=== PATIENT | female | born 1965 | race Caucasian/White ===

== ENCOUNTER 2018-11-27 10:35 | Outpatient (REF) | payer MEDICARE, SELFPAY ==
[2018-11-27 12:56] LABS: HGB 12.9 g/dL (12.0-15.5)
[2018-11-27 13:10] LABS: ALT 23 U/L (12-78); AST 16 U/L (15-37); Albumin 3.9 g/dL (3.4-5.0); Alkaline Phosphatase 108 U/L (46-116); Anion Gap 8.8 mmol/L (3-11); BUN 9 mg/dL (7-18); Bilirubin, Total 0.2 mg/dL (0.2-1.0); CO2 28.2 mmol/L (21.0-32.0); CREATININE 0.72 mg/dL (0.55-1.02); Calcium 8.7 mg/dL (8.5-10.1); Chloride 96 mmol/L (98-107); Glucose 111 mg/dL (70-100); Potassium 3.8 mmol/L (3.5-5.1); Sodium 133 mmol/L (136-145); Total Protein 7.1 g/dL (6.4-8.2)
[2018-11-28 11:12] LABS: Hepatitis C Ab w Rflx HCV PCR Negative (NEGAT)
== END 2018-11-27 10:55 ==
LOC: NCHCN 10:35
PROVIDERS: PCP Specialist/Technologist Athletic Trainer; Visit Provider Specialist/Technologist Athletic Trainer
DX: F10.10 Alcohol abuse, uncomplicated (principal); Z11.59 Encounter for screening for other viral diseases
CPT/HCPCS: 80053; 86803; 85014; 85018

== ENCOUNTER 2019-01-28 12:48 | Emergency (ER) | payer MEDICARE, SELFPAY ==
[2019-01-28] VITALS (32 sets, daily range): BP systolic 89–141; BP diastolic 49–89; PULSE 72–111; RESP 16–24; TEMP 37.3; O2SAT 88–97
[2019-01-28] MEDS: Normal Saline 1,000 ML 1000 ML IV ×2 (12:57→14:47)
[2019-01-28 13:14] LABS: Abs Immature Grans 0.03 k/cumm (0.0-0.09); Absolute Basophil Count 0.05 k/cumm (0.0-0.2); Absolute Eosinophil Count 0.03 k/cumm (0.0-0.7); Absolute Monocyte Count 0.87 k/cumm (0.11-0.7); Basophils % 0.5; Eosinophils % 0.3; HCT 37.9 % (36.0-46.0); HGB 13.3 g/dL (12.0-15.5); Immature Grans % 0.3; Lymphocytes % 29.6; Mean Corp. HGB Concentration 35.1 g/dL (32.0-36.0); Mean Corpuscular Hemoglobin 31.1 pg (27.0-33.0); Mean Corpuscular Volume 88.6 fL (80-95); Mean Platelet Volume 8.6 fL (8.0-11.0); Monocytes % 8.3; Platelet Count 289 x1000/uL (130-400); RBC 4.28 m/cumm (4.00-5.20); RBC Distribution Width 12.7 % (11.7-14.6); White Blood Cell Count 10.48 k/cumm (4.4-10.8)
[2019-01-28 13:37] LABS: ALT 36 U/L (12-78); AST 45 U/L (15-37); Albumin 4.1 g/dL (3.4-5.0); Alkaline Phosphatase 142 U/L (46-116); Anion Gap 19.4 mmol/L (3-11); BUN 9 mg/dL (7-18); Bilirubin, Total 0.3 mg/dL (0.2-1.0); CO2 19.6 mmol/L (21.0-32.0); CREATININE 0.76 mg/dL (0.55-1.02); Calcium 8.7 mg/dL (8.5-10.1); Chloride 98 mmol/L (98-107); ETHANOL BLOOD 171.3 mg/dL (<3); Glucose 88 mg/dL (70-100); Magnesium 1.9 mg/dL (1.8-2.4); Potassium 3.3 mmol/L (3.5-5.1); Sodium 137 mmol/L (136-145); Total Protein 7.9 g/dL (6.4-8.2)
[2019-01-28 14:30] LABS: Bilirubin Negative (Negative); Blood Trace-intact (Negative); Clarity Clear; Glucose Negative (Negative); Ketones Negative (Negative); Leukocyte Esterase Negative (Negative); Nitrite Negative (Negative); Urobilinogen 0.2 EU/dL (Up TO 0.2)
[2019-01-28 14:38] LABS: Epithelial Cells Many HPF (Negative); WBC Negative HPF (0-5)
[2019-01-28 14:39] LABS: Bacteria Few HPF (Negative); C & S Indicated? No; Casts Negative LPF (Negative); Crystals Negative HPF (Negative); Mucus Moderate (Negative)
[2019-01-28 14:42] LABS: *AMPHETAMINES SCREEN URINE Negative (Negative); *BARBITURATES SCREEN URINE Negative (Negative); *BENZODIAZEPINES SCREEN URINE Negative (Negative); Cannabinoids THC POSITIVE (Negative); Cocaine Screen,Urine Negative (Negative); METHADONE URINE SCREEN Negative (Negative); OPIATES URINE SCREEN Negative (Negative); Tricyclic Antidepressants Negative (Negative)
--- NOTE | 2019-01-28 14:43 | NUR.NOTE ---
Nursing Note: pt requesting snacks. approved. snacks provided
[2019-01-28] MEDS: Potassium Chloride 10 MEQ TABCR 20 MEQ PO (14:49)
--- NOTE | 2019-01-28 16:20 | NUR.NOTE ---
Nursing Note: pt resting in stretcher, no signs of distress, sleeping. facial expression and body language relaxed.
[2019-01-28] MEDS: levETIRAcetam 500 MG in Normal Saline 100 ML 400 MG IVPB (17:58)
[2019-01-28 18:12] LABS: Anion Gap 10.8 mmol/L (3-11); BUN 7 mg/dL (7-18); CO2 23.2 mmol/L (21.0-32.0); CREATININE 0.75 mg/dL (0.55-1.02); Calcium 7.8 mg/dL (8.5-10.1); Chloride 105 mmol/L (98-107); Glucose 81 mg/dL (70-100); Potassium 3.8 mmol/L (3.5-5.1); Sodium 139 mmol/L (136-145)
--- NOTE | 2019-01-28 18:51 | NUR.NOTE ---
Nursing Note: pt resting in stretcher, no sign of distress. pt is able to ambulate with steady gait without difficulty. No signs of any seizure activity since admission to ED
--- NOTE | 2019-01-28 18:53 | ED.GENADUL_ITS ---
Discharge Plan Disposition Patient Disposition: HOME Condition: Improving Discharge Details Chief Complaint: Seizure Clinical Impression: Seizure, Alcohol abuse Primary Care Provider: Americo Hough ED Provider: Ray Sadler Home Meds and New Rx's Prescriptions: Continued prazosin 1 mg capsule 1 mg PO QHS RF: 0 ibuprofen [Advil] 200 mg tablet 400 mg PO PRN RF: 0 atorvastatin 20 mg tablet 20 mg PO DAILY RF: 0 hydroxyzine HCl 25 mg/mL solution 25 mg IM .1-2 tabs tid prn RF: 0 levetiracetam [Keppra] 500 mg tablet 500 mg PO BID RF: 0 citalopram 40 MG tablet 40 mg PO DAILY Qty: 90 RF: 3 trazodone 50 MG tablet 100 mg PO HS Qty: 20 RF: 0 acetaminophen [Pain Reliever Extra Strength] 500 MG tablet 500 mg PO Q8H PRN PRNRF: 0 Discharge Instructions Instructions: Abuse of Alcohol (ED), Recurrent Seizures in Adults (ED) Additional Instructions: Please follow-up with neurology. Be sure to take your medication including Keppra as prescribed. Please do not drive or operate heavy machinery until cleared to do so by a healthcare provider. Please contact your primary care physician to arrange follow-up. Call tomorrow. Return to the ER for any worsening or new concerning symptoms. Referrals: Americo Hough [Primary Care Provider] - Ava Wynne MD [ [facility]FF [facility]YSICIAN] - Discharge Data Discharge Date/Time-TO BE ENTERED AT DEPARTURE: 01/28/19 19:02 Medical Decision Making 53-year-old female presents after presumed seizure with confusion. Suspect postictal state. No signs of trauma. Patient has no pain. Patient was given Ativan 4 mg by EMS. Labs revealed elevated ethanol level and anion gap acidosis. Patient admits to consuming alcohol last night. Patient was given IV fluid bolus 2 L and repeat chemistry revealed closure of anion gap acidosis. Patient rested in the emergency department for prolonged observation and until mentating well. No recurrent seizures. I discussed patient's seizure disorder. She does not believe seizures are related to alcohol withdrawal. She states she does not drink every day and does not feel the need to drink when she does not have it. Patient does note that she did not take her Keppra as prescribed yesterday. She does typically take it. She did take it this morning. Patient was given Keppra 500 mg IV bolus. Plan for discharge with outpatient follow-up with neurology and primary care physician. Patient was encouraged to take her Keppra as prescribed and to stop abusing alcohol. Disposition decision was made weighing the risks and benefits of hospitalization versus outpatient treatment, the risk for further decompensation, and the patient's wishes. The patient was stable and requested discharge. Prior to discharge, my usual and customary return precautions were reviewed with the patient - this included follow-up instructions and reason to return to the emergency department if condition worsens, does not improve as expected, or other new concerns arise. Lab Data Lab results reviewed: Yes I reviewed the patient's lab results. Laboratory Tests Range/Units 01/28/19 01/28/19 01/28/19 13:08 13:08 14:20 WBC (4.4-10.8) k/cumm 10.48 RBC (4.00-5.20) m/cumm 4.28 Hgb (12.0-15.5) g/dL 13.3 Hct (36.0-46.0) % 37.9 MCV (80-95) fL 88.6 MCH (27.0-33.0) pg 31.1 MCHC (32.0-36.0) g/dL 35.1 RDW (11.7-14.6) % 12.7 Plt Count (130-400) x1000/uL 289 MPV (8.0-11.0) fL 8.6 Immature Gran % 0.3 Neutrophils % 61.0 Lymphocytes % 29.6 Monocytes % 8.3 Eosinophils % 0.3 Basophils % 0.5 Absolute Neutrophils (1.2-6.7) k/cumm 6.40 Absolute Lymphocytes (1.2-3.4) k/cumm 3.10 Absolute Monocytes (0.11-0.7) k/cumm 0.87 H Absolute Eosinophils (0.0-0.7) k/cumm 0.03 Absolute Basophils (0.0-0.2) k/cumm 0.05 Sodium (136-145) mmol/L 137 Potassium (3.5-5.1) mmol/L 3.3 L Chloride (98-107) mmol/L 98 Carbon Dioxide (21.0-32.0) mmol/L 19.6 L Anion Gap (3-11) mmol/L 19.4 H BUN (7-18) mg/dL 9 Creatinine (0.55-1.02) mg/dL 0.76 Estimated GFR/1.73 m2 (mL/min/1.73m2) >= 60.00 Glucose (70-100) mg/dL 88 Calcium (8.5-10.1) mg/dL 8.7 Magnesium (1.8-2.4) mg/dL 1.9 Total Bilirubin (0.2-1.0) mg/dL 0.3 AST (15-37) U/L 45 H ALT (12-78) U/L 36 Alkaline Phosphatase (46-116) U/L 142 H Total Protein (6.4-8.2) g/dL 7.9 Albumin (3.4-5.0) g/dL 4.1 Urine Color (Yellow) Yellow Urine Clarity Clear Urine pH (5-8) 6.0 Ur Specific Halliday (1.005-1.025) 1.010 Urine Protein (Negative) mg/dL Negative Urine Ketones (Negative) mg/dL Negative Urine Blood (Negative) Trace-intact H Urine Nitrite (Negative) Negative Urine Bilirubin (Negative) Negative Urine Urobilinogen (Up TO 0.2) EU/dL 0.2 Ur Leukocyte Esterase (Negative) Negative Urine RBC (0-2) 3-5 H Urine WBC (0-5) HPF Negative Ur Epithelial Cells (Negative) HPF Many Urine Crystals (Negative) HPF Negative Urine Bacteria (Negative) HPF Few Urine Casts (Negative) LPF Negative Urine Mucus (Negative) Moderate Ur Culture Indicated? No Urine Glucose (Negative) mg/dL Negative Urine Opiates Screen (Negative) Urine Methadone Screen (Negative) Ur Barbiturates Screen (Negative) Ur Tricyclics Screen (Negative) Ur Amphetamines Screen (Negative) U Benzodiazepines Scrn (Negative) Urine Cocaine Screen (Negative) Ur THC Screen (Negative) Ethyl Alcohol (<3) mg/dL 171.3 Range/Units 01/28/19 01/28/19 14:20 17:59 WBC (4.4-10.8) k/cumm RBC (4.00-5.20) m/cumm Hgb (12.0-15.5) g/dL Hct (36.0-46.0) % MCV (80-95) fL MCH (27.0-33.0) pg MCHC (32.0-36.0) g/dL RDW (11.7-14.6) % Plt Count (130-400) x1000/uL MPV (8.0-11.0) fL Immature Gran % Neutrophils % Lymphocytes % Monocytes % Eosinophils % Basophils % Absolute Neutrophils (1.2-6.7) k/cumm Absolute Lymphocytes (1.2-3.4) k/cumm Absolute Monocytes (0.11-0.7) k/cumm Absolute Eosinophils (0.0-0.7) k/cumm Absolute Basophils (0.0-0.2) k/cumm Sodium (136-145) mmol/L 139 Potassium (3.5-5.1) mmol/L 3.8 Chloride (98-107) mmol/L 105 Carbon Dioxide (21.0-32.0) mmol/L 23.2 Anion Gap (3-11) mmol/L 10.8 BUN (7-18) mg/dL 7 Creatinine (0.55-1.02) mg/dL 0.75 Estimated GFR/1.73 m2 (mL/min/1.73m2) >= 60.00 Glucose (70-100) mg/dL 81 Calcium (8.5-10.1) mg/dL 7.8 L Magnesium (1.8-2.4) mg/dL Total Bilirubin (0.2-1.0) mg/dL AST (15-37) U/L ALT (12-78) U/L Alkaline Phosphatase (46-116) U/L Total Protein (6.4-8.2) g/dL Albumin (3.4-5.0) g/dL Urine Color (Yellow) Urine Clarity Urine pH (5-8) Ur Specific Halliday (1.005-1.025) Urine Protein (Negative) mg/dL Urine Ketones (Negative) mg/dL Urine Blood (Negative) Urine Nitrite (Negative) Urine Bilirubin (Negative) Urine Urobilinogen (Up TO 0.2) EU/dL Ur Leukocyte Esterase (Negative) Urine RBC (0-2) Urine WBC (0-5) HPF Ur Epithelial Cells (Negative) HPF Urine Crystals (Negative) HPF Urine Bacteria (Negative) HPF Urine Casts (Negative) LPF Urine Mucus (Negative) Ur Culture Indicated? Urine Glucose (Negative) mg/dL Urine Opiates Screen (Negative) Negative Urine Methadone Screen (Negative) Negative Ur Barbiturates Screen (Negative) Negative Ur Tricyclics Screen (Negative) Negative Ur Amphetamines Screen (Negative) Negative U Benzodiazepines Scrn (Negative) Negative Urine Cocaine Screen (Negative) Negative Ur THC Screen (Negative) Positive Ethyl Alcohol (<3) mg/dL HPI General Mode of arrival: ambulatory . Date/Time Provider Initiated Documentation: 01/28/19 12:49 . Limitations to Documentation: no limitations . Information obtained by: patient . HPI Narrative: 53-year-old female presents with chief complaint of seizure. Patient is she has a history of seizure. Patient states that today she started to experience seizure just prior to calling EMS. EMS arrived to find the patient confused and anxious. EMS administered 2 mg of Ativan IM and then another 2 mg of Ativan IV. History and review of systems limited on initial exam given her confusion. Related Data Home Medications Medication Instructions Recorded Confirmed citalopram 40 mg PO DAILY #90 tab-cap 11/04/15 01/28/19 trazodone 100 mg PO HS #20 tab-cap 03/30/16 01/28/19 acetaminophen [Pain Reliever Extra 500 mg PO Q8H PRN PRN 12/10/16 01/28/19 Strength] atorvastatin 20 mg tablet 20 mg PO DAILY 12/12/18 01/28/19 hydroxyzine HCl 25 mg/mL 25 mg IM .1-2 tabs tid prn ml 12/12/18 01/28/19 intramuscular solution ibuprofen 200 mg tablet 400 mg PO PRN tab 12/12/18 01/28/19 levetiracetam 500 mg tablet 500 mg PO BID 12/12/18 01/28/19 prazosin 1 mg capsule 1 mg PO QHS 12/12/18 01/28/19 Allergies Allergy/AdvReac Type Severity Reaction Status Date / Time morphine Allergy Itching Unverified 12/22/16 14:33 multivitamins AdvReac Uncoded 12/10/16 11:05 Review of Systems Review of Systems Limited secondary to confusion. Patient denies pain. Constitutional Denies fever(s) and Denies headache(s) ENT Denies headache(s) Cardiovascular Denies chest pain and Denies dyspnea Respiratory Denies dyspnea Gastrointestinal Denies abdominal pain Integumentary/Breasts Denies rash Neurologic Denies headache(s) PFSH Medical History Adenomatous polyp of colon (Acute) Cannabis abuse (Acute) Degenerative joint disease, shoulder, right (Acute) Grief at loss of child (Acute) Hepatitis B (Acute) Hyperlipidemia (Acute) Nightmare disorder (Acute) Panic disorder (Acute) Seizure (Acute) Tobacco abuse (Acute) ETOH abuse (Chronic) Alcohol abuse, in remission Anxiety BRCA2 positive Back pain, chronic Depression Surgical History (L) wrist surgery Cervical disc surgery Colonoscopy - MAC (09/27/16) Oophrectomy, Both gomez elbow surgery facial plastics hysterectomy Family History Brother Substance abuse Brother Hepatitis C Social History Smoking/Tobacco Use Status: Current every day Tobacco Type: cigarettes Alcohol Intake: current Alcohol Intake frequency: a few times a month Drug use: Never Substance use type: marijuana Do you feel safe in your relationship?: Yes Exam Const General: cooperative and no acute distress HENMT Head: normocephalic and atraumatic Mouth: moist mucous membranes Eyes Conjunctivae: normal conjunctivae Sclera: normal sclerae EOM: EOM intact bilaterally Neck Neck: trachea midline and supple Resp Auscultation: clear to auscultation bilaterally, no rales, no rhonchi and no wheezes Cardio Jugular venous pressure: no JVD Rate: tachycardic Rhythm: regular rhythm GI Palpation: soft, not firm, no guarding, no masses, not rigid and nontender Skin General skin exam: no rashes or lesions noted Neuro General: alert, awake, oriented x3, tone normal and moves all extremities Cranial Nerves: CN's II-XI intact bilaterally and PERRL Speech: speech normal Motor: muscle tone normal throughout and strength 5/5 throughout Sensory Exam: no sensory deficits noted Extrem General: no edema Psych Affect: anxious affect
--- NOTE | 2019-01-29 08:09 | NUR.NOTE ---
referral sent to patient pcp [facility] and Neurology Dr. Poe.Nursing Note:
== END 2019-01-28 19:02 | disposition home or self-care (01) ==
PROVIDERS: Emergency Provider Student in an Organized Health Care Education/Training Program; PCP Specialist/Technologist Athletic Trainer
DX: R56.9 Unspecified convulsions (principal); F10.10 Alcohol abuse, uncomplicated; Z91.14 Patient's other noncompliance with medication regimen
CPT/HCPCS: 36415; 80048; 80053; 80307; 96361; 96365; 99285; 80320; 81003; 81015; 83735; 85025; 99284; J1953

== ENCOUNTER 2019-03-05 00:39 | Outpatient (CLI) | payer MEDICARE, SELFPAY ==
--- NOTE | 2019-03-05 10:14 | DI.MAMMO_ITS ---
SYMPTOMS/DIAGNOSIS: SCREENING, IMPLANTS, BRCA2 GENETIC CARRIER, Z15.01 MAMMOGRAM: Mammograms were interpreted according to the usual protocol including computer analysis with CAD system, tomosynthesis and C view imaging. Comparison with prior examinations. Breast density B. The patient has bilateral breast implants which appear stable. No suspicious masses or microcalcifications are seen. The skin and axilla are unremarkable. IMPRESSION: No evidence for malignancy. Yearly mammography is recommended. Category I. MQSA ASSESSMENT OF FINDINGS: Negative. Category 1. Patient will receive a letter notifying them of these results. BI-RADS category B. There are scattered areas of fibroglandular density.
== END 2019-03-05 00:59 ==
PROVIDERS: PCP Specialist/Technologist Athletic Trainer; Visit Provider Specialist/Technologist Athletic Trainer
DX: Z12.31 Encounter for screening mammogram for malignant neoplasm of breast (principal); Z15.01 Genetic susceptibility to malignant neoplasm of breast; Z98.82 Breast implant status; R56.9 Unspecified convulsions
CPT/HCPCS: 77063; 77067; 95816

== ENCOUNTER 2019-03-05 14:58 | Outpatient (CLI) | payer MEDICARE, SELFPAY ==
--- NOTE | 2019-03-06 09:46 | PDOC.EEG_ITS ---
EEG: [facility] Department of Neurology EEG REPORT Date of Recordin03/05/19 Interpreting Physician: Dr. Ava Wynne PCP/Referring Provider: Americo Hough NP Reason for study: Ms. Brian is a 53 year-old woman with a past medical history of seizures and alcohol abuse with a recent event in January concerning for seizure. Current Medications: Home Medications Medication Instructions Recorded Confirmed Type citalopram 40 mg PO DAILY #90 tab-cap 11/04/15 01/28/19 History trazodone 100 mg PO HS #20 tab-cap 03/30/16 01/28/19 History acetaminophen [Pain Reliever Extra 500 mg PO Q8H PRN PRN 12/10/16 01/28/19 History Strength] atorvastatin 20 mg tablet 20 mg PO DAILY 12/12/18 01/28/19 History hydroxyzine HCl 25 mg/mL 25 mg IM .1-2 tabs tid prn ml 12/12/18 01/28/19 History intramuscular solution ibuprofen 200 mg tablet 400 mg PO PRN tab 12/12/18 01/28/19 History levetiracetam 500 mg tablet 500 mg PO BID 12/12/18 01/28/19 History prazosin 1 mg capsule 1 mg PO QHS 12/12/18 01/28/19 History lorazepam 0.5 mg tablet 0.5 mg PO BID PRN 03/01/19 History METHODS: A 21 channel digitized electroencephalogram was performed in the [facility] Clinical Neurophysiology Laboratory. The 10/20 international system of electrode placement was used and bipolar and referential electrode montages were recorded. In addition to EEG the patient was monitored for EKG and lateral/vertical eye movements. Activation procedures of photic stimulation and hyperventilation were performed if applicable. Video was used during activation procedures and during events where applicable. The duration of the recording was 30 minutes. DESCRIPTION OF EEG: The patient was noted to be awake only during the recording. During maximal wakefulness a 10-Hz posterior background rhythm was present which was well- modulated, symmetrical, reactive to eye opening, and of moderate voltage. With eye opening the background activity changed to a low voltage mixture of alpha, beta, and occasional theta range frequencies. Faster frequencies were present in the bilateral anterior head regions. There was a normal anterior-posterior voltage gradient. No drowsiness or stage II sleep was recorded. There was excessive diffuse beta activity throughout. This is usually due to medication effects. Activating Procedures: Photic stimulation was not performed (patient pulled off leads before this could be completed). Hyperventilation was performed with moderate effort and produced no physiological slowing of the background. EKG: EKG revealed normal sinus rhythm in the beginning of the recording. It was not readable/interpretable in the latter half. INTERPRETATION: This EEG is normal during the awake state as well as during hyperventilation. PRIOR EEG: none CLINICAL CORRELATION: No focal regions of cerebral dysfunction or epileptiform activity was present. Epilepsy remains a clinical diagnosis and a normal EEG does not rule out epilepsy. Clinical correlation is advised. Ava Wynne MD
== END 2019-03-05 15:18 ==
PROVIDERS: PCP Specialist/Technologist Athletic Trainer; Visit Provider Specialist/Technologist Athletic Trainer
DX: R56.9 Unspecified convulsions (principal); R68.89 Other general symptoms and signs; Z86.69 Personal history of other diseases of the nervous system and sense organs
CPT/HCPCS: 95816

== ENCOUNTER 2019-07-23 09:36 | Outpatient (REF) | payer MEDICARE, SELFPAY ==
[2019-07-23 21:38] LABS: ALT 23 U/L (14-59); AST 21 U/L (15-37); Albumin 3.9 g/dL (3.4-5.0); Alkaline Phosphatase 110 U/L (46-116); Anion Gap 9.6 mmol/L (3-11); BUN 11 mg/dL (7-18); Bilirubin, Total 0.3 mg/dL (0.2-1.0); CO2 25.4 mmol/L (21.0-32.0); CREATININE 0.63 mg/dL (0.55-1.02); Calcium 8.7 mg/dL (8.5-10.1); Chloride 103 mmol/L (98-107); Glucose 109 mg/dL (74-106); Sodium 138 mmol/L (136-145); Total Protein 7.3 g/dL (6.4-8.2)
== END 2019-07-23 09:56 ==
LOC: NCHCN 09:36
PROVIDERS: PCP Specialist/Technologist Athletic Trainer; Visit Provider Specialist/Technologist Athletic Trainer
DX: Z00.00 Encounter for general adult medical examination without abnormal findings (principal); Z13.228 Encounter for screening for other metabolic disorders
CPT/HCPCS: 80053

== ENCOUNTER 2020-02-18 07:10 | Outpatient (CLI) | payer MEDICARE, SELFPAY ==
--- NOTE | 2020-02-18 08:00 | ETT_ITS ---
APPROVED REPORT Exam: Exercise Treadmill Patient Location: Out-Patient Room/Bed: Stress Nurse: Meredith Stewart RN BMI: 26.62 Baseline Rhythm: Sinus Rhythm Indications: Increased SOB with activity, sometimes associated with chest tightness, relieved with re st. Medical History Medical History: Depression, HTN, Hyperlipidemia, Smoking Cardiac Medications: Atorvastatin. Lisinopril., Allergies: Morphine Cardiac Risk Factors: HTN, Hyperlipidemia, FHX of CAD, Smoking, Emphysema. Pretest Chest Pain Characteristics: Dyspnea Exercise History: Physically active Lung Sounds: Clear to auscultation Heart Sounds: Regular Stress Test Details Test: Exercise stress testing was performed using a Yoandy protocol. Rest Stress HR Resting HR Supine: 76 bpm Max Heart Rate (APMHR): 166 bpm Resting HR Standin bpm Target HR (85% APMHR): 141 bpm Max HR Achieved: 120 bpm % of APMHR: 72 Recovery HR: 69 bpm HR response to stress: Normal HR response to stress BP Resting BP Supine: 120/72 mmHg Resting BP Standin/64 mmHg Max BP: 158/60 mmHg Recovery BP: 128/70 mmHg BP response to stress: Normal blood pressure response to stress. ECG Resting ECG: Sinus Rhythm Stress ECG: Sinus Rhythm, Sinus Tachycardia ST Change: No significant ST segment changes Arrhythmia: None Recovery ECG: Sinus Rhythm, , Clear, Sinus Rhythm Recovery ST Change: No significant ST segment changes Recovery Arrhythmia: None Clinical Reason for Termination: Dyspnea, Dizziness Stress Symptoms: Dyspnea, Dizziness Exercise duration: 04 min02 sec Highest Stage Reached: Stage 2: 2.5 mph at 12% grade. Exercise capacity: 5.87 METs Functional Capacity: Mildly deminished capacity Stress ECG Conclusion 1. Below average exercise tolerance of 5.87 METS, limited by shortness of breath and dizziness 2. Resting electrocardiogram is within normal limits 3. Normal heart rate and blood pressure response to exercise 4. She achieved 72% of predicted heart rate for age. At that heart rate and workload achieved, there was no electrocardiographic evidence of myocardial ischemia but the test overall is nondiagnostic du e to inadequate heart rate 5. Dixon treadmill score is 4, which translates to medium risk with 95% survival at 5 years Stress Test Summary STAGE Time (mins) Speed (mph) Grade (%) HR BP SYMPTOMS METS Supine 76 120/72 Standing 77 126/64 1 3 1.7 10 99 152/62 4.6 2 6 2.5 12 Dyspnea, lightheaded and dizzy. 7 1 min recovery 98 158/60 3 min recovery 75 146/64 6 min recovery 69 128/70
== END 2020-02-18 07:30 ==
PROVIDERS: PCP Specialist/Technologist Athletic Trainer; Visit Provider Nurse Practitioner Family
DX: R06.02 Shortness of breath (principal); R07.89 Other chest pain; I10 Essential (primary) hypertension; E78.5 Hyperlipidemia, unspecified; Z82.49 Family history of ischemic heart disease and other diseases of the circulatory system; F17.210 Nicotine dependence, cigarettes, uncomplicated
CPT/HCPCS: 93016; 93018; 93017

== ENCOUNTER 2020-03-03 16:41 | Outpatient (REF) | payer MEDICARE, SELFPAY ==
[2020-03-03 20:08] LABS: Alkaline Phosphatase 111 U/L (46-116); Anion Gap 12.1 mmol/L (3-11); BUN 11 mg/dL (7-18); CO2 23.9 mmol/L (21.0-32.0); CREATININE 0.89 mg/dL (0.55-1.02); Chloride 101 mmol/L (98-107); Creatine Kinase 125 U/L (26-192); Glucose 115 mg/dL (74-106); Potassium 4.1 mmol/L (3.5-5.1); Sodium 137 mmol/L (136-145)
[2020-03-03 20:14] LABS: GGT 33 U/L (5-55)
== END 2020-03-03 17:01 ==
LOC: NCHCN 16:41
PROVIDERS: PCP Specialist/Technologist Athletic Trainer; Visit Provider Nurse Practitioner Family
DX: I10 Essential (primary) hypertension (principal); R89.9 Unspecified abnormal finding in specimens from other organs, systems and tissues
CPT/HCPCS: 80048; 82550; 82977; 84075

== ENCOUNTER 2020-03-18 01:31 | Outpatient (CLI) | payer MEDICARE, SELFPAY ==
--- NOTE | 2020-03-18 | DI.MAMMO_ITS ---
EXAM: MG MAMMO SCREENING 60 MIN DUR CLINICAL HISTORY: SCREENING, IMPLANTS TECHNIQUE: Bilateral full field digital CC and MLO mammographic images were obtained with 3D tomosyn thesis and utilizing computer aided detection (CAD). COMPARISON: Available for comparison. FINDINGS: Masses/Architectural Distortion: None seen. Microcalcifications: No suspicious pleomorphic-type are seen. Skin Thickening/Nipple Retraction: None. Breast implants: Stable. IMPRESSION: 1. No significant interval change with no specific features of malignancy noted. 2. Unless there is more urgent need, screening mammography is recommended, as per [employer] [employer] guidelines. BI-RADS Category 1 - Negative Breast Density - Category B - Scattered areas of fibroglandular density A negative radiographic report should not delay biopsy if a dominant or clinically suspicious mass is present. Up to ten percent of cancers are not identified on mammography. A negative report may reinforce clinical impression. Adenosis and dense breasts may obscure an underlying neoplasm. False positive reports average 6 to 10%. Patient will receive a letter notifying them of these results.
== END 2020-03-18 01:51 ==
PROVIDERS: PCP Nurse Practitioner Family; Visit Provider Nurse Practitioner Family
DX: Z12.31 Encounter for screening mammogram for malignant neoplasm of breast (principal)
CPT/HCPCS: 77063; 77067

== ENCOUNTER 2020-03-21 08:04 | Outpatient (CLI) | payer MEDICARE, SELFPAY ==
[2020-03-22 17:28] LABS: COVID-19 RT-PCR Result NEGATIVE (Negative)
== END 2020-03-21 08:24 ==
PROVIDERS: PCP Nurse Practitioner Family; Visit Provider Family Medicine
DX: Z11.59 Encounter for screening for other viral diseases (principal); Z01.818 Encounter for other preprocedural examination
CPT/HCPCS: U0003

== ENCOUNTER 2020-03-24 02:48 | Outpatient (CLI) | payer MEDICARE, SELFPAY ==
[2020-03-24] MEDS: Methacholine 100 MG VIAL IH (12:00)
[2020-03-24] MEDS: Inhaler, Assist Device 1 EACH MC (12:00)
[2020-03-24] MEDS: Albuterol HFA 18 GM 200 PUFF INH IH (12:00)
--- NOTE | 2020-03-24 14:40 | W.PFT ---
Date of service: 03/24/20 Time of Service: 10:04 Pulmonary Function Test Result Interpretation Spirometry: Shows no evidence of obstructive airways disease. No bronchodilator Response Lung Volumes: No evidence of restriction. Mild to moderate hyperinflation and air trapping Diffusion Capacity: Mildly reduced even when corrected to alveolar volume Airway Pressure: Normal Impression While there is no evidence of obstructive airways disease or bronchodilator response, there is mild hyperinflation and air trapping and mild diffusion defect Clinical Correlation therefore is recommended. Methacholine Challnege Test Date of Service Date of Service: 03/24/2020 Note After normal spirometry but lung volumes showing mild hyperinflation and air trapping and mild diffusion defect methacholine challenge testing was carried out up to a concentration of 4 mg/mL. At that point there was a 23% drop in FEV1. Impression Positive methacholine challenge test. Clinical correlation recommended
== END 2020-03-24 03:08 ==
PROVIDERS: PCP Nurse Practitioner Family; Visit Provider Nurse Practitioner Family
DX: R06.02 Shortness of breath (principal); F17.210 Nicotine dependence, cigarettes, uncomplicated; R94.2 Abnormal results of pulmonary function studies
CPT/HCPCS: 94060; 94726; 94729; 95070; 94010; J7674

== ENCOUNTER 2020-05-07 02:58 | Outpatient (CLI) | payer MEDICARE, SELFPAY ==
--- NOTE | 2020-05-07 | DI.CTLCSR_ITS ---
EXAM: CT CHEST LUNG CANCER SCREEN CLINICAL HISTORY: SCREENING FOR LUNG CA,Z12.9,CURRENT SMOKER, F17.210 TECHNIQUE: Imaging Protocol: Axial computed tomography images with coronal and sagittal reformatted images were created and reviewed COMPARISON: CT CHEST ABD PELVIS WITH CONTRAST from 12/01/2015 FINDINGS: Tracheobronchial tree: Patent where visualized. Mediastinum and Vicki: No dominant adenopathy or fluid collection. Pulmonary parenchyma: No consolidation or dominant measurable mass. Moderate centrilobular emphysema . There are 2 small nodules in the left major fissure. Pleura: No effusion or pneumothorax. Heart: The heart is not dilated. Minimal coronary artery calcifications are seen. Aorta: Thoracic aorta non-dilated. Upper abdomen: Unremarkable. Bones: Mild degenerative changes Soft Tissues: Bilateral breast implants IMPRESSION: Centrilobular emphysema greater in the upper lobes. No suspicious pulmonary nodules. Lung RADS Cat 2 - Benign Appearance / Behavior: Nodules with a very low likelihood of becoming a clin ically active cancer due to size or lack of growth modifier S Lung-RADS 1.0 CATEGORIES: Category 0 - Prior chest CT exam(s) being located for comparison. Category 1 - Annual screening in 12 months. No nodules or definitely benign nodules. Category 2 - Annual screening in 12 months. Benign appearance. Nodules with low likelihood of becomin g active cancer. Category 3 - 6-month follow-up. Probably benign. Short-term follow-up suggested. Nodules with low lik elihood of becoming active cancer. Category 4A - 3-month follow-up and CT/PET if >8 mm in size. Suspicious finding. Findings which requi re additional testing. Category 4B - Findings which require additional testing and tissue sampling. Suspicious finding. C Added to Any of the Above - History of prior lung cancer screening. S Added to Any of the Above - Significant unexpected other finding. RADIATION DOSE DELIVERED: 72.22mGy.cm Total DLP DATA REPOSITORY: All CT scans at this facility are submitted to the National Radiology Data Registry (NRDR) Dose Index Registry (DIR) with the [employer] ([employer]). RADIATION OPTIMIZATION: All CT scans at this facility use at least one of these dose optimization te chniques: automated exposure control; mA and/or kV adjustment per patient size (includes targeted exa ms where dose is matched to clinical indication); or iterative reconstruction.
== END 2020-05-07 03:18 ==
PROVIDERS: PCP Nurse Practitioner Family; Visit Provider Nurse Practitioner Family
DX: Z12.2 Encounter for screening for malignant neoplasm of respiratory organs (principal); F17.210 Nicotine dependence, cigarettes, uncomplicated; J43.2 Centrilobular emphysema
CPT/HCPCS: G0297

== ENCOUNTER 2020-08-06 15:14 | Outpatient (REF) | payer MEDICARE, SELFPAY ==
[2020-08-06 21:03] LABS: ALT 28 U/L (14-59); AST 20 U/L (15-37); HDL Cholesterol 65 mg/dL (40-60); LDL CHOLESTEROL 125 mg/dL (<100)
[2020-08-06 21:21] LABS: Creatine Kinase 181 U/L (26-192)
== END 2020-08-06 15:34 ==
LOC: NCHCN 15:14
PROVIDERS: PCP Nurse Practitioner Family; Visit Provider Nurse Practitioner Family
DX: E78.5 Hyperlipidemia, unspecified (principal)
CPT/HCPCS: 82550; 83721; 83718; 84450; 84460

== ENCOUNTER 2020-09-29 20:41 | Outpatient (REF) | payer MEDICARE, SELFPAY ==
[2020-09-29 16:32] LABS: Anion Gap 9.3 mmol/L (3-11); BUN 11 mg/dL (7-18); CO2 27.7 mmol/L (21.0-32.0); CREATININE 0.8 mg/dL (0.55-1.02); Chloride 94 mmol/L (98-107); Glucose 118 mg/dL (74-106); Sodium 131 mmol/L (136-145)
== END 2020-09-29 20:42 | disposition home or self-care (01) ==
LOC: NCHCN 20:41
PROVIDERS: PCP Nurse Practitioner Family; Visit Provider Nurse Practitioner Family
DX: I10 Essential (primary) hypertension (principal)
CPT/HCPCS: 80048

== ENCOUNTER 2021-07-21 15:41 | Outpatient (REF) | payer MEDICARE, MEDICAID, SELFPAY ==
--- NOTE | 2021-07-21 15:15 | PAPFT_PTH ---
PATIENT: Maria Isabel Brian LOC: [facility]#:[id number] AGE/SX: 56/F ROOM: RE07/21/[address]: China Herring : 1965 BED: DIS: 07/21/2021 SPEC #: [id number] RECD: 07/21/21 17:40 STATUS: MARLEY REOmega #: [id number] MAHAMED: 07/21/21 15:[address]: China Herring DEPT: [facility] Cytology RECD BY: Anita Bradford Tissues: 1 - CX/ENDOCX FOR PAP SMEARS Procedures: PAP THIN PREP/UVM Screening HPV DNA PROBE Comments: [id number]
[2021-07-21 19:38] LABS: ALT 36 U/L (14-59); AST 25 U/L (15-37); Anion Gap 8.9 mmol/L (3-11); BUN 12 mg/dL (7-18); CO2 27.1 mmol/L (21.0-32.0); CREATININE 0.8 mg/dL (0.55-1.02); Calcium 8.7 mg/dL (8.5-10.1); Chloride 100 mmol/L (98-107); Glucose 92 mg/dL (74-106); HDL Cholesterol 58 mg/dL (40-60); LDL CHOLESTEROL 76 mg/dL (<100); Potassium 3.7 mmol/L (3.5-5.1); Sodium 136 mmol/L (136-145)
[2021-07-21 20:13] LABS: Creatine Kinase 200 U/L (26-192)
== END 2021-07-21 15:42 | disposition home or self-care (01) ==
LOC: NCHCN 15:41
PROVIDERS: PCP Nurse Practitioner Family; Visit Provider Nurse Practitioner Family
DX: Z12.4 Encounter for screening for malignant neoplasm of cervix (principal); E78.5 Hyperlipidemia, unspecified; Z11.51 Encounter for screening for human papillomavirus (HPV); R87.810 Cervical high risk human papillomavirus (HPV) DNA test positive; I10 Essential (primary) hypertension; Z01.419 Encounter for gynecological examination (general) (routine) without abnormal findings
CPT/HCPCS: 80048; 82550; 83721; 88142; 83718; 84450; 84460; 87624

== ENCOUNTER 2021-09-16 10:21 | Outpatient (REF) | payer MEDICARE, MEDICAID, SELFPAY ==
--- NOTE | 2021-09-16 09:45 | PAPFT_PTH ---
PATIENT: Maria Isabel Brian LOC: [facility]#:[id number] AGE/SX: 56/F ROOM: RE09/16/[address]: China Herring : 1965 BED: DIS: 09/16/2021 SPEC #: [id number] RECD: 09/16/21 13:11 STATUS: MARLEY REOmega #: [id number] MAHAMED: 09/16/21 09:[address]: China Herring DEPT: [facility] Cytology RECD BY: Anita Bradford Tissues: 1 - CX/ENDOCX FOR PAP SMEARS Procedures: PAP THIN PREP/UVM Screening Comments: [id number] (UNSATISFACTORY FOR EVALUATION)
[2021-09-16 13:13] LABS: ALT 26 U/L (14-59); AST 19 U/L (15-37); HDL Cholesterol 52 mg/dL (40-60); LDL CHOLESTEROL 100 mg/dL (<100)
[2021-09-16 13:27] LABS: Creatine Kinase 213 U/L (26-192)
== END 2021-09-16 10:22 | disposition home or self-care (01) ==
LOC: NCHCN 10:21
PROVIDERS: PCP Nurse Practitioner Family; Visit Provider Nurse Practitioner Family
DX: E78.5 Hyperlipidemia, unspecified (principal); Z12.4 Encounter for screening for malignant neoplasm of cervix; Z01.419 Encounter for gynecological examination (general) (routine) without abnormal findings; R87.615 Unsatisfactory cytologic smear of cervix
CPT/HCPCS: 82550; 83721; 88142; 83718; 84450; 84460

== ENCOUNTER 2021-10-27 10:33 | Outpatient (REF) | payer MEDICARE, MEDICAID, SELFPAY ==
[2021-10-27 12:58] LABS: Calculated LDL 179 mg/dL (<100); Cholesterol 251 mg/dL (<200); HDL Cholesterol 58 mg/dL (40-60); Triglyceride 71 mg/dL (<150)
== END 2021-10-27 10:34 | disposition home or self-care (01) ==
LOC: NCHCN 10:33
PROVIDERS: PCP Nurse Practitioner Family; Visit Provider Nurse Practitioner Family
DX: E78.5 Hyperlipidemia, unspecified (principal)
CPT/HCPCS: 80061

== ENCOUNTER 2021-11-09 14:48 | Outpatient (REF) | payer MEDICARE, MEDICAID, SELFPAY ==
--- NOTE | 2021-11-09 14:40 | ENDO_PTH ---
PATIENT: Maria Isabel Brian LOC: [facility] U#:[id number] AGE/SX: 56/F ROOM: RE11/09/[address]: Sweetie Squires DO : 1965 BED: DIS: 11/09/2021 SPEC #: [id number] RECD: 11/09/21 17:19 STATUS: MARLEY RE #: [id number] MAHAMED: 11/09/21 14:[address]: Sweetie Squires DEPT: Surgical Specimen RECD BY: Anita Bradford ENTERED: 11/09/21 17:19 SP TYPE: Endo OTHR DR: China Herring Tissues: 1 - ENDOCERVICAL BX/CURRETTE 2 - CERVICAL BIOPSY Procedures: GROSS AND MICRO LEVEL 4 Comments: [id number]
== END 2021-11-09 14:49 | disposition home or self-care (01) ==
LOC: LBN 14:48
PROVIDERS: PCP Nurse Practitioner Family; Visit Provider Obstetrics & Gynecology
DX: N88.8 Other specified noninflammatory disorders of cervix uteri (principal); Z87.410 Personal history of cervical dysplasia
CPT/HCPCS: 88305

== ENCOUNTER 2022-01-21 16:51 | Outpatient (REF) | payer MEDICAID, SELFPAY ==
[2022-01-21 15:57] LABS: ALT 20 U/L (14-59); AST 23 U/L (15-37); Albumin 3.7 g/dL (3.4-5.0); Alkaline Phosphatase 113 U/L (46-116); Anion Gap 7.9 mmol/L (3-11); BUN 11 mg/dL (7-18); Bilirubin, Total 0.4 mg/dL (0.2-1.0); CO2 27.1 mmol/L (21.0-32.0); CREATININE 0.8 mg/dL (0.55-1.02); Calcium 8.6 mg/dL (8.5-10.1); Chloride 100 mmol/L (98-107); Glucose 119 mg/dL (74-106); HDL Cholesterol 60 mg/dL (40-60); LDL CHOLESTEROL 140 mg/dL (<100); Sodium 135 mmol/L (136-145); Total Protein 7.1 g/dL (6.4-8.2)
[2022-01-21 18:37] LABS: Creatine Kinase 154 U/L (26-192)
== END 2022-01-21 16:52 | disposition home or self-care (01) ==
LOC: NCHCN 16:51
PROVIDERS: PCP Nurse Practitioner Family; Visit Provider Nurse Practitioner Family
DX: E78.5 Hyperlipidemia, unspecified (principal); M79.10 Myalgia, unspecified site
CPT/HCPCS: 80053; 82550; 83721; 83718

== ENCOUNTER → 2022-01-29 00:41 | Outpatient (CLI) | payer MEDICAID, SELFPAY ==
--- OUTSIDE RECORDS SUMMARY | 2022-01-29 00:43 | XMS_ITS | Encounter Summary ---
:1965 Author Organization [facility] [place] [address] Care Team Providers Name Role Phone Americo Hough Primary Care Provider Reason for Visit Reason Onset Date Comments Medication Refill 03/14/2017 Encounter Details Date Type Department Care Team Description 03/14/2017 Refill Orthopaedics at [facility] Glen Paul MD [facility], [place] [address] ORTHOPAEDIC SURGERY [phone] [place], [place] [address] (Wo rk) Social History Tobacco Use Types Packs/Day Years Used Date Current Every Day Smoker Cigarettes 1 Smokeless Tobacco: Never Used Alcohol Use Standard Drinks/Week Comments Yes 8.3 (1 standard drink = 0.6 oz pure alco hol) once in a while Sex Assigned at Date Recorded Not on file documented as of this encounter Miscellaneous Notes Telephone Encounter - Elisa Deleon - 03/14/2017 11:27 AM EDT Call placed to patient let her know that the refill for oxycodone was placed, we need her to begin to wean and continue with Tylenol. Avoid NSAIDs. She knows that she is to take it as prescribed 1-2 every 6 hours and should alternate with Tylenol. Maria Isabel verbalized understanding of instructions and voiced no other questions or concerns at this time. Telephone Encounter - Elisa Deleon - 03/14/2017 10:43 AM EDT Patient calling requesting a refill of dilaudid. She received refill on Tuesday, will review with upper extremity team Returned call to patient; states pain has been horrendus she is at 2tab every 3.5 hours, her has been setting an alarm at night to take medication. She is not sleeping well either, she is taking 1,000mg every 6hr. Maria Isabel is not taking any other pain medication at this time. Discussed that she needs to begin to wean from the medication but we will review with providers. documented in this encounter Plan of Treatment Not on filedocumented as of this encounter Visit Diagnoses Not on filedocumented in this encounter Care Teams Licensed Life And Health Agent Relationship Specialty Start Date End Date Americo Hough PA PCP - General General Internal Medicine 08/04/16 [address] [place] [address] documented as of this encounter
--- OUTSIDE RECORDS SUMMARY | 2022-01-29 00:43 | XMS_ITS | Encounter Summary ---
:1965 Author Organization [facility] [place] [address] Care Team Providers Name Role Phone Americo Hough Primary Care Provider Reason for Referral Diagnostic Test (Routine) - Closed Specialty Diagnoses / Procedures Referred By Contact Refer red To Contact Radiology Diagnoses Pain in left wrist Fannie Gomez PA [facility] Rad Mri Procedures MRI Wrist wo Contrast Left (Generic) [address] [place] [address] [place] [address] Referral ID Status Reason Start Date Expiration Date Visits V isits Requested Authorized [id number] Closed Specialty 02/28/2017 05/29/2017 1 1 Service Requested Reason for Visit Reason Comments Left Wrist Pain doi 10/2015 Encounter Details Date Type Department Care Team Description 02/28/2017 Office Visit Orthopaedics at [facility] Glen Paul, Pain in left wrist [facility] [place] [address] [place] [address] ORTHOPAEDIC SURGERY [place], [place] [address] Social History Tobacco Use Types Packs/Day Years Used Date Current Every Day Smoker Cigarettes 1 Smokeless Tobacco: Never Used Tobacco Cessation: Ready to Quit: No; Co unseling Given: No Alcohol Use Standard Drinks/Week Comments Yes 8.3 (1 standard drink = 0.6 oz pure alco hol) once in a while Sex Assigned at Date Recorded Not on file documented as of this encounter Last Filed Vital Signs Vital Sign Reading Time Taken Comments Blood Pressure 137/88 02/28/2017 8:05 AM EDT Pulse 78 02/28/2017 8:05 AM EDT Temperature - - Respiratory Rate - - Oxygen Saturation - - Inhaled Oxygen Concentration - - Weight 72.6 kg (160 lb) 02/28/2017 8:05 AM EDT stated Height 167.6 cm (5' 6) 02/28/2017 8:05 AM EDT stated Body Mass Index 25.82 02/28/2017 8:05 AM EDT documented in this encounter Progress Notes Glen Paul MD - 02/28/2017 8:30 AM EDT I saw Maria Isabel Brian with EDUARDO Schwartz. 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 She now presents with radioscaphoid arthritis. I cannot tell if she has midcarpal arthritis or not. She wishes to have this surgically managed. I did tell her if her midcarpal joint is in good condition that a proximal row carpectomy might be appropriate but if her midcarpal joint has arthritic changes especially at the proximal pole of the capitate, then scaphoid excision and 4-corner fusion with bone grafting may need to be done. She is aware that with either surgery she would likely lose at least half of her wrist motion and also that secondary surgery may be needed to manage any additional arthritis that could develop. We will schedule a MRI to assess the quality of her articular surfaces and I will see her back after that to make a surgical plan with her for either proximal row carpectomy or scaphoid excision and 4-corner fusion depending on the findings of MRI. Fannie Gomez PA - 02/28/2017 8:30 AM EDT This 51-year-old female comes in today for continued problems with left wrist pain. She has been last seen in this department in 2012 and was noted to have radiocarpal arthritis at that time. She was fitted with a wrist splint which she has used off and on over the years. She has not had good success with cortisone injections in other areas of her body and really is not interested in trying that for this. She recently underwent a right total shoulder arthroplasty which is doing well, but during that recovery used her left arm much more and finds that this has really aggravated her wrist arthritis and it continues to be painful and interfere with the use of her hand. She has occasional numbness and tingling in the fingers. 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 Examination today of her left wrist shows mild swelling of the radiocarpal joint. No erythema or warmth. She is tender over the radiocarpal joint. She has full range of motion of her fingers and admits to normal sensation in the fingers. Now the hand is well-perfused. She has 50 degrees of extension of the wrist, 30 degrees of flexion. She has pain with radial deviation. X-rays take today show radiocarpal arthritis. It is difficult to assess how much midcarpal arthritis there is. IMPRESSION: Left wrist pain secondary to radiocarpal arthritis. TREATMENT: We discussed treatment options to include nonsurgical with splinting and steroid injections or surgical treatment. Patient would like to proceed with surgery. We advised that we would like a MRI prior to scheduling surgery to assess how much midcarpal arthritis there is to help determine if she would benefit from scaphoid excision, 4-corner fusion, versus proximal row carpectomy. She was advised that surgical treatment would result in a loss of motion. She would be casted for a period of time. It is possible that she would require further surgeries in the future. She would like to proceed. MRI will be scheduled. We will see her back to go over those findings and determine appropriate surgical planning. documented in this encounter Plan of Treatment Not on filedocumented as of this encounter Results MRI Wrist wo Contrast Left (Generic) (03/02/2017 11:35 AM EDT) Anatomical Region Laterality Modality Wrist Left Magnetic Resonance Specimen (Source) Anatomical Location Collection Method / Collectio n Time Received Time / Laterality Volume Impressions 03/02/2017 2:53 PM EDT 1. ??Marked osteoarthropathy all along the radioscaphoid articulation, with involvement of the radiolunate articulat ion questioned. 2. ??Midcarpal joint osteoarthropathy, i nvolving both the STT joint and lunocapitate articulation. 1.1-cm ossicl e dorsal to the lunatocapitate articulation, which could be secondary t o remote prior trauma. 3. ??Intermediate signal and ill-definit ion in the dorsal component of the scapholunate ligament, which could repre sent a partial injury. 4. ??Intermediate signal in the central TFCC, which could represent sprain/partial tearing, without a full-t hickness tear seen. 5. ??Tenosynovitis of the second and thi rd extensor compartment. In the proper clinical setting, an intersection syndro me could be considered. Narrative 03/02/2017 2:53 PM EDT EXAMINATION: MRI WRIST WO CONTRAST LEFT (GENERIC) CLINICAL HISTORY: Pain in the left wrist . Evaluate for radiocarpal and midcarpal joint arthritis TECHNIQUE: MRI of the left wrist was performed with out intravenous contrast. COMPARISON: Attention is also directed to left wrist radiographs ranging from 12/06/2012 through 02/28/2017. FINDINGS: Joint space and synovium: There is no ra diocarpal or midcarpal joint effusion. There is a trace of distal radioulnar lorri int fluid. There is also small fluid in the pisotriquetral recess. Bones and articular cartilage: There is a well-corticated 1.1 x 0.5 x 0 .9 cm irregular-shaped ossicle immediately dorsal to the lunatocapitate articulation, compatible with a sequela of remote prior trauma. There is no acut e fracture. The alignment is normal. There is patchy full-thickness articular cartilage loss across the entire radioscaphoid articulation, with patchy underlying subchondral bone edema. A large subchondral cyst in the proximal v olar aspect of the lunate could reflect poorly seen underlying articular cartila ge loss at the radiolunate articulation. There is also patchy articular cartilage loss along the scaphotrapeziotrapezoidal joint, with ad jacent subchondral cysts and subchondral bone edema. There is also articular cart ilage loss at the anterior aspect of the lunocapitate articulation, with adjacent subchondral cysts as well as small marginal osteophytes anteriorly and dors ally, also compatible with midcarpal joint arthropathy. There is also first carpometacarpal join t osteoarthropathy, characterized by moderately-sized marginal osteophytes. Tiny subchondral cysts in the distal vol ar aspect of the triquetrum could reflect osteoarthropathy at the pisotriq uetral articulation. Tendons: There is peritendinous fluid in the second and third extensor compartment tendon sheaths, compatible w ith tenosynovitis, an intersection syndrome considered in the appropriate c linical setting. The flexor tendons show normal signal intensity and configuratio n. ??The carpal tunnel shows normal morphology. Ligaments: There is intermediate signal and ill-definition in the dorsal component of the scapholunate ligament, which could represent a partial injury (series 3 images 13-14). There is interm ediate signal in the central portion of the triangular fibrocartilage complex, w hich could represent fraying/partial tearing, without a full-thickness tear s een. Nerves: The median and ulnar nerves are normal in appearance. Procedure Note Sara Fleming MD - 03/02/2017Formatting o f this note might be different from the original. EXAMINATION: MRI WRIST WO CONTRAST LEFT (GENERIC) CLINICAL HISTORY: Pain in the left wrist . Evaluate for radiocarpal and midcarpal joint arthritis TECHNIQUE: MRI of the left wrist was performed with out intravenous contrast. COMPARISON: Attention is also directed to left wrist radiographs ranging from 12/06/2012 through 02/28/2017. FINDINGS: Joint space and synovium: There is no ra diocarpal or midcarpal joint effusion. There is a trace of distal radioulnar lorri int fluid. There is also small fluid in the pisotriquetral recess. Bones and articular cartilage: There is a well-corticated 1.1 x 0.5 x 0 .9 cm irregular-shaped ossicle immediately dorsal to the lunatocapitate articulation, compatible with a sequela of remote prior trauma. There is no acut e fracture. The alignment is normal. There is patchy full-thickness articular cartilage loss across the entire radioscaphoid articulation, with patchy underlying subchondral bone edema. A large subchondral cyst in the proximal v olar aspect of the lunate could reflect poorly seen underlying articular cartila ge loss at the radiolunate articulation. There is also patchy articular cartilage loss along the scaphotrapeziotrapezoidal joint, with ad jacent subchondral cysts and subchondral bone edema. There is also articular cart ilage loss at the anterior aspect of the lunocapitate articulation, with adjacent subchondral cysts as well as small marginal osteophytes anteriorly and dors ally, also compatible with midcarpal joint arthropathy. There is also first carpometacarpal join t osteoarthropathy, characterized by moderately-sized marginal osteophytes. Tiny subchondral cysts in the distal vol ar aspect of the triquetrum could reflect osteoarthropathy at the pisotriq uetral articulation. Tendons: There is peritendinous fluid in the second and third extensor compartment tendon sheaths, compatible w ith tenosynovitis, an intersection syndrome considered in the appropriate c linical setting. The flexor tendons show normal signal intensity and configuratio n. The carpal tunnel shows normal morphology. Ligaments: There is intermediate signal and ill-definition in the dorsal component of the scapholunate ligament, which could represent a partial injury (series 3 images 13-14). There is interm ediate signal in the central portion of the triangular fibrocartilage complex, w hich could represent fraying/partial tearing, without a full-thickness tear s een. Nerves: The median and ulnar nerves are normal in appearance. IMPRESSION 1. Marked osteoarthropathy all along the radioscaphoid articulation, with involvement of the radiolunate articulat ion questioned. 2. Midcarpal joint osteoarthropathy, inv olving both the STT joint and lunocapitate articulation. 1.1-cm ossicl e dorsal to the lunatocapitate articulation, which could be secondary t o remote prior trauma. 3. Intermediate signal and ill-definitio n in the dorsal component of the scapholunate ligament, which could repre sent a partial injury. 4. Intermediate signal in the central TF CC, which could represent sprain/partial tearing, without a full-t hickness tear seen. 5. Tenosynovitis of the second and third extensor compartment. In the proper clinical setting, an intersection syndro me could be considered. Glen Paul MD IMG MRI ORDERABLES documented in this encounter Visit Diagnoses Diagnosis Pain in left wrist Pain in joint, forearm Pain in left wrist Pain in joint, forearm documented in this encounter Care Teams Card Cutter Relationship Specialty Start Date End Date Americo Hough PA PCP - General General Internal Medicine 08/04/16 [address] [place] [address] documented as of this encounter
--- OUTSIDE RECORDS SUMMARY | 2022-01-29 00:43 | XMS_ITS | Encounter Summary ---
:1965 Author Organization [facility] [place] [address] Care Team Providers Name Role Phone Americo Hough Primary Care Provider Reason for Visit Reason Comments Follow Up Surgery R TSA DOS 11/02/16 Encounter Details Date Type Department Care Team Description 12/16/2016 Office Visit Orthopaedics at [facility] Oralia Griffin, Primary osteoarthritis [facility] [place] [address] CENTER [phone] [place] [address] Social History Tobacco Use Types Packs/Day Years Used Date Current Every Day Smoker Cigarettes, e-Cigarettes 1 Smokeless Tobacco: Never Used Comments: 1 pack every 3 days Alcohol Use Standard Drinks/Week Comments Yes 8.3 (1 standard drink = 0.6 oz pure alco hol) once in a while Sex Assigned at Date Recorded Not on file documented as of this encounter Last Filed Vital Signs Vital Sign Reading Time Taken Comments Blood Pressure 122/72 12/16/2016 1:17 PM EDT Pulse 89 12/16/2016 1:17 PM EDT Temperature - - Respiratory Rate - - Oxygen Saturation - - Inhaled Oxygen Concentration - - Weight 77.1 kg (170 lb) 12/16/2016 1:17 PM EDT stated Height 167.6 cm (5' 6) 12/16/2016 1:17 PM EDT stated Body Mass Index 27.44 12/16/2016 1:17 PM EDT documented in this encounter Progress Notes Fannie Gomez PA - 12/16/2016 1:25 PM EDT Maria Isabel comes in today for followup right total shoulder arthroplasty with biceps tenodesis, 11/02/16, Dr. Griffin. She is doing well. She is not having much pain. She uses Tylenol as needed. She notes great improvement of the level of pain from preoperatively to currently. She denies fever or chills. No numbness or tingling in the arms. She is working with physical therapy. She has been compliant with a sling. Examination today of her right shoulder shows that the incision is well healed and no evidence of infection. Neurovascular status of the right arm is satisfactory. She has forward elevation to 117 degrees today. X-rays taken today show that the prosthesis is well seated. No evidence of hardware failure. IMPRESSION: Right total shoulder arthroplasty with biceps tenodesis, 11/02/16. TREATMENT: The patient can wean herself off of the sling as she feels comfortable. We discussed still using it in unprotected situations. She will continue to work with PT per protocol. We will see her back in 6 weeks for a check on motion. No new imaging needed then. documented in this encounter Plan of Treatment Not on filedocumented as of this encounter Visit Diagnoses Diagnosis Primary osteoarthritis of right shoulder Primary localized osteoarthrosis, should er region documented in this encounter Care Teams Vp Of Technology Relationship Specialty Start Date End Date Americo Hough PA PCP - General General Internal Medicine 08/04/16 [address] [place] [address] documented as of this encounter
--- OUTSIDE RECORDS SUMMARY | 2022-01-29 00:43 | XMS_ITS | Encounter Summary ---
:1965 Author Organization [facility] [place] [address] Care Team Providers Name Role Phone Americo Hough Primary Care Provider Encounter Details Date Type Department Care Team Description 02/28/2017 Orders Only Orthopaedics at [facility] [place] [address] Social History Tobacco Use Types Packs/Day Years Used Date Current Every Day Smoker Cigarettes 1 Smokeless Tobacco: Never Used Alcohol Use Standard Drinks/Week Comments Yes 8.3 (1 standard drink = 0.6 oz pure alco hol) once in a while Sex Assigned at Date Recorded Not on file documented as of this encounter Plan of Treatment Not on filedocumented as of this encounter Visit Diagnoses Not on filedocumented in this encounter Care Teams Chronometer Repairer Relationship Specialty Start Date End Date Americo Hough PA PCP - General General Internal Medicine 08/04/16 [address] [place] [address] documented as of this encounter
--- OUTSIDE RECORDS SUMMARY | 2022-01-29 00:43 | XMS_ITS | Encounter Summary ---
:1965 Author Organization [facility] [place] [address] Care Team Providers Name Role Phone Americo Hough Primary Care Provider Reason for Visit Occupational Therapy (Routine) - Closed Specialty Diagnoses / Procedures Referred By Contact Refer red To Contact Occupational Therapy Diagnoses Status post fusion of wrist Radha Wan, [facility] EDUARDO [address] [place], [place] ORTHOPAEDIC SURGERY [address] [place] [address] Referral ID Status Reason Start Date Expiration Date Visits V isits Requested Authorized [id number] Closed Evaluate and 03/21/2017 03/21/2018 1 1 Treat Encounter Details Date Type Department Care Team Description 03/21/2017 Office Visit Occupational Therapy Slim Fletcher OT Left wrist fusion, at [facility] Dr. Paul, 03/08/2017 [address] [place] [address] PHYSICAL MEDICINE [phone] & [place] [address] Social History Tobacco Use Types Packs/Day Years Used Date Current Every Day Smoker Cigarettes 1 Smokeless Tobacco: Never Used Alcohol Use Standard Drinks/Week Comments Yes 8.3 (1 standard drink = 0.6 oz pure alco hol) once in a while Sex Assigned at Date Recorded Not on file documented as of this encounter Progress Notes Gerson Fletcher, OT - 03/21/2017 8:15 AM EDT OCCUPATIONAL THERAPY INITIAL UPPER EXTREMITY EVALUATION Referral Source: Glen Paul MD, Radha Elaine MD Follow-up: 04.25.17 Total Treatment time: 25 Minutes Timed Code Treatment Time: 0 minutes OCCUPATIONAL PROFILE: Maria Isabel Brian is a 51 y.o. 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 Patient presents today alone. Date of onset of symptoms: Chronic Date of surgery: 03.08.17 Pertinent History and/or Co-morbidities: 1. Left wrist fusion, Dr. 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 OCCUPATIONAL PERFORMANCE DEFICITS: Maria Isabel Brian is limited with current performance due to pain, swelling, stiffness, limited mobility/range of motion, limited sensation and hypersensitivity about the left hand. Global Mental Function: With gross screening of patient???s global mental functions, patient demonstrates orientation to person, place, time, and situation. Patient???s affect/behavior is appropriate and cooperative today. Patient Specific Functional Scale (PSFS) (unable to perform 0/10 - Able to perform without difficulty 10/10) Activity At Evaluation 1.) Dressing 7 2.) Bathing/hygiene 8 3.) Home management 3 Average Score: 6.0 Pain: (Assessed using the visual analog scale, Pain Intensity Rating Scale) At Rest: 8/10 With Activity: 10/10 Measured in degrees of active motion with goniometer and/or distance measured from finger tip to thedistal palmar crease (DPC) Digits Right: MP PIP DIP DPC Thumb 0/ 0/ - DPC Index Finger 0/ 0/ 0/ DPC Middle Finger 0/ 0/ 0/ DPC Ring Finger 0/ 0/ 0/ DPC Small Finger 0/ 0/ 0/ DPC Digits Left: MP PIP DIP Cast Thumb 0/ 0/ - Cast Index Finger 0/ -45/ -10/ 15 mm Middle Finger 0/ -47/ -15/ 6 mm Ring Finger 0/ -44/ -14/ 8 mm Small Finger 0/ -20/ -5/ 17 mm Treatment Today: Evaluation LOW Complexity (25170) Educated patient in etiology and biomechanics as related to the patient's symptoms Provided with home exercise program to include active and passive, isolated and composite MP, PIP, and DIP finger motion, see scanned documents Instructed in home modalities to include: Moist heat, massage, and desensitization about the fingers. CLINICAL DECISION MAKING: Maria Isabel Brian has wrist and finger pain with limited finger motion while casted causing functional deficits in ADL/IADL performance. Please see above, PSFS for specific functional deficits. Maria Isabel Brian is able to demonstrate home exercises with written instructions provided. Maria Isabel Brian has fair potential for gains with therapy with identified needs for skilled therapy for treatment of deficits noted during evaluation today, to maximize functional performance during daily activities. She has very limited finger motion due to pain. Longterm Goals (to be met by discharge): Date Goal Met: 1.) Maria Isabel Brian will demonstrate significantly improved functional performance from re-assessment as measured by a total average score of 9.0 using the PSFS. Goal Status: Short Term Goals (to be met by 4 weeks): Date Goal Met: Maria Isabel Brian will be independent with home exercise program with written instructions. Goal Status: Maria Isabel Brian will gain full extension of her fingers with flexion to the cast to demonstrate significantly improved functional performance as measured by >/= 1 point improvement on the total average score of the PSFS. 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, Soft tissue mobilization as therapeutically necessary to decrease pain and/or increasemobility, Therapeutic exercises to increase functional mobility, Orthosis to provide support and protection to the joint, Functional activities to increase hand function and independence in self care, Perform modalities as therapeutically necessary to decrease pain and increase mobility to include: Hot pack, Ultrasound, Electrical Stimulation, Combination Ultra/estim, Fluidotherapy and Contrast bathsand Provide positive feedback and encouragement to improve emotional and mental well-being (X) Maria Isabel Brian participated in the evaluation, collaborated on treatment goals, and agrees to the treatment plan. documented in this encounter Plan of Treatment Scheduled Referrals Name Type Priority Associated Order Schedule Diagnoses Referral to Outpatient Referral Routine Left wrist fusion, Or dered: Occupational Therapy Dr. Paul, 017 03/08/2017 documented as of this encounter Visit Diagnoses Diagnosis Left wrist fusion, Dr. Paul, 03/08/2017 documented in this encounter Care Teams Undercoater Relationship Specialty Start Date End Date Americo Hough PA PCP - General General Internal Medicine 08/04/16 [address] [place] [address] documented as of this encounter
--- OUTSIDE RECORDS SUMMARY | 2022-01-29 00:43 | XMS_ITS | Encounter Summary ---
:1965 Author Organization [facility] [place] [address] Care Team Providers Name Role Phone Americo Hough Primary Care Provider Encounter Details Date Type Department Care Team Description 11/12/2016 Orders Only Orthopaedics at [facility] Fannie Gomez Primary osteoarthritis [facility] EDUARDO [place] of right shoulder [address] [place] [address] [place] [address] [phone] Social History Tobacco Use Types Packs/Day Years Used Date Current Every Day Smoker Cigarettes, e-Cigarettes 0.25 Smokeless Tobacco: Never Used Comments: 1 pack every 3 days Alcohol Use Standard Drinks/Week Comments Yes 8.3 (1 standard drink = 0.6 oz pure alco hol) once in a while Sex Assigned at Date Recorded Not on file documented as of this encounter Progress Notes Ely Bush RN - 11/12/2016 11:34 AM EDT Returned call to patient who is requesting refill of ost op pain medication Hydromorphone. She is over all doing well and is currently down to 1 tab every 5 hours. She lives at a distance and requests this to be mailed in todays mail. Reviewed with EDUARDO Gomez, Hydromorhone 2mg 1 every 6 hours #30 Mailed in todays mail,patient aware Case Date: 11/02/2016 ?? Surgeon: Surgeon(s) and Role: * Oralia Griffin MD - Primary * Juan Dacosta MD ?? Preoperative diagnosis: Shoulder DJD ?? Postoperative diagnosis: Shoulder DJD ?? Procedure(s) (LRB): @TOTAL SHOULDER ARTHROPLASTY (WRVU 22.13) (Right) MODIFIER BOYD BIGLIANI FLATOW (BF) (N/A) MODIFIER BEACH CHAIR SCHLEIN (N/A) MODIFIER BOYD TM (N/A) TENODESIS,BICEPS TENDON (PROXIMAL) (WRVU 10.17) (Right documented in this encounter Plan of Treatment Not on filedocumented as of this encounter Visit Diagnoses Diagnosis Primary osteoarthritis of right shoulder Primary localized osteoarthrosis, should er region documented in this encounter Care Teams Roll Tender Relationship Specialty Start Date End Date Americo Hough PA PCP - General General Internal Medicine 08/04/16 [address] [place] [address] documented as of this encounter
--- OUTSIDE RECORDS SUMMARY | 2022-01-29 00:43 | XMS_ITS | Encounter Summary ---
:1965 Author Organization [facility] [place] [address] Care Team Providers Name Role Phone Americo Hough Primary Care Provider Reason for Referral Diagnostic Test (Routine) - Closed Specialty Diagnoses / Procedures Referred By Contact Refer red To Contact Radiology Diagnoses Pain in left wrist Groiss, EDUARDO [facility] Rad Mri Procedures MRI Wrist wo Contrast Left (Generic) [address] [place] [address] [place] [address] Referral ID Status Reason Start Date Expiration Date Visits V isits Requested Authorized [id number] Closed Specialty 02/28/2017 05/29/2017 1 1 Service Requested Reason for Visit Diagnostic Test (Routine) - Closed Specialty Diagnoses / Procedures Referred By Contact Refer red To Contact Radiology Diagnoses Pain in left wrist Patricia, EDUARDO [facility] Rad Mri Procedures MRI Wrist wo Contrast Left (Generic) [address] [place], [place] [id number] [place] [phone] Referral ID Status Reason Start Date Expiration Date Visits V isits Requested Authorized [id number] Closed Specialty 02/28/2017 05/29/2017 1 1 Service Requested Encounter Details Date Type Department Care Team Description 03/02/2017 Hospital Encounter MRI at [facility] [place] Paul Pain in left wrist [facility] MD [address] [place], [place] CENTER [address] ORTHOPAEDIC [phone] [place] [address] Social History Tobacco Use Types Packs/Day Years Used Date Current Every Day Smoker Cigarettes 1 Smokeless Tobacco: Never Used Alcohol Use Standard Drinks/Week Comments Yes 8.3 (1 standard drink = 0.6 oz pure alco hol) once in a while Sex Assigned at Date Recorded Not on file documented as of this encounter Medications at Time of Discharge Medication Sig Dispensed Refills Start Date End Date prazosin (MINIPRESS) 1 mg Take 1 mg by mouth 0 Capsule nightly. citalopram (CELEXA) 40 mg Take 40 mg by mouth 0 Tablet daily. traZODone (DESYREL) 50 mg Take 50 mg by mouth 0 Tablet nightly. HYDROmorphone (DILAUDID) Take 1-2 tablets by 75 tablet 0 03/19/2017 2 mg Tablet mouth every 4 hours as needed for Pain. acetaminophen (TYLENOL) Take 2 tablets by 0 11/0406/06/2017 500 mg Tablet mouth every 8 hours. Continue the Tylenol around the clock for 10 days after surgery, (11/12/2016). Then may take if needed per package insert. Do not take more than 3,000 mg of Tylenol in 24 hours. documented as of this encounter Plan of Treatment Not on filedocumented as of this encounter Procedures Procedure Name Priority Date/Time Associated Diagnosis Comme nts MRI WRIST LEFT WO Routine 03/02/2017 11:35 AM Pain in left wri st Results for this CONTRAST EDT procedure are i n the results section. documented in this encounter Results MRI Wrist wo Contrast [...] forearm documented in this encounter Care Teams Software Validation Engineer Relationship Specialty Start Date End Date Americo Hough PA PCP - General General Internal Medicine 08/04/16 [address] [place] [address] documented as of this encounter
--- OUTSIDE RECORDS SUMMARY | 2022-01-29 00:43 | XMS_ITS | Encounter Summary ---
:1965 [place] [address] Care Team Providers Name Role Phone Americo Hough Primary Care Provider Encounter Details Date Type Department Care Team Description 03/08/2017 Surgery Outpatient Surgery Irvin Paul MD ARTHRODESIS, WRIST, [facility] COMPLETE, W/ ILIAC OR [facility] DR DASILVA AUTOGRAFT ([facility] ORTHOPAEDIC S URGERY 11.95) [place] [id number] [place] [id number] [phone] Social History Tobacco Use Types Packs/Day Years [...] Sign Reading Time Taken Comments Blood Pressure 160/90 03/08/2017 2:00 PM EDT Pulse 69 03/08/2017 2:00 PM EDT Temperature 36.4 ??C (97.5 ??F) 03/08/2017 1:48 PM EDT Respiratory Rate 16 03/08/2017 1:48 PM EDT Oxygen Saturation 93% 03/08/2017 2:00 PM EDT Inhaled Oxygen Concentration - - Weight 73.5 kg (162 lb) 03/08/2017 9:55 AM EDT Height 166.4 cm (5' 5.5) 03/08/2017 9:55 AM EDT Body Mass Index 26.55 03/08/2017 9:55 AM EDT documented in this encounter Discharge Instructions Discharge InstructionsAngie Mg RN - 03/08/2017 2:11 PM EDT Orthopaedic Hand Surgery Same Day Discharge Instructions: General Activities ?? In general, care should be taken the first several days following surgery to limit strenuous activity. You want to avoid any activities that you may lose your balance, slip, trip, fall or re-injure your surgery. ?? You may shower tomorrow. Cover your dressing/cast with a plastic bag to keep it dry. Hand Use ?? Decreased sensation for several hours following surgery is often from the local anesthesia used during the procedure. This will resolve on its own. ?? Do not use your operative hand for any lifting, pushing or pulling. You may move your elbow and shoulder as tolerated. ?? Gentle exercises with any exposed fingers are encouraged and gently opening and closing the digits will keep the joints flexible. Specific activities and exercises will be discussed at your first postoperative visit. Ice and elevation ?? Some swelling is expected after surgery. Reducing swelling helps reduce pain and speed the healing process. Ice and elevation are the best remedies to reduce swelling. Keep your hand properly elevated above the level of the heart i.e., fingers above palm, palm above the wrist, wrist above the elbow. Use pillows to increase elevation. ?? Do not rely on a sling as it does not sufficiently elevate your hand. For proper elevation while walking around place your surgical hand on your opposite shoulder. ?? Intermittently apply ice to the outside of the dressing for 20 minutes 6-8 times a day. You will want to ice and elevate for 5-7 days after surgery. Diet: ?? Start light and progress as tolerated. No alcoholic beverages on the day of surgery or while taking narcotics. If taking narcotics, make sure you are getting plenty of fluids and fiber. Dressing/ Wound: ?? The post-op dressing, splint or cast is a very important part of your treatment. If you have any questions please call us for clarification. If your dressing becomes wet or damaged please call the office. ?? No creams, lotions or ointments on your incision. Keep steri-strips in place. They will fall off on their own ?? Keep your dressing clean and DRY until your follow-up appointment. Do not change your dressing. ?? If a plaster splint or a cast has been applied --do not remove it or stick objects in it (i.e. coat hangers, pencils). Please keep it dry, if it becomes wet you must call the office. Driving: ?? No driving while taking narcotic medications or wearing a device (splint, cast, sling, brace) that limits joint mobility. When you feel you can safely control your vehicle and respond to unpredictable situations you may resume driving. Pain Management ?? Most patients only require narcotics for a short period of time. Ice and elevation is an effective and important modality to use in conjunction with your oral pain medication. In a day or two you may be ready to start decreasing the amount of pain medication your taking. Pain medication is to be taken on an ???as needed?if needed?? basis. Remember to start with the least amount and evaluateits effectiveness. ?? You should not drink alcoholic beverages while on pain medication. ?? If tolerated, please take Tylenol three times a day in conjunction with the narcotic as they complement each other. Once pain is better controlled, you may simply take extra strength Tylenol, one totwo tablets every six hours as needed. ?? The most common side effects of narcotic pain medications are nausea and constipation. To decrease nausea always take pain medication with food. If you are experiencing vomiting, please call us right away. To minimize constipation, drink plenty of fluids, eat a high fiber diet with plenty of fruitsand vegetables, and take a stool softener or laxative as needed. ?? NO anti-inflammatory medication such as Ibuprofen/Advil/Motrin or Naproxen/Aleve. Questions or concerns; Call the Orthopaedic Clinic [phone] during business hours M-; after-hours or on weekends call [phone] and ask for the Ortho resident on-call. if you develop: 1. You have a fever greater than 101 F or experience chills 2. Increased drainage from incision 3. Redness or extreme swelling around incision 4. Increased pain or change in pain that is not controlled with elevation, ice and your pain medication. Follow up appointment: Future Appointments Date Time Provider Department Center 03/21/2017 8:40 AM Eugene Paul MD [facility] [address] [place] [address] Upper Extremity Nerve Block Nerve blocks affect many types of nerves. The affected nerves control movement, pain, and normal sensation. This causes feelings such as: ?? Weakness ?? Numbness ?? Tingling ?? Heaviness ?? A feeling that your arm has fallen asleep. A nerve block can last from about 2 to 48 hours, depending on the medications used. Usually the weakness wears off first, then you will feel a numb or tingly sensation. Finally, the pain may come back.This can happen in any order. If you had a shoulder block, you may have other symptoms such as: 2. Mild shortness of breath 3. A hoarse voice 4. Blurry vision 5. Unequal pupils 6. Drooping of your face on the same side as the nerve block. These are common and expected side effects of this type of nerve block. Symptoms usually go away within 12 hours. If these symptoms do not go away, please call the Anesthesiology Department at . If you have severe or prolonged shortness of breath, please go to the nearest emergency department. If you continue to feel the effects of the nerve block for longer than 48 hours, please call the Anesthesiology department at . Pain Medication If needed, your surgeon will give you a prescription for pain medication. Start taking this medication before the nerve block wears off. Nerve blocks sometimes wear off during the night. It is a good idea to take your pain medicine as prescribed before going to sleep so you won't wake up with pain. The idea is to have pain medicine in your body before the nerve block wears off. To help prevent nausea, eat something before taking the pain medicine. Once a nerve block starts to wear off, it is usually completely gone within 60 minutes. It is important to have pain medicine in your system before the block wears off completely. Helpful tips to protect the part of your body that is numb. After a nerve block, you cannot feel pain, pressure, or extremes in temperature. Because your arm isnumb, it is more at risk for injury. Therefore.... ?? While you are awake, try to change positions of your arm often. This will help you avoid putting too much pressure on the limb for long periods of time. ?? While sleeping, pad the blocked limb with pillows to avoid placing too much pressure on the limb. ?? If you have a cast or a tight dressing, check the color of your fingers every couple of hours. Call your doctor if any look discolored. ?? If you had a shoulder, arm, or hand nerve block, you may go home with a sling. The sling will help to keep your arm in the ideal position. Wear the sling at all times until feeling returns. If you do not have a sling, watch the position of the blocked arm to make sure it is in a safe location. ?? Ask your family or support people to help with the above hints. QUESTIONS? Please call the Anesthesiology department at with concerns or after hours and ask for the anesthesiologist extension course counselor. documented in this encounter Medications at Time of Discharge [...] 24 hours. documented as of this encounter Progress Notes Mariusz Quigley MD - 03/08/2017 1:49 PM EDT Acute Opioid Prescribing: Opioid PDMP 03/02/2017 08/19/2016 [place] PDMP Query Date 03/08/2017 11/04/2016 [place] PDMP Query Date 03/08/2017 - Some recent data might be hidden Opioid Risk Assessment 08/19/2016 ORT Risk Assessment Low (0-3) Some recent data might be hidden Acute Opioid Specific Questions 08/19/2016 Date Acute Consent signed 11/04/2016 Considered the risk of opioid misuse, abuse, diversion? Yes Considered options for non-pharmacological modalities and non-opioid therapy? Yes Some recent data might be hidden Maria Isabel Brian. Is being provided with a prescription for acute pain. Non opioid therapies and non-pharmacologic modalities have been considered. The patient's risk for opioid misuse, abuse or diversion have been considered. I have discussed the risks and potential side effects of opioid medications, that include but are not limited to, addiction, overdose and , dependence, tolerance, osteoporosis, constipation, sexual dysfunction, hyperalgesia and crime victimization. The patient is also informed of: - the risks of keeping unused medication -counseled on keeping opioids locked -counseled on safe disposal of unused medication -dangers of operating a motor vehicle or heavy machinery -if a renewal is required, they shall return for an in-office follow up for reevaluation. documented in this encounter H&P Notes Eugene Paul MD - 03/08/2017 11:00 AM EDT Patient Name: Maria Isabel Brian Patient Age: 51 y.o. Birthdate: 1965 Admit date: 03/08/2017 Attending Physician: Eugene Paul MD I interviewed and examined Maria Isabel Brian. There have been no apparent interval changes in her health status since the most recent history and physical was done. EUGENE PAUL MD Eugene Paul MD - 03/08/2017 10:06 AM EDT Patient Name: Maria Isabel Brian Patient Age: 51 y.o. Birthdate: 1965 Admit date: 03/08/2017 Attending Physician: Eugene Paul MD See scanned document for pre-procedural H&P completed on 03/07/17. documented in this encounter Miscellaneous Notes Op Note - Eugene Paul MD - 03/08/2017 1:59 PM EDT Operative Note ?? Patient Name: Maria Isabel Brian : [id number] MR#: [id number] ?? Case Date: 03/08/2017 ?? Surgeon: Surgeon(s) and Role: * Eugene Paul MD - Primary * Mariusz Quigley MD - Resident-Tribal Council Member ?? 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 Postoperative diagnosis: Stage IV SLAC arthritis LEFT wrist ?? Procedure(s) (LRB): ARTHRODESIS, WRIST, COMPLETE, W/ ILIAC OR OTHER AUTOGRAFT (WRVU 11.95) (Left) ?? Anesthesia: General, Regional ?? Complications: None ? Fluids: 1,000cc crystalloid ?? Estimated Blood Loss: 0 mL ?? Drains: None ?? Disposition: awakened from anesthesia, extubated and taken to the recovery room in a stable condition, having suffered no apparent untoward event. ?? Condition: doing well without problems Total tourniquet time 117 min. SURGICAL INDICATIONS: Maria Isabel Brian is a 51-year-old female who presents with stage IV left SLAC wrist. She has tried multiple conservative treatment options and has failed. We discussed the option of total wrist fusion, given the extensive degree of degenerative change throughout the carpus. We explained the risks and benefits of the surgery, and she wished to proceed. DESCRIPTION OF PROCEDURE: The patient was met in the preoperative holding area where the site was marked and the consent was reviewed. The preoperative checklist was completed. The patient was then wheeled back to the Operating Room, where general anesthetic was administered. The hand table was assembled on the side of the hospital stretcher, and she remained in the supine position with the left arm out on the hand board. A timeout was held to confirm patient identity, planned surgery and site according to [facility] protocol. The left arm was then prepped and draped in the normal sterile fashion below an upper arm tourniquet. We began by marking an incision on the dorsum of the wrist in the midline longitudinally. The tourniquet was inflated. The incision was made with a 15 blade and measured approximately 12 cm in length. A tenotomy scissors was then used to dissect bluntly through the subcutaneous tissues, careful to avoid any neurovascular structures. Crossing veins were cauterized and attempts were made to protect any longitudinal veins that were encountered. We dissected down to the level of the extensor retinaculum and identified the tendons within the fourth extensor compartment. We incised the fourth compartment with scissors over the tendons, careful to protect the tendons. Once the compartment was opened, a retractor was used to retract the tendons in the ulnar direction. The septum to the third compartment was then incised and the EPL was freed and retracted radially. At this point, the distal PIN was identified In the 4th extensor compartment and a neurectomy was performed using a double-crush technique followed by an excision of a segmental gap in order to lessen the risk of painful neuroma formation. We then used the bony anatomy to identify the dorsum of the third metacarpal and incised through the periosteum down to the bone and continued this incision proximally over the CMC joint, over the capitate, lunate, and longitudinally back to the distal radius. The capsule and ligamentous tissue that were overlying the dorsum of the carpus was sharply elevated using a combination of a 15-blade, freer and a minaya elevator from the back of the carpus and the dorsal surface of the distal radius proximally by about 8 cm. At this point, we had clear visualization of the third CMC and the midcarpal joints. Next, we set about preparing the joint surfaces for fusion. We used a combination of a rongeur and a curette to remove any remaining articular cartilage from the base of the third metacarpal and within the CMC joint as well as the joints between the capitate and hamate, the capitate and lunate, the lunate and the radius, the scaphoid and the radius, the scaphoid and the lunate, and between the lunate and triquetrum. All of the cartilaginous material was removed from the wound. The wound was then thoroughly irrigated using sterile saline to remove this debris. Next, we brought the plate into the field in order to evaluate the pre-contoured fit of the plate. A Synthes LCP dorsal pre-contoured 8-hole combilocking wrist fusion plate was used. The bony contours of the distal radius prohibited the plate from sitting flush on the bone, so an osteotome and a mallet were used to contour the dorsal surface of the distal radius, including excising Norm's tubercle and creating a trough for the plate to sit in. The bone removed was saved for autologous bone graft later. Once this was completed, the plate sat more congruently on the dorsum of the distal radius and fit well over the carpus, out to the third metacarpal. We then began by drilling and placing a 2.7 cortical screw distally in the plate. We again confirmed the position of the plate, and after making a small adjustment by re-bending the proximal aspect of the plate, we felt that it fit comfortably on the dorsum of the wrist in a low-profile position. The screw was removed and plate was removed. We then proceeded to complete the joint surface preparation by using the K-wire to drill multiple holes in each of the surfaces to the fused. We then packed in bone graft material that was a combination of Autograft bone from the dorsum of the distal radius and crushed Allograft cancellous bone chips. These were packed in each of the joint surfaces that had been prepared. The plate was put back into position and the distal 2.7 cortical screw was put back into position. We then began to drill and fill the distal holes in the plate in addition to the hole over the capitate, utilizing bicortical locking screw fixation. The 3 most proximal 3.5 cortical screws were placed in compression mode to compress across the wrist joint. Lastly, the final distal 3.5 hole was overlying the trough in the distal radius, so a unicortical locking screw was utilized. At this point, the wound was gently irrigated and the remaining bone graft material was placed around the plate and into any gaps that remained in the carpus. Radiographs were completed to confirm the plate position on the AP and lateral views and was felt to be adequate. We then performed a multilayer closure. 0-Vicryl was used to reapproximate the extensor retinaculum over the fourth extensor compartment. 4-0 Vicryl was used in inverted interrupted fashion to reapproximate the skin edges and 4-0 Nylon to close the skin in a horizontal mattress fashion. The wound was dressed with Adaptic, fluffs and sterile Webril followed by a forearm-based volar resting splint out past the metacarpal heads. The patient was awoken from Anesthesia and transferred back to the recovery area, having suffered no complications. Dr. Paul was present and scrubbed for all aspects of the procedure, and at the end of the procedure, all sponge, needle, and instrument counts were correct. 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 Condition: doing well without problems Attestation: Case Date: 03/08/2017 I was present and I participated during the entire procedure. (Please see the Surgical Encounter Summary for any Implant and Specimen details pertinent to this patient.) documented in this encounter Plan of Treatment Not on filedocumented as of this encounter Procedures Procedure Name Priority Date/Time Associated Comments Diagnosis XR FLUORO NO RAD <1HR Routine 03/08/2017 1:38 PM Results for this - OR USE EDT procedure are i n the results section. ARTHRODESIS, WRIST, 03/08/2017 11:21 Pain in left wris t COMPLETE, W/ ILIAC OR AM EDT OTHER AUTOGRAFT (WRVU 11.95) IMPLANTABLE DEVICES 03/08/2017 12:00 Resu lts for this SCAN AM EDT procedure are i n the results section. documented in this encounter Results XR Fluoro No Rad <1Hr - OR Use (03/08/2017 1:38 PM EDT) Specimen (Source) Anatomical Location Collection Method / Collectio n Time Received Time / Laterality Volume Narrative RAD - 03/08/2017 1:38 PM EDT This order does not need a radiologist i nterpretation. ?? Eugene Paul MD [employer] FLUORO ORDERABLES Performing Organization Address City/State/ZIP Code Phon e Number RAD RAD [place] SCAN DOC: IMPLANTABLE DEVICES (03/08/2017 12:00 AM EDT) Narrative 03/08/2017 12:00 AM EDT This result has an attachment that is no t available. Ordered by an unspecified provider. Scanning Provider MEDIA MGR SCAN EXT ORDR/RSLT documented in this encounter Visit Diagnoses Diagnosis Pain in left wrist Pain in joint, forearm Pain in left wrist Pain in joint, forearm documented in this encounter Administered Medications Inactive Administered Medications - up to 3 most recent administrations Medication Order MAR Action Action Date Dose Rate Site acetaminophen (TYLENOL) tablet Given 03/08/2017 10:02 AM EDT 1,0 00 mg 1,000 mg 1,000 mg, Oral, ONCE, 1 dose, On Tue03/08/17 at 1015, Administer with SIP of H2O only., Day of Surgery (Day of Procedure), Routine HYDROmorphone (DILAUDID) tablet 2-4 mg 2-4 mg, Oral, EVERY 4 HOURS PRN, Startin g on Tue03/08/17 at 1350, Until Tue03/08/17 at 1627, Pain, For severe breakthrough p ain , Recovery (Recovery-Hospital Unit), Routine lactated Ringers infusion 1,000 New Bag 03/08/2017 10:20 AM ED T 1,000 mLs 100 mL/hr mL 1,000 mL, at 100 mL/hr, Intravenous, CONTINUOUS, Starting on Tue03/08/17 at 1015, Until Tue03/08/17 at 1425, Day of Surgery (Day of Procedure) midazolam (PF) (VERSED) 1 mg/mL injectio n 1 mg Given 03/08/2017 10:38 AM EDT 2 mg 1 mg, Intravenous, EVERY 5 MIN PRN, Starting on Tue03/08/17 at 0950, Until Tue03/08/17 at 1425, Sleep, or prior to injection of local anesthetic, Hold for delirium/agitation. (Maximum dose 5 mg)., Intra-Operative (Intra-Procedure), Routine Given 03/08/2017 10:28 AM EDT 2 mg documented in this encounter Active and Recently Administered Medications Times are shown in EDT. Scheduled Medication Order 03/06/2017 03/07/2017 03/08/2017 acetaminophen (TYLENOL) tablet 1,000 mg (COMPLETED) 1002 (Given - Provider: Kayli Montano RN - Comment: pre op) 1,000 mg, Oral, ONCE, 1 dose, Tue03/08/17 at 1015, Administer with SIP of H2O only., Day of Surgery (Day of Procedure), Routine ceFAZolin (ANCEF) 2g in dextrose 5% 100 mL (COMPLETED) 1131 (Given - Provider: Dayanara Escamilla CRNA) 2 g, Intravenous, EVERY 3 HOURS, 1 dose, First dose on Tue03/08/17 at 1015, Administer over 30 Minutes, Redose after 3 hours., Intra-Operative (Intra- Procedure), Indication for (Active or Suspected): Prophylaxis Continuous Medication Order 03/06/2017 03/07/2017 03/08/2017 lactated Ringers infusion 1,000 mL (CANCELED) 1102 (New Bag - Provider: Dayanara Escamilla CRNA)1140 (Anesthesia Volume Adjustment - Provider: Dayanara Escamilla CRNA)1349 (Stopped - Provider: Dayanara Escamilla CRNA) 1,000 mL, at 100 mL/hr, Intravenous, CON TINUOUS, Starting Tue03/08/17 at 1015, Until Tue03/08/17 at 1425, Day of Surgery (Day of Procedure) lactated Ringers infusion 1,000 mL (CANCELED) 1020 (New Bag - Provider: Kayli Montano RN) 1,000 mL, at 100 mL/hr, Intravenous, CON TINUOUS, Starting Tue03/08/17 at 1015, Until Tue03/08/17 at 1425, Day of Surgery (Day of Procedure) PRN Medication Order 03/06/2017 03/07/2017 03/08/2017 HYDROmorphone (DILAUDID) tablet 2-4 mg 2-4 mg, Oral, EVERY 4 HOURS PRN, Startin g Tue03/08/17 at 1350, Until Tue03/08/17 at 1627, Pain, For severe breakthrough pain , Recovery (Recovery-Hospital Unit), Routine midazolam (PF) (VERSED) 1 mg/mL injection 1 mg (CANCELED) 1028 (Given - Provider: Kayli Montano, RN)1038 (Given - Provider: Kayli Montano, FÉLIX) 1 mg, Intravenous, EVERY 5 MIN PRN, Star ting Tue03/08/17 at 0950, Until Tue03/08/17 at 1425, Sleep, or prior to injection of local anesthetic, Hold for delirium/agitation. (Maximum dose 5 mg)., Intra-Operative (Intra-Procedure), Routine documented in this encounter Care Teams Social Work Instructor Relationship Specialty Start Date End Date Americo Hough PA PCP - General General Internal Medicine 08/04/16 [address] [place] [address] documented as of this encounter
--- OUTSIDE RECORDS SUMMARY | 2022-01-29 00:43 | XMS_ITS | Encounter Summary ---
:1965 Author Organization [facility] [place] [address] Care Team Providers Name Role Phone Americo Hough Primary Care Provider Encounter Details Date Type Department Care Team Description 07/18/2017 Orders Only Orth[place]edics at [facility] [place] Paul, Left wrist fusion, [facility] MD Dr. Paul, 03/08/2017 [place] [address] ORTHOPAEDIC SURGERY [place] [address] Social History Tobacco Use Types Packs/Day Years [...] 03/08/2017 documented in this encounter Care Teams Clean Up Person Relationship Specialty Start Date End Date Americo Hough PA PCP - General General Internal Medicine 08/04/16 [address] [place] [address] documented as of this encounter
--- OUTSIDE RECORDS SUMMARY | 2022-01-29 00:43 | XMS_ITS | Encounter Summary ---
:1965 Author Organization [facility] [place] [address] Care Team Providers Name Role Phone Americo Hough Primary Care Provider Encounter Details Date Type Department Care Team Description 03/21/2017 Hospital En[place] [facility], [place] Pain in left wrist [address] [facility] [address] Esa MD [facility] [id number] [facility] [phone] [place] [address] Social History Tobacco Use Types Packs/Day Years [...] 50 mg by mouth 0 Tablet nightly. aspirin 81 mg Tablet, Take 81 mg by mouth 0 04/25/2017 Delayed Release (E.C.) daily. HYDROmorphone (DILAUDID) Take 1 tablet by 30 tablet 0 03/2104/25/2017 2 mg TabletIndications: mouth every 6 hours S/P wrist surgery as needed for Pain. acetaminophen (TYLENOL) Take 2 tablets by 0 03/30 /2017 06/06/2017 500 mg Tablet mouth every 8 hours. Continue the Tylenol around the clock for 10 days after surgery, (11/12/2016). Then may take if needed per package insert. Do not take more than 3,000 mg of Tylenol in 24 hours. documented as of this encounter Plan of Treatment Not on filedocumented as of this encounter Procedures Procedure Name Priority Date/Time Associated Diagnosis Comme nts XR WRIST 3 VIEWS Routine 03/21/2017 8:07 AM Pain in left wrist Results for this LEFT EDT procedure are i n the results section. documented in this encounter Results XR Wrist Complete Min 3 views Left (Generic) (03/21/2017 8:07 AM EDT) Anatomical Region Laterality Modality Left Digital Radiography Specimen (Source) Anatomical Location Collection Method / Collectio n Time Received Time / Laterality Volume Impressions 03/21/2017 8:32 AM EDT Interval total wrist arthrodesis. Narrative 03/21/2017 8:32 AM EDT EXAMINATION: XR WRIST COMPLETE MIN 3 VIEWS LEFT (GENERIC) CLINICAL HISTORY: s/p total wrist fusion TECHNIQUE: Frontal, lateral and oblique views of th e left wrist. COMPARISON: February 28, 2017. FINDINGS: The wrist is in a splint. Since the prev ious study the patient has undergone a total wrist arthrodesis. A fusion plate spans the radius, carpal bones and third metacarpal. There is incomplete osseous fusion at this time. Mild degenerative changes at the first CMC joint are stabl e. Procedure Note Donnell Hagan MD - 03/21/2017 EXAMINATION: XR WRIST COMPLETE MIN 3 VIE WS LEFT (GENERIC) CLINICAL HISTORY: s/p total wrist fusion TECHNIQUE: Frontal, lateral and oblique views of th e left wrist. COMPARISON: February 28, 2017. FINDINGS: The wrist is in a splint. Since the prev ious study the patient has undergone a total wrist arthrodesis. A fusion plate spans the radius, carpal bones and third metacarpal. There is incomplete osseous fusion at this time. Mild degenerative changes at the first CMC joint are stabl e. IMPRESSION Interval total wrist arthrodesis. Glen Paul MD IMG DX ORDERABLES documented in this encounter Visit Diagnoses Diagnosis Pain in left wrist Pain in joint, forearm documented in this encounter Care Teams Keno Attendant Relationship Specialty Start Date End Date Americo Hough PA PCP - General General Internal Medicine 08/04/16 [address] [place] [address] documented as of this encounter
--- OUTSIDE RECORDS SUMMARY | 2022-01-29 00:43 | XMS_ITS | Encounter Summary ---
:1965 Author Organization [facility] [place] [address] Care Team Providers Name Role Phone Americo Hough Primary Care Provider Reason for Visit Reason Onset Date Comments Medication Refill 11/22/2016 Encounter Details Date Type Department Care Team Description 11/22/2016 Refill Orthopaedics at [facility] Oralia Griffin, Primary osteoarthritis of [facility] Mel[place] [address] [facility] [phone] ORTHOPAEDIC SURGERY [place], [place] [address] Social History Tobacco Use Types [...] this encounter Miscellaneous Notes Telephone Encounter - Marcelo Jama RN - 11/22/2016 10:10 AM EDT Right shoulder TSA. Dr. Griffin. DOS: 11/02/2016 Patient is calling for one last refill of her Dilaudid. Last refill: Dilaudid 2 mg #30 11/12/16 She is taking one BID as of yesterday and would like one more week of medication. We will mail her a prescription today. documented in this encounter Plan of Treatment Not on filedocumented as of this encounter Visit Diagnoses Diagnosis Primary osteoarthritis of right shoulder Primary localized osteoarthrosis, should er region documented in this encounter Care Teams Manager Lan Relationship Specialty Start Date End Date Americo Hough PA PCP - General General Internal Medicine 08/04/16 [address] [place] [address] documented as of this encounter
--- OUTSIDE RECORDS SUMMARY | 2022-01-29 00:43 | XMS_ITS | Encounter Summary ---
:1965 Author Organization [facility] [place] [address] Care Team Providers Name Role Phone Americo Hough Primary Care Provider Encounter Details Date Type Department Care Team Description 06/06/2017 Hospital Encounter XRay at [facility] [place] Paul Left wrist fusion, [address] [place] [address] Humberto Bradsh[place], [facility] 03/08/2017 [id number] [facility] [phone] [place] [address] Social History Tobacco Use Types Packs/Day Years [...] Sig Dispensed Refills Start Date End Date ibuprofen (ADVIL) 200 mg Take 200 mg by mouth 0 Tablet as needed for Pain. prazosin (MINIPRESS) 1 mg Take 1 mg by mouth 0 Capsule nightly. citalopram (CELEXA) 40 mg Take 40 mg by mouth 0 Tablet daily. traZODone (DESYREL) 50 mg Take 50 mg by mouth 0 Tablet nightly. documented as of this encounter Plan of Treatment Not on filedocumented as of this encounter Procedures Procedure Name Priority Date/Time Associated Diagnosis Comme nts XR WRIST 3 VIEWS Routine 06/06/2017 2:57 PM Left wrist fusion, Results for this LEFT EDT Dr. Paul, procedure are i n 03/08/2017 the results section. documented in this encounter Results XR Wrist Complete Min 3 views Left (Generic) (06/06/2017 2:57 PM EDT) Anatomical Region Laterality Modality Left Digital Radiography Specimen (Source) Anatomical Location Collection Method / Collectio n Time Received Time / Laterality Volume Impressions 06/06/2017 3:14 PM EDT Stable appearance of the left wrist compared with 04/25/2017, fusion across the radiocarpal joint Narrative 06/06/2017 3:14 PM EDT EXAMINATION: XR WRIST COMPLETE MIN 3 VIEWS LEFT (GENERIC) CLINICAL HISTORY: s/p left wrist fusion, assessing healing TECHNIQUE: 3 views left wrist COMPARISON: 08/25/2016 FINDINGS: The dorsal plate anchored in the distal radius, distal carpus and third metacarpal and its accompanying screws a re unchanged from the prior exam, traversing and fusing the radiocarpal lorri int. Marked sclerosis between radius and navicular bone and between the navicular bone and adjacent carpals is seen the intercarpal joint spaces are now well-de fined. No acute injury is seen Procedure Note Flaco Saul MD - 06/06/2017Format ting of this note might be different from the original. EXAMINATION: XR WRIST COMPLETE MIN 3 VIE WS LEFT (GENERIC) CLINICAL HISTORY: s/p left wrist fusion, assessing healing TECHNIQUE: 3 views left wrist COMPARISON: 08/25/2016 FINDINGS: The dorsal plate anchored in the distal radius, distal carpus and third metacarpal and its accompanying screws a re unchanged from the prior exam, traversing and fusing the radiocarpal lorri int. Marked sclerosis between radius and navicular bone and between the navicular bone and adjacent carpals is seen the intercarpal joint spaces are now well-de fined. No acute injury is seen IMPRESSION Stable appearance of the left wrist comp ared with 04/25/2017, fusion across the radiocarpal joint [place] Paul MD IMG DX ORDERABLES documented in this encounter Visit Diagnoses Diagnosis Left wrist fusion, Dr. Paul, 03/08/2017 documented in this encounter Care Teams Admission Nurse Relationship Specialty Start Date End Date Americo Hough PA PCP - General General Internal Medicine 08/04/16 [address] [place] [address] documented as of this encounter
--- OUTSIDE RECORDS SUMMARY | 2022-01-29 00:43 | XMS_ITS | Encounter Summary ---
:1965 [place] [address] Care Team Providers Name Role Phone Americo Hough Primary Care Provider Encounter Details Date Type Department Care Team Description 03/08/2017 Hospital Encounter Outpatient Surgery Eugene Paul in left wrist Center Coby See MD [facility] [place] [phone] Social History Tobacco Use Types Packs/Day Years [...] Questions or concerns; Call the Orthopaedic Clinic [phone] during business hours M-; after-hours or on weekends call [phone] and ask for the Ortho resident on-call. [...] 8:40 AM Eugene Paul MD [facility] Upper Extremity Nerve Block Nerve blocks affect [...] after hours and ask for the anesthesiologist stone grader. documented in this encounter Medications at Time [...] ?? Patient Name: Maria Isabel Brian : [id number] MR#: [id number] ?? Case Date: 03/08/2017 ?? Surgeon: Surgeon(s) and Role: * Eugene Paul MD - Primary * Mariusz Quigley MD - Resident-Marine Railway Operator ?? Preoperative diagnosis: Stage IV SLAC arthritis [...] time 117 min. SURGICAL INDICATIONS: Maria Isabel Brina is a 51-year-old female who presents with [...] identity, planned surgery and site according to [facility] protocol. 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 (Maximum dose 5 mg)., Intra-Operative (Intra-Procedure), Routine documented in this encounter Care Teams Professor Of Voice Relationship Specialty Start Date End Date Americo Hough PA PCP - General General Internal Medicine 08/04/16 [address] [place] [address] documented as of this encounter
--- OUTSIDE RECORDS SUMMARY | 2022-01-29 00:43 | XMS_ITS | Encounter Summary ---
:1965 [place] [address] Care Team Providers Name Role Phone Americo Hough Primary Care Provider Encounter Details Date Type Department Care Team Description 04/25/2017 Office Visit Occupational Therapy Slim Fletcher OT Left wrist fusion, at [facility] Dr. Paul, 03/08/[address] [place] [address] PHYSICAL MEDICINE [phone] & [place] [address] Social History Tobacco Use Types Packs/Day Years Used Date Current Every Day Smoker Cigarettes 1 Smokeless Tobacco: Never Used Alcohol Use Standard Drinks/Week Comments Yes 8.3 (1 standard drink = 0.6 oz pure alco hol) once in a while Sex Assigned at Date Recorded Not on file documented as of this encounter Progress Notes Gerson Fletcher OT - 04/25/2017 3:45 PM EDT OCCUPATIONAL THERAPY CLINIC ORTHOTIC EVALUATION Referral Source: Glen Paul MD, Radha Elaine MD Follow-up: 06.06.17 Total Treatment time: 29 Minutes Timed Code Treatment Time: 29 minutes OCCUPATIONAL PROFILE: Maria Isabel Brian is a 51 y.o. 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 She is status post cast removal today and referred for a custom orthosis. Patient presents today alone. Date of onset [...] sensation and hypersensitivity about the left hand. Patient Specific Functional Scale (PSFS) (unable to [...] Small Finger 0/ -20/ -5/ 17 mm Digits Left: 04.25.17 MP PIP DIP Cast Thumb 0/ 0/ - Index Finger 0/ 0/ 0/ 10 mm Middle Finger 0/ 0/ 0/ 5 mm Ring Finger 0/ 0/ 0/ 5 mm Small Finger 0/ 0/ 0/ 5 mm Treatment Today: Orthosis - Wrist-Hand Orthotic, W/O [employer] Fit & Adj ([id number]) Educated patient in etiology and biomechanics as related to the patient's symptoms Instructed in home modalities to include: Moist heat, massage, and desensitization about the fingers. Educated on scar massage 3 x day as tolerated, orthosis use between exercises and at night. CLINICAL DECISION MAKING: Maria Isabel Brian has wrist and finger pain with limited finger motion while casted causing functional deficits in ADL/IADL performance. She has made excellent gains with finger motion.. She has a well fitting orthosis post visit today. Maria Isabel Brian is able to demonstrate home exercises. Maria Isabel Brian has fair potential for gains with therapy with identified needs for skilled therapy for treatment of deficits noted during evaluation today, to maximize functional performance during daily activities. She has very limited finger motion due to pain. Mcfp Goals (to be met by discharge): Date Goal Met: 1.) Maria Isabel Brian will demonstrate significantly improved functional performance from re-assessment as measured by a total average score of 9.0 using the PSFS. Goal Status: Short Term Goals (to be met by 4 weeks): Date Goal Met: 04.25.17 Maria Isabel Brian will be independent with home exercise program with written instructions. Goal Status: Meets Maria Isabel Brian will gain full extension of her fingers with flexion to the cast to demonstrate significantly improved functional performance as measured by >/= 1 point improvement on the total average score of the PSFS. Goal Status: PLAN: The patient is to be seen with MD and therapy in 4 weeks to progress toward short and mcfp goals, Soft tissue mobilization as therapeutically necessary to decrease pain and/or increase mobility, Therapeutic exercises to increase functional mobility, Orthosis to provide support and protection to the joint, Functional activities to increase hand function and independence in self care, Perform modalities as therapeutically necessary to decrease pain and increase mobility to include: Hot pack, Ultrasound, Electrical Stimulation, Combination Ultra/estim, Fluidotherapy and Contrast baths and Provide positive feedback and encouragement to improve emotional and mental well-being (X) Maria Isabel Brian participated in the evaluation, collaborated on treatment goals, and agrees to the treatment plan. documented in this encounter Plan of Treatment Not on filedocumented as of this encounter Visit Diagnoses Diagnosis Left wrist fusion, Dr. Paul, 03/08/2017 documented in this encounter Care Teams Medical Editor Relationship Specialty Start Date End Date Americo Hough PA PCP - General General Internal Medicine 08/04/16 [address] [place] [address] documented as of this encounter
--- OUTSIDE RECORDS SUMMARY | 2022-01-29 00:43 | XMS_ITS | Encounter Summary ---
:1965 Author Organization [facility] [place] [address] Care Team Providers Name Role Phone Americo Hough Primary Care Provider Encounter Details Date Type Department Care Team Description 12/16/2016 Hospital Encounter XRay at [facility] Griffin, Primary osteoarthritis of ri ght shoulder; [address] [facility] [address] Oralia MD S/P shoulder replacement, right [facility] [id number] [place] [phone] [place] [address] Social History Tobacco Use Types Packs/Day Years [...] 50 mg by mouth 0 Tablet nightly. acetaminophen (TYLENOL) Take 2 tablets by 0 [...] Priority Date/Time Associated Diagnosis Comme nts XR SHOULDER RIGHT Routine 12/16/2016 12:31 Primary osteoarthri tis Results for this PM EDT of right shoulde r procedure are in S/P shoulder the results replacement, right section. documented in this encounter Results XR Shoulder Right (Generic) (12/16/2016 12:31 PM EDT) Anatomical Region Laterality Modality Shoulder Right Digital Radiography Specimen (Source) Anatomical Location Collection Method / Collectio n Time Received Time / Laterality Volume Impressions 12/16/2016 1:34 PM EDT RIGHT TSA. Less than 2 mm of radiolucency at the right lateral humeral flange. No periprosthetic fracture. No radioluce ncy about the humeral shaft prosthesis. Narrative 12/16/2016 1:34 PM EDT EXAMINATION: XR SHOULDER RIGHT (GENERIC) CLINICAL HISTORY: right shoulder TSA 10/07 ? change from previous x-ray TECHNIQUE: 4 views of the RIGHT shoulder COMPARISON: 11/02/2016. FINDINGS: The RIGHT total shoulder arthroplasty ev aluated with hardware intact. The right glenohumeral joint space is maintained. The surgical drain has been removed. There is no evidence for fracture or for dislocation. Minimal 2 mm of faint radiolucency over the lateral proximal h umeral flange. No periprosthetic fracture. Visualized portion of the righ t lung is clear appearance of the right AC joint is unchanged. Procedure Note Nilsa Poole MD - 12/16/2016Forma tting of this note might be different from the original. EXAMINATION: XR SHOULDER RIGHT (GENERIC) CLINICAL HISTORY: right shoulder TSA 10/07 ? change from previous x-ray TECHNIQUE: 4 views of the RIGHT shoulder COMPARISON: 11/02/2016. FINDINGS: The RIGHT total shoulder arthroplasty ev aluated with hardware intact. The right glenohumeral joint space is maintained. The surgical drain has been removed. There is no evidence for fracture or for dislocation. Minimal 2 mm of faint radiolucency over the lateral proximal h umeral flange. No periprosthetic fracture. Visualized portion of the righ t lung is clear appearance of the right AC joint is unchanged. IMPRESSION RIGHT TSA. Less than 2 mm of radiolucenc y at the right lateral humeral flange. No periprosthetic fracture. No radioluce ncy about the humeral shaft prosthesis. Oralia Griffin MD IMG DX ORDERABLES documented in this encounter Visit Diagnoses Diagnosis Primary osteoarthritis of right shoulder Primary localized osteoarthrosis, should er region S/P shoulder replacement, right documented in this encounter Care Teams Spray Gun Operator Relationship Specialty Start Date End Date Americo Hough PA PCP - General General Internal Medicine 08/04/16 [address] [place] [address] documented as of this encounter
--- OUTSIDE RECORDS SUMMARY | 2022-01-29 00:43 | XMS_ITS | Encounter Summary ---
:1965 Author Organization [facility] [place] [address] Care Team Providers Name Role Phone Americo Hough Primary Care Provider Encounter Details Date Type Department Care Team Description 03/09/2017 Telephone Orthopaedics at [facility] [place] [address] Social History Tobacco Use Types Packs/Day Years Used Date Current Every Day Smoker Cigarettes 1 Smokeless Tobacco: Never Used Alcohol Use Standard Drinks/Week Comments Yes 8.3 (1 standard drink = 0.6 oz pure alco hol) once in a while Sex Assigned at Date Recorded Not on file documented as of this encounter Miscellaneous Notes Telephone Encounter - Parisa Cho RN - 03/09/2017 9:04 AM EDT Telephone Note Responsible Provider: Humberto Caller: Patient Reason for call: Increased pain Background/Surgery: Case Date: 03/08/2017 ?? Surgeon: Surgeon(s) and Role: * Glen Paul MD - Primary * Mariusz Quigley MD - Resident-Ecologist Technician ?? 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 Postoperative diagnosis: Stage IV SLAC arthritis LEFT wrist ?? Procedure(s) (LRB): ARTHRODESIS, WRIST, COMPLETE, W/ ILIAC OR OTHER AUTOGRAFT (WRVU 11.95) (Left) Assessment: Patient reported that when the alexander wore off, her pain was 10/10 She has been taking ,5 mg of Oxycodone every 4 hours because her pharmacy only gave her #43 of the #75 tablets prescribeddue to her Insurance only allowing her a 7 day supply. Patient denied any fevers, chills, erythema, increased swelling, bleeding or drainage. Patient states her fingers are warm to touch and she has sensation. Patient reported that she is taking 1000 mg of Tylenol every 8 hours and she is icing and elevating. Instructions/Plan: Instructed patient to take 2 tablets of Oxycodone for the next 24 hours and then cut back as pain allows, continue with Tylenol, ice and elevation. Instructed patient to notify Orthopaedics if symptoms worsen of fail to improve in 24 hours. Patient verbally recalled instructions given. Action: NA Learning needs assessment done with in the last 12 months: Yes documented in this encounter Plan of Treatment Not on filedocumented as of this encounter Visit Diagnoses Not on filedocumented in this encounter Care Teams Supervisor Plate Forming Relationship Specialty Start Date End Date Americo Hough PA PCP - General General Internal Medicine 08/04/16 [address] [place] [address] documented as of this encounter
--- OUTSIDE RECORDS SUMMARY | 2022-01-29 00:43 | XMS_ITS | Encounter Summary ---
:1965 Author Organization [facility] [place] [address] Care Team Providers Name Role Phone Americo Hough Primary Care Provider Reason for Referral Occupational Therapy (Routine) - Closed Specialty Diagnoses / Procedures Referred By Contact Refer red To Contact Occupational Therapy Diagnoses Status post fusion of wrist Radha aWn, [facility] [address] [place], [place] ORTHOPAEDIC SURGERY [phone] [place] [address] Referral ID Status Reason Start Date Expiration Date Visits V isits Requested Authorized [id number] Closed Evaluate and 03/21/2017 03/21/2018 1 1 Treat Reason for Visit Reason Comments Follow Up Surgery ap left wrist arthrodesis do s 03/08/17 Encounter Details Date Type Department Care Team Description 03/21/2017 Office Visit Orthopaedics at [facility] Glen Paul, Left wrist fusion, Dr. Eliseo walter, 03/08/2017; [facility] [place] [address] CENTER [phone] ORTHOPAEDIC SURGERY [place], [place] [address] Social History Tobacco Use Types [...] Sign Reading Time Taken Comments Blood Pressure 102/68 03/21/2017 8:33 AM EDT Pulse 83 03/21/2017 8:33 AM EDT Temperature - - Respiratory Rate - - Oxygen Saturation - - Inhaled Oxygen Concentration - - Weight 72.6 kg (160 lb) 03/21/2017 8:33 AM EDT stated Height 166.4 cm (5' 5.5) 03/21/2017 8:33 AM EDT stated Body Mass Index 26.22 03/21/2017 8:33 AM EDT documented in this encounter Progress Notes Radha Wan PA - 03/21/2017 8:40 AM EDT PATIENT NAME: Maria Isabel Brian AGE: 51 y.o. MR#: [id number] DATE OF VISIT: 03/21/2017 DATE OF SURGERY: 03/08/2017 SURGERY DESCRIPTION: ARTHRODESIS, WRIST, COMPLETE, W/ ILIAC OR OTHER AUTOGRAFT (WRVU 11.95) (Left)?? SURGEON: Dr. Paul CHIEF COMPLAINT: 2 weeks S/P above procedure HISTORY OF PRESENT ILLNESS: Ms. Brian is a 51 y.o. female who presents 2 weeks s/p the above procedures for office follow up. She continues to have some pain in the wrist. She has kept her wrist immobilized. She also has placed some additional chondral between her fingers since she found that finger range of motion caused some increased pain. She has been taking Dilaudid for pain control. She called over the weekend for a refill. She states that she has been able to decrease her dose to 1 tablet every 6 hours. Ms. Brian denies any fever/chills or other constitutional signs of infection. PHYSICAL EXAMINATION: Ms. Brian is a 51 y.o. female who is alert and oriented. She is in no acute discomfort and is resting comfortably in the exam room. Inspection: Healing surgical incisions with no evidence of infection. ROM/Strength: She has very limited active finger range of motion. Neurovascular: She reports some diminished sensation into all of her fingertips, but is able to feellight touch. Fingers are well perfused. DIAGNOSTIC STUDIES: X-rays of the left wrist were personally reviewed and show no complications following her total wrist fusion. ASSESSMENT: 2 weeks s/p above procedure PLAN: Dr. Paul also evaluated and spoke with the patient at today's visit. The patient's sutures were removed today and Steri-strips were applied without complication. She will go into a short arm cast today. She shouldn't start to work on active finger range of motion, besides to avoid weightbearing with the right arm. She was given a refill of her Dilaudid and should continue to wean over the next week. The patient understands to contact us if she has any other questions or concerns. The patient will follow up in 5-6 weeks with cast off x- rays. If there is adequate fusion at that point we would consider allowing her to transition to a removable splint, but she may need additional cast immobili zation. The above documentation was completed using [employer] voice recognition software. documented in this encounter Plan of Treatment Scheduled Referrals Name Type Priority Associated Order Schedule Diagnoses Referral to Outpatient Referral Routine Left wrist fusion, Or dered: Occupational Therapy Dr. Paul, 017 03/08/2017 documented as of this encounter Results XR Wrist Complete Min 3 views Left (Generic) (04/25/2017 3:10 PM EDT) Anatomical Region Laterality Modality Left Digital Radiography Specimen (Source) Anatomical Location Collection Method / Collectio n Time Received Time / Laterality Volume Impressions 04/25/2017 3:18 PM EDT Wrist arthrodesis without evidence of interval complication. Narrative 04/25/2017 3:18 PM EDT EXAMINATION: XR WRIST COMPLETE MIN 3 VIEWS LEFT (GENERIC) CLINICAL HISTORY: s/p left wrist fusion on 03/08/2017, assessing bone healing TECHNIQUE: PA, lateral and oblique views of the lef t wrist. COMPARISON: March 21, 2017. FINDINGS: Total wrist arthrodesis is again demonst rated. Alignment is unchanged. There is incomplete osseous fusion at this time. Procedure Note Donnell Hagan MD - 04/25/2017 EXAMINATION: XR WRIST COMPLETE MIN 3 VIE WS LEFT (GENERIC) CLINICAL HISTORY: s/p left wrist fusion on 03/08/2017, assessing bone healing TECHNIQUE: PA, lateral and oblique views of the lef t wrist. COMPARISON: March 21, 2017. FINDINGS: Total wrist arthrodesis is again demonst rated. Alignment is unchanged. There is incomplete osseous fusion at this time. IMPRESSION Wrist arthrodesis without evidence of in terval complication. Glen Paul MD IMG DX ORDERABLES documented in this encounter Visit Diagnoses Diagnosis Left wrist fusion, Dr. Paul, 03/08/2017 S/P wrist surgery Other postprocedural status Left wrist fusion, Dr. Paul, 03/08/2017 documented in this encounter Care Teams Commercial Loan Manager Relationship Specialty Start Date End Date Americo Hough PA PCP - General General Internal Medicine 08/04/[address] [place] [phone] documented as of this encounter
--- OUTSIDE RECORDS SUMMARY | 2022-01-29 00:43 | XMS_ITS | Encounter Summary ---
:1965 Author Organization [facility] [place] [address] Care Team Providers Name Role Phone Americo Hough Primary Care Provider Reason for Visit Reason Onset Date Comments Medication Refill 03/28/2017 Encounter Details Date Type Department Care Team Description 03/28/2017 Refill Orthopaedics at [facility] aKya Loyd, S/P wrist surgery [facility] [place] [phone] Social History Tobacco Use Types Packs/Day Years Used Date Current Every Day Smoker Cigarettes 1 Smokeless Tobacco: Never Used Alcohol Use Standard Drinks/Week Comments Yes 8.3 (1 standard drink = 0.6 oz pure alco hol) once in a while Sex Assigned at Date Recorded Not on file documented as of this encounter Miscellaneous Notes Telephone Encounter - Kaya Hyatt RN - 03/28/2017 2:28 PM EDT Maria Isabel called on the medication refill line for a renewal of dilaudid. Refill was declined. Tylenol and Nsaids were suggested per Dr. Paul. Advised Maria Isabel to call her pcp for pain management or a referral to the pain clinic. Maria Isabel opted to call her pcp. She will call back to orthopedics as needed, and is aware of her visit with orthopedics on 04/25. documented in this encounter Plan of Treatment Not on filedocumented as of this encounter Visit Diagnoses Diagnosis S/P wrist surgery Other postprocedural status documented in this encounter Care Teams Outboard Motor Assembler Relationship Specialty Start Date End Date Americo Hough PA PCP - General General Internal Medicine 08/04/16 [address] [place] [address] documented as of this encounter
--- OUTSIDE RECORDS SUMMARY | 2022-01-29 00:43 | XMS_ITS | Encounter Summary ---
:1965 Author Organization [facility] [address] Care Team Providers Name Role Phone Americo Hough Primary Care Provider Encounter Details Date Type Department Care Team Description 03/19/2017 Telephone Orthopaedics at [facility] Edgar Santana MD [facility] [place] [address] ORTHOPAEDIC SURGERY [phone] [place], [place] [address] (Wo rk) Social History Tobacco Use Types Packs/Day Years Used Date Current Every Day Smoker Cigarettes 1 Smokeless Tobacco: Never Used Alcohol Use Standard Drinks/Week Comments Yes 8.3 (1 standard drink = 0.6 oz pure alco hol) once in a while Sex Assigned at Date Recorded Not on file documented as of this encounter Miscellaneous Notes Telephone Encounter - Edgar Santana - 03/19/2017 2:32 PM EDT CLARIFICATION NEEDED: Ellie Ms. Brian is a 51-year-old female who underwent a wrist fusion with Dr. Paul on March 08, 2017. The patient contacted the orthopedist regulatory submissions associate pager today complaining of increased pain and requested a refill on her pain medication. The patient had been provided a refill previously on March 14, 2017 which she said that she was very close to being out of (4 to 5 pills remaining) and she was worried about running out of medication prior to her followup appointment on Tuesday. In reviewing the refill encounter from March 14, 2017, it was seen that they discussed with her at that time trying to wean off the opioid medication in favor of Tylenol. She says that she has been using Tylenol quite a bit. I again admonished her to try to wean off the opioid medication as well as talk to her about if she continues to have this level of pain that she should consider discussing with Dr. Paul and his team about possibly seeing a sole painter. In the interim, to manage her post-operative pain until she is able to see Dr. Paul in clinic on Tuesday, I did provide a small prescription of 5 pills of the same Dilaudid dosage that she had previously received. This was sent to her pharmacy via electronic prescription system. The patient expressed understanding of the treatment plan. All questions were answered satisfactorily. documented in this encounter Plan of Treatment Not on filedocumented as of this encounter Visit Diagnoses Diagnosis S/P wrist surgery Other postprocedural status documented in this encounter Care Teams Restorative Rehab Aide Relationship Specialty Start Date End Date Americo Hough PA PCP - General General Internal Medicine 08/04/16 [address] [place] [address] documented as of this encounter
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
--- OUTSIDE RECORDS SUMMARY | 2022-01-29 00:43 | XMS_ITS | Encounter Summary ---
:1965 Author Organization [facility] [place] [address] Care Team Providers Name Role Phone Americo Hough Primary Care Provider Reason for Visit Reason Comments Left Wrist Pain DOI 10/26/15 Encounter Details Date Type Department Care Team Description 03/02/2017 Office Visit Orthopaedics at [facility] [place] Paul, Pain in left wrist [facility] [place] [address] [facility] [phone] DR ORTHOPAEDIC SURGERY [place], [place] [address] Social History Tobacco Use Types Packs/Day Years Used Date Current Every Day Smoker Cigarettes 1 Smokeless Tobacco: Never Used Tobacco Cessation: Ready to Quit: No Alcohol Use Standard Drinks/Week Comments Yes 8.3 (1 standard drink = 0.6 oz pure alco hol) once in a while Sex Assigned at Date Recorded Not on file documented as of this encounter Last Filed Vital Signs Vital Sign Reading Time Taken Comments Blood Pressure 114/75 03/02/2017 2:59 PM EDT Pulse 67 03/02/2017 2:59 PM EDT Temperature - - Respiratory Rate - - Oxygen Saturation - - Inhaled Oxygen Concentration - - Weight 72.6 kg (160 lb) 03/02/2017 2:59 PM EDT stated Height 167.6 cm (5' 6) 03/02/2017 2:59 PM EDT sated Body Mass Index 25.82 03/02/2017 2:59 PM EDT documented in this encounter Progress Notes Glen Paul MD - 03/02/2017 3:25 PM EDT Maria Isabel Brian returns following an MRI of her left wrist. This shows evidence of both mid carpal arthritis as well as radiolunate and radioscaphoid arthritis. Based on this, I did tell her that simply doing a proximal row carpectomy or scaphoid excision with four corner fusion would not reliably provide her with satisfactory pain relief. I did tell her an option is total wrist fusion, and she rapidly decided this is what she would like to do. I did offer her corticosteroid injection or continued conservative care, but she really wishes to proceed with a fusion and does not wish to delay surgery for this. I did describe total wrist fusion to her in detail, and she is aware that she will forever lose all motion of her wrist including radial and ulnar deviation as well as flexion and extension. This should not significantly affect her forearm rotation. She is aware that distal radius bone graft and allograft would also need to be used. She is aware of that surgery has risk which include but are not limited to infection, neurovascular or tendon injury, pain transfer to the palm, malunion, nonunion, delayed union and persisting chronic pain. Hardware removal may need to be done in the future especially if it irritates tendon. She wishes to proceed, and we will schedule this to be done at a time that is convenient for her. NT Rosanne Gabriel RN - 03/02/2017 3:25 PM EDT Pre Op Nursing Assessment and Teaching Scheduled date of procedure: HEDY Side: left Site: wrist Procedure: Total wrist fusion with bone graft Anticipated time of immobilization for this procedure: 6 weeks Written material given: yes Patient educated on importance of staying healthy and maintaining skin integrity, especially of affected arm pre-op. Patient will inform us of any skin rashes, breaks in skin or illnesses prior to surgery. Discussed practicing ADL???s with non-operative arm. We are operating on the left Pt is right hand dominant Does pt have use of contralateral extremity, such that they can perform ADLs? yes Is pt able to rise from chair without use of operative arm? Yes Lives alone? No Pt weight: 160 # (if near or over 350#, pt must be weighed on scale and surgeon notified) Discussed no ASA or NSAIDS 7 days prior to surgery. May take Tylenol if needed. General post op guidelines discussed including hydration, nutrition, constipation, dressing changes,ice. A review of typically prescribed post op pain medication and suggestions for taking and tapering them in a methodical fashion was undertaken. Is pt currently on chronic narcotics? No For the operative problem? No Hibiclens soap instructions given Questions solicited and answered. Pt knows to call with any additional questions or concerns, Patient advised to read post-op instructions from day of surgery for specific recommendations after surgery. NT Fannie Gomez PA - 03/02/2017 3:25 PM EDT Maria Isabel comes in today to go over the MRI of her left wrist. We had seen her earlier this week, for left wrist pain that interferes with her activities. She feels conservative measures do not offer much relief. We recommended a MRI done to assess better for midcarpal and radiocarpal arthritis. Examination today is unchanged from previous visit. Please refer to 02/28/17 note. MRI done today was independently reviewed by Dr. Paul and myself in the office, and this showed significant radiocarpal arthritis, both of the radioscaphoid and radiolunate joint. She also has significant midcarpal arthritis. With these findings, it is not felt that a proximal radial carpectomy or scaphoid excision with four-corner fusion would reliably give her pain relief. It is felt that her option would be a total wrist fusion. These findings were gone over with her. We discussed with her that total wrist fusion would result in total loss of wrist motion with flexion and extension, radial and ulnar deviation. We discussed that it would be possible that she would have pain in other parts of her hand. The patient wishes to proceed. She understands that this surgery will result in complete loss of motion at her wrist. She is smoking. I had a discussion with her that nicotine use can interfere with bone-healing and result in a nonunion. She voiced understanding. I offered her a smoking cessation program and she is not interested at this time. Operative procedure of total wrist fusion, left wrist, with radial and Allograft bone graft were discussed with her. Possible risks and complications, including but not limited to, infection, nerve, tendon, or blood vessel damage, nonunion, malunion, hardware failure, persistent pain and numbness, were discussed with her. Consent was signed. This will be arranged at her convenience. documented in this encounter Plan of Treatment Not on filedocumented as of this encounter Procedures Procedure Name Priority Date/Time Associated Diagnosis Comme nts ARTHRODESIS, WRIST, Routine 03/02/2017 3:42 PM EDT Pain in lef t wrist COMPLETE, W/ ILIAC OR OTHER AUTOGGRAFT documented in this encounter Results XR Wrist [...] forearm documented in this encounter Care Teams Statistical Analyst Relationship Specialty Start Date End Date Americo Hough PA PCP - General General Internal Medicine 08/04/16 [address] [place] [address] documented as of this encounter
--- OUTSIDE RECORDS SUMMARY | 2022-01-29 00:43 | XMS_ITS | Encounter Summary ---
:1965 [place] [address] Care Team Providers Name Role Phone Americo Hough Primary Care Provider Encounter Details Date Type Department Care Team Description 03/11/2017 [place]ill [place] [facility] [place] Gabriel [place] [address] Social History Tobacco Use Types Packs/Day Years Used Date Current Every Day Smoker Cigarettes 1 Smokeless Tobacco: Never Used Alcohol Use Standard Drinks/Week Comments Yes 8.3 (1 standard drink = 0.6 oz pure alco hol) once in a while Sex Assigned at Date Recorded Not on file documented as of this encounter Miscellaneous Notes Telephone Encounter - Rosanne Gabriel RN - 03/11/2017 11:04 AM EDT Ms. Brian aware script for Dilaudid was sent to [facility]. Telephone Encounter - Rosanne Gabriel RN - 03/11/2017 9:49 AM EDT Ms. Brian called stating Medicaid only covered 43 tablets of Dilaudid. She is requesting another script be faxed to her pharmacy so she can pay out of pocket for the rest. documented in this encounter Plan of Treatment Not on filedocumented as of this encounter Visit Diagnoses Diagnosis Arthritis of wrist Unspecified arthropathy, forearm documented in this encounter Care Teams Help Desk Administrator Relationship Specialty Start Date End Date Americo Hough PA PCP - General General Internal Medicine 08/04/[address] [place] [address] documented as of this encounter
--- OUTSIDE RECORDS SUMMARY | 2022-01-29 00:43 | XMS_ITS | Encounter Summary ---
:1965 Author Organization [facility] [place] [address] Care Team Providers Name Role Phone Americo Hough Primary Care Provider Encounter Details Date Type Department Care Team Description 04/25/2017 Hospital Encounter XRay at [facility] [place] Paul Left wrist fusion, [address] [place] [address] Humberto Bradshaw, [facility] 03/08/2017 [id number] [place] [phone] ORTHOPAEDIC SURGERY [place] [id number] Social History Tobacco Use Types Packs/Day Years [...] Comme nts XR WRIST 3 VIEWS Routine 04/25/2017 3:10 PM Left wrist fusion, Results for this [...] 03/08/2017 documented in this encounter Care Teams Assistant Press Operator Relationship Specialty Start Date End Date Americo Hough PA PCP - General General Internal Medicine 08/04/16 [address] [place] [address] documented as of this encounter
--- OUTSIDE RECORDS SUMMARY | 2022-01-29 00:43 | XMS_ITS | Encounter Summary ---
:1965 Author Organization [facility] [place] [address] Care Team Providers Name Role Phone Americo Hough Primary Care Provider Encounter Details Date Type Department Care Team Description 02/28/2017 Hospital Encounter [place] [facility] [place] Paul Left wrist pain; [address] [facility] [address] Esa MD Left wrist injury, initial encounter [facility] [id number] [place] [phone] [place] [address] Social History Tobacco Use Types Packs/Day Years [...] Comme nts XR WRIST 3 VIEWS Routine 02/28/2017 7:56 AM Left wrist p ain Results for this LEFT EDT Left wrist injury, procedure are in initial encounter the result s section. documented in this encounter Results XR Wrist Complete Min 3 views Left (Generic) (02/28/2017 7:56 AM EDT) Anatomical Region Laterality Modality Left Digital Radiography Specimen (Source) Anatomical Location Collection Method / Collectio n Time Received Time / Laterality Volume Impressions 02/28/2017 8:18 AM EDT Moderate osteoarthropathy of the LEFT wrist. Narrative 02/28/2017 8:18 AM EDT EXAMINATION: XR WRIST COMPLETE MIN 3 VIEWS LEFT (GENERIC) CLINICAL HISTORY: Left wrist pain, Left wrist injury, initial encounter TECHNIQUE: 4 views of the LEFT wrist COMPARISON: None FINDINGS: No fracture or dislocation of the LEFT w rist. There is moderate osteoarthropathy of the radiocarpal joint characterized b y joint space loss, subchondral sclerotic changes and marginal osteophyt es. Procedure Note Wilmer Guerra MD - 02/28/2017Formatti ng of this note might be different from the original. EXAMINATION: XR WRIST COMPLETE MIN 3 VIE WS LEFT (GENERIC) CLINICAL HISTORY: Left wrist pain, Left wrist injury, initial encounter TECHNIQUE: 4 views of the LEFT wrist COMPARISON: None FINDINGS: No fracture or dislocation of the LEFT w rist. There is moderate osteoarthropathy of the radiocarpal joint characterized b y joint space loss, subchondral sclerotic changes and marginal osteophyt es. IMPRESSION Moderate osteoarthropathy of the LEFT wr ist. Glen Paul MD IMG DX ORDERABLES documented in this encounter Visit Diagnoses Diagnosis Left wrist pain Pain in joint, forearm Left wrist injury, initial encounter documented in this encounter Care Teams Cylinder Valve Repairer Relationship Specialty Start Date End Date Americo Hough PA PCP - General General Internal Medicine 08/04/16 [address] [place] [address] documented as of this encounter
--- OUTSIDE RECORDS SUMMARY | 2022-01-29 00:43 | XMS_ITS | Clinical Summary ---
:1965 Author Organization [facility] [place] [address] Care Team Providers Name Role Phone OscarChina english Memo EPSTEIN Primary Care Provider Allergies Active Allergy Reactions Severity Noted Date Comments Morphine 04/13/2016 Other reaction( s): Itching Multivitamin 04/13/2016 Medications Medication Sig Dispensed Refills Start Date End Date Status citalopram (CELEXA) 40 Take 40 mg by 0 Active mg Tablet mouth daily. traZODone (DESYREL) 50 Take 50 mg by 0 Active mg Tablet mouth nightly. prazosin (MINIPRESS) 1 Take 1 mg by mouth 0 Active mg Capsule nightly. ibuprofen (ADVIL) 200 Take 200 mg by 0 Active mg Tablet mouth as needed for Pain. atorvastatin (Lipitor) TAKE ONE TABLET BY 0 06/10/20 20 Active 40 mg Tablet MOUTH AT BEDTIME DOSE INCREASE lisinopriL TAKE ONE TABLET BY 0 06/10/2020 Active (Prinivil;Zestril) 5 MOUTH EVERY DAY mg Tablet Latuda 20 mg Tablet TAKE ONE TABLET BY 0 07/17/2020 Active MOUTH EVERY DAY AT BEDTIME Flovent HFA 110 INHALE 1 PUFF BY 0 08/03/2020 Active mcg/actuation HFA MOUTH TWICE A DAY Aerosol Inhaler Active Problems Problem Noted Date Left wrist fusion, Dr. Paul, 03/08/2017 03/21/2017 S/P shoulder replacement 11/18/2016 S/P Right TSA 11/02/16 (Dr. Griffin) 10/04/2016 Glenohumeral arthritis 07/29/2016 Neck pain on right side 05/13/2016 Radiculopathy of cervical region 05/03/2016 HBV (hepatitis B virus) infection 09/04/2015 FH: NICOLE-BSO (total abdominal hysterectomy and bilatera l 09/04/2015 salpingo-oophorectomy) BRAC2 + 2010 Chronic sciatica 08/20/2015 Posttraumatic stress disorder 08/20/2015 Smoker 03/14/2013 Pain in left wrist 12/06/2012 Anxiety state, unspecified 08/14/2012 Depression 06/19/2012 Immunizations Name Administration Dates Next Due Influenza Vaccine, Unspecified Formulation 06/23/2016 Family History Medical History Relation Comments Medical History Unknown Father Relation Status Comments Father Mother Alive Social History Tobacco Use Types Packs/Day Years Used Date Current Every Day Smoker Cigarettes 1 Smokeless Tobacco: Never Used Tobacco Cessation: Ready to Quit: No Alcohol Use Standard Drinks/Week Comments Yes 8.3 (1 standard drink = 0.6 oz pure alco hol) once in a while Sex Assigned at Date Recorded Not on file Last Filed Vital Signs Vital Sign Reading Time Taken Comments Blood Pressure 132/75 06/06/2017 3:39 PM EDT Pulse 58 06/06/2017 3:39 PM EDT Temperature 36.4 ??C (97.5 ??F) 03/08/2017 1:48 PM EDT Respiratory Rate 16 03/08/2017 1:48 PM EDT Oxygen Saturation 93% 03/08/2017 2:00 PM EDT Inhaled Oxygen Concentration - - Weight 70.3 kg (155 lb) 08/12/2020 10:01 AM EST Height 167.6 cm (5' 6) 08/12/2020 10:01 AM EST Body Mass Index 25.02 08/12/2020 10:01 AM EST Plan of Treatment Health Maintenance Due Date Last Done Comments Covid-19 Vaccine (#1) 1970 Pneumococcal Vaccine: At-Risk 1971 5-64yrs (1 - PCV) HIV screen 1983 Hepatitis C Screening 1983 Tdap adult 1984 Tetanus vaccine 1984 HPV test 1995 PAP Smear 1995 Breast Cancer Share Decision 2005 Needed Colonoscopy 2010 Breast Cancer screening 2015 Zoster vaccine (1 of 2) 2015 Diabetes Screening (HgbA1C or 11/04/2019 11/03/2016, 2015, Glucose) 10/28/2015, Additional history exists Advance Directive 2020 Influenza (Flu) vaccine ( - 04/08/2021 06/23/2016 Influenza standard series) Medical Devices Implanted Type Area Biochemist Device Shelf Model / Identifier Expiration Serial / Date Lot Head,Hum,Bf,Ofst,[id number] ([id number]) (Autoreq) - [id number] IMPLAN TS Right: DO NOT USE 09/07/2025 / Implanted: Qty: 1 on 11/02/2016 by Oralia Griffin MD at [facility] [employer]. - / [id number] Screw,Cmpr,Hdls,Sht,3x18mm ([id number]) - [id number] IMPLANTS Left: Wrist DO NOT USE 02.018 / Implanted: Qty: 2 on 03/08/2017 by Glen Paul MD at [facility] SYNTHES - / [id number] Synthesis 110 Mm Screw Left: Wrist [id number] / Implanted: Qty: 1 on 03/08/2017 by Glen Paul MD at [facility] [id number] / Explanted Type Area Biochemist Device Shelf Model / Identifier Expiration Serial / Date Lot Screw,Mg,Uni,Headed,48mm ([id number]) (Autoreq) - [id number] IMPLAN TS Right: DO NOT USE 06/07/2026 [id number] / Explanted: Qty: 1 on 11/02/2016 by Oralai Griffin MD at [facility] [employer]. - / [id number] Insurance Payer Benefit Plan / Subscriber ID Effective Dates Phone Addre ss Type Group MEDICARE MEDICARE PART [id number] 2020-Pres [phone] [place] [address] [place] [id number] 2020-Presfidel [phone] [address] [place] [address] Advance Directives Latest Code Status on File Code Status Date Activated Date Inactivated Comments Full Code 03/08/2017 11:00 AM 03/08/2017 4:27 PM Does patient have capacity to make decision: Yes Full Code 11/02/2016 10:13 AM 11/04/2016 3:16 PM Does patient have capacity to make decision: Yes Full Code 11/02/2016 6:19 AM 11/02/2016 10:13 AM Does patient have capacity to make decision: Yes Care Teams Ed Physicians Relationship Specialty Start Date End Date China Herring, PROGRAMS ASSISTANT PCP - General Family Medicine 08/06/20 [address] [place] [address]
--- OUTSIDE RECORDS SUMMARY | 2022-01-29 00:43 | XMS_ITS | Encounter Summary ---
:1965 Author Organization [facility] [place] [place] [address] Care Team Providers Name Role Phone Americo Hough Primary Care Provider Reason for Visit Reason Comments Follow Up Surgery sp right tsa dos 11/02/16 Encounter Details Date Type Department Care Team Description 11/18/2016 Office Visit Orthopaedics at [facility] [place] Oralia Griffin, S/P shoulder replacement, ri ght (Primary Dx); [facility] Primary osteoarthritis [place] [address] [place] [address] [place] [address] Social History Tobacco Use Types Packs/Day Years Used Date Current Every Day Smoker Cigarettes, e-Cigarettes 0.25 Smokeless Tobacco: Never Used Tobacco Cessation: Ready to Quit: No; Co unseling Given: No Comments: 1 pack every 3 days Alcohol Use Standard Drinks/Week Comments Yes 8.3 (1 standard drink = 0.6 oz pure alco hol) once in a while Sex Assigned at Date Recorded Not on file documented as of this encounter Last Filed Vital Signs Vital Sign Reading Time Taken Comments Blood Pressure 126/60 11/18/2016 11:16 AM EDT Pulse 74 11/18/2016 11:16 AM EDT Temperature - - Respiratory Rate - - Oxygen Saturation - - Inhaled Oxygen Concentration - - Weight 77.1 kg (170 lb) 11/18/2016 11:16 AM EDT stated Height 167.6 cm (5' 6) 11/18/2016 11:16 AM EDT stated Body Mass Index 27.44 11/18/2016 11:16 AM EDT documented in this encounter Progress Notes Meredith Morales, BRUS[facility] - 11/18/2016 11:10 AM EDT Arthroplasty/Orthopaedic History: 1. Right shoulder TSA. Dr. Griffin. DOS: 11/02/2016. Chief Complaint: First global post op appointment for above. HPI: Maria Isabel Brian is a very pleasant 51 y.o. year-old female and is now a few weeks post right shoulder TSA. The patient has been doing well. Pain is controlled with current analgesics. Medication(s) being used: post op narcotics sparingly a few times per day. No fevers, chills, nausea, vomiting, or symptoms of infection. Denies numbness or tingling distal to the surgical incision. Maria Isabel has been compliant with Dr. Griffin's post op protocol with the sling and abduction pillow and working with PT. She is taking narcotic pain medicine. No refills requested today. No interval falls or injuries. Her appetite is good. No constipation. Sleeping on her couch. Her health has been stable otherwise andshe is here for definitive management. Anticoagulation status ASA 81 mg BID for 30 days discussed stop date as directed in EDH. ROS: Denies: fever, chills, night sweats, nausea, or vomiting Patient's medications, allergies, past medical, surgical, social and family histories were reviewed and updated as appropriate. BP 126/60 (BP Location (NBP): Left arm, Patient Position: Sitting, BP Cuff Sizes: Adult (25-34 cm)) Pulse 74 Ht 167.6 cm (5' 6) Comment: stated Wt 77.1 kg (170 lb) Comment: stated BMI 27.44 kg/m2 Physical Exam: Well-appearing female in no acute distress. Alert and Oriented x 3 and answers all questions appropriately. The incision is well healed, with no signs of infection. Right shoulder ROM not fully assessed due to recent surgery. Unrestricted ROM of the elbow, wrist, hand and fingers. Hand is sensate, well perfused, distal pulses are 2+ and equal. X-RAYS: . No new images Questionnaire Responses: [facility] Surgical Postop Visit 11/18/2016 PROMIS-10 General Health Very Good PROMIS-10 Quality of Life Good PROMIS-10 Physical Health Good PROMIS-10 Mental Health Fair PROMIS-10 Social Activity Very Good PROMIS-10 Everyday Activities A little PROMIS-10 Pain 4 PROMIS-10 Fatigue Moderate PROMIS-10 Social Roles Poor PROMIS-10 Anxious or Depressed Sometimes PROMIS PHYSICAL HEALTH SCORE 37.4 PROMIS MENTAL HEALTH SCORE 43.5 Problems with surgical incision/wound after surgery No Gone to ER since knee surgery No Admitted to hospital since recent ortho surgery No Additional surgery on same body part No Satisfaction with Treatment Satisfied Choose Same Treatment Again Definitely yes [facility] Response 11/18/2016 ASES VAS-RIGHT 2 ASES ADL-RIGHT ARM 3 ASES RIGHT ARM 45 Spine [facility] Response 04/13/2016 Neck (NDI) Score 80 (Complete disability) ASSESSMENT/PLAN: Ms. Brian is a 51 y.o. year old female status post right shoulder TSA a few weeks ago. Doing well postoperatively. Continue with Dr. Griffin's post op protocol with activity restrictions reviewed. The sling use is reviewed for 6 weeks total ok off for PT and showering. We will see her back in 4 weeks for repeat examination. X-rays will be needed at that time. We discussed the appropriate precautions surrounding dental prophylaxis; according to the AAOS Appropriate Use Criteria we do not recommend antibiotic use prior to dental procedures for Maria Isabel. Recommended antibiotic: N/A If Maria Isabel has any changes in health status we recommend she contact our office prior to dental procedures for updated recommendations We also discussed maintaining good foot care and giving prompt attention to any source of infection throughout the body including foot ulcers and urinary tract infections. All questions were answered. Signed: MEREDITH MORALES APRN 11/18/2016 documented in this encounter Plan of Treatment Not on filedocumented as of this encounter Results XR Shoulder Right (Generic) [...] documented in this encounter Visit Diagnoses Diagnosis S/P shoulder replacement, right - Primar y Primary osteoarthritis of right shoulder Primary localized osteoarthrosis, should er region Primary osteoarthritis of right shoulder Primary localized osteoarthrosis, should er region S/P shoulder replacement, right documented in this encounter Care Teams Entry Engineer Relationship Specialty Start Date End Date Americo Hough PA PCP - General General Internal Medicine 08/04/16 [address] [place] [address] documented as of this encounter
--- OUTSIDE RECORDS SUMMARY | 2022-01-29 00:43 | XMS_ITS | Encounter Summary ---
:1965 Author Organization [facility] [place] [address] Care Team Providers Name Role Phone Americo Hough Primary Care Provider Reason for Visit Reason Comments Left Wrist Fracture L wrist arthrodesis 03/08/20 17 Encounter Details Date Type Department Care Team Description 04/25/2017 Office Visit Orthopaed[facility] at [facility] Radha Wan Left wrist fusion, [facility] [address] 03/08/2017 [place] [address] CENTER [phone] ORTHOPAEDIC SURGERY [place] [address] Social History Tobacco Use Types Packs/Day Years [...] Sign Reading Time Taken Comments Blood Pressure 126/83 04/25/2017 3:18 PM EDT Pulse 74 04/25/2017 3:18 PM EDT Temperature - - Respiratory Rate - - Oxygen Saturation - - Inhaled Oxygen Concentration - - Weight 70.3 kg (155 lb) 04/25/2017 3:18 PM EDT pt repor kirstie Height 167.6 cm (5' 6) 04/25/2017 3:18 PM EDT pt repor kirstie Body Mass Index 25.02 04/25/2017 3:18 PM EDT documented in this encounter Progress Notes J Carlos Celaya - 04/25/2017 3:30 PM EDT Maria Isabel Brian presents to the clinic for a cast/splint off per Radha Wan PA-C. The cast was intact upon arrival. The patient was explained how the cast saw works and the cast was removed. The patient tolerated this procedure well. The patient's skin was intact.The patient was then sent to x -ray. Radha Wan PA - 04/25/2017 3:30 PM EDT PATIENT NAME: Maria Isabel Brian AGE: 51 y.o. MR#: [id number] DATE OF VISIT: 04/25/2017 DATE OF SURGERY: 03/08/2017 ?? SURGERY DESCRIPTION: ARTHRODESIS, WRIST, COMPLETE, W/ ILIAC OR OTHER AUTOGRAFT (WRVU 11.95) (Left)? SURGEON: Dr. Paul CHIEF COMPLAINT: 7 weeks S/P above procedure HISTORY OF PRESENT ILLNESS: Ms. Brian is a 51 y.o. female who presents 7 weeks s/p the above procedures for office follow up. She has been doing well since her last visit. She states that her pain has improved significantly. She has been immobilized in a short arm cast. Her cast was removed for x-raystoday. She has been working on finger range of motion exercises. She finds that she still has some stiffness with her index finger, but she feels that she has been making good progress. Ms. Brian denies any fever/chills or other constitutional signs of infection. PHYSICAL EXAMINATION: Ms. Brian is a 51 y.o. female who is alert and oriented. She is in no acute discomfort and is resting comfortably in the exam room. Inspection: Well-healed surgical incision. No evidence of infection. Wrist is well aligned. Her swelling has improved significantly. ROM/Strength: She is able to perform active flexion and extension with her fingers and thumb. She still has some stiffness in the index finger, but is able to make a loose fist. Her wrist appears solidly fused and she does not having any pain over her hardware. Neurovascular: Intact motor function of the radial, median, and ulnar nerves. Intact sensation alongradial, median, and ulnar nerve distributions. Good hand perfusion. DIAGNOSTIC STUDIES: X-rays of the left wrist were personally reviewed. There are no complications following her total wrist fusion and it appears that there has been progressive bony healing. ASSESSMENT: 7 weeks s/p above procedure PLAN: I reviewed the x-rays with the patient today. She will transition to a removable splint. She may remove her splint for hand hygiene. She should continue with her finger range of motion exercises.She can also perform scar massage. She still needs to avoid weightbearing with the left arm. The patient understands to contact us if she has any other questions or concerns. The patient will follow upin 6 weeks with x-rays. The above documentation was completed using [employer] voice recognition software. documented in this encounter Plan of Treatment Not on filedocumented as of this encounter Results XR Wrist [...] Diagnosis Left wrist fusion, Dr. Paul, 03/08/2017 Left wrist fusion, Dr. Paul, 03/08/2017 documented in this encounter Care Teams Technology Support Analyst Relationship Specialty Start Date End Date Americo Hough PA PCP - General General Internal Medicine 08/04/16 [address] [place] [address] documented as of this encounter
--- OUTSIDE RECORDS SUMMARY | 2022-01-29 00:43 | XMS_ITS | Encounter Summary ---
:1965 [place] [address] Care Team Providers Name Role Phone Americo Hough Primary Care Provider Encounter Details Date Type Department Care Team Description 03/08/2017 Anesthesia Event Outpatient Surgery Tash Stout MD [facility] ANESTHESIOLOGY [place] [address] [place]y [place] Niles Castellon MD [facility] ANESTHESICHRISTINA [place] [address] [place] [address] Anesthesia Record Procedure Summary Procedure Name Responsible Anesthesia Start Anesthesia Stop Time Anesthesiologist Time ARTHRODESIS, WRIST, Edna Stout MD 03/08/17 1118 1349 COMPLETE, W/ ILIAC OR OTHER AUTOGRAFT (WRVU 11.95) (Left Finger) Events Date Time Event Comment 03/08/2017 1035 1118 Start 1122 AN Verify 1122 An Start Data 1126 An Induction 1127 An Intubation 1131 Anesthesia Ready 1140 An Tourn Inflated 250mmHg 1141 Skin Incision 1200 Break/Relief In Edna Stout MD 1225 Break/Relief Out 1338 An Tourn Deflated 117MIN 1343 Extubation/LMA Out 1345 an stop data 1349 Recovery or ICU Handoff Patient care was transferred to the destination unit staff after review of the patient's medica l history, current anesthetic/surgi shin status and plan, according to the Provider Handoff Checklist. 1349 Stop Name Total IV Lidocaine 20 mg Propofol 250 mg Propofol INF 481 mg Dexamethasone 8 mg Ondansetron 8 mg ceFAZolin (ANCEF) 2g in dextrose 5% 100 mL 2 g lactated Ringers infusion 1,000 mL 1,000 mL Agents Name O2 Air N2O Sevoflurane (et) Blood No blood administrations on file. Lines, Drains, and Airways Type Details Placement Removal Incision 11/02/16; 0809; shoulder 11/02/16 0809 by Radha Taylor RN Incision 03/08/17; 1150; wrist 03/08/17 1150 by Elysia Aviles RN PIV 03/08/17; 1023; cephalic 03/08/17 1023 by 1352 by vein (lateral side of Kayli Montano RN Casandra enAngie RN arm), right; pqax-niz-xhyhja catheter system; 20 gauge; distraction, intradermal injection; 03/08/17; 1352 Supraglottic Mask Ventilation: Easy 03/08/17 1127 by Andi, 03/08/17 1343 by (1); LMA Type: iGel; LMA KIKE Pollack Heather P, Size: 3; Inserted by: KIKE York CRNA documented in this encounter Social History Tobacco Use Types Packs/Day Years Used Date Current Every Day Smoker Cigarettes 1 Smokeless Tobacco: Never Used Alcohol Use Standard Drinks/Week Comments Yes 8.3 (1 standard drink = 0.6 oz pure alco hol) once in a while Sex Assigned at Date Recorded Not on file documented as of this encounter OR Notes Anesthesia Postprocedure Evaluation - Edna Stout MD - 03/08/2017 2:27 PM EDT [facility] Department of Anesthesiology Post-procedure Note Patient: Maria Isabel Posada Brian Procedure Summary Date Anesthesia Start Anesthesia Stop Room / Location 03/08/17 1118 1349 [facility] OR / [facility] Procedure Diagnosis Surgeon Responsible Provider ARTHRODESIS, WRIST, COMPLETE, W/ ILIAC OR OTHER AUTOGRAFT (WRVU 11.95) (Left Finger) Pain in left wrist (arthritis left wrist) Glen Paul MD Gandevia, Vijay V, MD All Anesthesia Providers: Anesthesiologist: Edna Stout MD INSPECTOR [employer]S: Dayanara Escamilla CRNA Last (1hr) Vitals: BP 160/90 (03/08/17 1400) Temp 36.4 ??C (97.5 ??F) (03/08/17 1348) Pulse 69 (03/08/17 1400) Resp 16 (03/08/17 1348) SpO2 93 % (03/08/17 1400) Patient Location: PACU/[facility] Level of Consciousness: Awake and Alert Pain Management: Satisfactory Analgesia PONV: None Cardiovascular Status: Hemodynamically Stable Respiratory Status: Stable Respiratory Status and Room Air Postoperative Fluid Status: Intravascular EUvolemia Possible Anesthetic Complications: NONE apparent at time of evaluation Final Primary Anesthesia Type: General (The anesthetic type performed was the same as planned.) Comments: Anesthesia Procedure Notes - Edna Stout MD - 03/08/2017 12:58 PM EDT Associated Order(s): ANESTHESIA BLOCK Procedure: Anesthesia Block Block: Post-op Pain Control, supraclavicular nerve block Start time: 03/08/2017 10:28 AM End time: 03/08/2017 10:42 AM Patient Location: Block Room Indication/Prep Position: sitting Prep: chlorhexidine, mask, cap, sterile gloves, hand hygeine Laterality: left Skin Medication lidocaine 1% 1 ml Injection Information Ultrasound Guidance: live and in-plane Ultrasound guidance was used to identify the targeted neuronal structure. Ultrasound was also used to identify needle positon and to identify surrounding tissue (bone, muscle, and blood vessels) to prevent inadvertent intraneural or intravascular needle placement and injection. The spread of local anesthetic was confirmed with live ultrasound imaging. Injection technique:single-shot Needle Length: 5 cm Gauge: 22 Needle Type: [id number]-qtnnx-pnekl Medication injection made incrementally with aspirations. Nerve infiltration solution through a needle Ropivicaine 0.5% 25 mL Neuro Exam A neuro exam was performed at 10 minutes after block placement. Additional Notes Slight difficulty properly visualizing subclavian artery, but otherwise uneventful. Moderate amount of sedation required due to patient anxiety. Arm completely blocked after 10-15 minutes Resident: Second Resident: Fellow: Attending Physician: EDNA STOUT V ~~~~~~~~~~~~~~~~~~~~~~~~~~~~~~~~~~~~~~~~~~~~~~~~~~~~~~~~~~~~ Anesthesia Procedure Notes - Edna Stout MD - 03/08/2017 10:45 AM EDT Associated Order(s): ANESTHESIA BLOCK Procedure: Anesthesia Block Block: Post-op Pain Control, supraclavicular nerve block Start time: 03/08/2017 10:28 AM End time: 03/08/2017 10:42 AM Patient Location: Block Room Indication/Prep Position: sitting Prep: chlorhexidine, mask, cap, sterile gloves, hand hygeine, patient draped Laterality: left Skin Medication lidocaine 1% 1 ml Injection Information Ultrasound Guidance: live and in-plane Ultrasound guidance was used to identify the targeted neuronal structure. Ultrasound was also used to identify needle positon and to identify surrounding tissue (bone, muscle, and blood vessels) to prevent inadvertent intraneural or intravascular needle placement and injection. The spread of local anesthetic was confirmed with live ultrasound imaging. Injection technique:single-shot Needle Length: 5 cm Gauge: 22 Needle Type: V-allpa-jgiwr Medication injection made incrementally with aspirations. Nerve infiltration solution through a needle Ropivicaine 0.5% 25 mL Resident: Second Resident: Fellow: Attending Physician: EDNA STOUT V ~~~~~~~~~~~~~~~~~~~~~~~~~~~~~~~~~~~~~~~~~~~~~~~~~~~~~~~~~~~~ Anesthesia Preprocedure Evaluation - Edna Stout MD - 03/07/2017 1:59 PM EDT Pre-Anesthesia Evaluation for: Maria Isabel Brian a 51 y.o. female. Procedure(s): ARTHRODESIS, WRIST, COMPLETE, W/ ILIAC OR OTHER AUTOGRAFT (WRVU 11.95) Patient Active Problem List Diagnosis ??? S/P shoulder replacement ??? S/P Right TSA 11/02/16 (Dr. Griffin) ??? Glenohumeral arthritis ??? Neck pain on right side ??? Radiculopathy of cervical region ??? HBV (hepatitis B virus) infection ??? FH: NICOLE-BSO (total abdominal hysterectomy and bilateral salpingo- oophorectomy) BRAC2 + 2010 ??? Chronic sciatica ??? Posttraumatic stress disorder ??? Smoker ??? Pain in left wrist ??? Anxiety state, unspecified ??? Depression Past Medical History: Diagnosis Date ??? Alcohol abuse, in remission ??? Anxiety ??? Depression 06/19/2012 ??? Hepatitis Past Surgical History: Procedure Laterality Date ??? ORTHOPEDIC SURGERY left wrist fracture iliac crest bone graft 25 years ago ??? PARTIAL HYSTERECTOMY ??? PRO RECONSTR TOTAL SHOULDER IMPLANT Right 11/02/2016 @TOTAL SHOULDER ARTHROPLASTY (VU 22.13) performed by Oralia Griffin MD at [facility] MAIN OR ??? PRO REPAIR BICEPS LONG TENDON Right 11/02/2016 TENODESIS,BICEPS TENDON (PROXIMAL) (VU 10.17) performed by Oralia Griffin MD at [facility] MAIN OR ??? PRO UNLISTED CRANIO/MAXILLOFACIAL SURG ??? PRO UNLISTED PROCEDURE, MUSCULOSKELETAL SYSTEM, GENERAL Social History Substance Use Topics ??? Smoking status: Current Every Day Smoker Packs/day: 1.00 Types: Cigarettes ??? Smokeless tobacco: Never Used ??? Alcohol use 5.0 oz/week 2 Cans of beer, 10 Standard drinks or equivalent per week Comment: once in a while History Drug Use No Allergies Allergen Reactions ??? Morphine Other reaction(s): Itching ??? Multivitamin Medications: MAR and/or home medications have been reviewed. Physical Exam: There were no vitals filed for this visit. There is no height or weight on file to calculate BMI. Anesthesia Physical Exam Anesthesia Plan: ASA 2 general and regional, with a(n) intravenous induction Preliminary: Medical record reviewed. Patient is a 51 year old female to go for left wrist arthrodesis. History is notable for smoking, depression, anxiety, PTSD, cervical radiculopathy with right sided pain. She is s/p right TSA. Plan: GA/LMA plus left supraclavicular brachial plexus block Region - Other Informed Consent: Anesthetic plan and risks discussed with patient. Plan discussed with INSPECTOR [employer]S and attending. PAT Staff Note documented in this encounter Plan of Treatment Not on filedocumented as of this encounter Procedures Procedure Name Priority Date/Time Associated Diagnosis Comme nts ANESTHESIA BLOCK Routine 03/08/2017 1:01 PM EDT Procedure Note - Tania Stout MD - 03/08/2017 12:58 PM EDTThis note is in progress. Formatting of this note migh t be different from the original. Procedure: Anesthesia Block Block: Post-op Pain Control, supraclavicular nerve block Start time: 03/08/2017 10:28 A M End time: 03/08/2017 10:42 AM Patient Location: Block Room Indication/Prep Position: sitting Prep: chlorhexidine, mask, c ap, sterile gloves, hand hygeine Laterality: left Skin Medication lidocaine 1% 1 ml Injection Information Ultrasound Guidance: live an d in-plane Ultrasound guidance was use d to identify the targeted neuronal structure. Ultrasound was also used to identify needle positon and to identify surrounding tissue (bone, muscle, and blood vessels) to prevent inadvertent intraneural or i ntravascular needle placement and injection. The spread of local anesthetic was confirmed with live ultrasound imaging. Injection technique:single-s hot Needle Length: 5 cm Gauge: 22 Needle Type: P-mqglo-mbmmz Medication injection made in crementally with aspirations. Nerve infiltration solution through a needle Ropivicaine 0.5% 25 mL Neuro Exam A neuro exam was performed a t 10 minutes after block placement. Additional Notes Slight difficulty properly v isualizing subclavian artery, but otherwise uneventful. Moderate amount of sedation required due to patient anxiety. Arm completely blocked after 10-15 minutes Resident: Second Resident: Fellow: Attending Physician: EDNA PIERSON V ~~~~~~~~~~~~~~~~~~~~~~~~~~~~ ~~~~~~~~~~~~~~~~~~~~~~~~~~~~~~~~ ANESTHESIA BLOCK Routine 03/08/2017 10:49 AM EDT Procedure Note - Tania Stout MD - 03/08/2017 10:45 AM EDTThis note is in progress. Formatting of this note migh t be different from the original. Procedure: Anesthesia Block Block: Post-op Pain Control, supraclavicular nerve block Start time: 03/08/2017 10:28 A M End time: 03/08/2017 10:42 AM Patient Location: Block Room Indication/Prep Position: sitting Prep: chlorhexidine, mask, c ap, sterile gloves, hand hygeine, patient draped Laterality: left Skin Medication lidocaine 1% 1 ml Injection Information Ultrasound Guidance: live an d in-plane Ultrasound guidance was use d to identify the targeted neuronal structure. Ultrasound was also used to identify needle positon and to identify surrounding tissue (bone, muscle, and blood vessels) to prevent inadvertent intraneural or i ntravascular needle placement and injection. The spread of local anesthetic was confirmed with live ultrasound imaging. Injection technique:single-s hot Needle Length: 5 cm Gauge: 22 Needle Type: V-ielzx-vwjjn Medication injection made in crementally with aspirations. Nerve infiltration solution through a needle Ropivicaine 0.5% 25 mL Resident: Second Resident: Fellow: Attending Physician: EDNA PIERSON V ~~~~~~~~~~~~~~~~~~~~~~~~~~~~ ~~~~~~~~~~~~~~~~~~~~~~~~~~~~~~~~ documented in this encounter Visit Diagnoses Not on filedocumented in this encounter Administered Medications Inactive Administered Medications - up to 3 most recent administrations Medication Order MAR Action Action Date Dose Rate Site ceFAZolin (ANCEF) 2g in dextrose 5% Given 03/08/2017 11:31 AM ED T 2 g 100 mL 2 g, Intravenous, EVERY 3 HOURS, 1 dose, First dose on Tue03/08/17 at 1015, Administer over 30 Minutes, Redose after 3 hours., Intra-Operative (Intra-Procedure), Indication for (Active or Suspected): Prophylaxis dexamethasone (DECADRON) injection Given 03/08/2017 11:32 AM EDT 8 mg PRN, Starting on Tue03/08/17 at 1132, Until Tue03/08/17 at 1351, Anesthesia Intra-op, Routine lactated Ringers infusion 1,000 mL New Bag 03/08/2017 11:02 AM EDT 1,000 mL, at 100 mL/hr, Intravenous, CONTINUOUS, Starting on Tue03/08/17 at 1015, Until Tue03/08/17 at 1425, Day of Surgery (Day of Procedure) lidocaine (PF) (XYLOCAINE) 100 mg/5 mL (2 %) Given 08/2016 11:26 AM EDT 20 mg injection PRN, Starting on Tue03/08/17 at 1126, Until Tue03/08/17 at 1351, Anesthesia Intra-op, Routine ondansetron (ZOFRAN) injection Given 03/08/2017 1:25 PM EDT 4 mg PRN, Starting on Tue03/08/17 at 1132, Until Tue03/08/17 at 1351, Nausea, Anesthesia Intra-op, Routine Given 03/08/2017 11:32 AM EDT 4 mg propofol (DIPRIVAN) 10 mg/mL bolus injection Given 08/2016 11:27 AM EDT 50 mg (Anesthesia) PRN, Starting on Tue03/08/17 at 1126, Until Tue03/08/17 at 1351, Anesthesia Intra-op Given 03/08/2017 11:26 AM EDT 200 mg propofol (DIPRIVAN) infusion New Bag 03/08/2017 11:29 AM 50 mcg/kg/min 22.2 mL/hr CONTINUOUS PRN, Starting on EDT Tue03/08/17 at 1129, Until Tue03/08/17 at 1351, Anesthesia Intra-op, Routine documented in this encounter Care Teams Milieu Coordinator Relationship Specialty Start Date End Date Americo Hough PA PCP - General General Internal Medicine 08/04/16 [address] [place] [address] documented as of this encounter
--- OUTSIDE RECORDS SUMMARY | 2022-01-29 00:44 | XMS_ITS | Encounter Summary ---
:1965 Author Organization [facility] [place] [address] Care Team Providers Name Role Phone Niles Roy MD Primary Care Provider [phone] Reason for Visit Physical Therapy (Routine) - Closed Specialty Diagnoses / Procedures Referred By Contact Refer red To Contact Physical Therapy Diagnoses Neck pain on right side Fracture of right clavicle, unspecified part of clavicle, sequela Reynaldo Vieyra, PA [facility] Spine [place] [facility] [place] [address] [place] [address] Phone: Referral ID Status Reason Start Date Expiration Date Visits V isits Requested Authorized [id number] Closed Evaluate and 04/13/2016 04/13/2017 12 12 Treat Encounter Details Date Type Department Care Team Description 05/03/2016 Office Visit Spine Center at Sabrina Recinos, [facility] [place] [address] Social History Tobacco Use Types Packs/Day Years Used Date Current Every Day Smoker Cigarettes 1 Smokeless Tobacco: Never Used Alcohol Use Standard Drinks/Week Comments Yes 8.3 (1 standard drink = 0.6 oz pure alco hol) once in a while Sex Assigned at Date Recorded Not on file documented as of this encounter Progress Notes Sabrina Recinos, PT - 05/03/2016 2:30 PM EDT [facility] PHYSICAL THERAPY INITIAL VISIT Date of First Exam/ First Treatment: 05/03/2016 Referring provider: Reynaldo Vieyra PA-C Diagnosis: 1. 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 Onset: Symptoms of cervical spine, right scapula, right shoulder, and elbow pain with occasional right forearm and hand pain which began at the end of October when patient fell and tripped over her dog resulting in a fractured R clavicle. She perceives strength loss in her right UE and reports tingling in her right hand. Present symptoms: Right cervical spine, scapula, right shoulder, right elbow, tingling in the right hand. Pain is rated 7/10 and reaches 10/10 at its worst. Symptoms are worsening since onset. Functional disability from present episode: Increased pain following driving, has to walk her dog using her left arm not the right, unable to vacuum Previous episodes or treatments: Neck and R UE radicular pain 15 years ago prior to ACDF. Patient has experienced cervical ACDF at C5-C6 15 years ago. Treatments this episode: Gabapentin, Imaging: CT showing a solid fusion of C5-C6, with anterior instrumentation. There are marginal osteophytes between C4-C5, and C6-C7 anteriorly. Worse with: First thing in the AM, washing her hair or brushing her hair with her right arm, lifting Better with: Pressure along the right scapula Past Medical History Diagnosis Date ??? Alcohol abuse, in remission ??? Anxiety ??? Depression 06/19/2012 : Past Surgical History Procedure Laterality Date ??? Orthopedic surgery left wrist fracture iliac crest bone graft 25 years ago ??? Pro unlisted cranio/maxillofacial surg ??? Pro unlisted procedure, musculoskeletal system, general ??? Partial hysterectomy : Sleep is not disturbed and sleeping posture is Right sidelying Coughing/sneezing/straining does increase symptoms. Gait deviations from present episode: None Sensation: Light touch intact bilateral UEs. Shoulder AROM: Flexion right 92 degrees, left 180 degrees. Abduction right 85 degrees, left 180 degrees Internal rotation right T10, left T5 UE Strength Right Left Shoulder abduction 3-/5 5/5 Shoulder ER 4+/5 5/5 Elbow flexion 5/5 5/5 Elbow extension 5/5 5/5 Wrist ulnar deviation 5/5 5/5 Finger abduction 4/5 4/5 Posture: Fair sitting posture. Cervical spine AROM AROM Loss Pain Flexion Moderate Increased R scapula Extension Minimal R scapula and c-spine Rotation right Moderate Increased R upper trap, scapula Rotation left Minimal Pulling R upper trap Lateral flexion right Min-moderate Pulling L upper trap Lateral flexion left Nil Pulling R upper trap Cervical Repeated Movement Testing Pretest pain and location sittin/10 right scapula, shoulder, elbow, numbness in right hand Movement: Symptoms during/after testing: Mechanical effect: Protrusion Retraction Retraction extension Patient was unable to tolerate repeated movement analysis in sitting or lying. Discussed use of a lumbar roll with patient for neutral alignment positioning. Assessment: The patient is a 51 y.o. female presenting with cervical radiculopathy. She exhibits significant R UE AROM deficits limiting her function. Patient is unable to tolerate cervical repeated movement testing due to increased pain and guarded movements. She and I discussed the unlikelihood of abolishment of pain and improved R shoulder AROM as a result of such restricted cervical AROM due to pain. She would like to proceed with MRI and will then follow up with Reynaldo Vieyra PA-C to review imaging and decide on the next step. Patient understands use of lumbar roll in assisting position her cervical spine in neutral and reports she will attempt using this at home for pain relief when sitting. Active participation in self care planning today. Patient may return for PT following treatment alternatives if pain is lessened but cervical/right shoulder AROM deficits remain. PT Goals to be met in 12 weeks: 1) Patient will be independent and compliant with self care treatment strategies. 2) Maria Isabelpro Brian to resume desired components of self grooming with right UE without any worsening of pain as a result. 3) Patient will be able to resume household cleaning tasks with use of right arm without onset of cervical or right radicular pain. The plan has been discussed with Maria Isabel Brian and she has agreed with the planned treatment. Plan: No future PT visit scheduled at this time. Recommend PT follow up if needed following treatment alternatives if pain is lessened but cervical/right shoulder AROM deficits remain. Continue with 4 additional PT sessions over 12 weeks): 45 minutes were spent assessing, treating and instructing Maria Isabel Brian in a home exercise program. documented in this encounter Plan of Treatment Scheduled Referrals Name Type Priority Associated Diagnoses Order S chedule Referral to Outpatient Referral Routine Neck pain on right Or dered: Physical Therapy side 04/13/2016 Fracture of right clavicle, unspecified part of clavicle, sequela documented as of this encounter Visit Diagnoses Diagnosis Radiculopathy of cervical region Brachial neuritis or radiculitis nos documented in this encounter Care Teams Sole Molder Relationship Specialty Start Date End Date Niles Roy MD PCP - General Family Medicine 09/08/15 05/06/16 [address] [place] [address] documented as of this encounter
--- OUTSIDE RECORDS SUMMARY | 2022-01-29 00:44 | XMS_ITS | Encounter Summary ---
:1965 Author Organization [facility] Address [address] [place] [address] Care Team Providers Name Role Phone Ruiz Luther MD Primary Care Provider Reason for Referral Surgical (Routine) - Closed Specialty Diagnoses / Procedures Referred By Contact Refer red To Contact Pain Management Diagnoses Neck pain on right side R sided cervical MBB Reynaldo Vieyra, PA [facility] Procedures PRO INJ, DIAG/THERAPEUTIC AGENT, PARAVERTEBRAL FACET JT, CERVICAL/THORACIC, SINGLE PRO INJ, PARAVERTEBRAL FACET JT, W/IMAGE GUIDANCE, CERVICAL/THORACIC, SECOND LEVEL [facility] [address] choi PRO INJ//PARAVERTEBRAL FACET JT, W/IMAGE GUIDANCE, CERVICAL/THORACIC, 3RD [place] [address] [address] [place], [place] [address] Phone: Fax: Referral ID Status Reason Start Date Expiration Date Visits V isits Requested Authorized [id number] Closed Assume 05/13/2016 05/13/2017 1 1 Subset of Care Reason for Visit Reason Comments Neck Pain right side Right Shoulder Pain Encounter Details Date Type Department Care Team Description 05/13/2016 Office Visit Spine Center at Reynaldo Vieyra, Neck p ain on right [place] PA side [facility] [address] [place] [phone] Social History Tobacco Use Types Packs/Day Years Used Date Current Every Day Smoker Cigarettes 1 Smokeless Tobacco: Never Used Alcohol Use Standard Drinks/Week Comments Yes 8.3 (1 standard drink = 0.6 oz pure alco hol) once in a while Sex Assigned at Date Recorded Not on file documented as of this encounter Progress Notes Reynaldo Vieyra PA - 05/13/2016 4:00 PM EDT Subjective: Maria Isabel Brian is a 51-year-old female seen today in follow-up for review of her cervical spine MRI. Ms. Brian was previously seen and evaluated for chief complaint of right-sided neck pain, and right trapezial and scapular pain, all right-sided. This associated with a fall she sustained over 7 months ago, with a right clavicular fracture. At present she remains with neck pain greater than right arm pain. The pain is still within the distribution of the midline posterior neck and somewhat to the right side, the occiput, and the right trapezial and scapular areas. She remains without anyfurther radiating arm pain. She does have known history of prior C5-C6 ACDF performed over 15 years a go, which has been evaluated by myself on her prior CT scan which did not show any hardware failure.We did remain with concern of adjacent segment degeneration however. Details of her history are otherwise unchanged from her prior visit. Objective: MRI of the cervical spine performed today was reviewed with her. There is straightening of the usual cervical lordosis. There appears to be marginal anterior osteophytes at C4-C5, C6-C7. Mild disc degenerative changes at C6-C7, with a minimal uncovertebral spurring on the right side, that does not appear to significantly impinge the exiting nerve root on the oblique views. No cord signal abnormality, or cord compression noted. No significant neuroforaminal narrowing observed. There appears to be a solid C5-C6 fusion without any evidence of hardware failure. Assessment/plan: Maria Isabel Brian is a 51-year-old female with chronic right-sided neck pain that radiates no further than the occipital and trapezial and scapular areas. Her MRI does not show any significant neural impingement, that would indicate any need for further spine surgery. Foraminal narrowingnoted at C6-C7 is not really clinically correlated to her symptoms, she does not really demonstrate any referrable C7 radiculopathy. She has already attempted spine center physical therapy, and did notseem to notice much gains with this. This appears to be a matter for primarily axial neck pain. Following discussion, I have given her a referral to our pain clinic for cervical medial branch blocks towards the right side. We can otherwise consider cervical epidural steroidal injection if this is not successful. Follow-up is otherwise in an as-needed basis. documented in this encounter Plan of Treatment Scheduled Referrals Name Type Priority Associated Diagnoses Order S chedule Referral to Pain Outpatient Referral Routine Neck pain on righ t Ordered: Clinic side 05/13/2016 documented as of this encounter Visit Diagnoses Diagnosis Neck pain on right side Cervicalgia documented in this encounter Care Teams Implementation Advisor Relationship Specialty Start Date End Date Ruiz Luther MD PCP - General General Internal Medicine 05/07/16 documented as of this encounter
--- OUTSIDE RECORDS SUMMARY | 2022-01-29 00:44 | XMS_ITS | Encounter Summary ---
:1965 Author Organization [facility] [place] [address] Care Team Providers Name Role Phone Americo Hough Primary Care Provider Encounter Details Date Type Department Care Team Description 10/21/2016 Clinical [place] [address] Social History Tobacco Use Types Packs/Day [...] Taken Comments Blood Pressure - - Pulse 97 10/21/2016 10:44 AM EDT Temperature - - Respiratory Rate - - Oxygen Saturation 98% 10/21/2016 10:44 AM EDT Inhaled Oxygen Concentration - - Weight 78.6 kg (173 lb 3.2 oz) 10/21/2016 10:44 AM EDT Height 167.6 cm (5' 6) 10/21/2016 10:44 AM EDT Body Mass Index 27.96 10/21/2016 10:44 AM EDT documented in this encounter Progress Notes Nikolas Tinsley RN - 10/21/2016 11:00 AM EDT Mckenzie Chávez RN - 10/21/2016 11:00 AM EDT PAT questionnaire reviewed with patient while in Pre Admission testing. Pre- operative instruction booklet reviewed. Patient verbalizes a good understanding of all information reviewed. PLAN: Testing: Urine and T&S. Special medication instructions: Procedure date: 11-02. no lab/iv right arm. documented in this encounter Plan of Treatment Not on filedocumented as of this encounter Visit Diagnoses Not on filedocumented in this encounter Care Teams Elevator Installer Relationship Specialty Start Date End Date Americo Hough PA PCP - General General Internal Medicine 08/04/16 [address] [place] [address] documented as of this encounter
--- OUTSIDE RECORDS SUMMARY | 2022-01-29 00:44 | XMS_ITS | Encounter Summary ---
:1965 Author Organization [facility] [place] [address] Care Team Providers Name Role Phone Unavailable Primary Care Provider Unavailable Reason for Referral Occupational Therapy (Routine) - Specialty Diagnoses / Procedures Referred By Contact Refer red To Contact Occupational Therapy Diagnoses Pain in left wrist Radha Wan, [facility] PA [facility] [place] [phone] Fax: Referral ID Status Reason Start Date Expiration Date Visits V isits Requested Authorized [id number] Evaluate and 07/14/2016 07/14/2017 12 12 Treat Reason for Visit Reason Comments Follow-up L wrist pain DOI 10/2015 Encounter Details Date Type Department Care Team Description 07/14/2016 Office Visit Orthopaedics at [facility] [place], Pain in left wrist [facility] [place] [address] [facility] [phone] ORTHOPAEDIC SURGERY [place], [place] [address] Social History Tobacco Use Types [...] Sign Reading Time Taken Comments Blood Pressure 100/71 07/14/2016 3:50 PM EST Pulse 65 07/14/2016 3:50 PM EST Temperature - - Respiratory Rate - - Oxygen Saturation - - Inhaled Oxygen Concentration - - Weight 75.8 kg (167 lb) 07/14/2016 3:50 PM EST verbal Height 167.6 cm (5' 6) 07/14/2016 3:50 PM EST verbal Body Mass Index 26.95 07/14/2016 3:50 PM EST documented in this encounter Progress Notes Radha Wan PA - 07/14/2016 3:50 PM EST PATIENT NAME: Maria Isabel Brian AGE: 51 y.o. MR#: [id number] DATE OF VISIT: 07/14/2016 DATE OF INJURY/ONSET: Chronic STAFF: Dr. Paul CHIEF COMPLAINT: Left wrist pain HISTORY OF PRESENT ILLNESS: Ms. Brian is a right hand dominant 51 y.o. female who comes into clinic today for evaluation of the left wrist. She was referred to [facility] Ortho by Yovani Flores. I have actually seen this patient in 2012 for the same complaint. At that time it was noted that she had wrist arthritis and she elected to treat this symptomatically with a splint. She states that she has had worsening wrist pain over the past few months. In October she was diagnosed with a right clavicle fracture. She was using her left arm more after this injury and found that this exacerbated her wrist pain. In the process of treating her clavicle fracture was also felt that she may have some component of cervical spine and glenohumeral pathology that would need additional treatment. She has been seen in the spine center, but has not yet had her shoulder evaluated. She is not currently undergoing any treatment for her wrist. She finds that she has limited range of motion and has pain mostly over the dorsal radial aspect of the wrist, but at times also has some ulnar wrist pain and swelling. She is not having any numbness or tingling. Medications and Allergies were reviewed in eD-[facility] PAST MEDICAL HX: Past Medical History Diagnosis Date ??? Alcohol abuse, in remission ??? Anxiety ??? Depression 06/19/2012 ??? Hepatitis PAST SURGICAL HX: Past Surgical History Procedure Laterality Date ??? Orthopedic surgery left wrist fracture iliac crest bone graft 25 years ago ??? Pro unlisted cranio/maxillofacial surg ??? Pro unlisted procedure, musculoskeletal system, general ??? Partial hysterectomy SOCIAL HX: Social History Occupational History ??? [employer] Social History Main Topics ??? Smoking status: Current Every Day Smoker Packs/day: 1.00 Types: Cigarettes ??? Smokeless tobacco: Never Used ??? Alcohol use 5.0 oz/week 2 Cans of beer, 10 Standard drinks or equivalent per week Comment: once in a while ??? Drug use: No ??? Sexual activity: Not on file ROS: Constitutional: neg HEENT: neg Cardiac: neg Pulmonary: neg GI/: neg Endocrine: neg Skin: neg Musculoskeletal: see HPI PHYSICAL EXAM: Ms. Brian is a 51 y.o. female who is alert and oriented. She appears in no acute discomfort and is resting comfortably in the exam room. Inspection: No erythema or ecchymosis. She has some swelling over the dorsal radioscaphoid joint andalso to a lesser degree over the ulnar aspect of the forearm over the ECU. Palpation: She is markedly tender over the dorsal radiocarpal joint and also has some pain over the CMC joint of the thumb to a lesser degree. There is some tenderness over the ulnar sulcus and ECU as well. No volar sided wrist pain. ROM/Strength: She is able to perform active finger range of motion without significant difficulty. She has very limited wrist range of motion and at best is only able to demonstrate about 5?? of flexion and extension. She is able to pronate and supinate. Orthopedic testing: Slightly increased pain with CMC grind. She has pain with radial and ulnar deviation, but no midcarpal instability. Negative piano minaya testing in all planes. Neurovascular: Normal motor function of the radial, median, and ulnar nerves. Normal sensation alongradial, median, and ulnar nerve distributions. Good hand perfusion. RADIOLOGICAL STUDIES: X-rays of the left wrist show no acute injuries. There is evidence of arthritis primarily involving the radial carpal joint, but it appears that there is perhaps some increased sclerosis at the articulation between the lunate and capitate. She also has some STT and CMC joint arthritis, but this is not as pronounced as the arthritis at the radiocarpal joint. 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 We discussed surgical and nonsurgical treatment.She would like to manage her symptoms as minimally invasive as possible. She may find that with continued immobilization she may have additional pain improvement. She will see hand therapy to have a custom rigid cockup wrist splint made. She can also use a soft neoprene splint when her symptoms are less severe. She does not need to immobilize her wrist multimedia coordinator, but should use this as needed for comfort. She may also want to try using heat and topical pain relievers. We discussed that a radiocarpalcortisone injection may also help with her pain, but this is not something that she would like to pursue at this time. If she were to have increased pain at the base of her thumb we could also considera fluoroscopy guided injections here as well. If her pain were to worsen despite these options he may need to consider advanced imaging to better assess her wrist joints. She has extensive arthritis and likely would require a wrist fusion if her pain were to become intractable. She feels comfortable continuing with splinting and topical pain relievers and will notify us if she would want to consider an injection at any point in the future. We will schedule a follow-up appointment in the shoulder clinic to have her right shoulder formally evaluated and she should obtain x-rays prior to this visit. Sh spencer will return for follow up for her wrist as needed. The patient understands to contact us if they have any other questions or concerns. The above documentation was completed using [employer] voice recognition software. documented in this encounter Plan of Treatment Scheduled Referrals Name Type Priority Associated Order Schedule Diagnoses Referral to Outpatient Referral Routine Pain in left wrist Or dered: Occupational Therapy 016 documented as of this encounter Results XR Shoulder Right (Generic) (07/15/2016 7:46 AM EST) Anatomical Region Laterality Modality Shoulder Right Digital Radiography Specimen (Source) Anatomical Location Collection Method / Collectio n Time Received Time / Laterality Volume Impressions 07/15/2016 9:14 AM EST Severe glenohumeral osteoarthritis, worse than before. Large calcified intra-articular body is seen again. Also severe AC joint degenerative change s are present. Narrative 07/15/2016 9:14 AM EST EXAMINATION: XR SHOULDER RIGHT (GENERIC) CLINICAL HISTORY: Right shoulder pain, h istory of clavicle fracture TECHNIQUE: 4 views of the right shoulder . COMPARISON: June 19, 2012 FINDINGS: Worsening marked narrowing of the glenoh umeral joint and moderate to large osteophytes at the glenoid as well as at the humeral head/neck junction. Mild inferior subluxation of the humerus may be due to effusion in the joint space or fluid in the subacromial bursa. Again se en is a large calcified intra-articular body. Severe AC joint degenerative bunch es are also present as indicated by joint space narrowing and large osteophy seamus. Procedure Note Parul Castellanos MD - 2015 EXAMINATION: XR SHOULDER RIGHT (GENERIC) CLINICAL HISTORY: Right shoulder pain, h istory of clavicle fracture TECHNIQUE: 4 views of the right shoulder . COMPARISON: June 19, 2012 FINDINGS: Worsening marked narrowing of the glenoh umeral joint and moderate to large osteophytes at the glenoid as well as at the humeral head/neck junction. Mild inferior subluxation of the humerus may be due to effusion in the joint space or fluid in the subacromial bursa. Again se en is a large calcified intra-articular body. Severe AC joint degenerative bunch es are also present as indicated by joint space narrowing and large osteophy seamus. IMPRESSION Severe glenohumeral osteoarthritis, wors e than before. Large calcified intra-articular body is seen again. Also severe AC joint degenerative change s are present. Glen Paul MD IMG DX ORDERABLES documented in this encounter Visit Diagnoses Diagnosis Pain in left wrist Pain in joint, forearm Pain in left wrist Pain in joint, forearm documented in this encounter
--- OUTSIDE RECORDS SUMMARY | 2022-01-29 00:44 | XMS_ITS | Encounter Summary ---
:1965 Author Organization [facility] [place] [address] Care Team Providers Name Role Phone Unavailable Primary Care Provider Unavailable Encounter Details Date Type Department Care Team Description 07/29/2016 Orders Only Orthopaedics at [facility] [place] [address] Social History Tobacco Use Types Packs/Day [...]
--- OUTSIDE RECORDS SUMMARY | 2022-01-29 00:44 | XMS_ITS | Encounter Summary ---
:1965 Author Organization [facility] [place] [address] Care Team Providers Name Role Phone Yovani Flores MD Primary Care Provider [phone] Encounter Details Date Type Department Care Team Description 05/09/2013 Office Visit Occupational Therapy Rosanne Perez OT [facility] PHYSICAL MEDICINE & [place] [address] Pain in wrist at [facility] [place] [facility] Yovani Flores MD [facility] GENERAL [place] [address] (Primary Dx) [place] [address] Social History Tobacco Use Types Packs/Day Years Used Date Current Every Day Smoker Cigarettes 1 Smokeless Tobacco: Never Used Alcohol Use Standard Drinks/Week Comments Yes 8.3 (1 standard drink = 0.6 oz pure alco hol) once in a while Sex Assigned at Date Recorded Not on file documented as of this encounter Progress Notes Rosanne Perez OT - 05/09/2013 12:26 PM EDT OCCUPATIONAL THERAPY SPLINTING EVALUATION REFERRAL SOURCE: Dr. Paul/EDUARDO Quezada DIAGNOSIS: 1. 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 year old female who is seen today following removal of a short arm cast for her left wrist. Maria Isabel Brian was seen by EDUARDO Quezada for recheck today. Maria Isabel Brian is referred to Occupational Therapy for evaluation and treatment to include splinting. Patient presents today alone. Mechanism of Injury: Patient's symptoms come from overuse of her known arthritic wrist with signficant advancement of her radio-carpal joint and ulnar positive inclination. 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 HAND DOMINANCE: Right PAIN: At Rest: 09/17 With Activity: -11/15 FUNCTIONAL LIMITATIONS: Maria Isabel Brian identifies difficulty with the following functional activities using the Patient Specific Functional Scale (PSFS): 0/10 (unable to perform) to 10/10 (Able to perform without difficulty) Activity At Evaluation 1.) holding w left hand 09/17 2.) lifting/transfering patients 09/17 3.) cooking 11/15 4.) caring for her patients 01/15 5.) caring for herself 02/14 TREATMENT TODAY: Fabricated a volar wrist cock-up splint Instructed in splint wear and care Range of Motion Exercises: of her wrist and forearm in all planes of motion, refrain from any resistance for another 2-3 weeks ASSESSMENT: Maria Isabel Brian presents today with functional limitations due to wrist pain. Patient has a well fitting splint post therapy. Maria Isabel Brian is able to demonstrate her home exercises with written instructions provided today. Maria Isabel Brian has good potential for gains with therapy. Patient knows to call with any questions or concerns. Nursing Home Goals (to be met by discharge): Date Goal Met: 1.) Maria Isabel Brian will complete activities of daily living independently at a 8/10 level. Goal Status: 2.) Maria Isabel Brian will be able to resume all occupational roles independently without restriction. Goal Status: Short Term Goals (to be met by end of the visit today): Date Goal Met: 05/09/13 1. Maria Isabel Brian will be independent with home exercises as evident with demonstration intherapy. Goal Status: Goal met 05/09/13 2. Maria Isabel Brian will demonstrate independence with donning and doffing of splint and verbalization of splinting purpose. Goal Status: Goal met PLAN: Splinting to provide support and protection to the joint (X) Maria Isabel Brian participated in the evaluation, collaborated on treatment goals, and agrees tothe treatment plan . documented in this encounter Plan of Treatment Not on filedocumented as of this encounter Visit Diagnoses Diagnosis Pain in wrist - Primary Pain in joint, forearm documented in this encounter Care Teams Cylinder Honer Relationship Specialty Start Date End Date Yovani Flores MD PCP - General 11/28/12 11/14/13 [facility] [address] [place] [address] documented as of this encounter
--- OUTSIDE RECORDS SUMMARY | 2022-01-29 00:44 | XMS_ITS | Encounter Summary ---
:1965 Author Organization [facility] [place] [address] Care Team Providers Name Role Phone Ruiz Luther MD Primary Care Provider Reason for Referral Diagnostic Test (Routine) - Closed Specialty Diagnoses / Procedures Referred By Contact Refer red To Contact Radiology Diagnoses Neck pain on right side [facility] Rad Mri Procedures MRI Cervical Spine WO Contrast (GENERIC) [place] [address] [place] [address] Phone: Referral ID Status Reason Start Date Expiration Date Visits V isits Requested Authorized [id number] Closed Specialty 05/05/2016 08/03/2016 1 1 Service Requested Reason for Visit Diagnostic Test (Routine) - Closed Specialty Diagnoses / Procedures Referred By Contact Refer red To Contact Radiology Diagnoses Neck pain on right side [facility] Rad Mri Procedures MRI Cervical Spine WO Contrast (GENERIC) [place] [address] [place] [address] Phone: Referral ID Status Reason Start Date Expiration Date Visits V isits Requested Authorized [id number] Closed Specialty 05/05/2016 08/03/2016 1 1 Service Requested Encounter Details Date Type Department Care Team Description 05/07/2016 Hospital Encounter MRI at [facility] Anthony Jung, Neck pain on right [facility] [place] [facility] [address] SP[facility] CENTER [phone] [place] [address] Social History Tobacco Use Types Packs/Day Years [...] Sig Dispensed Refills Start Date End Date citalopram (CELEXA) 40 mg Take 40 mg by mouth 0 Tablet daily. traZODone (DESYREL) 50 mg Take 50 mg by mouth 0 Tablet nightly. gabapentin (NEURONTIN) 300 TAKE ONE CAPSULE BY 1 05/05/2016 06/21/2016 mg Capsule MOUTH TWICE A DAY gabapentin (NEURONTIN) 300 Take 300 mg by 0 06/17/2016 mg Capsule mouth 3 times daily. acetaminophen (TYLENOL) Take 1,000 mg by 0 11/04/2016 500 mg Tablet mouth every 6 hours as needed for Pain. cloNIDine (CATAPRES) 0.1 Take 0.1 mg by 0 05/13/2016 mg Tablet mouth nightly. documented as of this encounter Plan of Treatment Not on filedocumented as of this encounter Procedures Procedure Name Priority Date/Time Associated Diagnosis Comme nts MRI CERVICAL SPINE Routine 05/07/2016 7:52 AM Neck pain on rig ht Results for this WO CONTRAST EDT side procedure are i n the results section. documented in this encounter Results MRI Cervical Spine WO Contrast (GENERIC) (05/07/2016 7:52 AM EDT) Anatomical Region Laterality Modality C-spine Magnetic Resonance Specimen (Source) Anatomical Location Collection Method / Collectio n Time Received Time / Laterality Volume Impressions 05/07/2016 10:51 AM EDT Very mild degenerative changes in the cervical spine. These are most pronounced at C6/C7 where degenerative disc disease and osseous overgrowth contribute to moderate right-sided neural foraminal na rrowing. Uncovertebral spur may contact the right C7 nerve root. I have personally reviewed the image(s) and the residents interpretation and agree with the findings, Ella Nicole at 05/07/2016 10:51 AM Narrative 05/07/2016 10:51 AM EDT EXAMINATION: MRI CERVICAL SPINE WO CONTRAST (GENERIC) CLINICAL HISTORY: right sided neck, trap ezial, and scapular pain. TECHNIQUE: MRI of the brain performed wi thout IV contrast. COMPARISON: CT of the cervical spine fro m December 01, 2015 FINDINGS: The patient is status post C5-C6 ACDF wi th solid-appearing osseous ankylosis. There is loss of the normal cervical costa dosis. Vertebral body heights and regional bone marrow signal intensity ar e maintained. Mild right-sided C4 inferior endplate fatty marrow change is present. The cervical cord is normal in caliber and signal intensity. C2-C3: No central canal stenosis or neur al foraminal narrowing. C3-C4: No central canal stenosis. Minima l facet arthropathy is present bilaterally, though not resulting in bandar ral foraminal narrowing. C4-C5: Very mild facet and uncovertebral arthropathy are present, though without notable neural foraminal narrowing. A ti ny central posterior disc osteophyte complex is present though without canal narrowing. C5-C6: The intervertebral disc space is obliterated by solid appearing ankylosis status post C5-C6 fusion. No central can al narrowing. Uncovertebral arthropathy contributes to mild bilateral neural for aminal narrowing. ?? C6-C7: Small disc osteophyte complex whi ch is slightly eccentric to the right is present. This, along with facet and unco vertebral arthropathy, contribute to moderate right-sided neural foraminal na rrowing. Uncovertebral spur may contact the exiting right C7 nerve root. Similar findings produce mild left-sided neural foraminal narrowing. C7-T1: No canal or neural foraminal narr owing. Procedure Note Ella Nicole MD - 05/07/2016Form atting of this note might be different from the original. EXAMINATION: MRI CERVICAL SPINE WO CONTR AST (GENERIC) CLINICAL HISTORY: right sided neck, trap ezial, and scapular pain. TECHNIQUE: MRI of the brain performed wi thout IV contrast. COMPARISON: CT of the cervical spine fro m December 01, 2015 FINDINGS: The patient is status post C5-C6 ACDF wi th solid-appearing osseous ankylosis. There is loss of the normal cervical costa dosis. Vertebral body heights and regional bone marrow signal intensity ar e maintained. Mild right-sided C4 inferior endplate fatty marrow change is present. The cervical cord is normal in caliber and signal intensity. C2-C3: No central canal stenosis or neur al foraminal narrowing. C3-C4: No central canal stenosis. Minima l facet arthropathy is present bilaterally, though not resulting in bandar ral foraminal narrowing. C4-C5: Very mild facet and uncovertebral arthropathy are present, though without notable neural foraminal narrowing. A ti ny central posterior disc osteophyte complex is present though without canal narrowing. C5-C6: The intervertebral disc space is obliterated by solid appearing ankylosis status post C5-C6 fusion. No central can al narrowing. Uncovertebral arthropathy contributes to mild bilateral neural for aminal narrowing. C6-C7: Small disc osteophyte complex whi ch is slightly eccentric to the right is present. This, along with facet and unco vertebral arthropathy, contribute to moderate right-sided neural foraminal na rrowing. Uncovertebral spur may contact the exiting right C7 nerve root. Similar findings produce mild left-sided neural foraminal narrowing. C7-T1: No canal or neural foraminal narr owing. IMPRESSION Very mild degenerative changes in the ce rvical spine. These are most pronounced at C6/C7 where degenerative disc disease and osseous overgrowth contribute to moderate right-sided neural foraminal na rrowing. Uncovertebral spur may contact the right C7 nerve root. I have personally reviewed the image(s) and the residents interpretation and agree with the findings, Ella Nicole at 05/07/2016 10:51 AM Anthony Jung MD IMG MRI ORDERABLES documented in this encounter Visit Diagnoses Diagnosis Neck pain on right side Cervicalgia documented in this encounter Care Teams Dump Grader Relationship Specialty Start Date End Date Ruiz Luther MD PCP - General General Internal Medicine 05/07/16 documented as of this encounter
--- OUTSIDE RECORDS SUMMARY | 2022-01-29 00:44 | XMS_ITS | Encounter Summary ---
:1965 Author Organization [facility] [place] [address] Care Team Providers Name Role Phone Ruiz Luther MD Primary Care Provider Encounter Details Date Type Department Care Team Description 06/18/2016 Telephone Orthopaedics at [facility] [place] Karma Perkins MD [facility] [place] [address] ORTHOPAEDIC SURGERY [phone] [place] [id number] (Wo rk) Social History Tobacco Use Types Packs/Day Years Used Date Current Every Day Smoker Cigarettes 1 Smokeless Tobacco: Never Used Alcohol Use Standard Drinks/Week Comments Yes 8.3 (1 standard drink = 0.6 oz pure alco hol) once in a while Sex Assigned at Date Recorded Not on file documented as of this encounter Miscellaneous Notes Telephone Encounter - Karma Perkins MD - 06/18/2016 6:17 PM EST Patient called requesting pain medication, had recently called spine center earlier this afternoon, see previous notes. Patient's voice slurred and slow consistent with prior notes. Patient became veryangry and had no specific question, she has an appointment with Reynaldo Boone on TuesdayJune 21. Advised her to go to her nearest ED if she feels she has an emergency, otherwise will be seen in clinic on Tuesday. documented in this encounter Plan of Treatment Not on filedocumented as of this encounter Visit Diagnoses Not on filedocumented in this encounter Care Teams Chartered Wealth Manager Relationship Specialty Start Date End Date Ruiz Luther MD PCP - General General Internal Medicine 05/07/16 documented as of this encounter
--- OUTSIDE RECORDS SUMMARY | 2022-01-29 00:44 | XMS_ITS | Encounter Summary ---
:1965 Author Organization [facility] [place] [address] Care Team Providers Name Role Phone Niles Roy MD Primary Care Provider [phone] Reason for Referral Physical Therapy (Routine) - Closed Specialty Diagnoses / Procedures Referred By Contact Refer red To Contact Physical Therapy Diagnoses Neck pain on right side Fracture of right clavicle, unspecified part of clavicle, sequela Reynaldo Vieyra, [place] [facility] [place] [address] [place] [address] Phone: Referral ID Status Reason Start Date Expiration Date Visits V isits Requested Authorized [id number] Closed Evaluate and 04/13/2016 04/13/2017 12 12 Treat Reason for Visit Reason Comments Neck Pain Right Shoulder Pain Consultation (HEDY) - Closed Specialty Diagnoses / Procedures Referred By Contact Refer red To Contact Orthopaedics Diagnoses CERVICAL SPINAL STENOSIS Shalini Hughes MD [facility] [address] [place] [place] [id number] [place] [phone] Referral ID Status Reason Start Date Expiration Date Visits V isits Requested Authorized [id number] Closed Consult, 03/25/2016 03/25/2017 1 1 [facility] Encounter Details Date Type Department Care Team Description 04/13/2016 Office Visit Spine Center at [facility] Vieyra Neck p ain on right side; Bayron CLARK Fracture of right clavicle, unspecified part of clavicle, sequela [facility] [address] [facility] [address] [place], [place] MINNIE Verma [phone] Social History Tobacco Use Types Packs/Day Years [...] Sign Reading Time Taken Comments Blood Pressure 116/70 04/13/2016 4:49 PM EDT Pulse - - Temperature - - Respiratory Rate - - Oxygen Saturation - - Inhaled Oxygen Concentration - - Weight 74.8 kg (165 lb) 04/13/2016 4:49 PM EDT Height 167.6 cm (5' 6) 04/13/2016 4:49 PM EDT Body Mass Index 26.63 04/13/2016 4:49 PM EDT documented in this encounter Progress Notes Reynaldo Vieyra PA - 04/13/2016 4:00 PM EDT Subjective: Maria Isabel Brian is a 50 yo female seen today at the request of Shalini Hughes MD for chief complaint of right-sided neck, and trapezial/scapular pain on the right side as well. She reports having undergone a fall in October 2015 in which she broke her right clavicle at the medial aspect. She reports that the neck hurts more than the right arm. She reports pain and distribution of the midline posterior neck, with some radiation further up into the occiput and scalp into the right orbit, and lower radiation into the right trapezius, right scapula. She denies any radiating arm pain otherwise. She has a generalized sense of numbness and tingling that goes from the elbow all of her fingers on theright hand. She has a sense of weakness in the right hand as well. She notes that the neck and rightsided symptoms are somewhat improved when she leans back and applies pressure especially to the scapula. She notes worsening pain on looking up. She denies any changes in to her gait or balance. She notes no real fine motor deficits, aside from intermittently dropping objects with the right hand, secondary to some pain she has at the wrist. Review of systems negative for GI, , constitutional symptoms. Prior to this included Tylenol with mild relief. She has done community-based physical therapy without much benefit. She denies any prior spine injections. She has had gabapentin without any benefit. She reports prior C5-C6 ACDF with Dr. Ruiz Hagan, at [facility] performed over 15 years ago, and gave her over 12 years of relief for her neck and right arm symptoms. She smokes less than 1 pack per day. She denies alcohol use. 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 Objective: This is a right-hand dominant, pleasant female who appears his stated age and is no acutedistress. Her gait is normal. She performs tandem walking without ataxia. Her neck shows evidence ofa well-healed anterior cervical scar. She has mild tenderness to palpation over the right scapular and right trapezial areas. Cervical flexion is full and comfortable. She has mild limitations in cervical extension, moderate limitations in bilateral cervical rotation, and mild limitations on cervical sidebending. Spurling's maneuver to either side produces some localized neck pain, but no radiating arm pain. She has limited range of motion on the right shoulder, having full forward elevation, but only able to reach to the neck, into the low back region on the Apley scratch test. Reflexes are +2 throughout the upper extremities, +1 at both knees, trace at both ankles. Chas signs are absent bilaterally. There is no clonus. Babinski signs are normal and downgoing. Peripheral pulses are palpable at the radial and ulnar arteries. CT of the cervical spine was reviewed today. This shows a solid fusion of C5-C6, with anterior instrumentation. There are marginal osteophytes between C4-C5, and C6-C7 anteriorly. There is mild disc height loss at the C6-C7 level, well- preserved at the upper cervical spine otherwise. No acute fractures seen on the cervical spine. Assessment/plan: Maria Isabel Brian is a 50-year-old female who was had over 6 months of neck and right trapezial/scapular pains, without any further lower extremity radiation, and no true signs of a cervical radiculopathy. I discussed with her treatment options moving forward, as this appears to be primarily a matter of axial neck pain with radiation to the trapezial and scapular areas on the right side, with a right clavicular fracture that does not appear to bother her much at present. Following discussion, she will be attempting a trial of Dee based physical therapy with our spine therapists. I have advised her of the contingency of performing cervical spine MRI without contrast, if this is no t immediately successful for her. I also briefly discussed future treatment options particularly of cervical medial branch blocks and cervical radiofrequency ablation, her axial neck pain, following any MRI performed, should there not be any focal nerve impingement otherwise to indicate CLAY. documented in this encounter Plan of Treatment Scheduled Referrals Name Type Priority Associated Diagnoses Order S chedule Referral to Outpatient Referral Routine Neck pain on right Or dered: Physical Therapy side 04/13/2016 Fracture of right clavicle, unspecified part of clavicle, sequela documented as of this encounter Visit Diagnoses Diagnosis Neck pain on right side Cervicalgia Fracture of right clavicle, unspecified part of clavicle, sequela documented in this encounter Care Teams Marketing Clerk Relationship Specialty Start Date End Date Niles Roy MD PCP - General Family Medicine 09/08/15 05/06/16 [address] [place] [address] documented as of this encounter
--- OUTSIDE RECORDS SUMMARY | 2022-01-29 00:44 | XMS_ITS | Encounter Summary ---
:1965 Author Organization [facility] [place] [address] Care Team Providers Name Role Phone Unavailable Primary Care Provider Unavailable Encounter Details Date Type Department Care Team Description 07/19/2016 Hospital Encounter XRay at [facility] Oralia Griffin Glenohumeral [address] [place] [address] Dr LUNDBERG arthritis, [facility] [id number] [place] [phone] [place] [address] Social History Tobacco Use Types Packs/Day Years [...] 50 mg by mouth 0 Tablet nightly. naltrexone (DEPADE) 50 mg Take 50 mg by mouth 3 1 09/06/2015 08/19/2016 Tablet daily. acetaminophen (TYLENOL) Take 1,000 mg by 0 11/04/2016 500 mg Tablet mouth every 6 hours as needed for Pain. documented as of this encounter Plan of Treatment Not on filedocumented as of this encounter Procedures Procedure Name Priority Date/Time Associated Diagnosis Comme nts XR FLUORO INJECTION Routine 07/19/2016 11:03 Glenohumeral Resu lts for this DRAINAGE JOINT LG AM EST arthritis, right proced ure are in RIGHT the results section. documented in this encounter Results XR Fluoro Injection Drainage Joint Lg Right (07/19/2016 11:03 AM EST) Anatomical Region Laterality Modality Right Radio Fluoroscopy Specimen (Source) Anatomical Location Collection Method / Collectio n Time Received Time / Laterality Volume Impressions 07/19/2016 4:48 PM EST Uneventful glenohumeral joint injection under fluoroscopy. Resident/Fellow: None. Attending: Le. Noe performed this procedure. Narrative 07/19/2016 4:48 PM EST HISTORY: Right shoulder pain, with findings of glenohumeral arthritis on radiographs. RIGHT GLENOHUMERAL JOINT INJECTION UNDER FLUOROSCOPY TECHNIQUE: After an extensive conversati on with the patient regarding risks and benefits, oral and written consent were obtained. ??A pre- procedural time-out was performed as per [facility] protocol. The patient was placed supine on the flu oroscopic table. ??The right shoulder was prepped and draped in the usual aseptic manner. 1% Lidocaine was used to achieve local anesthesia. Under fluoroscopic sandra dance, a 22-gauge 3.5 spinal needle was advanced into the joint space. 1 mL of O mnipaque 300 was injected to the document needle placement. ??A mixture o f Ropivacaine and triamcinolone acetonide was injected. All needles removed at end of procedure. FINDINGS: 1. ??Small amount of injected contrast i n the right glenohumeral joint space. 2. ??PAIN SCORE: ??Before: 8/10 ??After: 6/10 3. Fluoroscopy time: 6 sec 4. Medications: ??Lidocaine 1% - <5 ml, for subcutaneou s anesthesia ??Ropivacaine HCL ??0.5% - 3 ml ??Triamcinolone Acetonide ??- 40 mg COMPLICATIONS: ??None immediate. POST-PROCEDURE CARE: Information regardi ng monitor of infection, post- procedural pain and management of steroi d flare were reviewed with patient. Procedure Note Sara Fleming MD - 07/19/2016Formatting o f this note might be different from the original. HISTORY: Right shoulder pain, with findi ngs of glenohumeral arthritis on radiographs. RIGHT GLENOHUMERAL JOINT INJECTION UNDER FLUOROSCOPY TECHNIQUE: After an extensive conversati on with the patient regarding risks and benefits, oral and written consent were obtained. A pre- procedural time-out was performed as per [facility] protocol. The patient was placed supine on the flu oroscopic table. The right shoulder was prepped and draped in the usual aseptic manner. 1% Lidocaine was used to achieve local anesthesia. Under fluoroscopic sandra dance, a 22-gauge 3.5 spinal needle was advanced into the joint space. 1 mL of O mnipaque 300 was injected to the document needle placement. A mixture of Ropivacaine and triamcinolone acetonide was injected. All needles removed at end of procedure. FINDINGS: 1. Small amount of injected contrast in the right glenohumeral joint space. 2. PAIN SCORE: Before: 8/10 After: 6/10 3. Fluoroscopy time: 6 sec 4. Medications: Lidocaine 1% - <5 ml, for subcutaneous anesthesia Ropivacaine HCL 0.5% - 3 ml Triamcinolone Acetonide - 40 mg COMPLICATIONS: None immediate. POST-PROCEDURE CARE: Information regardi ng monitor of infection, post- procedural pain and management of steroi d flare were reviewed with patient. IMPRESSION Uneventful glenohumeral joint injection under fluoroscopy. Resident/Fellow: None. Attending: Le. Noe performed this procedure. Oralia Griffin MD IMG FLUORO ORDERABLES documented in this encounter Visit Diagnoses Diagnosis Glenohumeral arthritis, right documented in this encounter Administered Medications Inactive Administered Medications - up to 3 most recent administrations Medication Order MAR Action Action Date Dose Rate Site ROpivacaine (PF) 5 mg/mL Given 07/19/2016 11:30 04- Shoulder (Right) (0.5 %) 4 mL with AM EST triamcinolone acetonide 10 mg injection Intra-articular, ONCE, 1 dose, On 07/19/16 at 1130 documented in this encounter
--- OUTSIDE RECORDS SUMMARY | 2022-01-29 00:44 | XMS_ITS | Encounter Summary ---
:1965 Author Organization [facility] [place] [address] Care Team Providers Name Role Phone Yovani Flores MD Primary Care Provider [phone] Reason for Referral Occupational Therapy (Routine) - Closed Specialty Diagnoses / Procedures Referred By Contact Refer red To Contact Occupational Therapy Diagnoses Pain in wrist Juan R Rushing PA [facility] Ot Rehab [facility] D R [facility] [place] [address] [place] [address] Phone: Fax: Referral ID Status Reason Start Date Expiration Date Visits V isits Requested Authorized [id number] Closed Evaluate and 05/09/2013 11/05/2013 1 1 Treat Reason for Visit Reason Comments Left Wrist Pain DOI 07/22/2012 Encounter Details Date Type Department Care Team Description 05/09/2013 Office Visit Orthopaedics at [facility] [place], Pain in wrist [facility] (Primary Dx) [place] [address] CENTER [phone] ORTHOPAEDIC SURGERY [place], [place] [address] Social History Tobacco Use Types [...] Sign Reading Time Taken Comments Blood Pressure 136/83 05/09/2013 9:21 AM EDT Pulse 67 05/09/2013 9:21 AM EDT Temperature - - Respiratory Rate - - Oxygen Saturation - - Inhaled Oxygen Concentration - - Weight 69.4 kg (153 lb) 05/09/2013 9:21 AM EDT Height 165.1 cm (5' 5) 05/09/2013 9:21 AM EDT Body Mass Index 25.46 05/09/2013 9:21 AM EDT documented in this encounter Progress Notes Juan R Rushing PA - 05/09/2013 10:02 AM EDT Maria Isabel is here for followup of her left wrist pain with a history of radiocarpal arthritis and possible ulnar variance. Please see my previous notes regarding this very pleasant patient. She is doing well. She has been cast for the last six weeks. She did have the cast changed once because it was becoming lose. Her cast today is down. Her wrist is benign in appearance. She does have some slight decreased range of motion consistent with her post-immobilization stiffness as well as her history of radiocarpal arthritis. She is sensate and well perfused. FDS, FDP, EPL, FPL are intact. Her capillary refill is less than 2 seconds. Pulses are 2+. Imaging studies were again reviewed with Ms. Brian. She understands the nature of her diagnosis and our plan. She has no contraindication to antiinflammatories, so I will have her take Aleve two tablets in the morning, two tablets in the evening with food or milk on a fairly regular basis for the next several weeks. We will place her into a cock-up wrist splint made by our hand therapist today and begin protected active range of motion. We will see her back in six weeks for followup or sooner. We did discuss treatment options to include possible cortisone injection versus a salvage procedure for her wrist. She understands her diagnosis, her treatment options, and she will do her best to comply with our instructions. documented in this encounter Plan of Treatment Scheduled Referrals Name Type Priority Associated Order Schedule Diagnoses Referral to Outpatient Referral Routine Pain in wrist Ordered : Occupational Therapy 013 documented as of this encounter Visit Diagnoses Diagnosis Pain in wrist - Primary Pain in joint, forearm documented in this encounter Care Teams Angle Furnaceman Relationship Specialty Start Date End Date Yovani Flores MD PCP - General 11/28/12 11/14/[address] [facility] [address] [place] [address] documented as of this encounter
--- OUTSIDE RECORDS SUMMARY | 2022-01-29 00:44 | XMS_ITS | Encounter Summary ---
:1965 Author Organization [facility] [place] [address] Care Team Providers Name Role Phone Unknown Primary Care Provider Unavailable Encounter Details Date Type Department Care Team Description 08/26/2015 Orders Only Gastroenterology at [facility] Dariusz, Hepatitis B virus [facility] Melvina Tracy MD infection, [place] [address] [facility] unspecified [phone] MILAN chronic[place] [address] Social History Tobacco Use Types Packs/Day Years [...] as of this encounter Visit Diagnoses Diagnosis Hepatitis B virus infection, unspecified chronicity documented in this encounter Care Teams Medical Insurance Verifier Relationship Specialty Start Date End Date Unknown PCP - General 11/15/13 08/26/15 None documented as of this encounter
--- OUTSIDE RECORDS SUMMARY | 2022-01-29 00:44 | XMS_ITS | Encounter Summary ---
:1965 Author Organization [facility] [place] [address] Care Team Providers Name Role Phone Unavailable Primary Care Provider Unavailable Reason for Referral Physical Therapy (Routine) - Closed Specialty Diagnoses / Procedures Referred By Contact Refer red To Contact Physical Therapy Diagnoses Glenohumeral arthritis, right Chronic scapular pain Radha Wan PA [facility] Re[facility] Pt [facility] [address] [place] [address] [place] [address] Referral ID Status Reason Start Date Expiration Date Visits V isits Requested Authorized [id number] Closed Evaluate and 07/15/2016 07/15/2017 1 1 Treat Reason for Visit Reason Comments Right Shoulder Pain doi 11/2015 Encounter Details Date Type Department Care Team Description 07/15/2016 Office Visit Orthopaedics at [facility] Glenohumeral arthritis, righ t; [facility] D [place]ve [place] [address] Social History Tobacco Use Types Packs/Day [...] Sign Reading Time Taken Comments Blood Pressure 113/78 07/15/2016 7:56 AM EST Pulse 74 07/15/2016 7:56 AM EST Temperature - - Respiratory Rate - - Oxygen Saturation - - Inhaled Oxygen Concentration - - Weight 75.8 kg (167 lb) 07/15/2016 7:56 AM EST stated Height 167.6 cm (5' 6) 07/15/2016 7:56 AM EST stated Body Mass Index 26.95 07/15/2016 7:56 AM EST documented in this encounter Progress Notes Radha Wan PA - 07/15/2016 8:00 AM EST PATIENT NAME: Maria Isabel Brian AGE: 51 y.o. MR#: [id number] DATE OF VISIT: 07/15/2016 DATE OF INJURY/ONSET: October 2015 STAFF: Dr. Griffin CHIEF COMPLAINT: follow up for right shoulder pain HISTORY OF PRESENT ILLNESS: Ms. Brian is a 51 y.o. year old female who comes into clinic today for follow up regarding the right shoulder. I saw her yesterday for her left wrist arthritis. She states that she has already noticed some improvement with splinting. She is here today to have her right shoulder evaluated. She sustained a clavicle fracture involving the proximal third of the clavicle this past spring. She states that she injured her arm a walking her dog. Prior to this incident she was nothaving any problems with her right shoulder. She has not completed any physical therapy. It was initially thought that her residual pain was related to her cervical spine. She has since seen the spine center and pain clinic and it was felt that she had additional shoulder pathology. She presents todayafter having x-rays. She has not had any prior shoulder surgeries. PHYSICAL EXAM: Ms. Brian is alert and oriented. She appears in no acute discomfort and is resting comfortably in the exam room. Inspection: No erythema, ecchymosis, or swelling over the shoulder. There is some prominence over the proximal aspect of the clavicle. Palpation: She is nontender over her previous clavicle fracture. She has some glenohumeral joint line pain and also has discomfort over the medial scapular border. ROM: She is able to demonstrate about 130?? active forward flexion. She has about 140?? passive forward flexion with pain at end range. Her active and passive range of motion is to about 30??. Internalrotation is to L1. Strength: 5/5 internal and external rotation. 5-/5 forward flexion and empty can with pain. Neurovascular: Normal motor function of the radial, median, ulnar, axillary and musculocutaneous nerves. Normal sensation along radial, median, ulnar, axillary, and lateral antebrachial cutaneous nervedistributions. Good hand perfusion. RADIOLOGICAL STUDIES: X-rays of the right shoulder show no acute injuries. She has a deformity over the proximal aspect of her clavicle consistent with her history of fracture, but this appears to be healed. She has advanced glenohumeral arthritis with a large loose body seen in the anterior aspect ofthe shoulder. ASSESSMENT: Right glenohumeral arthritis with scapular muscular pain following clavicle fracture PLAN: I reviewed the x-rays with the patient today. She has pronounced degenerative changes in the glenohumeral joint. We will proceed with a fluoroscopy guided glenohumeral cortisone injection to see if this will help with her pain related to her arthritis. We will also provide a referral to physicaltherapy to work on her scapular muscular pain. She should not be too aggressive with her range of motion exercises given her underlying arthritis, but she would benefit from therapy to improve her scapulothoracic motion. She will return for follow up in approximately 2 months to see how she is doing af ter physical therapy and the injection. If she is still having pain we should consider an MRI to evaluate her rotator cuff. The patient understands to contact us if they have any other questions or concerns. The above documentation was completed using [employer] voice recognition software. documented in this encounter Plan of Treatment Scheduled Referrals Name Type Priority Associated Diagnoses Order S chedule Referral to Outpatient Referral Routine Glenohumeral Ordered: Physical Therapy arthritishaylee t 07/15/2016 Chronic scapular pain documented as of this encounter Results XR Fluoro Injection Drainage [...] pre- procedural time-out was performed as per [facility] protocol. The patient was placed supine on [...] pre- procedural time-out was performed as per [facility] protocol. The patient was placed supine on [...] Noe performed this procedure. Oralia Griffin MD IM FLUORO ORDERABLES documented in this encounter Visit Diagnoses Diagnosis Glenohumeral arthritis, right Chronic scapular pain Disorder of bone and cartilage, unspecif ied Glenohumeral arthritis, right documented in this encounter
--- OUTSIDE RECORDS SUMMARY | 2022-01-29 00:44 | XMS_ITS | Encounter Summary ---
:1965 Author Organization [facility] [place] [address] Care Team Providers Name Role Phone Unavailable Primary Care Provider Unavailable Reason for Referral Consultation (Routine) - Duplicate Referral Specialty Diagnoses / Procedures Referred By Contact Refer red To Contact Pain Management Diagnoses Neck pain Reynaldo Vieyra PA [facility] [address] [place] [address] [place] [address] [place] [address] Fax: Referral ID Status Reason Start Expiration Visits Visits Date Date Requested Authorized [id number] Duplicate Consult, 06/21/2017 1 1 Referral Test & 6 Treat Reason for Visit Reason Comments Neck Pain right side Right Shoulder Pain Back Pain mid back pain Encounter Details Date Type Department Care Team Description 06/21/2016 Office Visit Spine Center at [facility] non Reynaldo Vieyra PA Neck pain [facility] [address] [place] [address] [phone] (Wo rk) Social History Tobacco Use Types Packs/Day Years Used Date Current Every Day Smoker Cigarettes 1 Smokeless Tobacco: Never Used Alcohol Use Standard Drinks/Week Comments Yes 8.3 (1 standard drink = 0.6 oz pure alco hol) once in a while Sex Assigned at Date Recorded Not on file documented as of this encounter Progress Notes Reynaldo Vieyra PA - 06/21/2016 10:30 AM EST Subjective: Maria Isabel Brian is a 51-year-old female seen today in follow-up following implants of increased neck pain, after medial branch blocks that were incompletely performed back on June 17. She apparently had complaints of increased neck pain after this, still with the same distribution as onher prior visit with myself, overlying the right-sided neck, scapular and trapezial musculature, with intermittent occipital radiation also on the right side. She mentions increasing discomfort following the branch block procedure, but does not really have the radiation of pain. She is here today to discuss other treatment options. She already has attempted spine center physical therapy, has had an MRI of the cervical spine which showed no surgical indication. Objective: Physical exam was not repeated today. MRI of the cervical spine was once again reviewed with her showing minimal degenerative changes at the adjacent C4-C5 and C6-C7 segments, without significant nerve compression. Assessment/plan: Maria Isabel Brian is a 51-year-old female with chronic right-sided neck pain and proximal radiation as mentioned above, now with acute worsening of her pain following intolerance of cervical medial branch block procedure over 4 days ago. I discussed with her treatment options for this, such as revisiting the Dee-based physical therapy approach, and comprehensive pain evaluation, along with consideration of procedures such as cervical epidural steroidal injections. It is unclear ifshspencer had any benefit with the branch block procedure, as she could not tolerate completing it. She appears to have some degree of discomfort within a C5 distribution, but does not really demonstrate much neural compression to indicate surgical intervention at present. At the interim, I have given her prescription for Robaxin and Toradol, for about 5 days, to address her acute pain exacerbations. She will be seen by our Pain Management clinic for comprehensive evaluation. I did talk to her about options of considering also our functional alevism program, given her reports of significant functional limitations due to her discomfort. She was given DVD for this. documented in this encounter Plan of Treatment Scheduled Referrals Name Type Priority Associated Diagnoses Order S chedule Referral to Pain Outpatient Referral Routine Neck pain Orde red: Clinic 06/21/2016 documented as of this encounter Visit Diagnoses Diagnosis Neck pain Cervicalgia documented in this encounter
--- OUTSIDE RECORDS SUMMARY | 2022-01-29 00:44 | XMS_ITS | Encounter Summary ---
:1965 Author Organization [facility] [place] [address] Care Team Providers Name Role Phone Gillian Hughes MD Primary Care Provider Reason for Visit Reason Comments GI Problem Encounter Details Date Type Department Care Team Description 09/04/2015 Office Visit Gastroenterology at [facility] Jaswant Faust Acute viral [facility] Melvina Guaman [place] [address] [facility] and without [phone] [place] [address] Social History Tobacco Use Types Packs/Day Years [...] Sign Reading Time Taken Comments Blood Pressure 103/71 09/04/2015 8:43 AM EST Pulse 100 09/04/2015 8:43 AM EST Temperature - - Respiratory Rate - - Oxygen Saturation - - Inhaled Oxygen Concentration - - Weight 74.2 kg (163 lb 9.6 oz) 09/04/2015 8:43 AM EST Height 165.1 cm (5' 5) 09/04/2015 8:43 AM EST Body Mass Index 27.22 09/04/2015 8:43 AM EST documented in this encounter Progress Notes Jaswant Faust MD - 09/04/2015 8:[address] [facility] NEW HEPATOLOGY EVALUATION Patient: Maria Isabel Brian Date of : 1965 CARBONATOR: Jaswant Faust MD PCP: GILLIAN HUGHES MD Requesting Provider: 09/04/2015 REASON FOR CONSULTATION HBV HISTORY OF PRESENT ILLNESS Maria Isabel Brian is a 50 y.o. year old with HBV. Had acute onset of viral syndrome with arthralgias,malaise, beginning on 08-10-2015. Believes that she was exposed to her brothers syringe 3 weeks beforeat her mothers house. Brother is sickly. One partner for 7 years, denies IVDA. Has not been sexuallyactive for a while. She has had previous HAV, PROBLEM LIST Patient Active Problem List Diagnosis ??? HBV (hepatitis B virus) infection ??? Smoker ??? Pain in wrist ??? Anxiety state, unspecified ??? Depression MEDICATIONS Current Outpatient Prescriptions Medication Sig Dispense Refill ??? oxyCODONE (ROXICODONE) 5 mg Tablet Take 7.5 mg by mouth every 6 hours as needed for Pain. ??? ALPRAZolam (XANAX) 2 mg Tablet Take 2 mg by mouth 3 times daily as needed for Anxiety. No current facility-administered medications for this visit. 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 last 6 months Fatigue X Poor sleep X Fever Night sweats Chills Skin Itching Easy bruising Change in moles Change in skin pigmentation History of recurrent or active rash Eyes, ears, nose, throat Blurred vision or change in vision Glaucoma Cataracts Hearing loss Ringing in ears Sinus problems Hoarseness Dry eyes or dry mouth Endocrine Thyroid disease Change in tolerance to heat or cold Excessive thirst Cardiovascular Chest pain Irregular heart beat or palpitations Pain in legs with walking Swelling in Feet Pulmonary/lungs Shortness of breath Persistent cough Coughing up blood Asthma or Wheezing Gastrointestinal Poor appetite Abdominal pain X Indigestion Trouble swallowing Diarrhea Constipation Change in bowel habits Nausea or vomiting Rectal bleeding or blood in stools Muscle/joint/bone Swelling of ankles or legs X Pain or swelling of joints X Back pain X Neck or shoulder pain X Muscle cramping X Color changes in hands or feet with cold Movement of legs at night Neurologic/Psychiatric Blackouts or loss of consciousness Headache Weakness or numbness in legs or arms x Tremor Uncontrolled movements Worsening of memory and concentration Personality changes Depression x Anxiety x PHYSICAL EXAM Filed Vitals: 09/04/15 0843 BP: 103/71 Pulse: 100 Height: 165.1 cm (5' 5) Weight: 74.208 kg (163 lb 9.6 oz) Body mass index is 27.22 kg/(m^2). Constitutional: Appears fatigued Skin: no cyanosis, , no spider angiomata, no flynn erythema, no jaundice, + tattoos HEENT : PERRLA, sclera anicteric normocephalic, jayden-pharynx within noral limits Neck/Nodes:: No adenopathy or thyromegaly Cardiovascular: RRR, no murmurs, no S3 S4 or murmur Respiratory: clear to auscultation and percussion, no wheezes, no rales GI: + bowel sounds, tender liver edge, nondistended, no splenomegaly, no masses, no evidence of ascites, no umbilical hernia, caput medussae Musculoskeletal: no muscle wasting, no arthritis Neuro: alert and oriented x 3, nonfocal, no asterixis or tremor Extremities: No edema,no clubbing RESULTS LABS SCANNED US wnl ASSESSMENT/PLAN Maria Isabel Brian is a 50 y.o. with acute HBV without synthetic dysfunction or hepatic decompensation. She does have markedly elevated liver enzymes but normal bilirubin. Albumin and INR. She has severearthralgia and viral syndrome. It is controversial whether to treat acute HBV with antivirals. If patient has evidence of synthetic dysfunction would more likely be indicated. 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 If we we were to treat would need to treat until HBsag to sAB seroconversion or 6 months past eag to eab. -Make sure HIV, HDV and HCV RNA have been checked -Need to obtain HBV DNA, sab, sag, eag and eab. Would follow these every 2 weeks along with Chem group until evidence of seroconversion. If DNA remains elevated and she is symptomatic would consider tenofovir 300 mgs qd. -Discussed with her need to check all contacts for HBV ag ab, if not immune need vaccination and possible HBIG if close contacts -Discussed that her blood and body fluids are infectious and she needs to take precautions -Treat symptomatically, may take NSAIDS as will treat pain and inflammatory symptoms -She does not want blood work here, will follow with you. Jaswant Faust MD Section of Gastroenterology and Hepatology [facility] [place] [address] V: [phone] F: [phone] Copy: GILLIAN HUGHES MD documented in this encounter Plan of Treatment Not on filedocumented as of this encounter Visit Diagnoses Diagnosis Acute viral hepatitis B without coma and without delta agent Viral hepatitis B without mention of hep atic coma, acute or unspecified, without mention of hepatitis delta documented in this encounter Care Teams Engraver Tender Relationship Specialty Start Date End Date Gillian Hughes MD PCP - General General Internal Medicine 08/27/[address] [place] [address] documented as of this encounter
--- OUTSIDE RECORDS SUMMARY | 2022-01-29 00:44 | XMS_ITS | Encounter Summary ---
:1965 Author Organization [facility] [place] [address] Care Team Providers Name Role Phone Unavailable Primary Care Provider Unavailable Encounter Details Date Type Department Care Team Description 07/14/2016 Hospital Encounter XRay at [facility] Humberto Glen G, Left wrist pain [address] [facility] [address] ORTHOPA[facility]IC SURGERY [place], [place] [address] Social History Tobacco Use Types [...] Comme nts XR WRIST 3 VIEWS Routine 07/14/2016 3:02 PM Left wrist pain Re sults for this LEFT EST procedure are i n the results section. documented in this encounter Results XR Wrist Complete Min 3 views Left (Generic) (07/14/2016 3:02 PM EST) Anatomical Region Laterality Modality Left Digital Radiography Specimen (Source) Anatomical Location Collection Method / Collectio n Time Received Time / Laterality Volume Impressions 07/14/2016 3:16 PM EST Moderate osteoarthropathy of the LEFT wrist. Narrative 07/14/2016 3:16 PM EST EXAMINATION: XR WRIST COMPLETE MIN 3 VIEWS LEFT (GENERIC) CLINICAL HISTORY: left wrist pain TECHNIQUE: Frontal lateral and oblique a nd navicular views of the LEFT wrist COMPARISON: None FINDINGS: No fracture or dislocation of the LEFT w rist. There is mild osseous demineralization. There is joint space n arrowing noted at the radiocarpal joint with subchondral sclerotic changes Procedure Note Wilmer Guerra MD - 07/14/2016Formatti ng of this note might be different from the original. EXAMINATION: XR WRIST COMPLETE MIN 3 VIE WS LEFT (GENERIC) CLINICAL HISTORY: left wrist pain TECHNIQUE: Frontal lateral and oblique a nd navicular views of the LEFT wrist COMPARISON: None FINDINGS: No fracture or dislocation of the LEFT w rist. There is mild osseous demineralization. There is joint space n arrowing noted at the radiocarpal joint with subchondral sclerotic changes IMPRESSION Moderate osteoarthropathy of the LEFT wr ist. Glen Paul MD IMG DX ORDERABLES documented in this encounter Visit Diagnoses Diagnosis Left wrist pain Pain in joint, forearm documented in this encounter
--- OUTSIDE RECORDS SUMMARY | 2022-01-29 00:44 | XMS_ITS | Encounter Summary ---
:1965 Author Organization [facility] [place] [address] Care Team Providers Name Role Phone Americo Hough Primary Care Provider Reason for Referral Diagnostic Test (Routine) - Closed Specialty Diagnoses / Procedures Referred By Contact Refer red To Contact Radiology Diagnoses Chronic right shoulder pain Radha Wan PA Procedures MRI Shoulder wo Contrast Right (Generic) [facility] [place] [address] Referral ID Status Reason Start Date Expiration Date Visits V isits Requested Authorized [id number] Closed Specialty 07/29/2016 10/27/2016 1 1 Service Requested Reason for Visit Diagnostic Test (Routine) - Closed Specialty Diagnoses / Procedures Referred By Contact Refer red To Contact Radiology Diagnoses Chronic right shoulder pain Radha Wan PA Procedures MRI Shoulder wo Contrast Right (Generic) [facility] [place] [address] Referral ID Status Reason Start Date Expiration Date Visits V isits Requested Authorized [id number] Closed Specialty 07/29/2016 10/27/2016 1 1 Service Requested Encounter Details Date Type Department Care Team Description 08/04/2016 Hospital Encounter MRI at [facility] Oralia Griffin, Chronic right [facility] shoulder pain [address] [facility] [address] ORTHOPAEDIC [phone] [place] [address] Social History Tobacco Use Types Packs/Day Years [...] Priority Date/Time Associated Diagnosis Comme nts MRI SHOULDER RIGHT Routine 08/04/2016 8:31 PM Chronic right Re sults for this WO CONTRAST EST shoulder pain procedure are in the results section. documented in this encounter Results MRI Shoulder wo Contrast Right (Generic) (08/04/2016 8:31 PM EST) Anatomical Region Laterality Modality Shoulder Right Magnetic Resonance Specimen (Source) Anatomical Location Collection Method / Collectio n Time Received Time / Laterality Volume Impressions 08/05/2016 9:18 AM EST 1. ??Severe glenohumeral arthropathy characterized by extensive loss of articular cartilage, osteophyte formation and a la rge intra-articular body in the subcoracoid space. 2. ??Low-grade partial-thickness articul ar surface rotator cuff tearing without associated muscular atrophy. 3. ??Subacromial subdeltoid bursitis. 4. ??Acromioclavicular joint arthropathy . 5. ??Intra-articular biceps tendinopathy and longitudinal partial thickness tearing.. Narrative 08/05/2016 9:18 AM EST EXAMINATION: MRI SHOULDER WO CONTRAST RIGHT (GENERIC) CLINICAL HISTORY: Right shoulder pain, g lenohumeral arthritis on x-ray, evaluating rotator cuff COMPARISON: X-ray 07/15/2016 TECHNIQUE: Routine noncontrast MR of the Right shoulder was performed. FINDINGS: No fracture or dislocation. A rounded collection of fat signal inten sity at the proximal diaphysis of the humerus has an MR appearance most consis tent with intraosseous lipoma. The structure is high signal intensity on T1 -weighted images and low signal intensity on fat-suppressed T2-weighted images. No corresponding x-ray abnormality is identified. GLENOHUMERAL JOINT: As seen on the x-ray examination there is severe glenohumeral arthropathy. Cartilage has been lost from a very larg e portion of the articular surface of both the humeral head and the glenoid. The joint space is narrowed as a result and there is extensive osteophyte formation. Subchondral bone marrow is evident at t he glenoid. Labral tearing and degeneration is seen throughout. Small joint effusion is present. As seen on x-ray there is a large ossif ied intra-articular body in the subcoracoid space. Minimal synovitis is evident. Large cysts at the posterior humeral tunde face are degenerative in nature.. ROTATOR CUFF OUTLET: The rotator cuff outlet is narrowed by the presence of large osteophytes arising from the acromioclavicular joint where there is severe arthropathy. The subdeltoid subacromial bursa is dist ended with fluid.. ROTATOR CUFF: Extensive low-grade articular surface p artial-thickness cuff tearing is identified. This is most pronounced at t he supraspinatus insertion and the superior margin of the subscapularis ins ertion. No full-thickness tear is identified. Fat infiltration is seen within portions of the infraspinatus and supraspinatus but muscle size is not diminished.. BICEPS TENDON: The proximal biceps tendon is increased in diameter and signal intensity consistent with tendinopathy and partial thickness tearing. Distally within the bicipital groove the biceps is normal in appearance.. Procedure Note Candido Raymundo MD - 08/05/2016Forma tting of this note might be different from the original. EXAMINATION: MRI SHOULDER WO CONTRAST RI GHT (GENERIC) CLINICAL HISTORY: Right shoulder pain, g lenohumeral arthritis on x-ray, evaluating rotator cuff COMPARISON: X-ray 07/15/2016 TECHNIQUE: Routine noncontrast MR of the Right shoulder was performed. FINDINGS: No fracture or dislocation. A rounded collection of fat signal inten sity at the proximal diaphysis of the humerus has an MR appearance most consis tent with intraosseous lipoma. The structure is high signal intensity on T1 -weighted images and low signal intensity on fat-suppressed T2-weighted images. No corresponding x-ray abnormality is identified. GLENOHUMERAL JOINT: As seen on the x-ray examination there is severe glenohumeral arthropathy. Cartilage has been lost from a very larg e portion of the articular surface of both the humeral head and the glenoid. The joint space is narrowed as a result and there is extensive osteophyte formation. Subchondral bone marrow is evident at t he glenoid. Labral tearing and degeneration is seen throughout. Small joint effusion is present. As seen on x-ray there is a large ossif ied intra-articular body in the subcoracoid space. Minimal synovitis is evident. Large cysts at the posterior humeral tunde face are degenerative in nature.. ROTATOR CUFF OUTLET: The rotator cuff outlet is narrowed by the presence of large osteophytes arising from the acromioclavicular joint where there is severe arthropathy. The subdeltoid subacromial bursa is dist ended with fluid.. ROTATOR CUFF: Extensive low-grade articular surface p artial-thickness cuff tearing is identified. This is most pronounced at t he supraspinatus insertion and the superior margin of the subscapularis ins ertion. No full-thickness tear is identified. Fat infiltration is seen within portions of the infraspinatus and supraspinatus but muscle size is not diminished.. BICEPS TENDON: The proximal biceps tendon is increased in diameter and signal intensity consistent with tendinopathy and partial thickness tearing. Distally within the bicipital groove the biceps is normal in appearance.. IMPRESSION 1. Severe glenohumeral arthropathy valerio cterized by extensive loss of articular cartilage, osteophyte formation and a la rge intra-articular body in the subcoracoid space. 2. Low-grade partial-thickness articular surface rotator cuff tearing without associated muscular atrophy. 3. Subacromial subdeltoid bursitis. 4. Acromioclavicular joint arthropathy. 5. Intra-articular biceps tendinopathy a nd longitudinal partial thickness tearing.. Oralia Griffin MD G MRI ORDERABLES documented in this encounter Visit Diagnoses Diagnosis Chronic right shoulder pain Pain in joint, shoulder region documented in this encounter Care Teams Table Worker Packager Relationship Specialty Start Date End Date Americo Hough PA PCP - General General Internal Medicine 08/04/16 [address] [place] [address] documented as of this encounter
--- OUTSIDE RECORDS SUMMARY | 2022-01-29 00:44 | XMS_ITS | Encounter Summary ---
:1965 Author Organization [facility] [place] [address] Care Team Providers Name Role Phone Niles Roy MD Primary Care Provider [phone] Encounter Details Date Type Department Care Team Description 10/15/2015 Telephone Gastroenterology at [facility] Bette Francis, [facility] [place] [address] [facility] [phone] GASTROENTEROLOGY DEPT [place], [place] [address] (Wo rk) Social History Tobacco Use Types Packs/Day Years Used Date Current Every Day Smoker Cigarettes 1 Smokeless Tobacco: Never Used Alcohol Use Standard Drinks/Week Comments Yes 8.3 (1 standard drink = 0.6 oz pure alco hol) once in a while Sex Assigned at Date Recorded Not on file documented as of this encounter Miscellaneous Notes Telephone Encounter - Bette Francis MD - 10/15/2015 5:43 PM EST 50 yo F w/ acute hep B August [address] Faust, she was lost to follow up and now present to her PCP today. Repeat labs T.bili: 10 and AST/ALT: 1000's and alk phos: 150's. Hep B e antigen +, Hep B e ab: negative, Hep B surface antigen + with Hep B surface ab: negative. PT/INR: pending, HCV pending. Per PCP patient does not have any signs of fulminate liver failure including ascites, encephalopathy however deeply jaundice with pruritis. She did mention that patient unreliable historian did receive percocet's from in [facility] about 1 month ago. Plan Discuss w/ PCP to obtain history about herbal, recent IVDU, tylenol use Check urine toxic Check tylenol level Check Hep A,C, D Discuss with patient if any of the above sign of liver failure If above is negative will treat w/ tenofovir 300mg qd Monitor LFTs q 2 weeks, creatinine documented in this encounter Plan of Treatment Not on filedocumented as of this encounter Visit Diagnoses Not on filedocumented in this encounter Care Teams Weapons Officer Relationship Specialty Start Date End Date Niles Roy MD PCP - General Family Medicine 09/08/15 05/06/16 [address] [place] [address] documented as of this encounter
--- OUTSIDE RECORDS SUMMARY | 2022-01-29 00:44 | XMS_ITS | Encounter Summary ---
:1965 Author Organization [facility] [place] [address] Care Team Providers Name Role Phone Americo Hough Primary Care Provider Reason for Visit Reason Comments Right Shoulder Pain DOI 11/2015 Encounter Details Date Type Department Care Team Description 08/19/2016 Office Visit Orthopaedics at [facility] Oralia Griffin, Primary osteoarthritis [facility] [place] [address] [facility] [phone] [place] [address] Social History Tobacco Use Types Packs/Day Years Used Date Current Every Day Smoker Cigarettes 1 Smokeless Tobacco: Never Used Comments: STATES NEEDS TO WORK ON Alcohol Use Standard Drinks/Week Comments Yes 8.3 (1 standard drink = 0.6 oz pure alco hol) once in a while Sex Assigned at Date Recorded Not on file documented as of this encounter Last Filed Vital Signs Vital Sign Reading Time Taken Comments Blood Pressure 126/79 08/19/2016 8:16 AM EST Pulse 83 08/19/2016 8:16 AM EST Temperature - - Respiratory Rate - - Oxygen Saturation - - Inhaled Oxygen Concentration - - Weight 77.1 kg (170 lb) 08/19/2016 8:16 AM EST Height 167.6 cm (5' 6) 08/19/2016 8:16 AM EST Body Mass Index 27.44 08/19/2016 8:16 AM EST documented in this encounter Progress Notes Oralia Griffin MD - 08/19/2016 8:00 AM EST Maria Isabel Brian returns today for follow up of right shoulder pain. She is doing poorly. Pain is severe. She is having a lot of trouble with sleeping and with every day activities. She has had multiple injections including subacromial and fluoroscopy guided intra-articular. Unfortunately none of these are given her any lasting relief. Anti-inflammatories are not helpful for her. She feels like she is at the end of her rope with this. On physical examination, the patient is alert, oriented, and in no apparent distress. Range of motion today is about 90?? of active forward elevation. She can be pushed further passivelywith severe pain. External rotation at the side is about 20??. Rotator cuff strength is full at 5 out of 5 in internal and external rotation at the side and abduction in the empty can position. Neurologic examination of the upper extremity is intact with normal motor function of the radial, median, ulnar, axillary and musculocutaneous nerves. Sensory function is intact in the radial, median, ulnar, axillary, and lateral antebrachial cutaneous nerve distributions. The hand was well perfused. New studies: X-rays demonstrate end-stage osteoarthritis. MRI shows an intact rotator cuff. She doeshave a large loose body as well. Impression: We talked about her options. I offered her continued nonoperative treatment, arthroscopy, and total shoulder replacement. She understands the pros and cons of each. She elected to proceed with total shoulder replacement. We went through the risks as listed on the informed consent, which she signed. All her questions were answered. She does understand she is quite young for this procedure and she will likely outlive the prosthesis and eventually need to deal with revision. She understandsthat this may or may not be possible depending on the mode of failure. Plan: We will schedule her for her total shoulder replacement at the next available time that is convenient for her. This note was created with [employer] voice recognition software. Tammy Maxwell RN - 08/19/2016 8:00 AM EST Pre Op Nursing Assessment and Teaching Scheduled date of procedure: TBD Side: right Site: shoulder Procedure: TSA Anticipated start of PT: POD1 Outpatient PT scheduling-only referral given: Yes (TSA 3D if no VNA, SAD 3D, RTC 2W/4W/6W, Distal biceps OT maricruz't @ [facility] (place order for splint), Anticipated time of immobilization for this procedure: 6W Written material given: Shoulder book Patient educated on importance of staying healthy and maintaining skin integrity, especially of affected arm pre-op. Patient will inform us of any skin rashes, breaks in skin or illnesses prior to surgery. Discussed practicing ADL???s with non-operative arm. We are operating on the right Pt is right hand dominant Does pt have use of contralateral extremity, such that they can perform ADLs? Yes Is pt able to rise from chair without use of operative arm? Yes Lives alone? No Can it be anticipated that pt will need Rehab placement/ VNA for: Detention: No OT/ PT: No ELECTROMEDICAL SERVICE ENGINEER: No Homemaker: No Pt weight: 170 # (if near or over 350#, pt must be weighed on scale and surgeon notified) Discussed no ASA or NSAIDS 7 days prior to surgery. May take Tylenol if needed. General post op guidelines discussed including hydration, nutrition, constipation, dressing changes,ice. Discussed continual wearing of the sling for as long as specified in the discharge instructions. A review of typically prescribed post op [...] of surgery for specific recommendations after surgery. Patient given the choice of vendors for shoulder immobilizer. Patient chooses to be fitted for shoulder immobilizer and cyrocuff by [facility] today. documented in this encounter Plan of Treatment Not on filedocumented as of this encounter Procedures Procedure Name Priority Date/Time Associated Diagnosis Comme nts TOTAL SHOULDER Routine 08/19/2016 8:33 AM Primary osteoarthrit is ARTHROPLASTY EST of right shoulder documented in this encounter Results (ABNORMAL) Urinalysis with reflex Culture (10/21/2016 11:53 AM EDT) Patholo gist Method Time Signature Glucose UA Negative Negative [facility] mg/dL [facility] Protein U[facility] Negative Negative [facility] mg/dL [facility] Bilirubin UA Negative Negative [facility] mg/dL [facility] Comment: Clinical correlation required for positi ve Urine Bilirubin results as false positive may occur with some drugs and d rug related products. If a false positive is suspected a serum total bili turner should be considered if clinically indicated. Urobilinogen UA Normal Normal mg/dL [facility] pH UA 6.0 5.0 - 8.0 [facility] Blood UA Small (A) Negative mg/dL [facility] Ketones UA Negative Negative mg/dL [facility] Nitrite UA Negative Negative [facility] Leukocytes UA Negative Negative [facility] Appearance UA Clear Clear [facility] Spec [place] UA 1.004 1.002 - 1.030 [facility] Color UA Straw Yellow [facility] RBC UA <1 0 - 4 /HPF [facility] WBC UA 1 0 - 5 /HPF [facility] Squam Epith UA 2 <=4 /HPF [facility] Culture Reflexed No [facility] Specimen (Source) Anatomical Collection Method Collection Time Re ceived Time Location / / Volume Laterality Urine specimen 10/21/2016 11:53 7 obtained by clean AM EDT 12:04 PM E DT catch procedure (specimen) Resulting Agency Comment Spec In Lab Oralia Griffin MD URINE ORDERABLES Performing Organization Address City/State/[place] [address] (ABNORMAL) Urine culture Clean Catch Urine (10/21/2016 11:53 AM EDT) [facility] Method Time Signature Urine Culture 1,000-9,000 ROSA cfu/ml [facility] probable LABORATORY contaminant (A) Specimen (Source) Anatomical Collection Method Collection Time Re ceived Time Location / / Volume Laterality Urine specimen 10/21/2016 11:53 7 obtained by clean AM EDT 12:11 PM E DT catch procedure (specimen) Resulting Agency Comment Spec In Lab Oralia Griffin MD MICROBIOLOGY - GENERAL ORDER SNEHA Performing Organization Address City/State/Z[place] [address] documented in this encounter Visit Diagnoses Diagnosis Primary osteoarthritis of right shoulder Primary localized osteoarthrosis, should er region documented in this encounter Care Teams Laborer Landscape Relationship Specialty Start Date End Date Americo Hough PA PCP - General General Internal Medicine 08/04/16 [address] [place] [address] documented as of this encounter
--- OUTSIDE RECORDS SUMMARY | 2022-01-29 00:44 | XMS_ITS | Encounter Summary ---
:1965 Author Organization [facility] [place] [address] Care Team Providers Name Role Phone Americo Hough Primary Care Provider Encounter Details Date Type Department Care Team Description 10/21/2016 Laboratory Lab at [facility] Primary osteoarthritis Appointment One [facility] [place] [id number] Social History Tobacco Use Types Packs/Day Years [...] Name Priority Date/Time Associated Diagnosis Comme nts URINALYSIS WITH Routine 10/21/2016 11:53 Primary osteoarthriti s Results for this REFLEX CULTURE AM EDT of right shoulder procedur e are in the results section. URINE CULTURE Routine 10/21/2016 11:53 Primary osteoarthritis Results for this AM EDT of right shoulder procedure are in the results section. ABORH RECHECK Routine 10/21/2016 11:33 Results fo r this STATUS AM EDT procedure are i n the results section. TYPE AND SCREEN, Routine 10/21/2016 11:33 Primary osteoarthrit is SDP (FUTURE AM EDT of right shoulder SURGERY, [facility] SAME DAY PROGRAM ONLY) ABO/RH TYPING Routine 10/21/2016 11:33 Primary osteoarthritis Results for this AM EDT of right shoulder procedure are in the results section. ANTIBODY SCREEN Routine 10/21/2016 11:33 Primary osteoarthriti s Results for this AM EDT of right shoulder procedure are in the results section. documented in this encounter Results (ABNORMAL) Urinalysis with reflex Culture (10/21/2016 11:53 AM EDT) [facility] Method Time Signature Glucose UA Negative Negative [facility] mg/dL [facility] Protein UA Negative Negative [facility] mg/dL [facility] Bilirubin UA Negative Negative [facility] mg/dL [facility] Comment: Clinical correlation required for positi ve Urine Bilirubin results as false positive may occur with some drugs and d rug related products. If a false positive is suspected a serum total bili turner should be considered if clinically indicated. Urobilinogen UA Normal Normal mg/dL [facility] pH UA 6.0 5.0 - 8.0 [facility] Blood UA Small (A) Negative mg/dL [facility] Ketones UA Negative Negative mg/dL [facility] Nitrite UA Negative Negative [facility] Leukocytes UA Negative Negative [facility]OR[facility]ORY Appearance UA Clear Clear [facility] Spec [place] UA 1.004 1.002 - 1.030 [facility] Color UA Straw Yellow [facility] RBC UA <1 0 - 4 /HPF [facility] WBC UA 1 0 - 5 /HPF [facility] Squam Epith UA 2 <=4 /HPF [facility] Culture Reflexed No [facility] Specimen (Source) Anatomical Collection Method Collection Time Re ceived Time Location / / Volume Laterality Urine specimen 10/21/2016 11:53 7 obtained by clean AM EDT 12:04 PM E DT catch procedure (specimen) Resulting Agency Comment Spec In Lab Oralia Griffin MD URINE ORDERABLES Performing Organization Address City/State/[place] [address] (ABNORMAL) Urine culture Clean Catch Urine (10/21/2016 11:53 AM EDT) [facility] Method [place] Signature Urine Culture 1,000-9,000 ROSA cfu/ml [facility] probable LABORATORY contaminant (A) Specimen (Source) Anatomical Collection Method Collection Time Re ceived Time Location / / Volume Laterality Urine specimen 10/21/2016 11:53 7 obtained by clean AM EDT 12:11 PM E DT catch procedure (specimen) Resulting Agency Comment Spec In Lab Oralia Griffin MD MICROBIOLOGY - GENERAL ORDER SNEHA Performing Organization Address City/[facility]/ZIP Code Phon e Number [address] ABORH Recheck Status (10/21/2016 11:33 AM EDT) [facility] Signature ABORH Recheck Order Placed [facility] LABORATORY ABORH Type Complete [facility] LABORATORY Specimen Anatomical Collection Method Collection Time Receive d Time (Source) Location / / Volume Laterality Blood specimen 10/21/2016 11:33 7 (specimen) AM EDT 11:38 AM EDT Resulting Agency Comment Spec In Lab Oralia Griffin MD BLOOD BANK ORDERABLES Performing Organization Address City/[facility]/ZIP Code Phon e Number [address] Antibody screen (10/21/2016 11:33 AM EDT) [facility] Signature Ab Screen Negative [facility] LABORATORY Expires at 11/05/2016 ROSA FINN [id number] on: [facility] Specimen Anatomical Collection Method Collection Time Receive d Time (Source) Location / / Volume Laterality Blood specimen 10/21/2016 11:33 7 (specimen) AM EDT 11:38 AM EDT Resulting Agency Comment Spec In Lab Oralia Griffin MD BLOOD BANK ORDERABLES Performing Organization Address City/[facility]/ZIP Code Phon e Number [address] ABO/Rh Typing (10/21/2016 11:33 AM EDT) P athologist Signature ABORh Type O Pos [facility] Specimen Anatomical Collection Method Collection Time Receive d Time (Source) Location / / Volume Laterality Blood specimen 10/21/2016 11:33 7 (specimen) AM EDT 11:38 AM EDT Resulting Agency Comment Spec In Lab Oralia Griffin MD BLOOD BANK ORDERABLES Performing Organization Address City/State/[place] [address] documented in this encounter Visit Diagnoses Diagnosis Primary osteoarthritis of right shoulder Primary localized osteoarthrosis, should er region documented in this encounter Care Teams Diesel Truck Driver Relationship Specialty Start Date End Date Americo Hough PA PCP - General General Internal Medicine 08/04/16 [address] [place] [address] documented as of this encounter
--- OUTSIDE RECORDS SUMMARY | 2022-01-29 00:44 | XMS_ITS | Encounter Summary ---
:1965 Author Organization [facility] [place] [address] Care Team Providers Name Role Phone Americo Hough Primary Care Provider Reason for Visit Auth/Cert Specialty Diagnoses / Procedures Referred By Contact Refer red To Contact Diagnoses DJD of shoulder Shoulder DJD Procedures PRO RECONSTR TOTAL SHOULDER IMPLANT PRO REPAIR BICEPS LONG TENDON @TOTAL SHOULDER ARTHROPLASTY ([facility] 22.13) Referral ID Status Reason Start Date Expiration Date Visits Requ ested Visits Authorized [id number] 1 1 Encounter Details Date Type Department Care Team Description 11/02/2016 Surgery Main Operating Room [facility]alonda Griffin [facility] 22.13) [facility] [place] [address] [place] [address] [phone] Social History Tobacco Use Types Packs/Day Years [...] Sign Reading Time Taken Comments Blood Pressure 106/66 11/02/2016 10:45 AM EDT Pulse 68 11/02/2016 10:30 AM EDT Temperature 36.9 ??C (98.4 ??F) 11/02/2016 10:08 AM EDT Respiratory Rate 12 11/02/2016 10:30 AM EDT Oxygen Saturation 93% 11/02/2016 10:45 AM EDT Inhaled Oxygen Concentration - - Weight 78.5 kg (173 lb 1 oz) 11/02/2016 6:15 AM EDT Height 167.6 cm (5' 6) 11/02/2016 6:21 AM EDT Body Mass Index 27.93 11/02/2016 6:15 AM EDT documented in this encounter Discharge Summaries Ely Constantino, RESOURCE ANALYST - 11/02/2016 2:18 PM EDT Discharge Summary Patient Name: Maria Isabel Brian Patient Age: 51 y.o. Language: Trinidadian Race: White Ethnicity: Not nor Admit date: 11/02/2016 Discharge date and time: 11/04/2016 Attending Physician: Blaine Griffin MD Discharge Physician: Blaine Griffin MD Follow-up Recommendations for Providers: See discharge instructions for additional details. Future Appointments Date Time Provider Department Center 11/18/2016 11:10 AM Blaine Griffin MD [facility] 12/16/2016 12:25 PM [facility] ROOM 1 [facility] 12/16/2016 1:25 PM Blaine Griffin MD [facility] 01/27/2017 1:25 PM Blaine Griffin MD [facility] Inpatient Provider Contact Information: Blaine Griffin MD Orthopedics: [phone] After hours and weekends, call [facility] Leak Gang Supervisor, , and have the Orthopedic resident paged. Discharge Diagnoses (Hospital Problems) and Secondary Diagnoses (Chronic Problems): Active Hospital Problems Diagnosis ??? S/P Right TSA 11/02/16 (Dr. Griffin) Resolved Hospital Problems Diagnosis Date Resolved No resolved problems to display. Active Non-Hospital Problems Diagnosis ??? Glenohumeral arthritis ??? Neck pain on right side ??? Radiculopathy of cervical region ??? HBV (hepatitis B virus) infection ??? FH: NICOLE-BSO (total abdominal hysterectomy and bilateral salpingo- oophorectomy) BRAC2 + 2011 ??? Chronic sciatica ??? Posttraumatic stress disorder ??? Smoker ??? Pain in left wrist ??? Anxiety state, unspecified ??? Depression Operations/Major Procedures: 11/02/2016 Surgeon(s) and Role: * Blaine Griffin MD - Primary * Kyle Dacosta MD Procedure(s): RIGHT TOTAL SHOULDER ARTHROPLASTY BOYD BIGLIANI FLATOW (BF) BOYD TM TENODESIS,BICEPS TENDON (PROXIMAL) History of Presentation: Maria Isabel Brian is a 51 y.o. female with end-stage osteoarthritis of the right shoulder pain. This had not responded to conservative treatment. After discussion of options, she elected to proceed witha right total shoulder arthroplasty. She understood the risks of surgery, particularly given her young age. She signed her informed consent. ?? Hospital Course: The patient was admitted for total shoulder arthroplasty. The operative course was uneventful. Maria Isabel Brian was admitted for pain control, rehabilitation therapy and observation. She was seen by Physical therapy/Occupational therapy for exercises and mobilization - no external rotation past 30 degrees and no forward elevation past 130 degrees. Overnight into POD#1, her nerve catheter fell out andshe had increased pain not relieved by oral pain medication and a ROUNDSMAN was started. Later on POD#1, her oxycodone was changed to oral Dilaudid and her pain was better controlled with decreased side effect of itching. The ROUNDSMAN was discontinued the evening of POD#1. Her drain was also removed. Ms. Brian did not have a bowel movement prior to discharge but was passing flatus and taking po without difficulty. Patient was voiding spontaneously without difficulty. Her pain was well managed on oral medications after the adjustments were made. On POD#2 the patient was deemed stable for discharge to home. Of Note: The patient declined referral to the [place] Qu[facility] Smoking Cessation Program. She states she will see her PCP about smoking cessation. Vital Signs at Discharge: Weight: Wt Readings from Last 1 Encounters: 11/02/16 78.5 kg (173 lb 1 oz) Height: Ht Readings from Last 1 Encounters: 11/02/16 167.6 cm (5' 6) HC: HC Readings from Last 1 Encounters: No data found for HC BMI: Body mass index is 27.93 kg/(m^2). Last value Range last 24 hrs Temperature Temp: 37.3 ??C (99.1 ??F) Temp: [36.9 ??C (98.4 ??F)-37.5 ??C (99.5 ??F)] Heart Rate Heart Rate: 75 Heart Rate: -- Blood Pressure BP: 96/55 BP: (96-114)/(55-66) Respiratory Rate Resp: 16 Resp: [16-20] SpO2 SpO2: 91 % SpO2: [87 %-92 %] Art BP BP (Arterial Line): -- Functional and Cognitive Status: Patient mobilizing with right arm in an immobilizer sling, cognitively intact. Important Studies and Lab Data: Labs:Last 3 wbc, hgb, hct plt Recent Labs 11/03/16 0524 WBC 13.6* HGB 10.4* HCT 30.8* PLATELET 205 Last 3 Lytes Recent Labs 11/03/16 0524 NA 137 K 3.7 CL 102 CO2 24 BUN 13 CREATININE 0.78 Studies: Xr Shoulder Right Result Date: 11/02/2016 FINDINGS: There has been interval right total shoulder arthroplasty the hardware appears intact. There is no fracture or dislocation. A surgical drain is seen with its tip at the level of the humeral head. There is soft tissue swelling and soft tissue gas about the right shoulder, expected findings inthe immediate postoperative setting. Degenerative changes of the acromioclavicular joint are again seen. Anterior cervical discectomy and fusion hardware is noted. Interval right TSA without radiographic evidence of immediate complication. Transfusions: No Discharge Conditions/Prognosis: Stable, awake, and alert. Mobilizing as noted above, pain controlledon oral medications. Discharge to: Home with VNA. Updated Allergies/ADRs: Allergies Allergen Reactions ??? Morphine Other reaction(s): Itching ??? Multivitamin Immunizations Given this Hospitalization: Immunization History Administered Date(s) Administered ??? Influenza Vaccine, Unspecified Formulation 06/23/2016 Discharge Medications: Your Medications New Medications Dose Details aspirin 81 mg Tbec Take 1 tablet by mouth 2 times daily. Take with food for 4 weeks after surgery. Last day = 11/30/2016. 81 mg Quantity: 53 tablet Refills: 0 camphor-menthol Lotn Commonly known as: SARNA Apply topically 3 times daily as needed for Itching. Refills: 0 diphenhydrAMINE 25 mg Cap Commonly known as: BENADRYL Take 1 capsule by mouth every 6 hours as needed for Itching (Itching). 25 mg Refills: 0 HYDROmorphone 2 mg Tab Commonly known as: DILAUDID Take 1-3 tablets by mouth every 3 hours as needed for Pain. Take the smallest dose possible to control your pain. As your pain improves, take smaller doses and increase the time between doses. You may break the tablet to achieve a smaller dose. 2-6 mg Quantity: 90 tablet Refills: 0 lidocaine 5 % Ptmd Commonly known as: LIDODERM Apply 1 patch onto the skin daily. (leave on for 12 hours and remove for 12 hours). Apply one patch on each side of your right shoulder dressing - remove after 12 hours. Quantity: 14 patch Refills: 0 polyethylene glycol 17 gram Pwpk Commonly known as: MIRALAX Take 17 g by mouth 2 times daily. 17 g Refills: 0 senna-docusate 8.6-50 mg Tab Commonly known as: PERICOLACE Take 2 tablets by mouth 2 times daily. 2 tablet Quantity: 60 tablet Refills: 0 Continued medications with new dosing Dose Details acetaminophen 500 mg Tab Commonly known as: TYLENOL Take 2 tablets by mouth every 8 hours. Continue the Tylenol around the clock for 10 days after surgery, (11/12/2016). Then may take if needed per package insert. Do not take more than 3,000 mg of Tylenolin 24 hours. What changed: - when to take this - reasons to take this - additional instructions 1000 mg Refills: 0 Continued medications, unchanged Dose Details citalopram 40 mg Tab Commonly known as: CeleXA Take 40 mg by mouth daily. 40 mg Refills: 0 traZODone 50 mg Tab Commonly known as: DESYREL Take 50 mg by mouth nightly. 50 mg Refills: 0 Smoking Status at Discharge: History Smoking Status ??? Current Every Day Smoker ??? Packs/day: 0.25 ??? Types: Cigarettes, e-Cigarettes Smokeless Tobacco ??? Never Used Comment: 1 pack every 3 days Instructions Given to Patient at Discharge: There are no outpatient Patient Instructions on file for this admission. General Instructions Activity: 1. Wear your shoulder immobilizer at all times, except when doing range of motion exercises. 2. You may work on range of motion of your shoulder as instructed by the physical therapists. 3. No external rotation past 30 degrees (do not move/turn your arm out to your side). 4. No extension past neutral (do not move your arm behind your back). 5. No more than 130?? of passive supine forward elevation. 6. You may move your elbow and wrist in front of your body to maintain range of motion, and use thathand at waist level for activities of daily living. 7. You are to remain non-weight bearing of your Right upper extremity. ?? Anticoagulation: Aspirin - You are being discharged on enteric-coated Aspirin 81mg by mouth twice a day. Continue this for 4 weeks. After your dose on 11/30/16 stop the Aspirin, unless you are told otherwise by your Orthopedic surgeon. Take this medication with food or large amounts (240 mL) of water or milk to minimize GI irritation. Diet: Resume usual home diet but increase your intake of fluids and fiber while you are on narcotic pain meds to prevent constipation. Driving: None until you are cleared to do so by your Orthopedic surgeon. You should not drive while you are on narcotic pain meds as they can affect your judgment and reaction time. Call your surgeon with any questions/concerns. Medications: 1. The pain medication you are on can cause constipation so increase your intake of fluids and fiberwhile you are on them. The stool softener, Pericolace, that has been prescribed can also be taken tofacilite a bowel movement. You can also take an tyhe-fdf-jiiucgj medication, Miralax if needed to combat constipation. 2. If you need a renewal on your narcotic pain medication, you need to give the Orthopedic clinic enough time to process your request. This can take up to three days, so plan accordingly. 3. Continue acetaminophen (Tylenol) 1,000mg every 8 hours around the clock until 11/12/2016. This can be effective in controlling pain along with your other medications. After that you can take Tylenol as needed per package insert. Do not take more than 3,000mg of acetaminophen in a 24 hour period. 4. You have been discharged on a short acting narcotic, Dilaudid. You will be on this medication fora limited period of time only. Take only enough pain medication to control your pain. As your pain lessens, taper down and off this medication as tolerated. 5. Do not take any NSAIDs including ibuprofen, Motrin or Aleve as this may impair bone healing. Shower: Sponge bathe only. DO NOT submerge the dressing/incision. DO NOT get the area wet. Wound (Mepilex): 1. Sutures/fe: No external fe or sutures inplace. Sutures are internal and will be absorbed over time. 2. Remove your operative dressing 7 days from your surgery (11/09/2016). When it is removed you can leave the incision open to air or cover it with a light dressing. 3. If you have lots of drainage when you get home (and it is before 11/09/2016), remove this operativedressing and replace it with dry sterile gauze. Continue with daily dressing changes (and as needed)until the drainage stops, then remove the dressing and leave the incision open to air or lightly covered. Call your doctor (#[phone]) if: 1. You have a fever > 101.5 or experience chills 2. Increased discharge from the incision 3. Any redness or swelling around the incision 4. Increased pain or change in the pain that is not controlled by your pain meds Misc: Remember that ICE and elevation are very important to decrease swelling and control pain. You should use the ICE for 20-30 minutes at a time. FOLLOW-UP APPOINTMENTS: 1. You will have follow-up appointments at [facility] as indicated below in Future Appointment and Orders. 2. You will have x-rays prior to your appointment so please come to Radiology, desk 3T, 1 hour BEFORE your 6 week follow-up appointment for those x-rays on 12/16/2016. Future Appointments Date Time Provider Department Center 11/18/2016 11:10 AM Blaine Griffin MD [facility] 12/16/2016 12:25 PM [facility] ROOM 1 Xray [facility] 12/16/2016 1:25 PM Blaine Griffin MD [facility] 01/27/2017 1:25 PM Bliane Griffin MD [facility] If you have questions or concerns: Tuesday through Tuesday, 8 AM - 5 PM, please call Blaine Marti MD's office at . If it is after 5 PM or on the weekend, please call and ask to speak with the Orthopedic resident on-call. Future Appointments and Orders Future Appointments Provider Department Dept Phone 11/18/2016 11:10 AM Blaine Griffin MD Orthopaedics [phone] 12/16/2016 1:25 PM Blaine Griffin MD Orthopaedics [phone] 01/27/2017 1:25 PM Blaine Griffin MD Orthopaedics [phone] Future Orders Complete By Expires Referral to Home Health - at DISCHARGE [[id number] CPT(R)] As directed Process Instructions: Scheduling Instructions: Comments: DOCUMENTATION FOR VNA SERVICES (INCLUDING THOSE PATIENTS WITH MEDICARE COVERAGE REQUIRING HOME VNA SERVICES AND/OR HOSPICE SERVICES) PATIENT'S LOCATION: Maria Isabel Brian [address] [address] (home) Cell: Telephone Information: Principal Law Clerk's Name: Self In discussion with the attending physician, it is certified that this patient is under their care and that they, or a Nurse Practitioner,Clinical Nurse specialist or Physician Stablehand who is working directly with them, had a face to face encounter that meets the physician face to face encounter requirements with this patient on 11/03/16. The encounter with the patient was in whole, or in part, for the following medical condition, which is the primary reason for home health care services: Right TSA In discussion with the provider, it is certified that, based on their findings, the following services are medically necessary for home health services. To provide the following care/treatments with the clinical findings supporting the need for servicesas follows: HOME CARE ORDERS: RN ORDERS:Assess wound or incision, vital signs, cardiopulmonary status, nutrition, hydration, elimination, meds effectiveness and management; reinforce education re health issues PT ORDERS: Continue rehab for endurance, gait stability and strength with mobility and transfers. Home safety evaluation. Home exercise program if appropriate (SEE BELOW FOR TSA PROTOCOL). Patient: Maria Isabel Brian : 1965 RX: Therapy for right shoulder STATUS POST SURGERY: 11/02/2016 PROCEDURES PERFORMED: Procedure(s) (LRB): RIGHT TOTAL SHOULDER ARTHROPLASTY (Right) MODIFIER BOYD BIGLIANI FLATOW (BF) (N/A) MODIFIER BEACH CHAIR SCHLEIN (N/A) MODIFIER BOYD TM (N/A) TENODESIS,BICEPS TENDON (PROXIMAL) (Right) Please follow post-op therapy protocol for shoulder arthroplasty. Purpose of appliance: Slow progression to increase ROM and return to activity. Duration of Necessity: 2-3x weekly for 6 weeks Total Shoulder Arthroplasty Therapy Protocol Wear sling at all times except while doing therapy exercises, bathing or dressing for 6 weeks If a biceps tenodesis was performed, no active ROM or lifting of the elbow to protect the tenodesis until 6 weeks. Passive ROM is allowed. Immediate Post-Operative Period (First Week) (GOAL: initiate PROM while protecting subscapularis repair) PROM -supine Weeks 1-4 Weeks 4-6 Forward Elevation: NONE greater than 130 degrees External Rotation: NONE PAST 30 DEGREES NO extension x 6 weeks Begin pendulum exercises AROM of elbow, wrist, and hand Ice 3-4x daily or cryocuff 7 Days - 3 Weeks (Goal: increase PROM while protecting subscapularis repair) Continue PROM within limitations stated above Isometrics for all shoulder motions except internal rotation within pain-free ROM Submaximal isometric abduction and external rotation with shoulder in IR NO ACTIVE Internal Rotation Ice following exercises May shower 2 days after stitches removed AROM of elbow, wrist, and hand 4-6 weeks (Goal: full PROM at end of 6th week, continue to protect subscapularis repair) Sling may be off when sedentary, wear to bed and when up. Continue PROM within limitations stated above NO extension x 6 weeks Isometrics for all shoulder motions except internal rotation within pain-free ROM Submaximal isometric abduction and external rotation with shoulder in IR NO ACTIVE Internal Rotation Initiate pulleys Pool therapy if incision is completely closed with PROM, pendulums, and walking No weights greater than a coffee cup 6 -9 weeks (Goal: increase function and strength) Begin AAROM with graduated patient assistance No PROM restrictions, begin gentle stretching in external rotation Wand or cane for flexion, ER IR, and abduction, continue pulleys Maximal isometrics in forward elevation and external rotation, submaximal in IR and adduction Weights - less than 5 lbs Connor scapular stabilization exercises 9 - 12 weeks (Goal: strengthening) Begin theraband exercises in ER, flexion, ext, abduction, biceps, and triceps Increase isometrics in IR and adduction to patient tolerance NO ROM restrictions, encourage full AROM in all directions including diagonals Prone horizontal abduction and extension with light weights Focus on scapulohumeral mechanics and strengthening of scapular stabilizers including latissimus, serratus and pectorals. 12 weeks and beyond Closed chain exercises No contact sports for at least 6 month, december golf at months For questions regarding protocol and physical therapy treatment, please contact outpatient physical therapy at [facility] at [phone] or email: [email or web address] OT: assess and continue rehab for managing ADL's. HOME HEALTH CARE AGENCY: [facility] [address] [place] [address] F) [phone] Start of care: Within 48 hours of discharge Please note that any additional orders needs or changes will need to be obtained from this patient'sPCP: EDUARDO Rodriguez [address] / [place] [address] All A agencies which cover the area of patient's residence have been reviewed, either verbally or in writing, and patient/family have chosen the home health care agency noted Questions: Agency name and contact information: [facility] Patient location post discharge: Home What services are requested: Physical Therapy Start date: Responsible MD post discharge contact info: PCP/Blaine Griffin MD Primary Care Provider: EDUARDO Rodriguez [phone] Discharge References/Attachments SMOKING: STOPPING (POLISH) documented in this encounter Discharge Instructions Discharge InstructionsSaEly fisher, RESOURCE ANALYST - 11/04/2016 9:56 AM EDT Activity: 1. Wear your shoulder immobilizer at all times, except when doing range of motion exercises. 2. You may work on range of motion of your shoulder as instructed by the physical therapists. 3. No external rotation past 30 degrees (do not move/turn your arm out to your side). 4. No extension past neutral (do not move your arm behind your back). 5. No more than 130?? of passive supine forward elevation. 6. You may move your elbow and wrist in front of your body to maintain range of motion, and use thathand at waist level for activities of daily living. 7. You are to remain non-weight bearing of your Right upper extremity. ?? Anticoagulation: Aspirin - You are being discharged on enteric-coated Aspirin 81mg by mouth twice a day. Continue this for 4 weeks. After your dose on 11/30/16 stop the Aspirin, unless you are told otherwise by your Orthopedic surgeon. Take this medication with food or large amounts (240 mL) of water or milk to minimize GI irritation. Diet: Resume usual home diet but increase your intake of fluids and fiber while you are on narcotic pain meds to prevent constipation. Driving: None until you are cleared to do so by your Orthopedic surgeon. You should not drive while you are on narcotic pain meds as they can affect your judgment and reaction time. Call your surgeon with any questions/concerns. Medications: 1. The pain medication you are on can cause constipation so increase your intake of fluids and fiberwhile you are on them. The stool softener, Pericolace, that has been prescribed can also be taken tofacilite a bowel movement. You can also take an wbhj-qxw-qdgcago medication, Miralax if needed to combat constipation. 2. If you need a renewal on your narcotic pain medication, you need to give the Orthopedic clinic enough time to process your request. This can take up to three days, so plan accordingly. 3. Continue acetaminophen (Tylenol) 1,000mg every 8 hours around the clock until 11/12/2016. This can be effective in controlling pain along with your other medications. After that you can take Tylenol as needed per package insert. Do not take more than 3,000mg of acetaminophen in a 24 hour period. 4. You have been discharged on a short acting narcotic, Dilaudid. You will be on this medication fora limited period of time only. Take only enough pain medication to control your pain. As your pain lessens, taper down and off this medication as tolerated. 5. Do not take any NSAIDs including ibuprofen, Motrin or Aleve as this may impair bone healing. Shower: Sponge bathe only. DO NOT submerge the dressing/incision. DO NOT get the area wet. Wound (Mepilex): 1. Sutures/fe: No external fe or sutures inplace. Sutures are internal and will be absorbed over time. 2. Remove your operative dressing 7 days from your surgery (11/09/2016). When it is removed you can leave the incision open to air or cover it with a light dressing. 3. If you have lots of drainage when you get home (and it is before 11/09/2016), remove this operativedressing and replace it with dry sterile gauze. Continue with daily dressing changes (and as needed)until the drainage stops, then remove the dressing and leave the incision open to air or lightly covered. Call your doctor (#[phone]) if: 1. You have a fever > 101.5 or experience chills 2. Increased discharge from the incision 3. Any redness or swelling around the incision 4. Increased pain or change in the pain that is not controlled by your pain meds Misc: Remember that ICE and elevation are very important to decrease swelling and control pain. You should use the ICE for 20-30 minutes at a time. FOLLOW-UP APPOINTMENTS: 1. You will have follow-up appointments at [facility] as indicated below in Future Appointment and Orders. 2. You will have x-rays prior to your appointment so please come to Radiology, desk 3T, 1 hour BEFORE your 6 week follow-up appointment for those x-rays on 12/16/2016. Future Appointments Date Time Provider Department Center 11/18/2016 11:10 AM Blaine Griffin MD [facility] 12/16/2016 12:25 PM [facility] DX ROOM 1 Xray [facility] 12/16/2016 1:25 PM Blaine Griffin MD [facility] 01/27/2017 1:25 PM Blaine Griffin MD [facility] If you have questions or concerns: Tuesday through Tuesday, 8 AM - 5 PM, please call Blaine Marti MD's office at . If it is after 5 PM or on the weekend, please call and ask to speak with the Orthopedic resident on-call. AttachmentsThe following attachments cannot be sent through Care Everywhere. SMOKING: STOPPING (POLISH)documented in this encounter Medications at Time of [...] 3,000 mg of Tylenol in 24 hours. aspirin 81 mg Tablet, Take 1 tablet by 53 tablet 0 11/05/19 17 12/16/2016 Delayed Release (E.C.) mouth 2 times daily. Take with food for 4 weeks after surgery. Last day = 11/30/2016. camphor-menthol (SARNA) Apply topically 3 0 11/0412/16/2016 Lotion times daily as needed for Itching. diphenhydrAMINE (BENADRYL) Take 1 capsule by 0 11/18/2016 25 mg Capsule mouth every 6 hours as needed for Itching (Itching). HYDROmorphone (DILAUDID) 2 Take 1-3 tablets by 90 tablet 0 11/04/2016 11/12/2016 mg Tablet mouth every 3 hours as needed for Pain. Take the smallest dose possible to control your pain. As your pain improves, take smaller doses and increase the time between doses. You may break the tablet to achieve a smaller dose. lidocaine (LIDODERM) 5 % Apply 1 patch onto 14 patch 0 12/16/2016 Adhesive Patch, Medicated the skin daily. (leave on for 12 hours and remove for 12 hours). Apply one patch on each side of your right shoulder dressing - remove after 12 hours. polyethylene glycol Take 17 g by mouth 0 11/05/19 17 11/18/2016 (MIRALAX) 17 gram Powder 2 times daily. in Packet senna-docusate Take 2 tablets by 60 tablet 0 11/04/201606/2017 (PERICOLACE) 8.6-50 mg mouth 2 times Tablet daily. documented as of this encounter Progress Notes Ely Constantino APRN - 11/04/2016 1:05 PM EDT Opioid PDMP 08/19/2016 [place] PDMP Query Date 11/04/2016 Maria Isabel Brian is being prescribed a prescription opioid for the treatment of acute post-operativepain related to Orthopedic surgery. Maria Isabel Brian has been advised to take the smallest dose possible to control their pain and as their pain improves to take smaller doses and increase the time between doses. In addition to this medication, non-opioid medications have been prescribed for adjunct treatment oftheir pain. Non-pharmacological treatment such as ice, elevation and activity modification have beenrecommended as appropriate. The Acute Opioid Therapy Informed Consent form has been completed and sent to medical records for scanning to chart. Ely Constantino APRN Inpatient Orthopedics Pager [phone] Anam Garcia RN - 11/04/2016 11:25 AM EDT Patient Name: Maria Isabel Brian Patient Age: 51 y.o. Birthdate: 1965 Admit date: 11/02/2016 Attending Physician: Blaine Griffin MD Patient is being dc'd to home, with [facility]NA, IV dc'd with catheter intact, dc info explained and understood, DC report called and faxed to the [facility]NA, all belongings returned to patient. Kyle Dacosta MD - 11/04/2016 6:12 AM EDT Orthopaedic Surgery Progress Note SURGERY/ISSUE: R TSA ATTENDING: Gaby Patient Active Problem List Diagnosis Code ??? Depression F32.9 ??? Anxiety state, unspecified F41.1 ??? Pain in left wrist M25.532 ??? Smoker F17.200 ??? HBV (hepatitis B virus) infection B19.10 ??? FH: NICOLE-BSO (total abdominal hysterectomy and bilateral salpingo- oophorectomy) BRAC2 + 2011 Z84.89 ??? Radiculopathy of cervical region M54.12 ??? Neck pain on right side M54.2 ??? Chronic sciatica M54.30 ??? Posttraumatic stress disorder F43.10 ??? Glenohumeral arthritis M19.019 ??? S/P Right TSA 11/02/16 (Dr. Griffin) M19.019 Interval History: Drain d/c'd yesterday. Pain under much better control this AM. She feels ready fordischarge. No cp/sob/n/v. Temp: [36.9 ??C (98.4 ??F)-37.5 ??C (99.5 ??F)] Heart Rate: -- Resp: [16-20] BP: (103-114)/(61-69) SpO2: [87 %-92 %] Heart Rate from SPO2: [80 bpm-92 bpm] I/O last 3 completed shifts: In: 7540 [P.O.:2280; I.V.:5160; IV Piggyback:100] Out: 4115 [Urine:3800; Other:165; Blood:150] I/O this shift: In: 680 [P.O.:680] Out: 400 [Urine:400] PE: Gen- AOx3, NAD HEENT- NCAT CV- RRR checked peripherally Pulm- No incr WOB RUE: Dressing C/D/I, Incision w/out E/I/D SITLT R/U/M/LACN/Ax Firing EPL/FPL/IO 2+RP Finger WWP Last 3 wbc, hgb, hct plt Recent Labs 11/03/16 0524 WBC 13.6* HGB 10.4* HCT 30.8* PLATELET 205 Last 3 Coags No results for input(s): PT, INR, PTT in the last 168 hours. Last CRP, SEDRATENo results for input(s): CRP, SEDRATE in the last 7068 hours. Imaging: XR R shoulder demonstrates R TSA without evidence of hardware complication, shoulder reduced A/P: 51 y.o. female POD1 R TSA. Has been out of bed, mobilizing, tolerating a diet, and urinating. Likely d/c today. ?? Activity: NWB RUE ?? Pain Control: ROUNDSMAN, transition to orals ?? Antibiotics: periop ?? Anticoagulation: aspirin ?? Drains: will pull later today ?? Dressing/Splints: mepilex ?? Adler: none ?? Dispo: home vs rehab per PT ?? Follow up: as below KYLE DACOSTA MD Orthopaedic Surgery Pager [phone] Future Appointments Date Time Provider Department Center 11/18/2016 11:10 AM Blaine Griffin MD [facility] 12/16/2016 12:25 PM [facility] DX ROOM 1 Xray [facility] 12/16/2016 1:25 PM Blaine Griffin MD [facility] 01/27/2017 1:25 PM Blaine Griffin MD [facility] Tahmina Croft RN - 11/03/2016 2:56 PM EDT Community Resources: Office of Care Management Initial Assessment Tahmina L Croft, RN reviewed record and discussed patient with Care Team. Source of Information: Introduced self/reviewed role; services accepted. Reason for Hospitalization: S/P Right TSA Hospitalizations Within the Past 30 Days: None Anticipated Length Of Stay (If known): Unknown Current Decision-Making Capacity: Cognitively able to make decisions independently Advance Care Planning: None on file. Information offered. Current Coping/Education/Information Needs: None at this time. Patient verbalizes the understanding of treatment, but will inquire if more info required. Current Functional Ability: Assistive person Functional Status Prior to Admission: Independent Home Environment: Lives with significant other in a house in [facility]. Social & Family Supports/Community Resources: spouse and children Behavioral Health History: None on file Substance Use/Abuse: None on file Other Pertinent/Service Specific Information: None Health/Prescription Coverage: Primary Insurance: Medicaid [place] Secondary Insurance: None Prescription Coverage: Yes Preferred Pharmacy: [facility] Other: None Primary Care Provider: Americo CLARK [phone] Patient/Caregiver Goals of Treatment: Discharge to home when medically ready. Potential Needs for Transition of Care: Rehab/SNF: None at this time Home Health: If needed for outpatient PT: [facility] DME: No Dialysis: None Community Resources: None at this time. Transportation: Significant other [place]. Other: None Anticipated Barriers to Discharge/Special Considerations: None Plan: Discharge patient to home when medically ready. A member of the Care Management team will continue to monitor progress, follow for continuity of care and assist with transition of care planning. Tahmina Croft RN Pager: [phone] Nolberto Egan MD - 11/03/2016 9:23 AM EDT Regional Anesthesia Catheter Progress Note Date of Encounter: 11/03/2016 Responsible Attending: Julisa Rodriguez Staff / Associate Provider: Nolberto Egan MD ID: Patient is POD# 1 s/p shoulder arthroplasty for which the patient received a right interscalene nerve catheter for post-operative pain control. Nerve catheter inadvertently removed overnight Subjective: Today the patient has challenging pain control and at present states pain is 7 out of 10. Patient has been able to tolerate PO analgesics and an oral diet without nausea or vomiting. Pain management is improving. Objective: Temp: [36.6 ??C (97.9 ??F)-37.2 ??C (99 ??F)] Heart Rate: [68-85] Resp: [12-24] BP: (64-135)/(44-104) SpO2: [86 %-98 %] Heart Rate from SPO2: [62 bpm-85 bpm] Gen: Patient resting comfortably No bruising, erythema, swelling or discharge at insertion site. Sensory: Sensation is intact to cold over right hand Motor: Patient is able to flex and extend all fingers without issue No evidence of local anesthetic toxicity Coags: No results found for: INR, PT, PTT Meds: Medication list reviewed Assessment: Peripheral nerve catheter for post-operative pain control, currently with adequate pain control. Plan: ?? Peripheral nerve catheter was inadvertently removed overnight. Tip was intact. No bleeding, hematoma or erythema at the insertion site. ?? Offered rescue nerve block to patient. She declines and is attempting to manage pain with just oral medication at this time. ?? Patient was instructed to contact Regional Anesthesia Team ([id number]) for any unresolved sensory or motor deficits. ?? Thank you for the opportunity to have participated in the care of this patient. Nolberto Egan MD Regional Team pager [phone] NT Blaine Griffin MD - 11/03/2016 6:30 AM EDT Orthopaedic Surgery Progress Note SURGERY/ISSUE: Cisco VARELA ATTENDING: Gaby Patient Active Problem List Diagnosis Code ??? Depression F32.9 ??? Anxiety state, unspecified F41.1 ??? Pain in left wrist M25.532 ??? Smoker F17.200 ??? HBV (hepatitis B virus) infection B19.10 ??? FH: NICOLE-BSO (total abdominal hysterectomy and bilateral salpingo- oophorectomy) BRAC2 + 2011 Z84.89 ??? Radiculopathy of cervical region M54.12 ??? Neck pain on right side M54.2 ??? Chronic sciatica M54.30 ??? Posttraumatic stress disorder F43.10 ??? Glenohumeral arthritis M19.019 ??? S/P Right TSA 11/02/16 (Dr. Griffin) M19.019 Interval History: Nerve catheter fell out overnight, having significant pain this morning, getting ROUNDSMAN per overnight team shortly. Otherwise no issues, denies N/V/dizziness/CP/SOB. Temp: [36.6 ??C (97.9 ??F)-37.2 ??C (99 ??F)] Heart Rate: [63-93] Resp: [12-24] BP: (64-135)/(44-104) SpO2: [86 %-98 %] Heart Rate from SPO2: [62 bpm-85 bpm] I/O last 3 completed shifts: In: 2985 [P.O.:600; I.V.:2385] Out: 1145 [Urine:900; Other:95; Blood:150] I/O this shift: In: 1625 [P.O.:680; I.V.:845; IV Piggyback:100] Out: 1770 [Urine:1700; Other:70] PE: Gen- AOx3, NAD HEENT- NCAT CV- RRR checked peripherally Pulm- No incr WOB RUE: Dressing C/D/I, Incision w/out E/I/D SITLT R/U/M/LACN/Ax Firing EPL/FPL/IO 2+RP Finger WWP Drain in place, scant output Last 3 wbc, hgb, hct plt Recent Labs 11/03/16 0524 WBC 13.6* HGB 10.4* HCT 30.8* PLATELET 205 Last 3 Coags No results for input(s): PT, INR, PTT in the last 168 hours. Last CRP, SEDRATENo results for input(s): CRP, SEDRATE in the last 7068 hours. Imaging: XR R shoulder demonstrates R TSA without evidence of hardware complication, shoulder reduced A/P: 51 y.o. female POD1 R TSA. Currently having pain issues 2/2 nerve catheter falling out overnight, patient is getting ROUNDSMAN. Will pull drain once pain better controlled. Has been OOB, will work with PT today ?? Activity: NWB RUE ?? Pain Control: ROUNDSMAN, transition to orals ?? Antibiotics: periop ?? Anticoagulation: aspirin ?? Drains: will pull later today ?? Dressing/Splints: mepilex ?? Adler: none ?? Dispo: home vs rehab per PT ?? Follow up: as below Karma Perkins MD Orthopaedic Surgery Pager [phone] Future Appointments Date Time Provider Department Center 11/18/2016 11:10 AM Blaine Griffin MD [facility] 12/16/2016 12:25 PM [facility] DX ROOM 1 Xray [facility] 12/16/2016 1:25 PM Blaine Griffin MD [facility] 01/27/2017 1:25 PM Blaine Griffin MD [facility] Attending addendum: The preceeding portion of this note was written by Dr. Perkins. I personally saw and evaluated the patient at the bedside and I agree with the assessment and plan documented above. Blaine Griffin M.D., M.S. Supervisor [facility] Shoulder, Elbow, and Sports Medicine Department of Orthopaedic Surgery [place] [phone] Kevan Nixon, RN - 11/02/2016 10:43 PM EDT 2240 - Pt was getting OOB to go to the BR and felt a pulling on her neck. Ropivacaine catheter had become dislodged and was completely removed from the insertion site. Paged APS to notify, they will assess when able. Ines Yarbrough MD - 11/02/2016 3:47 PM EDT Orthopaedic Surgery Post-Operative Progress Note Surgery: Right TSA Patient Active Problem List Diagnosis Code ??? Depression F32.9 ??? Anxiety state, unspecified F41.1 ??? Pain in left wrist M25.532 ??? Smoker F17.200 ??? HBV (hepatitis B virus) infection B19.10 ??? FH: NICOLE-BSO (total abdominal hysterectomy and bilateral salpingo- oophorectomy) BRAC2 + 2011 Z84.89 ??? Radiculopathy of cervical region M54.12 ??? Neck pain on right side M54.2 ??? Chronic sciatica M54.30 ??? Posttraumatic stress disorder F43.10 ??? Glenohumeral arthritis M19.019 ??? S/P Right TSA 11/02/16 (Dr. Griffin) M19.019 Patient seen: [phone] Subjective/Events: Patient is doing well, needed help repositioning in her Arc Immobilizer. No nausea or vomiting, tolerating PO crackers and gingerale. Objective: Vitals: Temp: [36.6 ??C (97.9 ??F)-37.6 ??C (99.7 ??F)] Heart Rate: [63-93] Resp: [12-24] BP: (64-135)/(44-104) SpO2: [89 %-98 %] Heart Rate from SPO2: [62 bpm-85 bpm] I/O this shift: In: 2433 [P.O.:240; I.V.:2193] Out: 545 [Urine:300; Other:95; Blood:150] Exam: General: NAD, awake/alert, responds to questions Resp: Breathing comfortably Abd: Soft, nontender, nondistended. RUE: Anterior shoulder mepilex dressing c/d/i Arc immobilizer place in place Decreased sensation to light touch in MRUAx distributions, ambit pump and interscalene block in place Motor intact to digit flexion/extension Brisk capillary refill distally, fingers warm/well-perfused. No results for input(s): WBC, HGB, HCT, PLATELET, NA, K, CL, CO2, BUN, CREATININE in the last 72 hours. Radiology: XR right shoulder - s/p TSA, no fracture or dislocation, no complication A/P: 51 y.o. year old female s/p right TSA PMH: hep B, ARNULFO, prior pain clinic visits (see notes) Activity: Mobilize with PT, NWB RUE in sling -no ER past 30, no FE > 130 Dressings: mepilex/sterri-strips, change daily starting pod 7 Sutures: monocryl Drain: remain in place until < 30cc per shift Antibiotics: Ancef x 24h Anticoagulation: ASA 81mg BID Discharge planning: home vs rehab per PT Glory Morales RN - 11/02/2016 12:25 PM EDT Pt arrived in PACU at 1008 and met phase 1 recovery at 1215. Pt having itching after dilaudid IVP was given and nubain was effective for control of pruritis. Pain down to a 3/10 and tolerable with use of ambit pump and oxycodone. in to visit and went home to care for dogs. Other family will visit later. Awaiting to give handoff report to floor EDDIE Moreno and will then place for transportationto floor. 1250- Handoff report to FÉLIX Vázquez on 4W at this time. Prudencio Zambrano RN - 11/02/2016 11:21 AM EDT 1117 lunch break coverage, BP recheck, Pt alert and oriented documented in this encounter H&P Notes Kyle Dacosta MD - 11/02/2016 6:18 AM EDT The patient's history and physical exam have been reviewed and completed. There has been no intervalchange from that of the pre-operative history and physical exam done within the last 30 days. documented in this encounter Miscellaneous Notes Plan of Care - Kevan Gates, PT - 11/04/2016 1:16 PM EDT Problem: Patient Care Overview Goal: Plan of Care Review Outcome: Ongoing (Interventions Implemented as Appropriate) 11/04/161456 Coping/Psychosocial Plan Of Care Reviewed With patient Physical Therapy Assessment Treatment Number: 2 Pt seen for skilled PT session, including therapeutic ex and therapeutic activity. Please see the Rehab Evaluation Summaries report for objective data and specifics of today???s session. Pt tolerated today's session fairly, with pain and guarding when performing PROM. Patient presents with decreased ROM and functional mobility, and will benefit from PT to address his/her deficits. Anticipate home PT at d/c. Pertinent History of Current Problem: R TSA on 11/02 Staff Mobility Recommendations: indep mobility Precautions/Restrictions: other (see comments) Precautions Comments: NWB and sling at all times R UE; passive motion only shoulder flexion 130 and external rotation 30. No elbow extension. Anticipated Physical Therapy Frequency: 2-3 times/wk Anticipated Discharge Disposition: home with home health (home PT) Kevan Gates, PT Pager [phone] Inpatient Physical Therapy Problem: Acute Rehab Services Goal & Intervention Plan Goal: Bed Mobility Goal Stand Alone Therapy Goal Outcome: Outcome (s) achieved Date Met: 11/04/16 11/03/16141611/04/161456 Bed Mobility Goal Bed Mobility Goal, Time to Achieve 1 day -- Bed Mobility Goal, Activity Type all bed mobility activities -- Bed Mobility Goal, Graves Level independent -- Bed Mobility Goal, Outcome Achieved -- goal met Goal: Gait Training Goal Stand Alone Therapy Goal Outcome: Outcome (s) achieved Date Met: 11/04/16 11/03/16141611/04/161456 Gait Training Goal Gait Training Goal, Date Established 11/03/16 -- Gait Training Goal, Time to Achieve 1 day -- Gait Training Goal, Graves Level independent -- Gait Training Goal, Outcome -- goal met Goal: Physical Therapy Goal Stand Alone Therapy Goal Outcome: Outcome (s) achieved Date Met: 11/04/16 11/03/16141611/04/161456 Physical Therapy Goal PT Goal, Date Established 11/03/16 -- PT Goal, Time to Achieve 2 days -- PT Goal, Activity Type tolerate PROM to near or allowed extents (this goal ongoing) -- PT Goal, Additional Goal Stairs: negotiate stairs using L hand on rail regardless of side, indep (this goal met) -- PT Goal, Outcome -- goal met Goal: Goal Transfer Training Stand Alone Therapy Goal Outcome: Outcome (s) achieved Date Met: 11/04/16 11/03/16 1417 11/04/16 1457 Goal Transfer Training Transfer Training Goal, Date Established 11/03/16 -- Transfer Training Goal, Time to Achieve 1 day -- Transfer Training Goal, Activity Type all transfers -- Transfer Train Goal, Graves Level independent -- Transfer Training Goal, Outcome -- goal met Plan of Care - Jay Jameson RN - 11/04/2016 4:29 AM EDT Problem: Patient Care Overview Goal: Plan of Care Review Outcome: Ongoing (Interventions Implemented as Appropriate) 11/03/16 0545 11/03/16 1945 Plan of Care Review Progress progress toward functional goals is gradual -- Coping/Psychosocial Plan Of Care Reviewed With -- patient OUTCOME EVALUATION NOTE: OUTCOME SUMMARY: Maria Isabel had an uneventful night. PRN dilaudid given q3 for pain, pt rating 8/10. Pt also receiving benadryl and nubain for prolonged itching that is improving. Voiding adequately in bathroom. RUE keptin sling. Able to rest in between care. PLAN MOVING FORWARD: Encourage ambulation. Discharge home when medically ready. INDIVIDUALIZED FALL PREVENTION INTERVENTIONS: Patient-specific fall risk factors per assessment: [current deficits]: RUE sling, narcotics Assistance [level of assistance required for transfers and ambulation]: independent Supervision [direct monitoring required during toileting and ADLs]: independent Surveillance [continuous indirect monitoring]: Purposeful rounding, call griffin in reach Patient-specific fall prevention interventions for sensory deficits provided, if applicable: [X] N/A CPG GOAL OUTCOME EVALUATION: Goal: Individualization & Mutuality Outcome: Ongoing (Interventions Implemented as Appropriate) 11/02/16 1503 11/03/16 1400 Individualization Patient Specific Goals Pain Control, Mobility -- Mutuality/Individual Preferences What Anxieties, Fears or Concerns Do You Have About Your Health or Care? -- none What Questions Do You Have About Your Health or Care? -- none What Information Would Help Us Give You More Personalized Care? -- keep info current. Goal: Fall Prevention-Safe Patient Handling Outcome: Ongoing (Interventions Implemented as Appropriate) 11/02/16 1503 11/03/16 1945 Daily Care Interventions Self-Care Promotion -- independence encouraged;safe use of adaptive equipment encouraged Activity and Safety Assistive Device None -- Musculoskeletal Interventions Muscle Strengthening activity/mobility promoted -- Carty Fall Risk History of Falling -- 0 Secondary Diagnosis -- 15 Ambulatory Aids -- 0 Intravenous Therapy/Heparin/Saline Lock -- 20 Gait/Transferring -- 0 Mental Status -- 0 Score -- 35 OTHER Carty Fall Risk -- Med Restraint Interventions Safety Promotion/Fall Prevention -- safety round/check completed Positioning Body Position -- independent Goal: Infection Control Outcome: Ongoing (Interventions Implemented as Appropriate) 11/03/16 194 Safety Interventions Isolation Precautions standard precautions maintained Infection Prevention single patient room provided;visitors restricted/screened Coping Strategies Supportive Measures active listening utilized;positive reinforcement provided Goal: Discharge Needs Assessment Outcome: Ongoing (Interventions Implemented as Appropriate) 11/02/16 1503 11/03/16 0500 Discharge Needs Assessment Concerns To Be Addressed basic needs concerns -- Readmission Within The Last 30 Days no previous admission in last 30 days -- Equipment Needed After Discharge none -- Discharge Disposition still a patient -- Current Health Anticipated Changes Related to Illness none -- Activity/Self Care Review of Systems Equipment Currently Used at Home none -- Living Environment Transportation Available -- family or friend will provide Plan of Care - Anam Garcia RN - 11/03/2016 4:30 PM EDT Problem: Patient Care Overview Goal: Plan of Care Review OUTCOME EVALUATION NOTE: OUTCOME SUMMARY: Pain is under control, but still has a lot of itching, Nubain IV, Benadryl po, and lotion, with somerelief. PLAN MOVING FORWARD: Pain control, walked with staff,PT, and OT this am. INDIVIDUALIZED FALL PREVENTION INTERVENTIONS: Patient-specific fall risk factors per assessment: [current deficits]: No Assistance [level of assistance required for transfers and ambulation]: Standby assist. Supervision [direct monitoring required during toileting and ADLs]: All activities. Surveillance [continuous indirect monitoring]: Purposeful hourly rounding. Patient-specific fall prevention interventions for sensory deficits provided, if applicable: No CPG GOAL OUTCOME EVALUATION: Goal: Individualization & Mutuality Outcome: Ongoing (Interventions Implemented as Appropriate) 11/02/16 1503 11/03/16 1400 Individualization Patient Specific Goals Pain Control, Mobility -- Mutuality/Individual Preferences What Anxieties, Fears or Concerns Do You Have About Your Health or Care? -- none What Questions Do You Have About Your Health or Care? -- none What Information Would Help Us Give You More Personalized Care? -- keep info current. Keep team plan of care info current. Goal: Fall Prevention-Safe Patient Handling Outcome: Ongoing (Interventions Implemented as Appropriate) 11/02/16 1503 11/03/16 0755 11/03/16 1508 Daily Care Interventions Self-Care Promotion -- independence encouraged -- Activity and Safety Assistive Device None -- -- Musculoskeletal Interventions Muscle Strengthening activity/mobility promoted -- -- Carty Fall Risk History of Falling -- 0 -- Secondary Diagnosis -- 15 -- Ambulatory Aids -- 0 -- Intravenous Therapy/Heparin/Saline Lock -- 20 -- Gait/Transferring -- 0 -- Mental Status -- 0 -- Score -- 35 -- OTHER Carty Fall Risk -- Med -- Restraint Interventions Safety Promotion/Fall Prevention -- nonskid shoes/slippers when out of bed;safety round/check completed -- Positioning Body Position -- -- independent Standby assist. Goal: Infection Control Outcome: Ongoing (Interventions Implemented as Appropriate) 11/03/16 0755 Safety Interventions Isolation Precautions standard precautions maintained Infection Prevention environmental surveillance performed;single patient room provided Coping Strategies Supportive Measures active listening utilized;positive reinforcement provided Good hand hygiene. Goal: Discharge Needs Assessment Outcome: Ongoing (Interventions Implemented as Appropriate) 11/02/16 1503 11/03/16 0500 Discharge Needs Assessment Concerns To Be Addressed basic needs concerns -- Readmission Within The Last 30 Days no previous admission in last 30 days -- Equipment Needed After Discharge none -- Discharge Disposition still a patient -- Current Health Anticipated Changes Related to Illness none -- Activity/Self Care Review of Systems Equipment Currently Used at Home none -- Living Environment Transportation Available -- family or friend will provide Family will be available at time of dc. Goal: Interdisciplinary Rounds/Family Conf Outcome: Ongoing (Interventions Implemented as Appropriate) 11/02/16 1503 Interdisciplinary Rounds/Family Conf Participants nursing;patient;physician Purposeful hourly rounding. Plan of Care - Kevan Gates, PT - 11/03/2016 2:22 PM EDT Problem: Patient Care Overview Goal: Plan of Care Review Outcome: Ongoing (Interventions Implemented as Appropriate) 11/03/161416 Coping/Psychosocial Plan Of Care Reviewed With patient Physical Therapy Assessment Treatment Number: 1 Pt seen for skilled PT session, including evaluation and attempt to perform PROM. Please see the Rehab Evaluation Summaries report for objective data and specifics of today???s session. Pt tolerated today's session fairly. Was so itchy that she could not focus on PT session initially, assisted her with anti itch lotion at legs/feet/back and this seemed to help briefly. Patient presents with itchiness, shoulder pain, decreased ROM and limitations r/t her surgery/precautions, but is essentially able to mobilize indep other than needing help with IV pole/equipment. She will benefit from PT to address his/her deficits. Anticipate home at d/c. Sounds like she will not have help to get to/from PT appt thus recommend home PT. Will see her one more time tomorrow if she is still here, for PROM. Otherwise,transition to home PT services. Pertinent History of Current Problem: R TSA on 11/02 Staff Mobility Recommendations: OOB and amb with help for lines/attachments. Precautions/Restrictions: other (see comments) Precautions Comments: NWB and sling at all times R UE; passive motion only shoulder flexion 130 and external rotation 30. No elbow extension. Anticipated Physical Therapy Frequency: 2-3 times/wk Anticipated Discharge Disposition: home with home health (home PT) Kevan Gates, PT Pager [phone] Inpatient Physical Therapy Problem: Acute Rehab Services Goal & Intervention Plan Goal: Bed Mobility Goal Stand Alone Therapy Goal Outcome: Outcome (s) achieved Date Met: 11/03/16 11/03/16 1417 Bed Mobility Goal Bed Mobility Goal, Time to Achieve 1 day Bed Mobility Goal, Activity Type all bed mobility activities Bed Mobility Goal, Graves Level independent Bed Mobility Goal, Outcome Achieved goal met Goal: Gait Training Goal Stand Alone Therapy Goal Outcome: Outcome (s) achieved Date Met: 11/03/16 11/03/16 141 Gait Training Goal Gait Training Goal, Date Established 11/03/16 Gait Training Goal, Time to Achieve 1 day Gait Training Goal, Graves Level independent Gait Training Goal, Outcome goal met Goal: Physical Therapy Goal Stand Alone Therapy Goal Outcome: Ongoing (Interventions Implemented as Appropriate) 11/03/16 1417 Physical Therapy Goal PT Goal, Date Established 11/03/16 PT Goal, Time to Achieve 2 days PT Goal, Activity Type tolerate PROM to near or allowed extents (this goal ongoing) PT Goal, Additional Goal Stairs: negotiate stairs using L hand on rail regardless of side, indep (this goal met) PT Goal, Outcome goal ongoing Goal: Goal Transfer Training Stand Alone Therapy Goal Outcome: Outcome (s) achieved Date Met: 11/03/16 11/03/16 1417 Goal Transfer Training Transfer Training Goal, Date Established 11/03/16 Transfer Training Goal, Time to Achieve 1 day Transfer Training Goal, Activity Type all transfers Transfer Train Goal, Graves Level independent Transfer Training Goal, Outcome goal met Plan of Care - Karma Fry, OT - 11/03/2016 11:10 AM EDT Problem: Patient Care Overview Goal: Plan of Care Review Outcome: Ongoing (Interventions Implemented as Appropriate) 11/03/16 1924 Coping/Psychosocial Plan Of Care Reviewed With patient Occupational Therapy Evaluation Pertinent History of Current Problem: Pt is a 51 year old female; s/p R TSA 2' DJD 11/03/15. Active Non-Hospital Problems Diagnosis ??? Glenohumeral arthritis ??? Neck pain on right side ??? Radiculopathy of cervical region ??? HBV (hepatitis B virus) infection ??? FH: NICOLE-BSO (total abdominal hysterectomy and bilateral salpingo- oophorectomy) BRAC2 + 2010 ??? Chronic sciatica ??? Posttraumatic stress disorder ??? Smoker ??? Pain in left wrist ??? Anxiety state, unspecified ??? Depression Social History: Pt is R handed. Pt lives with her significant other, and dog in a 2 story home. He has taken a week off to help as needed. She can stay on the 1st floor initially. She has a recliner on the 1st floor and plans to sleep in that. There is a full bath on the main level, with standard toilet and tub shower. Pt was fully independent with ADLs/IADLs and mobility prior to this. Precautions/Restrictions: shoulder, weight bearing (NWB R UE, sling at all times) Precautions Comments: passive motion only shoulder flexion 130 and external rotation 30. No elbow extension. Assessment: Pt has been seen by OT for evaluation, please refer to associated flowsheet data for details. Pt s/pR TSA, and is R handed. Pt presents with impaired ability to perform daily activities and functionalmobility secondary to R UE being immobilized/precautions, pain, and knowledge of ways to adapt. Pt would benefit from ongoing OT interventions to increase independence and confidence with managing selfcare given shoulder precautions, and progress functional mobility while hospitalized. Therapy Frequency: (see once more ) Anticipated Equipment Needs at Discharge: (none) Anticipated Discharge Disposition: home with assist, home with home health ((HOME PT for ROM)) Pager: [phone] KARMA FRY OT 11/03/2016 Occupational Therapy Rehabilitation Department Problem: Acute Rehab Services Goal & Intervention Plan Goal: Occupational Therapy Goal Stand Alone Therapy Goal Outcome: Ongoing (Interventions Implemented as Appropriate) 11/03/161923 Occupational Therapy Goal OT Goal, Date Established 11/03/16 OT Goal, Time to Achieve by discharge OT Goal, Activity Type Pt will verbalize understanding of precautions. Goal: UB Dressing Goal Stand Alone Therapy Goal Outcome: Ongoing (Interventions Implemented as Appropriate) 11/03/161923 UB Dressing Goal UB Dressing Goal, Date Established 11/03/16 UB Dressing Goal, Time to Achieve by discharge UB Dressing Goal, Activity Type Pt will be modified (I) with UB dressing, using one handed techniques. UB Dressing Goal, Additional Goal Pt will be independent with donning/doffing sling. Plan of Care - Kevan Nixon, RN - 11/03/2016 5:54 AM EDT Problem: Patient Care Overview Goal: Plan of Care Review Outcome: Ongoing (Interventions Implemented as Appropriate) 11/02/16193411/03/16 0545 Plan of Care Review Progress -- progress toward functional goals is gradual Coping/Psychosocial Plan Of Care Reviewed With patient -- OUTCOME EVALUATION NOTE: OUTCOME SUMMARY: Maria Isabel had a difficult night. Minimal sleep between care. Has been OOB to the BR multiple times over the night, on one trip her ropivacaine line became dislodged. Has requested her PRN oxycodone q4 for pain, giving 15 mg each time. APS notified on removal but was unable to converse as they were in surgery - when they were able to call back they notified this RN that pain management needed to be through the Ortho team and that they were only monitoring the catheter. They recommended a ROUNDSMAN. Ortho updated, who ordered a ROUNDSMAN for the pt. BP was soft overnight but has improved. Pt noted severe itching,benadryl ordered and given with some relief noted. Neurovascular checks q4 - pt is able to move and flex hand & fingers with greater ROM but still notes numbness & tingling. PLAN MOVING FORWARD: Pain management. Maintain sling to RUE. Neurovascular checks INDIVIDUALIZED FALL PREVENTION INTERVENTIONS: Patient-specific fall risk factors per assessment: [current deficits]: Narcotics, pain, RUE immobilized Assistance [level of assistance required for transfers and ambulation]: SB Supervision [direct monitoring required during toileting and ADLs]: SB Surveillance [continuous indirect monitoring]: Masimo, purposeful rounding, call griffin in reach Patient-specific fall prevention interventions for sensory deficits provided, if applicable: [X] Yes CPG GOAL OUTCOME EVALUATION: Goal: Individualization & Mutuality Outcome: Ongoing (Interventions Implemented as Appropriate) 11/02/16 1503 Individualization Patient Specific Goals Pain Control, Mobility Goal: Fall Prevention-Safe Patient Handling Outcome: Ongoing (Interventions Implemented as Appropriate) 11/02/16 1503 11/02/16 1935 Daily Care Interventions Self-Care Promotion -- independence encouraged Activity and Safety Assistive Device None -- Musculoskeletal Interventions Muscle Strengthening activity/mobility promoted -- Carty Fall Risk History of Falling -- 0 Secondary Diagnosis -- 15 Ambulatory Aids -- 0 Intravenous Therapy/Heparin/Saline Lock -- 20 Gait/Transferring -- 10 Mental Status -- 0 Score -- 45 OTHER Carty Fall Risk -- High Restraint Interventions Safety Promotion/Fall Prevention -- activity supervised;fall prevention program maintained;muscle strengthening facilitated;nonskid shoes/slippers when out of bed;safety round/check completed Positioning Body Position -- independent Goal: Infection Control Outcome: Ongoing (Interventions Implemented as Appropriate) 11/02/161934 Safety Interventions Isolation Precautions standard precautions maintained Infection Prevention rest/sleep promoted;single patient room provided;environmental surveillance performed Coping Strategies Supportive Measures active listening utilized Goal: Discharge Needs Assessment Outcome: Ongoing (Interventions Implemented as Appropriate) 11/02/16 1503 11/03/16 0500 Discharge Needs Assessment Concerns To Be Addressed basic needs concerns -- Readmission Within The Last 30 Days no previous admission in last 30 days -- Equipment Needed After Discharge none -- Discharge Disposition still a patient -- Current Health Anticipated Changes Related to Illness none -- Activity/Self Care Review of Systems Equipment Currently Used at Home none -- Living Environment Transportation Available -- family or friend will provide Goal: Interdisciplinary Rounds/Family Conf Outcome: Ongoing (Interventions Implemented as Appropriate) 11/02/16 1503 Interdisciplinary Rounds/Family Conf Participants nursing;patient;physician Op Note - Blaine Griffin MD - 11/02/2016 10:02 AM EDT [facility] [place] Operative Note Patient Name: Maria Isabel Brian : [id number] MR#: [id number] Case Date: 11/02/2016 Surgeon: Surgeon(s) and Role: * Blaine Griffin MD - Primary * Kyle Dacosta MD Preoperative diagnosis: Shoulder DJD Postoperative diagnosis: Shoulder DJD Procedure(s) (LRB): @TOTAL SHOULDER ARTHROPLASTY (WRVU 22.13) (Right) MODIFIER BOYD BIGLIANI FLATOW (BF) (N/A) MODIFIER CHARLOTTE CHAIR SCHLEIN (N/A) MODIFIER BOYD TM (N/A) TENODESIS,BICEPS TENDON (PROXIMAL) (WRVU 10.17) (Right) Anesthesia: Anesthesia type not filed in the log. Estimated Blood Loss: 150 mL Specimens removed during surgery: None Drains: Drain/Device Site 11/02/16 0928 Right shoulder collapsible closed device (Active) Surgical Closure: Primary Closure - closure of ALL tissue levels during the original surgery regardless of wires, wickes, drains, or other devices extruding through the incision Disposition: awakened from anesthesia, extubated and taken to the recovery room in a stable condition, having suffered no apparent untoward event. Condition: doing well without problems (Please see the Surgical Encounter Summary for any Implant and Specimen details pertinent to this patient.) HPI/Surgical Indications: 51-year-old female with end-stage osteoarthritis of the right shoulder pain. This had not responded to conservative treatment. After discussion of options, she elected to proceed with a right total shoulder arthroplasty. She understood the risks of surgery, particularly givenher young age. She signed her informed consent. Procedure Description: Anesthesia: Gen. and regional Complications: None apparent Implants Used: Boyd Bigliani-Flatow TSA System Stem: [id number] mm Head: 46 x 18 offset head Glenoid: 46 x 46 pegged cemented polyethylene glenoid Pre-operative Evaluation: The patient was identified in the preoperative holding area. After confirming that the right shoulder was the correct site of surgery with both the patient and the informed consent, a green [place] was placed on the operative shoulder. The plan was reviewed with the patient and all questions were answered. The patient was then taken to the operating room. After anesthesia was induced, the patient was placed in the beach chair position taking care to pad all pressure points and support the head and neck in a neutral and comfortable position. A adler catheter was placed by the nursing staff under sterile technique. A time- out was called and all present agreed on the correct patient, correct site of chaney rgery, and correct procedure. Antibiotics were administered prior to incision. Examination under anesthesia: The shoulder was examined under anesthesia. Range of motion was 160?? forward elevation, 30?? external rotation at the side. Instability examination revealed no anterior, posterior, or inferior instability. Description of Operation: A adler catheter was placed by the nursing staff under sterile technique. The entire procedure was done with ventilated sterile helmets to decrease the risk of infection. The shoulder was then prepped and draped in a standard sterile fashion, including sealing off of the skin and axilla with Ioban drapes. A 9 centimeter incision was made starting 1 centimeter proximal to the coracoid and extending 1 centimeter lateral to the coracoid down along the deltopectoral interval. It was carried sharply through skin and needle-tip electrocautery was used to dissect through the subcutaneous fat. Full thicknesss skin flaps were raised anteriorly and posteriorly just over the deltopectoral fascia. The fat stripe surrounding the deltopectoral interval and the cephalic vein was identified and the vein was dissected out. It was retracted laterally and preserved throughout the case. The triangular expansion of the deltopectoral interval was dissect proximally all the way to the clavicle. The pectoralis major tendon was then identified distally at its insertion into the humerus. The clavipectoral fascia was incised just lateral to the conjoint tendon and the conjoint tendon wasretracted medially, taking care not to stretch the musculocutaneous nerve. The musculocutaneous nerve was palpated to avoid excessive retraction on it. The subacromial and subdeltoid bursal spaces were entered and bluntly developed, taking care to avoid damage to the overlying deltoid or the underlying rotator cuff. The deltoid was retracted laterally with a Link self-retaining retractor. This revealed the subscapularis nicely. The leash of vessels on the inferior subscapularis were coagulated. The s ubscapularis was incised about 8 mm medial to its insertion in the lesser tuberosity from the rotator interval down to the neck. Sharp cautery was used for this part of the procedure. A nice stump of tendon was left on the lesser tuberosity for later tendon-tendon repair. The subscapularis tendon was tagged with three #2 EthiBond sutures, including one on the rolled edge for later anatomic repair. The biceps was surrounded by tenosynovitis. We performed a tenodesis of the biceps tendon to the adjacent pectoralis major tendon using Ethibond suture. The proximal portion was excised. Inferior capsularfibers lateral to the inferior osteophyte were released off the humerus and the shoulder was dislocated anteriorly by externally rotating in adduction and extension with a Darrach around the surgical neck. The rotator cuff was inspected. The supraspinatus, infraspinatus and teres minor were found to be intact in their insertion onto the humerus. These were not violated throughout the case. The latissimusdorsi tendon was also identified on the inferior aspect of the wound and it was preserved. There were multiple osteophytes noted circumferentially around the proximal humerus and these were all removedwith osteotomes. The canal was identified through a starting point just posterior to the bicipital groove. This was entered with a 6 mm sharp reamer and we went up to 8 mm with sharp short reamers and then began with long blunt reamers. We reamed easily up to 14 mm before meeting resistance at 130 mm. The head was cut off using the cutting block just at the level of the rotator cuff insertion in 30 degrees of retroversion. Following canal preparation, the trial equal to the last reamer size was impacted. This was found to fit appropriately, snugly and was fully seated. We then took the trial head off and retracted the humerus posteriorly with a Fukuda leaving the trial stem in place. This allowed exposure of the glenoid. A large loose body was removed from the subscapularis recess. An anterior inferior capsulectomy was performed. The axillary nerve was identified and protected throughout the case. It was continuously palpated throughout the release and found to be under excellent tension with no evidence of injury. The glenoid was found to be a Walch type A1. The center of the glenoid was identified and the natural version was identified by palpating the anteriorneck. The drill holes were oriented in this anatomic version. The central drill hole was made and the glenoid was reamed in normal version with a 46 mm reamer which was the most appropriate size. Anterior glenoid osteophyte was resected with an osteotome. Once the surface was flush and devoid of any cartilage, the superior and inferior pegs were drilled using the peg guide and the antirotation peg. The guide was then removed and these were deepened. The glenoid was trialed and found to fit snugly without any evidence of rocking. All the holes were inspected and found not to perforate into the medial glenoid vault cortical bone. The glenoid was then pulsatile lavaged and thrombin was placed in eachpeg hole to achieve hemostasis while the cement was mixed. Once the cement was mixed it was insertedwith a Senia syringe into each hole three times with impaction in-between each cementing. Finally, the component was placed and impacted into position and held there with my thumb until the cement washot and hard. The Fukuda was carefully removed and the humerus was again externally rotated, taking care not to damage the glenoid component. The trial stem was removed and the proximal humerus was slightly countersunk. Three 2 mm drill holeswere placed from a point just anterior to the bicipital groove into the canal of the humerus. #2 FiberWire sutures were placed through these drill holes. These were then brought out anteriorly. The implant was then impacted into position. Various head sizes were trialed, and we settled on a head of size 46 x 18. There was 50% anterior-posterior laxity on the shift maneuver and there was no significant laxity on the shuck maneuver. I found this to be ideal. It was placed with the point of maximal rotation just superior and posterior in order to make sure that the head was higher than the tuberosity, but not so high that the supraspinatus was stretched. The subscapularis was brought over and easily reached the lesser tuberosity without undue tension in 30 degrees of external rotation. The three bone tunnel sutures were placed in Kamlesh-Marquez fashion through the tendon and tied down, then three #2 FiberWire figure of eight sutures were placed in a tendon to tendon fashion. The repair was judged to be quite good at this point. The wounds were thoroughly irrigated. A medium Hemovac drain was placed under the deltopectoral layer, exiting posteriorly and superiorly. The deltopectoral interval was closed with 0 Ethibond nonabsorbable green suture and the subcutaneous tissue with 2-0 Vicryl and the skin with 3-0 Monocryl suture. Sterile dressing was applied, followed by a Cryocuff and a sling in neutral rotation. Postoperative Plan: Postoperative plan will be the standard total shoulder physical therapy protocol beginning with 30?? of passive supine external rotation at the side and 130?? of passive supine forward elevation. Infection Bundle used? N/A Attestation: Case Date: 11/02/2016 I was present and I participated during the entire procedure (does not need to include opening and closing). BLAINE GRIFFIN MD 11/02/2016 documented in this encounter Plan of Treatment Not on filedocumented as of this encounter Procedures Procedure Name Priority Date/Time Associated Diagnosis Comme nts IMPLANTABLE DEVICES 11/05/2016 12:00 Resu lts for this SCAN AM EDT procedure are i n the results section. ELEMENTARY TEACHER SCAN 11/05/2016 12:00 Res ults for this AM EDT procedure are i n the results section. HEMOGRAM Routine 11/03/2016 5:24 Results for this AM EDT procedure are i n the results section. DIFFERENTIAL, Routine 11/03/2016 5:24 Results for this AUTOMATED AM EDT procedure are i n the results section. CBC (WITH DIFF) Routine 11/03/2016 5:24 AM EDT BASIC METABOLIC Routine 11/03/2016 5:24 Results f or this PANEL (NON-FASTING) AM EDT procedur e are in the results section. XR SHOULDER RIGHT Routine 11/02/2016 10:50 Result s for this AM EDT procedure are i n the results section. TENODESIS,BICEPS 11/02/2016 7:29 Primary osteoarthriti s TENDON (PROXIMAL) AM EDT of right shoulder (WRVU 10.17) MODIFIER BOYD TM 11/02/2016 7:29 Primary osteoarthri tis AM EDT of right shoulder MODIFIER BEACH CHAIR 11/02/2016 7:29 Primary osteoarth ritis SCHLEIN AM EDT of right shoulder MODIFIER BOYD 11/02/2016 7:29 Primary osteoarthritis BIGLIANI FLATOW (BF) AM EDT of right shoulder TOTAL SHOULDER 11/02/2016 7:29 Primary osteoarthritis ARTHROPLASTY (WRVU AM EDT of right shoulder 22.13) TENODESIS,BICEPS Routine 11/02/2016 5:57 Primary osteoarthriti s TENDON (PROXIMAL) AM EDT of right shoulder documented in this encounter Results SCAN DOC: ELEMENTARY TEACHER (11/05/2016 12:00 AM EDT) Narrative 11/05/2016 12:00 AM EDT This result has an attachment that is no t available. Ordered by an unspecified provider. Scanning Provider MEDIA MGR SCAN EXT ORDR/RSLT SCAN DOC: IMPLANTABLE DEVICES (11/05/2016 12:00 AM EDT) Narrative 11/05/2016 12:00 AM EDT This result has an attachment that is no t available. Ordered by an unspecified provider. Scanning Provider MEDIA MGR SCAN EXT ORDR/RSLT (ABNORMAL) Differential, Automated (11/03/2016 5:24 AM EDT) [facility] Method Time Signature Neutrophils % 60.2 % [facility] Neutr Abs (ANC) 8.17 (H) 1.70 - [facility] 6.10 [facility] x10(3)/[facility] Lymphocytes % 31.0 % [facility] Lymphocytes Abs 4.2 (H) 0.9 - 3.2 [facility] x10(3)/[facility]OR[facility]ORY Monocytes % 8.1 % [facility] Monocyte Abs 1.1 (H) 0.3 - 0.9 [facility] x10(3)/[facility]OR[facility]ORY Eosinophils % 0.2 % [facility] Eosinophils Abs 0.0 0.0 - 0.4 [facility] x10(3)/[facility] LABORATORY Basophils % 0.1 % [facility] Basophils Abs 0.0 0.0 - 0.1 [facility] x10(3)/[facility] LABORATORY Immature Gran % 0.40 % [facility] Comment: Immature granulocytes(IG's)percentage an d absolute count will include metamyelocytes, myelocytes, and promyelo cytes. Blood smears from CBCs yielding IG's will be scanned manually for concor dance. If this scan disagrees with the automated IG or if promyelocytes are not ed, a manual differential will be performed. Zoë Gran Abs 0.05 (H) 0.00 - 0.04 x10(3)/[facility] LABOR[facility] Specimen Anatomical Collection Method Collection Time Receive d Time (Source) Location / / Volume Laterality Blood specimen 11/03/2016 5:24 AM 017 5:28 (specimen) EDT AM EDT Resulting Agency Comment Spec In Lab Blaine Griffin MD HEMATOLOGY ORDERABLES Performing Organization Address City/State/ZIP [place] [address] (ABNORMAL) Hemogram (11/03/2016 5:24 AM EDT) Analysis Performed At Patho logist Time Signature WBC 13.6 (H) 4.0 - 9.5 [facility] x10(3)/[facility] LABORATORY RBC 3.30 (L) 4.00 - [facility] 5.21 [facility] x10(6)/[facility] LABORATORY Hemoglobin 10.4 (L) 11.7 - [facility] 15.[facility] gm/dL [facility] LABORATORY Hematocrit 30.8 (L) 35.7 - [facility] 45.8 % [facility] LABORATORY MCV 93.3 82.6 - [facility] 94.4 [facility] LABORATORY MCH 31.5 27.1 - [facility] 32.0 pg [facility] LABORATORY MCHC 33.8 31.7 - [facility] 35.0 gm/dL [facility] LABORATORY Platelets 205 145 - 357 [facility] x10(3)/[facility] LABORATORY RDWSD 42.3 37.0 - [facility] 46.0 [facility] LABORATORY RDWCV 12.4 11.5 - [facility] 14.1 % [facility] LABORATORY MPV 8.8 7.6 - 12.9 [facility] LABORATORY nRBC % Auto 0.0 % [facility] LABORATORY nRBC Abs Auto 0.000 0.000 - [facility] 0.000 [facility] x10(3)/[facility] LABORATORY Specimen Anatomical Collection Method Collection Time Receive d Time (Source) Location / / Volume Laterality Blood specimen 11/03/2016 5:24 AM 017 5:28 (specimen) EDT AM EDT Resulting Agency Comment Spec In Lab Blaine Griffin MD HEMATOLOGY ORDERABLES Performing Organization Address City/State/[place] [address] Basic Metabolic Panel (non-fasting) (11/03/2016 5:24 AM EDT) P athologist Signature Glucose Lvl 109 65 - 199 [facility] mg/dL [facility] LABORATORY Comment: Diabetes: >=200 mg/dL plus symp toms BUN 13 8 - 18 mg/dL [facility] LABORATORY Creatinine 0.78 0.70 - 1.20 mg/dL [facility] LABORATORY Comment: Please note that the pediatric reference intervals supplied above were not validated at [facility]. Results from pediatri c patients should be interpreted in conjunction to the patient's age, height and muscle mass. Sodium 137 135 - 145 mmol/L [facility] LABORATORY Potassium 3.7 3.5 - 5.0 mmol/L [facility] LABORATORY Comment: Please note: ??Patients with WBC >100,00 0 may have falsely elevated Potassium levels. ??For accurate Potassium quantif ication in these patients send serum separator tube (gold top) for subsequent determinations. ??Contact the Clinical Chemistry Laboratory if there are any qu estions. Chloride 102 98 - 107 mmol/L [facility] LABORATORY CO2 24 22 - 31 mmol/L [facility] LABORATORY Anion Gap 11 5 - 15 mmol/L [facility] LABORATORY Calcium 8.5 8.5 - 10.5 mg/dL [facility] LABORATORY Estimated GFR >60 >=60 [facility] LABORATORY Comment: This estimated GFR (eGFR) value was calc ulated using the MDRD equation which has been validated on patients between t he ages of 18 and 70. The MDRD should not be used to assess kidney function in patients < 18 years of age or in patients with extremes of body mass, or in patients with acute kidney failure. This value should be multiplied by 1.2 f or patients. For further information please copy and past e the following links into your internet browser. http://[employer]/DHnkdep http://[employer]/DHMCnkf Specimen Anatomical Collection Method Collection Time Receive d Time (Source) Location / / Volume Laterality Blood specimen 11/03/2016 5:24 AM 017 5:28 (specimen) EDT AM EDT Resulting Agency Comment Spec In Lab Blaine Griffin MD CHEMISTRY ORDERABLES Performing Organization Address City/State/ZIP [place] [address] XR Shoulder Right (Generic) (11/02/2016 10:50 AM EDT) Anatomical Region Laterality Modality Shoulder Right Digital Radiography Specimen (Source) Anatomical Location Collection Method / Collectio n Time Received Time / Laterality Volume Impressions 11/02/2016 11:45 AM EDT Interval right TSA without radiographic evidence of immediate complication. Narrative 11/02/2016 11:45 AM EDT EXAMINATION: XR SHOULDER RIGHT (GENERIC) CLINICAL HISTORY: Status post right tota l shoulder arthroplasty TECHNIQUE: Internally rotated, externall y rotated, transscapular Y-view, and axillary radiographs of the right should er were obtained. COMPARISON: Preop right shoulder imaging studies ranging from 06/19/2012 08/04/2016. FINDINGS: There has been interval right total shou lder arthroplasty the hardware appears intact. There is no fracture or dislocat ion. A surgical drain is seen with its tip at the level of the humeral head. Th ere is soft tissue swelling and soft tissue gas about the right shoulder, exp ected findings in the immediate postoperative setting. Degenerative marvin ges of the acromioclavicular joint are again seen. Anterior cervical discectomy and fusion hardware is noted. Procedure Note Sara Fleming MD - 11/02/2016Formatting o f this note might be different from the original. EXAMINATION: XR SHOULDER RIGHT (GENERIC) CLINICAL HISTORY: Status post right tota l shoulder arthroplasty TECHNIQUE: Internally rotated, externall y rotated, transscapular Y-view, and axillary radiographs of the right should er were obtained. COMPARISON: Preop right shoulder imaging studies ranging from 06/19/2012 08/04/2016. FINDINGS: There has been interval right total shou lder arthroplasty the hardware appears intact. There is no fracture or dislocat ion. A surgical drain is seen with its tip at the level of the humeral head. Th ere is soft tissue swelling and soft tissue gas about the right shoulder, exp ected findings in the immediate postoperative setting. Degenerative marvin ges of the acromioclavicular joint are again seen. Anterior cervical discectomy and fusion hardware is noted. IMPRESSION Interval right TSA without radiographic evidence of immediate complication. Blaine Griffin MD IMG DX ORDERABLES documented in this encounter Visit Diagnoses Diagnosis S/P Right TSA 11/02/16 (Dr. Griffin) - Prima ry Osteoarthrosis, unspecified whether gene ralized or localized, shoulder region Primary osteoarthritis of right shoulder Primary localized osteoarthrosis, should er region Primary osteoarthritis of right shoulder Primary localized osteoarthrosis, should er region documented in this encounter Admitting Diagnoses Diagnosis DJD of shoulder Osteoarthrosis, unspecified whether gene ralized or localized, shoulder region documented in this encounter Administered Medications Inactive Administered Medications - up to 3 most recent administrations Medication Order MAR Action Action Date Dose Rate Site acetaminophen (TYLENOL) tablet Given 11/04/2016 5:55 AM EDT 1,00 0 mg 1,000 mg 1,000 mg, Oral, EVERY 8 HOURS SCHEDULED, First dose on Tue11/02/16 at 1400, Until Discontinued, Maximum dose of acetaminophen is 4000 mg from all sources in 24 hours., Routine Given 11/03/2016 9:22 PM EDT 1,000 mg Given 11/03/2016 1:52 PM EDT 1,000 mg aspirin EC tablet 81 mg Given 11/04/2016 8:30 AM EDT 81 mg 81 mg, Oral, 2 TIMES DAILY, First dose on Tue11/03/16 at 0900, Until Discontinued, Routine Given 11/03/2016 9:21 PM EDT 81 mg Given 11/03/2016 8:48 AM EDT 81 mg bacitracin injection Given 11/02/2016 8:11 AM 50,000 Units 19- Surgi shin Site ONCE PRN, Starting on Tue EDT 11/02/16 at 0811, Until Shahrzad 11/04/16 at 1516, Intra-Operative (Intra-Procedure), Routine camphor-menthol (SARNA) lotion Given 11/04/2016 8:31 AM EDT Topical (Top), 3 TIMES DAILY, First dose on Tue11/03/16 at 0900, Until Discontinued Given 11/03/2016 9:24 PM EDT Given 11/03/2016 3:00 PM EDT citalopram (CeleXA) tablet 40 mg Given 11/04/2016 8:30 AM EDT 40 mg 40 mg, Oral, DAILY, First dose on Tue11/02/16 at 1445, Until Discontinued, Routine Given 11/03/2016 8:48 AM EDT 40 mg Given 11/02/2016 5:10 PM EDT 40 mg diphenhydrAMINE (BENADRYL) capsule 25 mg Given 11/04/2016 7:26 AM EDT 25 mg 25 mg, Oral, EVERY 6 HOURS PRN, Starting on Tue11/03/16 at 0429, Until Shahrzad 11/04/16 at 1516, Itching, Routine Given 11/04/2016 12:27 AM EDT 25 mg Given 11/03/2016 3:13 PM EDT 25 mg HYDROmorphone (DILAUDID) tablet 2 mg 2 mg, Oral, EVERY 3 HOURS PRN, Starting on Tue11/03/16 at 0834, Until Shahrzad 11/04/16 at 1516, Pain, for mild pain (1-3), May give an additional 2 mg once if pain not relieved in 30-60 minutes., Routine HYDROmorphone (DILAUDID) tablet 4 mg Given 11/03/2016 8:47 AM EDT 4 mg 4 mg, Oral, EVERY 3 HOURS PRN, Starting on Tue11/03/16 at 0834, Until Tue11/04/16 at 1516, Pain, for moderate pain (4-6), May give an additional 2 mg once if pain not relieved in 30-60 minutes., Routine HYDROmorphone (DILAUDID) tablet 6 mg Given 11/04/2016 10:39 AM EDT 6 mg 6 mg, Oral, EVERY 3 HOURS PRN, Starting on Tue11/03/16 at 0834, Until Tue11/04/16 at 1516, Pain, for severe pain (7-10), Routine Given 11/04/2016 7:26 AM EDT 6 mg Given 11/04/2016 4:19 AM EDT 6 mg lidocaine (LIDODERM) 5 Patch Applied 11/04/2016 11:37 AM 2 patches 04- Shoulder % patch 2 patch EDT (Right) 2 patch, Transdermal, DAILY, First dose on Tue11/03/16 at 1800, Until Discontinued, Apply patch(es) for 12 hours, and then remove for 12 hours. Apply one patch to each side of right shoulder dressing daily., Routine Patch Applied 11/03/2016 5:48 PM EDT 2 patches 04- Shoulder (Right) lidocaine (LIDODERM) patch REMOVAL Transdermal, DAILY, First dose on Tue at 0600, Until Discontinued, Remove lidocaine 5 %(700 mg/patch) patch nalbuphine (NUBAIN) injection 2 mg Given 11/04/2016 4:20 AM EDT 2 mg 2 mg, Intravenous, EVERY 4 HOURS PRN, Itching, Starting on Tue11/02/16 at 1124, Until Tue11/04/16 at 1516 Given 11/03/2016 9:34 PM EDT 2 mg Given 11/03/2016 10:45 AM EDT 2 mg Patch Verification Transdermal, 2 TIMES DAILY, First dose o n Tue11/03/16 at 2100, Until Discontinued, Verify lidocaine 5 %(700 mg/patch) patch. polyethylene glycol (MIRALAX) packet 17 g Given 11/04/2016 8:30 AM EDT 17 g 17 g, Oral, 2 TIMES DAILY, First dose on Tue11/02/16 at 1345, Until Discontinued, Routine Given 11/03/2016 9:23 PM EDT 17 g Given 11/03/2016 8:48 AM EDT 17 g ROpivacaine (NAROPIN) 2 mg/mL for AmbIT New Bag 11/02/2016 10:33 AM EDT Perineural, CONTINUOUS, Starting on Tue11/02/16 at 0900, Until Shahrzad 11/04/16 at 1516 senna-docusate (PERICOLACE) 8.6-50 mg per Given 2016 8:30 AM EDT 2 tablets tablet 2 tablet 2 tablet, Oral, 2 TIMES DAILY, First dose on Tue11/02/16 at 1345, Until Discontinued, Routine Given 11/03/2016 9:22 PM EDT 2 tablets Given 11/03/2016 8:47 AM EDT 2 tablets sodium chloride 0.9 % flush 5 mL Given 11/04/2016 8:31 AM EDT 5 mLs 5 mL, Intravenous, 2 TIMES DAILY, First dose on Tue11/02/16 at 1345, Until Discontinued, Recovery (Recovery-Hospital Unit), Routine Given 11/03/2016 9:24 PM EDT 5 mLs Given 11/03/2016 8:49 AM EDT 5 mLs thrombin (bovine) Given 11/02/2016 8:12 AM 5,000 Units 19- Surgical Site (THROMBIN-JMI) solution EDT ONCE PRN, Starting on Tue11/02/16 at 0812, Until Shahrzad 11/04/16 at 1516, Intra-Operative (Intra-Procedure) documented in this encounter Active and Recently Administered Medications Times are shown in EDT. Scheduled Medication Order 11/02/2016 11/03/2016 11/04/2016 acetaminophen (TYLENOL) tablet 1,000 mg 1351 (Given - Provider: Kathie Quigley)2206 (Given - Provider: Kevan Nixno RN) 0640 (Given - Provider: Kevan Nixon RN)1352 (Given - Provider: Anam Garcia RN)2122 (Given - Provider: Jay Jameson RN) 0555 (Given - Provider: Cisco Rangel) 1,000 mg, Oral, EVERY 8 HOURS SCHEDULED, First dose on Tue11/02/16 at 1400, Until Discontinued, Maximum dose of acetaminophen is 4000 mg from all sources in 24 hours., Routine aspirin EC tablet 81 mg 0848 (Given - Pr ovider: Anam Garcia RN)2120 (Given - Provider: Jay Jameson, FÉLIX) 829 (Given - Provider: Anam baez, FÉLIX) 81 mg, Oral, 2 TIMES DAILY, First dose o n Tue11/03/16 at 0900, Until Discontinued, Routine camphor-menthol (SARNA) lotion 0900 (Giv en - Provider: Anam Garcia, RN)1500 (Given - Provider: Anam Garcia, RN)2123 (Given - Provider: Jay Jameson, FÉLIX) 830 (Given - Provider: Anam baez RN) Topical (Top), 3 TIMES DAILY, First dose on Tue11/03/16 at 0900 ceFAZolin (ANCEF) 1g in dextrose 5% 50mL (COMPLETED) 1 145 (Given - Provider: Prudencio Zambrano RN)2041 (Given - Provider: Kevan Nixon, FÉLIX) 332 (Given - Provider: Kevan Nixon RN) 1,000 mg (1 g), Intravenous, EVERY 8 WANDA RS, 3 doses, First dose on Tue11/02/16 at 1045, Last dose on Tue11/03/16 at 0400, Administer over 30 Minutes, Adjust to 4 hours from intraoperative dose. * Beta-l actam based antibiotics (eg. Ampicillin, Cefazolin, Aztreonam) should be administered within 4 hours of the preceding intraoperative dose. * Vancomycin, Flouroquinolones, Clindamycin, Gentamicin, and Me tronidazole should be administered withi n 8 hours of the preceding intraoperative dose., Recovery (Recovery-Hospital Unit), Indication for (Active or Suspected): Prophylaxis ceFAZolin (ANCEF) 2g in dextrose 5% 100 mL (COMPLETED) 744 (Given - Provider: Hanny Briones CRNA) 2 g, Intravenous, EVERY 3 HOURS, 1 dose, First dose on Tue11/02/16 at 0630, Administer over 30 Minutes, Redose after 3 hours., Intra-Operative (Intra- Procedure), Indication for (Active or Suspected): Prophylaxis citalopram (CeleXA) tablet 40 mg 1710 (Given - Provider: Aislinn Matthew) 0848 (Given - Provider: Anam Garcia, RN) 0830 (Given - Provider: Anam Garcia, FÉLIX) 40 mg, Oral, DAILY, First dose on Tue at 1445, Until Discontinued, Routine lidocaine (LIDODERM) 5 % patch 2 patch(Linked Group 1) 1748 (Patch Applied - Provider: Anam Garcia, FÉLIX) 1137 (Patch Applied - Provider: Anam Garcia, FÉLIX) 2 patch, Transdermal, DAILY, First dose on Tue11/03/16 at 1800, Until Discontinued, Apply patch(es) for 12 hours, and then remove for 12 hours. Apply one patch to each side of right shoulder dressing daily., Routine lidocaine (LIDODERM) patch REMOVAL(Linked Group 1) 0555 (Patch Removed - Provider: Jay Jameson RN) Transdermal, DAILY, First dose on Tue at 0600, Until Discontinued, Remove lidocaine 5 %(700 mg/patch) patch multivitamin Wwbn-Ox-FO-Min (THERAPEUTIC-M) 27-0.4 mg tablet 1 tablet 1445 (Not Given - Provider: Kathie Quigley - Reason: Patient/family refused - Comment: Patient allergic to this) 0900 (Not Given - Provider: Anam hernandez RN - Reason: Patient/family refused) 0900 (Not Given - Provider: Anam hernandez RN - Reason: Patient/family refused) 1 tablet, Oral, DAILY, First dose on Tue11/02/16 at 1445, Until Discontinued, Routine Patch Verification(Linked Group 1) 2126 (Patch (dose and location) verified - Provider: Jay Jameson RN) 0900 (Patch (dose and location) verified - Provider: Anam Garcia, FÉLIX - Comment: off) Transdermal, 2 TIMES DAILY, First dose o n Tue11/03/16 at 2100, Until Discontinued, Verify lidocaine 5 %(700 mg/patch) patch. polyethylene glycol (MIRALAX) packet 17 g 1345 (Not Gi jane - Provider: Kathie Quigley - Reason: See comment - Comment: Will start tonight)2041 (Given - Provider: Kevan Nixon RN) 0848 (Given - Provider: Anam baez RN)2122 (Given - Provider: Jay Jameson, FÉLIX) 0830 (Given - Provider: Anam Garcia, FÉLIX) 17 g, Oral, 2 TIMES DAILY, First dose on Tue11/02/16 at 1345, Until Discontinued, Routine senna-docusate (PERICOLACE) 8.6-50 mg per tablet 2 tab let 1345 (Not Given - Provider: Kathie Quigley - Reason: See comment - Comment: Will start tonight)2041 (Given - Provider: Kevan Nixon, FÉLIX) 0847 (Given - Provider: Anam Garcia, FÉLIX)2121 (Given - Provider: Jay Jameson, FÉLIX) 0830 (Given - Provider: Anam Garcia RN) 2 tablet, Oral, 2 TIMES DAILY, First dos e on Tue11/02/16 at 1345, Until Discontinued, Routine sodium chloride 0.9 % flush 5 mL 1345 (Not Given - Pro vider: Kathie Quigley - Reason: See comment - Comment: Infusing)2041 (Given - Provider: Kevan Nixon RN) 08 (Given - Provider: Anam baez RN)2123 (Given - Provider: Jay Jameson, FÉLIX) 0831 (Given - Provider: Anam baez RN) 5 mL, Intravenous, 2 TIMES DAILY, First dose on Tue11/02/16 at 1345, Until Discontinued, Recovery (Recovery-Hospital Unit), Routine Continuous Medication Order 11/02/2016 11/03/2016 11/04/2016 HYDROmorphone (DILAUDID) 1 mg/mL ROUNDSMAN 50 mL (CANCELED) 0630 (New Syringe/Cartridge - Provider: Kevan Nixon RN) Intravenous, ROUNDSMAN ONLY, Starting 11/03/16 at 0545, Until W ed 11/03/16 at 1622 lactated ringers infusion 1,000 mL (CANCELED) 0630 (Ne w Bag - Provider: Indy Marx, FÉLIX)0928 (New Bag - Provider: Hanny Briones CRNA)1013 (Stopped - Provider: Hanny Briones CRNA) 1,000 mL, at 100 mL/hr, Intravenous, CON TINUOUS, Starting 11/02/17 at 0630, Until 11/02/16 at 1020, Day of Surgery (Day of Procedure) ROpivacaine (NAROPIN) 2 mg/mL for AmbIT 1033 (New Bag - Provider: Glory Morales, RN)2240 (Stopped - Provider: Kevan Nixon, RN - Comment: cathether accidentally removed) Perineural, CONTINUOUS, Starting Tue11/02/16 at 0900, Until Shahrzad 11/04/16 at 1516 sodium chloride 0.9% infusion (CANCELED) 1037 (New Bag - Provider: Glory Morales, FÉLIX)2042 (New Bag - Provider: Kevan Nixon, RN) 0750 (New Bag - Provider: Anam Garcia, FÉLIX) 1,000 mL, at 100 mL/hr, Intravenous, CON TINUOUS, Starting Tue11/02/16 at 1045, Until Tue11/03/16 at 1622, Recovery (Recovery-Hospital Unit) PRN Medication Order 11/02/2016 11/03/2016 11/04/2016 bacitracin injection (CANCELED) 0811 (Given - Provider : Blaine Griffin MD - Comment: Mixed in 1000mL normal saline) ONCE PRN, Starting Tue11/02/16 at 0811, Until Shahrzad 11/04/16 at 1516, Intra- Operative (Intra-Procedure), Routine diphenhydrAMINE (BENADRYL) capsule 25 mg 0437 (Given - Provider: Hanny Escobedo RN)1513 (Given - Provider: Anam Garcia, FÉLIX) 0027 (Given - Provider: Jay Jameson, FÉLIX)0726 (Given - Provider: Anam Garcia, RN) 25 mg, Oral, EVERY 6 HOURS PRN, Starting 11/03/16 at 0429, Until Shahrzad 11/04/16 at 1516, Itching, Routine fentaNYL (PF) 50 mcg/mL 2mL syringe (CANCELED) 0650 (G iven - Provider: Indy Marx, FÉLIX) 50 mcg, Intravenous, EVERY 5 MIN PRN, St arting Tue11/02/16 at 0601, Until Tue11/02/16 at 0709, Pain, or prior to injection of local anesthetic., Hold for respiratory rate less than 8 breaths per minute. (maximum dose 200 mcg), Day of Surgery (Day of Procedure), Rout ine HYDROmorphone (DILAUDID) syringe 0.2-0.4 mg (CANCELED) 1032 (Given - Provider: Glory Morales, FÉLIX)1051 (Given - Provider: Glory Morales, FÉLIX) 0.2-0.4 mg, Intravenous, EVERY 5 MIN PRN , Starting Tue11/02/16 at 0933, Until Tue11/02/16 at 1219, Pain, For moderate pain (4-6) give: 0.2 mg every 5 minute prn For severe pain (7-10) give: 0.4 mg every 5 minutes prn Maximum dose: 4 mg per ho ur Hold for respiratory rate less than 10 per minute., PACU Recovery, Routine HYDROmorphone (DILAUDID) tablet 2 mg(Linked Group 2) 0847 (See Alternative - Provider: Anam Garcia RN)1159 (See Alternative - Provider: Hanny Martinez RN)1514 (See Alternative - Provider: Anam Garcia RN)1814 (See Alternative - Provider: Anam Garcia, FÉLIX) 0027 (See Alternative - Provider: Jay Jameson RN)0419 (See Alternative - Provider: Jay Jameson RN)0726 (See Alternative - Provider: Anam Garcia, FÉLIX)1039 (See Alternative - Provider: Anam Garcia, RN) 2 mg, Oral, EVERY 3 HOURS PRN, Starting 11/03/16 at 0834, Until Shahrzad 11/04/16 at 1516, Pain, for mild pain (1-3), May give an additional 2 mg once if pain not relieved in 30-60 minutes., Routine 2121 (See Alterna tive - Provider: Jay Jameson RN) HYDROmorphone (DILAUDID) tablet 4 mg(Linked Group 2) 0847 (Given - Provider: Anam Garcia RN)1159 (See Alternative - Provider: Hanny Martinez RN)1514 (See Alternative - Provider: Anam Garcia RN)1814 (See Alternative - Provider: Anam Garcia FÉLIX) 0027 (See Alternative - Provider: Jay Jameson RN)0419 (See Alternative - Provider: Jay Jameson RN)0726 (See Alternative - Provider: Anam Garcia RN)1039 (See Alternative - Provider: Anam Garcia RN) 4 mg, Oral, EVERY 3 HOURS PRN, Starting 11/03/16 at 0834, Until Shahrzad 11/04/16 at 1516, Pain, for moderate pain (4-6), May give an additional 2 mg once if pain not relieved in 30-60 minutes., Routine 2121 (See Alt ernative - Provider: Jay Jameson RN) HYDROmorphone (DILAUDID) tablet 6 mg(Linked Group 2) 0847 (See Alternative - Provider: Anam Garcia RN)1159 (Given - Provider: Hanny Martinez RN)151 (Given - Provider: Anam Garcia, FÉLIX)1814 (Given - Provider: Anam Garcia, RN)2121 (Given - Provider: Jay Jameson RN) 002 (Given - Provider: Jay Jameson RN)041 (Given - Provider: Jay Jameson RN)0726 (Given - Provider: Anam Garcia, FÉLIX)1039 (Given - Provider: Anam Garcia, FÉLIX) 6 mg, Oral, EVERY 3 HOURS PRN, Starting 11/03/16 at 0834, Until Shahrzad 3 at 1516, Pain, for severe pain (7-10), Routine lidocaine (XYLOCAINE) 10 mg/mL (1 %) injection 3 mg 3 mg (0.3 mL), Subcutaneous, ONCE PRN, 1 dose, Starting 11/02/16 at 1328, Until Shahrzad 3 at 1516, for discomfort with PIV insertion, Recovery (Recovery-Hospital Unit), Routine metoclopramide (REGLAN) injection 10 mg 10 mg, Intravenous, EVERY 8 HOURS PRN, S tarting 11/02/16 at 1328, Until Shahrzad 11/04/16 at 1516, Nausea, Vomiting, If multiple antiemetics are ordered, use ondansetron first, prochlorperazine second, metaclopromide third., Routine midazolam (PF) (VERSED) 1 mg/mL injection 1 mg (CANCEL ED) 0650 (Given - Provider: Indy Marx RN) 1 mg, Intravenous, EVERY 5 MIN PRN, Star ting 11/02/16 at 0601, Until 11/02/16 at 0709, Sleep, or prior to injection of local anesthetic, Hold for delirium/agitation. (Maximum dose 5 mg)., Day of Surgery (Day of Procedure), Routine nalbuphine (NUBAIN) injection 2 mg 1202 (Given - Provi barry: Glory Morales RN) 1045 (Given - Provider: Anam baez RN)2134 (Given - Provider: Jay Jameson RN) 0420 (Given - Provider: Cisco Rangel) 2 mg, Intravenous, EVERY 4 HOURS PRN, St arting 11/02/16 at 1124, Until Shahrzad 11/04/16 at 1516, Itching, Routine ondansetron (ZOFRAN) injection 4 mg 4 mg, Intravenous, EVERY 8 HOURS PRN, St arting 11/02/16 at 1328, Until Shahrzad 11/04/16 at 1516, Nausea, Vomiting, May repeat 4 mg IV once in 30 minutes for unrelieved nausea or vomiting. If multiple a ntiemetics are ordered, use ondansetron first, prochlorperazine second, metaclopromide third., Routine oxyCODONE (ROXICODONE) immediate release tablet 10 mg (CANCELED) 1110 (Given - Provider: Glory Morales, FÉILX)1935 (See Alternative - Provider: Kevan Nixon RN)2335 (See Alternative - Provider: Kevan Nixon RN) 0333 (See Alternative - Provider: Kevan Nixon RN)0755 (Given - Provider: Anam Garcia RN) 10 mg, Oral, EVERY 4 HOURS PRN, Starting 11/02/16 at 1019, Until 11/03/16 at 0832, Pain, moderate pain (4-6), For moderate pain (4-6). Do not exceed 15 mg in 4 hours. If pain not relieved, call provider., Routine oxyCODONE (ROXICODONE) immediate release tablet 15 mg (CANCELED) 1110 (See Alternative - Provider: Glory Morales, FÉLIX)1935 (Given - Provider: Kevan Nixon, RN)2335 (Given - Provider: Kevan Nixon, RN) 0333 (Given - Provider: Kevan Nixon, RN)0755 (See Alternative - Provider: Anam Garcia RN) 15 mg, Oral, EVERY 4 HOURS PRN, Starting Tue11/02/16 at 1019, Until Tue11/03/16 at 0832, Pain, severe pain (7-10), For severe pain (7-10). Do not exceed 15 mg in 4 hours. If pain not relieved, call provider., Routine prochlorperazine (COMPAZINE) injection 10 mg 10 mg, Intravenous, EVERY 6 HOURS PRN, S tarting Tue11/02/16 at 1328, Until Shahrzad 11/04/16 at 1516, Nausea, If multiple antiemetics are ordered, use ondansetron first, prochlorperazine second, metaclopromide third., Routine sodium chloride 0.9 % flush 5-20 mL 5-20 mL, Intravenous, EVERY 1 MIN PRN, S tarting Tue11/02/16 at 1328, Until Shahrzad 11/04/16 at 1516, flush, Flush pertains to all indwelling lines. Flush per protocol found in the job aid using the link prov ided on this medication record., Recovery ([facility]), Routine thrombin (bovine) (THROMBIN-JMI) solution (CANCELED) 0 812 (Given - Provider: Blaine Griffin MD - Comment: Dispensed on sterile field for PRN use.) ONCE PRN, Starting Tue11/02/16 at 0812, Intra-Operative (Intra-P rocedure) Linked Groups Order Group 1: lidocaine (LIDODERM) 5 % patch 2 patchJump to med 2 patch, Transdermal, DAILY, First dose on Tue11/03/16 at 1800, Until Discontinued
Apply patch(es) for 12 hours, and then remove for 12 hours. Apply one patch to each side of right shoulder dressing daily.
Routine And Patch VerificationJump to med Transdermal, 2 TIMES DAILY, First dose o n Tue11/03/16 at 2100, Until Discontinued
Verify lidocaine 5 %(700 mg/patch) patch.
And lidocaine (LIDODERM) patch REMOVALJump to med Transdermal, DAILY, First dose on Shahrzad at 0600, Until Discontinued
Remove lidocaine 5 %(700 mg/patch) patch
Group 2: HYDROmorphone (DILAUDID) tablet 2 mgJump to med 2 mg, Oral, EVERY 3 HOURS PRN, Starting Tue11/03/16 at 0834, Until Shahrzad 11/04/16 at 1516, Pain, for mild pain (1-3)
May give an additional 2 mg once if pain not relieved in 30-60 minutes.
Routine Or HYDROmorphone (DILAUDID) tablet 4 mgJump to med 4 mg, Oral, EVERY 3 HOURS PRN, Starting Tue11/03/16 at 0834, Until Shahrzad 11/04/16 at 1516, Pain, for moderate pain (4-6)
May give an additional 2 mg once if pain not relieved in 30-60 minutes.
Routine Or HYDROmorphone (DILAUDID) tablet 6 mgJump to med 6 mg, Oral, EVERY 3 HOURS PRN, Starting Tue11/03/16 at 0834, Until Shahrzad 11/04/16 at 1516, Pain, for severe pain (7-10), Routine documented in this encounter Care Teams Queen'S Counsel Relationship Specialty Start Date End Date Americo Hough PA PCP - General General Internal Medicine 08/04/16 [address] [place] [address] documented as of this encounter
--- OUTSIDE RECORDS SUMMARY | 2022-01-29 00:44 | XMS_ITS | Encounter Summary ---
:1965 Author Organization [place] [address] Care Team Providers Name Role Phone Unavailable Primary Care Provider Unavailable Encounter Details Date Type Department Care Team Description 07/15/2016 Hospital Encounter XRay at [facility] [place] Pain in left wrist [address] [facility] [address] Esa MD [facility] [place] [place] [id number] [place] [phone] [place] [address] Social History Tobacco Use Types Packs/Day Years [...] Diagnosis Comme nts XR SHOULDER RIGHT Routine 07/15/2016 7:46 AM Pain in left wris t Results for this EST procedure are i n the results [...]
--- OUTSIDE RECORDS SUMMARY | 2022-01-29 00:44 | XMS_ITS | Encounter Summary ---
:1965 Author Organization [facility] [place] [address] Care Team Providers Name Role Phone Ruiz Luther MD Primary Care Provider Reason for Referral Surgical (Routine) - Specialty Diagnoses / Procedures Referred By Contact Refer red To Contact Diagnoses Cervical spondylosis without myelopathy Jojo Segovia MD Procedures NERVE BLOCK - CERVICAL/THORACIC [facility] [place] [address] Referral ID Status Reason Start Date Expiration Date Visits V isits Requested Authorized [id number] Consult, 06/17/2016 06/17/2017 1 1 Test & Treat Reason for Visit Reason Comments Neck Pain Radiating down RUE Surgical (Routine) - Closed Specialty Diagnoses / Procedures Referred By Contact Refer red To Contact Pain Management Diagnoses Neck pain on right side R sided cervical MBB Reynaldo Vieyra PA [facility] Procedures PRO INJ, DIAG/THERAPEUTIC AGENT, PARAVERTEBRAL FACET JT, CERVICAL/THORACIC, SINGLE PRO INJ, PARAVERTEBRAL FACET JT, W/IMAGE GUIDANCE, CERVICAL/THORACIC, SECOND LEVEL [facility] Dr choi PRO INJ//PARAVERTEBRAL FACET JT, W/IMAGE GUIDANCE, CERVICAL/THORACIC, 3RD [place] [address] [facility] [address] [place], [place] [phone] Phone: Fax: Referral ID Status Reason Start Date Expiration Date Visits V isits Requested Authorized [id number] Closed Assume 05/13/2016 05/13/2017 1 1 Subset of Care Encounter Details Date Type Department Care Team Description 06/17/2016 Procedure visit Pain Management at Jojo [facility]ia C ervical spondylosis [facility] without myelopathy [facility] [address] [place] [facility] [address] [place] [address] [phone] Social History Tobacco Use Types Packs/Day Years [...] Sign Reading Time Taken Comments Blood Pressure 128/85 06/17/2016 10:56 AM EST Pulse 69 06/17/2016 10:56 AM EST Temperature - - Respiratory Rate 16 06/17/2016 10:56 AM EST Oxygen Saturation 98% 06/17/2016 10:56 AM EST Inhaled Oxygen Concentration - - Weight 79.4 kg (175 lb) 06/17/2016 10:45 AM EST Height 167.6 cm (5' 6) 06/17/2016 10:45 AM EST Body Mass Index 28.25 06/17/2016 10:45 AM EST documented in this encounter Progress Notes Sue Squires RN - 06/17/2016 11:30 AM EST Pre-Procedure Screening Questions: 1. Status: No 2. Patient states they have a compressed air pile driver operator to transport after procedure? Yes 3. Patient taking antibiotics at present? No 4. NPO per [facility] protocol? No 5. Patient diabetic: No Patient routinely taking anticoagulants ? No Patient Vital Signs documented in Doc Flowsheets associated with this encounter. Patient Discharge Instructions were reviewed with patient and copy provided to patient. documented in this encounter Procedure Notes Jojo Segovia MD - 06/17/2016 11:30 AM ESTAssociated Order(s): NERVE BLOCK - CERVICAL/THORACIC Procedure(s): NERVE BLOCK - CERVICAL/THORACIC Pre-Procedure Diagnose(s): Cervical spondylosis without myelopathy Diagnostic Cervical Medial Branch Nerve Blocks right C4-5 and C5-6 ABORTED Chief Complaint: right neck pain Diagnosis: 1. Cervical spondylosis without myelopathy Preoperative Note History and Exam Patient demonstrates today moderate to severe non- radicular neck pain without neurologic deficit aggravated by hyperextension yes Neck pain greater than arm pain yes Patient today has tenderness over the suspected joint(s) yes History of post-traumatic injury yes Hypertrophic arthropathy no Neck pain associated with suspected motion segment instability or Hypermobility or pseudoarthrosis no Pre-testing pain score: 03/17 Maria Isabel Brian has been referred to the [facility] Cervical Medial Branch Nerve Blocks right C-4, C-5 and C-6. (Facet joint levels C4-5 and C5-6 ) Ms. Brian was interviewed and the medical record reviewed. There were no medical, pharmacologic, radiographic or other structural contraindications to attempting fluoroscopically guided injection. Risks and expected side effects as well as potential benefit of the procedure were reviewed with Ms. Brian, and her voiced concerns were addressed. The printed consent form was signed and witnessed. (The procedure, risks, and benefits of Cervical Medial Branch Nerve Blocks were reviewed with the patient, including but not limited to: nerve injury, allergic reaction, infection, transient numbness from spread of local anesthesia to nerve roots. The patient appeared to understand, questions were answered and the patient agreed to proceed.) Standard time-out procedure was performed. Maria Isabel Brian was greeted by the nurse who verified patients name and . Patient was then takento the fluoroscopy suite. TECHNIQUE: After informed written consent was obtained, the patient was placed in the prone position. The cervical spine was prepped with chloraprep and draped. Sterile technique was used, vital signs were monitored, time out was done and the right side was marked.. Cap, glove, mask were worn. The skin and subcutaneous structure were anesthetized with lidocaine 1% , to a total volume of 3 ml at each level. Medial Branch Nerves right C-4, C-5 and C-6. In the AP view 25-gauge spinal needles were advanced into the subcutaneous tissue toward the junction of the waste of the articular pillars of C-4, C-5. Thepatient was moving and was claiming that the procedure was very painful. I discussed with her that this is more than likely not an appropriate procedure for her to have, since her reaction to the injections was hyperbolic compared to most individuals. She agreed that she did not want to proceed any further. We also discussed that the testing procedure cannot be done with anxiolysis. The procedure was aborted. Follow-up with No primary care provider on file. EDUARDO Thacker for treatment options. CC: Ruiz Luther MD @PCPADD@ documented in this encounter Plan of Treatment Not on filedocumented as of this encounter Procedures Procedure Name Priority Date/Time Associated Diagnosis Comme nts NERVE BLOCK - Routine 06/17/2016 11:15 AM Cervical spondylosis Results for this CERVICAL/THORACIC EST without myelopathy proc edure are in the results section. documented in this encounter Results NERVE BLOCK - CERVICAL/THORACIC (06/17/2016 11:15 AM EST) Narrative Jojo Segovia MD - 06/17/2016 11:15 AM EST Jojo Segovia MD ? 06/17/2016 11:15 AM Diagnostic Cervical Medial Branch Nerve Blocks right ??C4-5 and C5-6 ABORTED Chief Complaint: right neck pain Diagnosis: 1. Cervical spondylosis without myelopat hy ?? Preoperative Note History and Exam Patient demonstrates today moderate to s evere non- radicular neck pain without neurologic deficit aggravat ed by hyperextension ??yes Neck pain greater than arm pain ? ye s Patient today has tenderness over the chaney spected joint(s) ??yes History of post-traumatic injury ? y es Hypertrophic arthropathy ? no Neck pain associated with suspected erik on segment instability or Hypermobility or pseudoarthrosis ? n o Pre-testing pain score: ? /10 ? Maria Isabel Brian has been referred to [facility] for Diagnostic Cervical Medial Branch Ne rve Blocks ?? right C-4, C-5 and C-6. (Facet joint levels ??C4-5 and C5-6 ) Ms. Brian was interviewed and the medica l record reviewed. ??There were no medical, pharmacologic, radiogra phic or other structural contraindications to attempting fluorosc opically guided injection. ??Risks and expected side eff ects as well as potential benefit of the procedure were reviewed w ith Ms. Brian, and her voiced concerns were addressed. ??The pr inted consent form was signed and witnessed. (The procedure, ri sks, and benefits of Cervical Medial Branch Nerve Blocks were reviewed with the patient, including but not limited to: n erve injury, allergic reaction, infection, transient numbness from spread of local anesthesia to nerve roots. ??The patient appeared to understand, questions were answered and the patient agreed to proceed.) Standard time-out procedure was flaquito olivarez. Maria Isabel Brian was greeted by the nurs e who verified patients name and . ??Patient was then taken t o the fluoroscopy suite. TECHNIQUE: After informed written consent was obtai liban, the patient was placed in the prone position. ??The cerv ical spine was prepped with chloraprep and draped. ??Sterile te chnique was used, vital signs were monitored, time out was done and the ??right ??side was marked.. Cap, glove, mask were worn. ??T he skin and subcutaneous structure were anesthetized with lidocai ne 1% , to a total volume of 3 ml at each level. ?? Medial Branch Nerves ??right C-4, C-5 an d C-6. In the AP view 25-gauge spinal needles were advanced in to the subcutaneous tissue toward the junction of the waste of the articular pillars of ??C-4, C-5. The patient was moving an d was claiming that the procedure was very painful. I discussed with her that this is more than likely not an appropriate proc edure for her to have, since her reaction to the injections was hyperbolic compared to most individuals. She agreed that she di d not want to proceed any further. We also discussed that the test ing procedure cannot be done with anxiolysis. ?? The procedure was aborted. Follow-up with No primary care provider on file. EDUARDO Thacker for treatment options. CC: Ruiz Luther MD @[email or web address]@ Jojo Segovia MD PROCEDURE/MINOR SURGICAL ORD ERABLES documented in this encounter Visit Diagnoses Diagnosis Cervical spondylosis without myelopathy documented in this encounter Care Teams Customer Services Coordinator Relationship Specialty Start Date End Date Ruiz Luther MD PCP - General General Internal Medicine 05/07/16 documented as of this encounter
--- OUTSIDE RECORDS SUMMARY | 2022-01-29 00:44 | XMS_ITS | Encounter Summary ---
:1965 Author Organization [facility] [place] [address] Care Team Providers Name Role Phone Unavailable Primary Care Provider Unavailable Reason for Visit Occupational Therapy (Routine) - Specialty Diagnoses / Procedures Referred By Contact Refer red To Contact Occupational Therapy Diagnoses Pain in left wrist Radha Wan [facility] [place] [phone] Fax: Referral ID Status Reason Start Date Expiration Date Visits V isits Requested Authorized [id number] Evaluate and 07/14/2016 07/14/2017 12 12 Treat Encounter Details Date Type Department Care Team Description 07/14/2016 Office Visit Occupational Therapy at [facility], Pain in left [place] [facility] [address] PHYSICAL MEDICINE & [phone] [place] [address] Social History Tobacco Use Types Packs/Day Years Used Date Current Every Day Smoker Cigarettes 1 Smokeless Tobacco: Never Used Alcohol Use Standard Drinks/Week Comments Yes 8.3 (1 standard drink = 0.6 oz pure alco hol) once in a while Sex Assigned at Date Recorded Not on file documented as of this encounter Progress Notes [facility], OT - 07/14/2016 3:15 PM EST OCCUPATIONAL THERAPY ORTHOTIC EVALUATION REFERRAL SOURCE: Radha Paul MD DIAGNOSIS: 1. Pain in left wrist NEXT MD FOLLOW UP: PRN TOTAL TREATMENT TIME: 40 Minutes TIMED CODE TREATMENT TIME: 40 minutes CURRENT HISTORY: Maria Isabel Brian is a 51 y.o. 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 Maria Isabel Brian is referred to Occupational Therapy for evaluation and treatment to include fitting for an orthosis. Patient presents today accompanied by patient and spouse. CURRENT SYMPTOMS: Patient presents with pain and stiffness. PAIN: (Assessed using the visual analog scale) At Rest: 7/10 With Activity: 7/10 FUNCTIONAL LIMITATIONS: Vocational status: Occupation: out of work, off work Patient Specific Functional Scale (PSFS): 0/10 (unable to perform) to 10/10 (Able to perform withoutdifficulty) Activity At Evaluation 1.) Bathing 5 2.) Dressing 5 3.) Home management 5 Average Score: 5 TREATMENT TODAY: Educated patient in etiology and biomechanics as related to patient's symptoms Fabricated a custom volar wrist cockup orthosis to be worn ideally at night and if needed during theday Provided her with a soft medium wrist support with a thumb hole and also a large neoprene thumb spika to place over this for additional thumb support for activity. We considered joint protection techniques for her home management activity for 10 minnutes Instructed in orthosis wear and care ASSESSMENT: Maria Isabel Brian has a well fitting orthosis post therapy. Maria Isabel Brian is able to independently verbalize and demonstrate the recommended home program following instructions today. Maria Isabel Brian has fair potential for gains with therapy/home program use. Patient knows to call with any questions or concerns. Short Term Goals (to be met by end of the visit today): Date Goal Met: Today 1. Maria Isabel Brian will demonstrate independence with donning and doffing of his orthosis andverbalization of purpose. Goal Status: Meets. Today 2. Maria Isabel Brian will be independent with home exercises as evident with demonstration in therapy. Goal Status: Meets PLAN: She will be seen PRN for splint adjustment (X) Maria Isabel Brian participated in the evaluation, collaborated on treatment goals, and agrees tothe treatment plan . documented in this encounter Plan of Treatment Scheduled Referrals Name Type Priority Associated Order Schedule Diagnoses Referral to Outpatient Referral Routine Pain in left wrist Or dered: Occupational Therapy 016 documented as of this encounter Visit Diagnoses Diagnosis Pain in left wrist Pain in joint, forearm documented in this encounter
--- OUTSIDE RECORDS SUMMARY | 2022-01-29 00:44 | XMS_ITS | Encounter Summary ---
:1965 [place] [address] Care Team Providers Name Role Phone Americo Hough Primary Care Provider Reason for Visit Auth/Cert Specialty Diagnoses / Procedures Referred By Contact Refer red To Contact Diagnoses DJD of shoulder Shoulder DJD Procedures PRO RECONSTR TOTAL SHOULDER IMPLANT PRO REPAIR BICEPS LONG TENDON @TOTAL SHOULDER ARTHROPLASTY (WRVU 22.13) Referral ID Status Reason Start Date Expiration Date Visits Requ ested Visits Authorized [id number] 1 1 Encounter Details Date Type Department Care Team Description 11/02/2016 Anesthesia Event Main Operating Room Isabella Da Silva MD [facility] [place] [address] [facility] Nolberto Egan MD [facility] [place] [address] [place] [address] Anesthesia Record Procedure Summary Procedure Name Responsible Anesthesia Start Anesthesia Stop Anesthesiologist Time Time TOTAL SHOULDER Isabella Phelan MD 11/02/16 0727 11/02/16 10 13 ARTHROPLASTY (WRVU 22.13) (Right Shoulder) Events Date Time Event Comment 11/02/2016 0622 0727 Start 0731 AN Verify 0731 An Start Data 0737 An Induction 0739 An Intubation 0740 Anesthesia Ready 0800 Procedure Start 0844 Break/Relief In AMADOR A RANDA N, TRUST OFFICER 0900 Break/Relief Out 1002 Extubation/LMA Out 1005 an stop data 1008 Recovery or ICU Handoff Patient care was transferred to the destination unit staff after review of the patient's medica l history, current anesthetic/surgi shin status and plan, according to the Provider Handoff Checklist. 1013 Stop Name Total Midazolam 2 mg fentaNYL 100 mcg Propofol 350 mg Rocuronium 100 mg PHENYLephrine 1,280 mcg ePHEDrine 45 mg Ondansetron 4 mg Dexamethasone 8 mg Neostigmine 4 mg Glycopyrrolate 0.6 mg ceFAZolin (ANCEF) 2g in dextrose 5% 100 mL 2 g PHENYLephrine INF 8,510 mcg HYDROmorphone 0.4 mg lactated ringers infusion 1,000 mL 1,200 mL Agents Name O2 Air N2O Sevoflurane (et) Blood No blood administrations on file. Lines, Drains, and Airways Type Details Placement Removal Incision 11/02/16; 0809; shoulder 11/02/16 0809 by Radha Taylor RN PIV 11/02/16; 0634; metacarpal 11/02/16 0634 by 10/08 1203 by vein (top of hand), left; Indy Marx RN M achia, Ashley M, [id number] catheter SCENE SHIFTER system; 20 gauge; RM; intradermal injection, tolerated well; 11/04/16; 1203 ETT Mask Ventilation: Adjunct 11/02/16 0734 by 11/02 1002 by (2) (opa); ETT Type: Hanny Briones, Hanny Briones, Cuffed, Oral; ETT Size: 7 TRUST OFFICER TRUST OFFICER mm; Mac Blade: 3; Notes: Asleep, Pre-O2, Stylette; Attempts: 1; Laryngoscopy Grade: 1; ETT Placement Verified By: Auscultation, Capnometry, Visual; Secured at Teeth: 22 cm; Inserted by: KIKE Briones Lumbar/CSF Drain 11/02/16; 927; Right; 11/02/16 0928 by Perez, 0 11/03/161818 by shoulder; collapsible FÉLIX Davidson Marcus E, closed device; Sterile RN prep and drape (in OR 5); (general anesthesia); (drain sponge); 11/03/16; 1818 documented in this encounter Social History Tobacco [...] encounter OR Notes Anesthesia Postprocedure Evaluation - Isabella Phelan MD - 11/04/2016 11:36 AM EDT [facility] Department of Anesthesiology Post-procedure Note Patient: Maria Isabel Brian Procedure Summary Date Anesthesia Start Anesthesia Stop Room / Location 11/02/[address] [place] [address] OR [facility] MAIN OR Procedure Diagnosis Surgeon Responsible Provider @TOTAL SHOULDER ARTHROPLASTY (WRVU 22.13) (Right Shoulder); MODIFIER BOYD BIGLIANI FLATOW (BF) (N/A ); MODIFIER BEACH CHAIR SCHLEIN (N/A Shoulder); MODIFIER BOYD TM (N/A Shoulder); TENODESIS,BICEPS TENDON (PROXIMAL) (WRVU 10.17) (Right Shoulder) Primary osteoarthritis of right shoulder (Shoulder DJD) Oralia Griffin MD Clark, Jeffrey A, MD All Anesthesia Providers: Anesthesiologist: Isabella Phelan MD TRUST OFFICER: Hanny Briones CRNA Last (1hr) Vitals: BP Temp Pulse Resp SpO2 Patient Location: PACU/[facility] Level of Consciousness: Awake and Alert Pain Management: Satisfactory Analgesia PONV: None Cardiovascular Status: At Baseline and Hemodynamically Stable Respiratory Status: At Baseline and Room Air Postoperative Fluid Status: Intravascular EUvolemia Possible Anesthetic Complications: NONE apparent at time of evaluation Final Primary Anesthesia Type: General (The anesthetic type performed was the same as planned.) Comments: ISABELLA PHELAN MD Anesthesia Procedure Notes - Nolberto Egan MD - 11/02/2016 8:18 AM EDT Associated Order(s): ANESTHESIA BLOCK Procedure: Anesthesia Block Block: Post-op Pain Control, interscalene nerve block Start time: 11/02/2016 7:00 AM End time: 11/02/2016 7:10 AM Patient Location: Block Room Indication/Prep Position: supine Prep: chlorhexidine, patient draped, mask, cap, sterile gloves, hand hygeine Laterality: right Skin Medication lidocaine 1% 5 ml Injection Information Ultrasound Guidance: live and in-plane Ultrasound guidance was used to identify the targeted neuronal structure. Ultrasound was also used to identify needle positon and to identify surrounding tissue (bone, muscle, and blood vessels) to prevent inadvertent intraneural or intravascular needle placement and injection. The spread of local anesthetic was confirmed with live ultrasound imaging. Injection technique:continuous Needle Length: 10 cm Gauge: 17 Needle Type: tuohy Medication injection made incrementally with aspirations. Nerve infiltration solution through a catheter Ropivicaine 0.5% 20 mL Nerve infiltration solution through a needle Resident: GUZMAN GOMEZ Second Resident: Fellow: Attending Physician: PENELOPE GALAVIZ ~~~~~~~~~~~~~~~~~~~~~~~~~~~~~~~~~~~~~~~~~~~~~~~~~~~~~~~~~~~~ Anesthesia Preprocedure Evaluation - Isabella Phelan MD - 11/01/2016 9:38 PM EDT Pre-Anesthesia Evaluation for: Maria Isabel Brian a 51 y.o. female. Procedure(s): @TOTAL SHOULDER ARTHROPLASTY (WRVU 22.13) TENODESIS,BICEPS TENDON (PROXIMAL) (WRVU 10.17) MODIFIER BOYD BIGLIANI FLATOW (BF) [facility] BOYD Patient Active Problem List Diagnosis ??? DJD of shoulder ??? Glenohumeral arthritis ??? Neck pain on [...] years ago ??? PARTIAL HYSTERECTOMY ??? PRO UNLISTED CRANIO/MAXILLOFACIAL SURG ??? PRO UNLISTED PROCEDURE, MUSCULOSKELETAL SYSTEM, GENERAL Social History Substance Use Topics ??? Smoking status: Current Every Day Smoker Packs/day: 0.25 Types: Cigarettes, e-Cigarettes ??? Smokeless tobacco: Never Used Comment: 1 pack every 3 days ??? Alcohol use 5.0 oz/week 2 Cans [...] or weight on file to calculate BMI. Airway Assessment: Mallampati: II TM distance: >3 FB Neck ROM: full Cardiovascular Assessment: cardiovascular exam normal Pulmonary Assessment: pulmonary exam normal Dental Assessment: Misc Assessment: IV access: Peripheral line Anesthesia Plan: ASA 3 general, with a(n) intravenous induction 51 y.o. female with pmh significant for anxiety, smoker (last cigarette was this am), hepatitis B infection, PTSD, Neck pain, now presenting for total shoulder arthroplasty. Exercise tolerance: Acceptable Patient's documented history was negative for seizures, CVA, severe cardiopulmonary disease, GERD, hepatic/renal disease, coagulopathy, or recent URI/RAD. EKG:NSR Lab Results Component Value Date HGB 14.4 10/28/2015 PLATELET 367 10/28/2015 INR 1.0 10/28/2015 NA 141 11/10/2015 K 4.5 11/10/2015 CREATININE 0.88 11/10/2015 10/21/16 1133 ABORH O Pos Allergies: -- Morphine -- Other reaction(s): Itching -- Multivitamin NPO Status: Appropriate Anesthetic hx: No reported prior complications with anesthesia Airway hx: no records Anesthetic Plan: GA with ETT Continuous interscalene nerve catheter Standard ASA monitoring Adequate IV access Region - Other Informed Consent: Anesthetic plan and risks discussed with patient. Plan discussed with TRUST OFFICER and attending. PAT Staff Note documented in this encounter Plan of Treatment Not on filedocumented as of this encounter Procedures Procedure Name Priority Date/Time Associated Diagnosis Comme nts ANESTHESIA BLOCK Routine 11/02/2016 8:19 AM EDT Procedure Note - Ray Egan MD - 11/02/2016 8:18 AM EDTThis note is in progress. Formatting of this note migh t be different from the original. Procedure: Anesthesia Block Block: Post-op Pain Control, interscalene nerve block Start time: 11/02/2016 7:00 A M End time: 11/02/2016 7:10 AM Patient Location: Block Room Indication/Prep Position: supine Prep: chlorhexidine, patient draped, mask, cap, sterile gloves, hand hygeine Laterality: right Skin Medication lidocaine 1% 5 ml Injection Information Ultrasound Guidance: live an d in-plane Ultrasound guidance was use d to identify the targeted neuronal structure. Ultrasound was also used to identify needle positon and to identify surrounding tissue (bone, muscle, and blood vessels) to prevent inadvertent intraneural or i ntravascular needle placement and injection. The spread of local anesthetic was confirmed with live ultrasound imaging. Injection technique:continuo us Needle Length: 10 cm Gauge: 17 Needle Type: tuohy Medication injection made in crementally with aspirations. Nerve infiltration solution through a catheter Ropivicaine 0.5% 20 mL Nerve infiltration solution through a needle Resident: GUZMAN GOMEZ Second Resident: Fellow: Attending Physician: PENELOPE GALAVIZ ~~~~~~~~~~~~~~~~~~~~~~~~~~~~ ~~~~~~~~~~~~~~~~~~~~~~~~~~~~~~~~ documented in this encounter Visit Diagnoses Not on filedocumented in this encounter Administered Medications Inactive Administered Medications - up to 3 most recent administrations Medication Order MAR Action Action Date Dose Rate Site ceFAZolin (ANCEF) 2g in dextrose 5% Given 11/02/2016 7:45 AM EDT 2 g 100 mL 2 g, Intravenous, EVERY 3 HOURS, 1 dose, First dose on Tue11/02/16 at 0630, Administer over 30 Minutes, Redose after 3 hours., Intra-Operative (Intra-Procedure), Indication for (Active or Suspected): Prophylaxis dexamethasone (DECADRON) injection Given 11/02/2016 7:45 AM EDT 8 mg PRN, Starting on Tue11/02/16 at 0745, Until Tue11/02/16 at 1014, Anesthesia Intra-op, Routine ePHEDrine 5 mg/mL multi-dose injection Given 11/02/2016 9:19 AM EDT 5 mg PRN, Starting on Tue11/02/16 at 0802, Until Tue11/02/16 at 1014, Anesthesia Intra-op, Routine Given 11/02/2016 9:09 AM EDT 5 mg Given 11/02/2016 9:04 AM EDT 5 mg fentaNYL 50 mcg/mL multi-dose injection Given 11/02/2016 9:39 AM EDT 25 mcg PRN, Starting on Tue11/02/16 at 0734, Until Tue11/02/16 at 1014, Pain, Anesthesia Intra-op, Routine Given 11/02/2016 9:34 AM EDT 25 mcg Given 11/02/2016 7:34 AM EDT 50 mcg glycopyrrolate (ROBINUL) multi-dose inje ction Given 11/02/2016 9:30 AM EDT 0.6 mg PRN, Starting on Tue11/02/16 at 0930, Until Tue11/02/16 at 1014, Anesthesia Intra-op, Routine HYDROmorphone (DILAUDID) injection Given 11/02/2016 9:44 AM EDT 0.4 mg PRN, Starting on Tue11/02/16 at 0944, Until Tue11/02/16 at 1014, Pain, Anesthesia Intra-op, Routine lactated ringers infusion 1,000 mL New Bag 11/02/2016 9:28 AM EDT 1,000 mL, at 100 mL/hr, Intravenous, CONTINUOUS, Starting on Tue11/02/16 at 0630, Until Tue11/02/16 at 1020, Day of Surgery (Day of Procedure) New Bag 11/02/2016 6:30 AM EDT 1,000 mLs 100 mL/hr midazolam (PF) (VERSED) 1 mg/mL multi-dose Given 11/02/2016 7:34 AM EDT 1 mg injection PRN, Starting on Tue11/02/16 at 0727, Until Tue11/02/16 at 1014, Sleep, Anesthesia Intra-op, Routine Given 11/02/2016 7:27 AM EDT 1 mg neostigmine (PROSTIGMINE) multi-dose inj ection Given 11/02/2016 9:30 AM EDT 4 mg PRN, Starting on Tue11/02/16 at 0930, Until Tue11/02/16 at 1014, Anesthesia Intra-op, Routine ondansetron (ZOFRAN) injection Given 11/02/2016 9:30 AM EDT 4 mg PRN, Starting on Tue11/02/16 at 0930, Until Tue11/02/16 at 1014, Nausea, Anesthesia Intra-op, Routine PHENYLephrine Rate/Dose Change 11/02/2016 9:45 70 mcg/min 52.5 mL/hr (ALISON-SYNEPHRINE) 20 mg in AM EDT sodium chloride 250 mL (standard ADULT & Romina greater than 20kg) infusion CONTINUOUS PRN, Starting on Tue11/02/16 at 0752, Until Tue11/02/16 at 1014, Anesthesia Intra-op, Routine Rate/Dose Change 11/02/2016 9:35 AM EDT 50 mcg/min 37.5 mL/hr Rate/Dose Change 11/02/2016 9:34 AM EDT 60 mcg/min 45 mL/hr PHENYLephrine HCl in NS (PF) (ALISON-SYNEPHRINE) Given 9:48 AM EDT 80 mcg 0.8 mg/10 mL (80 mcg/mL) multi-dose injection Syrg PRN, Starting on Tue11/02/16 at 0752, Until Tue11/02/16 at 1014, Anesthesia Intra-op, Routine Given 11/02/2016 9:45 AM EDT 120 mcg Given 11/02/2016 9:43 AM EDT 80 mcg propofol (DIPRIVAN) 10 mg/mL bolus injection Given 7 9:33 AM EDT 50 mg (Anesthesia) PRN, Starting on Tue11/02/16 at 0734, Until Tue11/02/16 at 1014, Anesthesia Intra-op Given 11/02/2016 9:32 AM EDT 50 mg Given 11/02/2016 9:31 AM EDT 50 mg rocuronium (ZEMURON) multi-dose injectio n Given 11/02/2016 8:54 AM EDT 30 mg PRN, Starting on Tue11/02/16 at 0734, Until Tue11/02/16 at 1014, Anesthesia Intra-op, Routine Given 11/02/2016 8:06 AM EDT 20 mg Given 11/02/2016 7:34 AM EDT 50 mg documented in this encounter Care Teams Receiving Clerk Relationship Specialty Start Date End Date Americo Hough PA PCP - General General Internal Medicine 08/04/16 [address] [place] [address] documented as of this encounter
--- OUTSIDE RECORDS SUMMARY | 2022-01-29 00:44 | XMS_ITS | Encounter Summary ---
:1965 Author Organization [facility] [place] [address] Care Team Providers Name Role Phone Yovani Flores MD Primary Care Provider [phone] Reason for Visit Reason Onset Date Comments Medication Refill 06/05/2013 Encounter Details Date Type Department Care Team Description 06/05/2013 Refill [place] [facility] Tiffanei Faulkner, [facility] [place] [address] Social History Tobacco Use Types Packs/Day [...] on filedocumented in this encounter Care Teams Customer Counter Representative Relationship Specialty Start Date End Date Yovani Flores MD PCP - General 11/28/12 11/14/13 [facility] GENERAL [place] [address] documented as of this encounter
--- OUTSIDE RECORDS SUMMARY | 2022-01-29 00:44 | XMS_ITS | Encounter Summary ---
:1965 Author Organization [facility] [place] [address] Care Team Providers Name Role Phone Niles Roy MD Primary Care Provider [phone] Encounter Details Date Type Department Care Team Description 11/12/2015 Orders Only Gastroenterology at [place] Jaswant Faust Chronic viral [facility] Melvina [place] [address] [facility] delta agent and [phone] without [place] [address] Social History Tobacco Use Types Packs/Day Years [...] as of this encounter Visit Diagnoses Diagnosis Chronic viral hepatitis B without delta agent and without coma documented in this encounter Care Teams Roller Stainer Relationship Specialty Start Date End Date Niles Roy MD PCP - General Family Medicine 09/08/15 05/06/16 [address] [place] [address] documented as of this encounter
--- OUTSIDE RECORDS SUMMARY | 2022-01-29 00:44 | XMS_ITS | Encounter Summary ---
:1965 Author Organization [facility] [place] [address] Care Team Providers Name Role Phone Niles Roy MD Primary Care Provider [phone] Encounter Details Date Type Department Care Team Description 10/15/2015 Telephone Gastroenterology at [facility] [place] [address] Social History Tobacco Use Types Packs/Day Years Used Date Current Every Day Smoker Cigarettes 1 Smokeless Tobacco: Never Used Alcohol Use Standard Drinks/Week Comments Yes 8.3 (1 standard drink = 0.6 oz pure alco hol) once in a while Sex Assigned at Date Recorded Not on file documented as of this encounter Miscellaneous Notes Telephone Encounter - Yeimy Gil - 10/15/2015 2:23 PM EST Caller: PCP, Dr. Shalini Hughes Call back number: [phone] Reason for call: discuss this mutual pt Call back urgency: today, when available documented in this encounter Plan of Treatment Not on filedocumented as of this encounter Visit Diagnoses Not on filedocumented in this encounter Care Teams Chucking Machine Set Up Operator Tool Relationship Specialty Start Date End Date Niles Roy MD PCP - General Family Medicine 09/08/15 05/06/16 [address] [place] [address] documented as of this encounter
--- OUTSIDE RECORDS SUMMARY | 2022-01-29 00:44 | XMS_ITS | Encounter Summary ---
:1965 Author Organization [facility] [place] [address] Care Team Providers Name Role Phone Unavailable Primary Care Provider Unavailable Reason for Visit Reason Comments Pain Management Neck Pain Consultation (Routine) - Closed Specialty Diagnoses / Procedures Referred By Contact Refer red To Contact Pain Management Diagnoses Neck pain on right side Reynaldo Vieyra PA [facility] [address] [place] [address] [place] [address] Phone: Fax: Referral ID Status Reason Start Date Expiration Date Visits V isits Requested Authorized [id number] Closed Consult, 06/18/2016 06/18/2017 1 1 Test & Treat Encounter Details Date Type Department Care Team Description 06/23/2016 Office Visit Pain Management at [facility] shoulder pain, unspecified chronicity; Roscoe SEEDLING PULLER Encounter for long-term current use of m edication [facility] [address], [place] [phone] Social History Tobacco Use Types Packs/Day Years [...] Sign Reading Time Taken Comments Blood Pressure 122/79 06/23/2016 10:44 AM EST Pulse 73 06/23/2016 10:44 AM EST Temperature - - Respiratory Rate - - Oxygen Saturation 98% 06/23/2016 10:44 AM EST Inhaled Oxygen Concentration - - Weight 78.5 kg (173 lb) 06/23/2016 10:44 AM EST Height 167.6 cm (5' 6) 06/23/2016 10:44 AM EST Body Mass Index 27.92 06/23/2016 10:44 AM EST documented in this encounter Progress Notes Kristin Grace APRN - 07/15/2016 3:25 PM EST Urine results INconsistent with patient reported history on date of this test -+ THC confirmed by GC/MS. Kristin Grace DNP, ANP-CS, SEEDLING PULLER Nurse Practitioner [facility] APRN - 06/23/2016 11:00 AM EST [facility] [place] [address] Phone: PAIN MANAGEMENT NEW PATIENT / CONSULTATION NOTE DATE OF VISIT 06/23/2016 Patient Maria Isabel Brian 1965 REFERRING PROVIDER EDUARDO Simpson [facility] [place] [address] PRIMARY CARE PROVIDER No primary care provider on file. CHIEF COMPLAINT: Maria Isabel Brian is a 51 y.o. female with neck pain, who is seen in consultation at the request of EDUARDO Traore for evaluation, recommendations, and management.The history is obtained from the patient, and I have reviewed medical records provided by the referring physician and located in the electronic medical record to fill in gaps in the patient's recollection of events, treatments and outcomes. PER PATIENT: pain management HPI Post cervical fusion (ACDF C5-6 )- [facility] (work related injury) in 2003 or 2004 (Workman's compensation case is closed). Did well until fell and fractured right clavicle end of October,. She was running with her dog, he stopped suddenly and she fell over him. Over time, the neck and right shoulder pain has worsened. Se[place] [facility] [place] by EDUARDO Traore who referred her for cervical medial branch blocks C4-5 and C5-6. She started the procedure on 06/17/16 but it was aborted because she complained of unbearable pain and wanted the procedure stopped. She complained on significantpain after the procedure. She saw Mr. Vieyra on 06/21/16 who gave her a prescription for toradol and robaxin, discussed FRP and referred her to the pain clinic for evaluation. PAIN ASSESSMENT: Description: constant pain base of neck RIGHT side, tightness through posterior shoulder blade, top of shoulder, front of shoulder- down posterior- lateral right arm to elbow; described as burning Intermittent- up back of head, curves over ear, and eye causing headache but this is rare and not the problem Worsens when sleeping (can't get comfortable) Improves with pressure on shoulder blade and keeping head back (balanced over spine) PEG (Pain, Enjoyment, General Activity Scale) In the past week: Pain on average? With medications 03/17 0 1 2 3 4 5 6 7 8 9 10 No pain As bad as you can imagine Pain interfered with Enjoyment of Life? 05/17 0 1 2 3 4 5 6 7 8 9 10 Does not intefere Completely interferes Pain interfered with General Activity? 05/17 0 1 2 3 4 5 6 7 8 9 10 Does not intefere Completely interferes myD-H Pain 06/23/2016 VR12 - Physical Summary Component 24.22 VR12 - Mental Component Summary 31.7 Audit C 4 (At Risk) MODEMS Satisfaction 33.33 Family History of Substance Abuse (Female) 0 Personal History of Substance Abuse(Female) 0 Age 0 History of Preadolescent sexual abuse(Female) 0 Psychological Disease 1 ORT Total Scores (Female) 1 BPI Severity Score 7 BPI Interference Score 7.71 CURRENT THERAPIES: notes improvement with new medications toradol 10 mg X 5 days (started Tuesday) Robaxin 500 mg X 5 days (started Tuesday) acetaminophen PAST THERAPIES: Gabapentin tried for couple of months- stopped over a month ago; 900 mg 2-3 times per day PT twice tried Dee based- too painful and inflamed Massage Oxycodone, morphine Lidocaine patches No acupuncture No chiropractor No TCA No pool therapy No CBT ADVERSE DRUG REACTIONS Allergies as of 06/23/2016 - Review Complete 06/23/2016 Allergen Reaction Noted ??? Morphine 04/13/2016 ??? Multivitamin 04/13/2016 MEDICATIONS [place] and [place] Prescription Monitoring [place] were checked & no concerns identified Medications 06/23/161941 Medication Sig Taking? ketorolac (TORADOL) 10 mg Tablet Take 1 tablet by mouth every 6 hours as needed for Pain. Yes methocarbamol (ROBAXIN) 500 mg Tablet Take 1 tablet by mouth 4 times daily. Yes acetaminophen (TYLENOL) 500 mg Tablet Take 1,000 mg by mouth every 6 hours as needed for Pain. Yes citalopram (CELEXA) 40 mg Tablet Take 40 mg by mouth daily. Yes traZODone (DESYREL) 50 mg Tablet Take 50 mg by mouth nightly. Yes REVIEW OF SYSTEMS: Constitutional: denies fever, chills, cough, signs of infection, weight changes, fatigue HEENT: + headaches, -blurry/limited vision Cardiac:+ chest pain (due to toradol) Or no pressure, palpitations Lungs: mild SOB on exertion GI: denies nausea, vomiting, acid reflux, constipation, or loss of control : denies urinary hesitation, retention or incontinence Neuro: denies dizziness, numbness, seizures, tremors, sedation, memory loss, confusion Muscle skeletal: denies use of ambulatory aide, falls (fell in 10/21- was jogging with dog and he stopped quick and she fell over him) Skin: denies open sores or rashes Psychological/Mood: + depression (worse in May when daughter ) sees counselor regularly (has PTSD); denies thoughts of harming self Sleep:Sleep apnea: uncomfortable to sleep- keeps waking up Sexual/reproductive: Chance of ? 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 Plays [employer]- just moved here at end of July 2015 RISK ASSESSMENT: Smoking: a little under 1 ppd Alcohol:How often do you have a drink containing alcohol ? None (hx DUI 2012) when asked about alcohol abuse in her chart, she stated she was drinking alcohol for the pain Are you now or have you ever used illegal drugs or used a prescription drug for a non-medical reason? Denies Are you now or in past received methadone or suboxone (buprenorphine) for substance abuse? Denies Ever participated in drug or alcohol rehabilitation program? Denies Share your pain medications or accepted pain medications from family/friends? Denies Ever been incarcerated? Denies Opioid Risk Tool Female Male 1. Family history of Substance Abuse Alcohol [] 1 [] 3 Illegal Drugs [x] 2 [] 3 Prescription Drugs [x] 4 [] 4 2. Personal History of Substance Abuse Alcohol [x] 3 [] 3 Illegal Drugs [] 4 [] 4 Prescription Drugs [] 5 [] 5 3. Age (barbra box if 16-45) [] 1 [] 1 4. History of Preadolescent Sexual Abuse [] 3 [] 0 5. Psychological Disease Attention Deficit Disorder, Obsessive Compulsive D/o, Bipolar, Schizophrenia [] 2 [] 2 Depression [x] 1 [] 1 TOTAL: 10 Comments about ORT in relation to this patient: Brother heroin use, brother methadone for pain- felland States she found a needle/syringe at her mother's house- snapped it in half and was punctured by needle, 6-7 weeks later, didn't feel well and diagnosed with hepatitis B (has 7 year relationship with current financee) Opioid Risk Category: Low risk 0-3 Moderate risk 4-7 High risk >=8 MEDICAL HISTORY Past Medical History Diagnosis Date ??? Alcohol abuse, in remission ??? Anxiety ??? Depression 06/19/2012 ??? Hepatitis SURGICAL HISTORY Past Surgical History Procedure Laterality Date ??? Orthopedic surgery left wrist fracture iliac crest bone graft 25 years ago ??? Pro unlisted cranio/maxillofacial surg ??? Pro unlisted procedure, musculoskeletal system, general ??? Partial hysterectomy FAMILY HISTORY Family History Problem Relation Age of Onset ??? Medical History Unknown Father PHYSICAL EXAMINATION Vitals: 06/23/16 1044 BP: 122/79 Pulse: 73 Body mass index is 27.92 kg/(m^2). Visit Vitals ??? BP 122/79 ??? Pulse 73 ??? Ht 167.6 cm (5' 6) ??? Wt 78.5 kg (173 lb) PHQ-9 QUESTIONNAIRE SCORE ONLY (AMB) 04/25/2013 PHQ - 9 Score (Clinic) 0 (No Depression) PHQ - 9 Score (Patient) - Appearance/ Behavior Seen alone, clear speech, appears chronically ill Eyes Sclera anicteric, conjunctiva clear. ENT Hearing grossly intact Lungs CTA bilaterally Cardiovascular Reg RR without murmur, Skin No rash, asymmetric hair loss, bruises, scars, swelling Musckuloskeletal Inspection/Palpation/ Range of Motion/Facet Loading maneuvers Gait: normal Assistive device:none Inspection: + swelling right clavicle Palpation:+ tenderness in right shoulder joint, right clavicle Limited ROM right shoulder, especially when lifting over head and adduction Neck flexion to 30 Degrees did not cause pain Neck extension to 20 degrees cause Tightness in neck Spurlings: did not cause arm symptoms/ pain Neuro Motor Strength Segment?? Muscle?? Action?? Left?? Right?? C5?? Deltoid ?? Shoulder Abduction?? 5?? 5?? C6?? Biceps ?? Elbow flexion?? 5?? 5?? C6?? Extensor carpi radialis ?? Wrist extension?? 5?? 5?? C7?? Triceps?? Elbow extension?? 5?? 5?? C8?? Finger flexors?? Grasp?? 5?? 5?? L2?? Iliopsoas?? Hip flexion ?? 5?? 5?? L3?? Quadriceps?? Knee extension?? 5?? 5?? L4?? Tibialis anterior?? Dorsiflexion?? 5?? 5?? L5?? Extensor hallucis?? Great toe extension?? 5?? 5?? S1?? Gastrocnemius?? Plantar flexion?? 5?? 5? Reflexes ? Reflex?? Left?? Right?? Biceps?? 2+?? 2+?? Triceps?? 2+?? 2+?? Patellar?? 2+ 2+ Ankle jerk?? 2+?? 2+?? Plantar response?? Downgoing?? Downgoing?? Clonus negative negative Wheat negative negative ?? Sensory Exam: No sensory deficits noted in cervical dermatomes Vascular: warm to touch + 2 pedal pulses RADIOGRAPHIC STUDIES 05/07/16 I have personally reviewed images from the following studies: ?? FINDINGS: ?? The patient is status post C5-C6 ACDF with solid-appearing osseous ankylosis. There is loss of the normal cervical lordosis. Vertebral body heights and regional bone marrow signal intensity are maintained. Mild right-sided C4 inferior endplate fatty marrow change is present. The cervical cord is normal in caliber and signal intensity. ?? C2-C3: No central canal stenosis or neural foraminal narrowing. ?? C3-C4: No central canal stenosis. Minimal facet arthropathy is present bilaterally, though not resulting in neural foraminal narrowing. ?? C4-C5: Very mild facet and uncovertebral arthropathy are present, though without notable neural foraminal narrowing. A tiny central posterior disc osteophyte complex is present though without canal narrowing. ?? C5-C6: The intervertebral disc space is obliterated by solid appearing ankylosis status post C5-C6 fusion. No central canal narrowing. Uncovertebral arthropathy contributes to mild bilateral neural foraminal narrowing. ? C6-C7: Small disc osteophyte complex which is slightly eccentric to the right is present. This, along with facet and uncovertebral arthropathy, contribute to moderate right-sided neural foraminal narrowing. Uncovertebral spur may contact the exiting right C7 nerve root. Similar findings produce mild left-sided neural foraminal narrowing. ? C7-T1: No canal or neural foraminal narrowing. ? IMPRESSION Very mild degenerative changes in the cervical spine. These are most pronounced at C6/C7 where degenerative disc disease and osseous overgrowth contribute to moderate right-sided neural foraminal narrowing. Uncovertebral spur may contact the right C7 nerve root. ASSESSMENT 51 yo woman with right sided shoulder/neck pain without myelopathic or radicular signs. Unable to tolerate cervcial MBB injection. She has pain with palpation of shoulder joint and limited right shoulder ROM. High risk ORT score PLAN/RECOMMENDATIONS We discussed the following recommendations: She has already set up orthopedic evaluation in early July. I believe her right sided shoulder symptoms are from her shoulder, not her neck. Since she is receiving some relief from the torodol and robaxin in the past 2 days, she will complete the course as prescribed and then go back to her ibuprofen. Denies anything in UDT today. She will follow up with me if needed after the orthopedic evaluation of her shoulder. Would not recommend CLAY Or opioid therapy. I considered diclofenac gel however she has recent history of hepatitis with elevated liver enzymes. Maria Isabel Brian had the opportunity to ask questions and indicated that all questions were answeredto her satisfaction. Thank you for this referral, EDUARDO Simpson [facility] [place] [address]. Kristin Grace, DNP, ANP-CS, SEEDL[employer] PULLER Nurse Practitioner [facility] documented in this encounter Plan of Treatment Not on filedocumented as of this encounter Procedures Procedure Name Priority Date/Time Associated Comments Diagnosis DRUG SCREEN WITH Routine 06/23/2016 10:52 Encounter for Result s for this CONFIRMATION, URINE AM EST long-term current pro cedure are in (SEND OUT) use of medication the result s section. THC (MARIJUANA), Routine 06/23/2016 10:52 Results for this URINE, CONFIRMATION AM EST procedur e are in the results section. documented in this encounter Results THC (Marijuana), Urine Confirmation (06/23/2016 10:52 AM EST) [facility] Method Time Signature U THC Conf ROSA Test ? Result ? Flag ??Unit ?? RefValue [facility] Carboxy-THC Confirmation, U HO SPITAL ??Carboxy-THC- by GC/MS ?19 ? ng/mL ??Cutoff: 3.0 LABORATORY ??Carboxy-THC ?Positive. ?Interpretation ? ADDITIONAL INFORMATION ------ ?This report is intended for use in clinical monitoring and ?management of patients. ??It is not intended for use i n ?employment-related testing. ?Test Performed by: ?[facility] [address] ?[address] [place] [id number] ?Liquor Commissioner: Yovani Amador II, M.D., Ph.D . Specimen Anatomical Collection Method Collection Time Receive d Time (Source) Location / / Volume Laterality Urine specimen 06/23/2016 10:52 6 3:08 (specimen) AM EST PM EST Resulting Agency Comment Spec In Lab J Carlos Galarza MD URINE ORDERABLES Performing Organization Address City/State/ZIP [place] [address] (ABNORMAL) Drug Screen with Confirmation, Urine (06/23/2016 10:52 AM EST) Component Value Ref Test Analysis Performed At [facility] Range Method Time Signature U JOSSE w/Conf ROSA Test ? Result ? Flag ??Unit ?? RefValue [place] [facility] Survey, [facility] ??Creatinine, U ?13.0 ? mg/dL LABORATORY ??Specific [place] ? 1.002 ??pH ? 7.1 ??Oxidants ? Negative ?Cutoff: 200 mg/L ??Comment ?Suspect diluted specimen. ??Amphetamines ? Negative ? ng/mL ??Cutoff: 500 ??Barbiturates ? Negative ? ng/mL ??Cutoff: 200 ??Benzodiazepines ?Negative ? ng/mL ??Cutoff: 100 ??Cocaine ?Negative ? ng/mL ??Cutoff: 150 ??Phencyclidine ?Negative ? ng/mL ??Cutoff: 25 ??Tetrahydrocannabinol ? Presumptive Positive ??@ ?ng/mL ??Cutoff: 50 ?Drug confirmation to follow. ??Presumptive Positive me ans ?that the screening method is positive, but the test ne eds ?to be run by a confirmatory method before being finali zed. ? ADDITIONAL INFORMATION ------ ?This report is intended for use in clinical monitoring or ?management of patients. ??It is not intended for use i n ?employment-related testing. ??Codeine ?Not Detected ? ng/mL ??Cutoff: 25 ?Tylenol 3 ??Kdgdqle-3-imha- ?Not Detected ? ng/mL ??Cutoff: 100 ?glucuronide ?Metabolite of codeine ??Morphine ? Not Detected ? ng/mL ??Cutoff: 25 ?Marilynn Foss, MS Contin; Also a minor metabolite (10 %) of ?codeine and can be seen in low concentrations (<2,000 ?ng/mL) with poppy seed ingestion. ??Favcpiir-7-fzcs- ? Not Detected ? ng/mL ??Cutoff: 100 ?glucuronide ?Metabolite of morphine ??6-monoacetylmorphine ? Not Detected ? ng/mL ??Cutoff: 25 ?Metabolite of heroin ??Hydrocodone ?Not Detected ? ng/mL ??Cutoff: 25 ?Lortab, [place], Vicodin; Also a very minor metabolite o f ?codeine and impurity (<1%) of oxycodone. ??Norhydrocodone ? Not Detected ? ng/mL ??Cutoff: 25 ?Metabolite of hydrocodone ??Dihydrocodeine ? Not Detected ? ng/mL ??Cutoff: 25 ?Metabolite of hydrocodone ??Hydromorphone ?Not Detected ? ng/mL ??Cutoff: 25 ?Dilaudid, Exalgo; Also a metabolite of hydrocodone and a ?minor (<5%) metabolite of morphine. ??Gjfbnpxjeyvtj-1-ktso- ?Not Detected ? ng/mL ??Cutoff: 100 ?glucuronide ?Metabolite of hydromorphone ??Oxycodone ?Not Detected ? ng/mL ??Cutoff: 25 ?Endocet, Percocet, Oxycontin ??Noroxycodone ? Not Detected ? ng/mL ??Cutoff: 25 ?Metabolite of oxycodone ??Oxymorphone ?Not Detected ? ng/mL ??Cutoff: 25 ?Numorphan, Opana; Also a metabolite of oxycodone. ??Athrjbelkar-3-ggue- ?Not Detected ? ng/mL ??Cutoff: 100 ?glucuronide ?Metabolite of oxymorphone ??Noroxymorphone ? Not Detected ? ng/mL ??Cutoff: 25 ?Metabolite of oxymorphone ??Fentanyl ? Not Detected ? ng/mL ??Cutoff: 2 ?Actiq, Duragesic, Fentora ??Norfentanyl ?Not Detected ? ng/mL ??Cutoff: 2 ?Metabolite of fentanyl ??Meperidine ? Not Detected ? ng/mL ??Cutoff: 25 ?Demerol ??Normeperidine ?Not Detected ? ng/mL ??Cutoff: 25 ?Metabolite of meperidine ??Naloxone ? Not Detected ? ng/mL ??Cutoff: 25 ?Narcan ??Gagpbzoo-4-guit- ? Not Detected ? ng/mL ??Cutoff: 100 ?glucuronide ?Metabolite of naloxone ??Methadone ?Not Detected ? ng/mL ??Cutoff: 25 ?Dolophine ??EDDP ? Not Detected ? ng/mL ??Cutoff: 25 ?Metabolite of methadone ??Propoxyphene ? Not Detected ? ng/mL ??Cutoff: 25 ?Darvon, Darvocet ??Norpropoxyphene ?Not Detected ? ng/mL ??Cutoff: 25 ?Metabolite of propoxyphene ??Tramadol ? Not Detected ? ng/mL ??Cutoff: 25 ?Tradol, Ultram, Ultracet ??O-desmethyltramadol ?Not Detected ? ng/mL ??Cutoff: 25 ?Metabolite of tramadol ??Tapentadol ? Not Detected ? ng/mL ??Cutoff: 25 ?Nucynta ??N-desmethyltapentadol ?Not Detected ? ng/mL ??Cutoff: 50 ?Metabolite of tapentadol ??Tapentadol-beta- ? Not Detected ? ng/mL ??Cutoff: 100 ?glucuronide ?Metabolite of tapentadol ??Buprenorphine ?Not Detected ? ng/mL ??Cutoff: 5 ?Buprenex, Suboxone ??Norbuprenorphine ? Not Detected ? ng/mL ??Cutoff: 5 ?Metabolite of buprenorphine ??Norbuprenorphine ? Not Detected ? ng/mL ??Cutoff: 20 ?glucuronide ?Metabolite of buprenorphine ??Opioid Interpretation ?SEE COMMENTS ?No opioids were detected. The absence of expected drug (s) ?and/or drug metabolite(s) may indicate non-compliance, ?altered pharmacokinetics, inappropriate timing of spec imen ?collection relative to drug administration, ?diluted/adulterated urine, or limitations of testing. ? ADDITIONAL INFORMATION ------ ?This test was developed and its performance characteri stics ?determined by [facility] in a manner consistent with CLIA ?requirements. This test has not been cleared or approv ed by ?the U.S. Food and Drug Administration. ?Test Performed by: ?[facility] [address] ?[address] [place] [address] ?Liquor Commissioner: Yovani Amador II, M.D., Ph.D . (A) Specimen Anatomical Collection Method Collection Time Receive d Time (Source) Location / / Volume Laterality Urine specimen 06/23/2016 10:52 6 3:08 (specimen) AM EST PM EST Resulting Agency Comment Spec In Lab J Carlos Galarza MD URINE ORDERABLES Performing Organization Address City/State/[place] [address] documented in this encounter Visit Diagnoses Diagnosis Right shoulder pain, unspecified chronic ity Encounter for long-term current use of m edication documented in this encounter
--- OUTSIDE RECORDS SUMMARY | 2022-01-29 00:44 | XMS_ITS | Encounter Summary ---
:1965 Author Organization [facility] Address [address] [facility] [address] [place] [address] Care Team Providers Name Role Phone Niles Carlson MD Primary Care Provider [phone] Reason for Visit Reason Comments Follow-up Encounter Details Date Type Department Care Team Description 10/28/2015 Office Visit Gastroenterology at [facility] Jaswant Faust Hepatitis B [facility] [place] [address] [facility] delta agent without [phone] CENTER hepatic coma, GASTROENTEROLOGY unspecified [place] [address] Social History Tobacco Use Types Packs/Day Years [...] Sign Reading Time Taken Comments Blood Pressure 117/65 10/28/2015 9:29 AM EDT Pulse 81 10/28/2015 9:29 AM EDT Temperature - - Respiratory Rate - - Oxygen Saturation - - Inhaled Oxygen Concentration - - Weight 69.4 kg (153 lb) 10/28/2015 9:29 AM EDT Height 167.6 cm (5' 6) 10/28/2015 9:29 AM EDT Body Mass Index 24.69 10/28/2015 9:29 AM EDT documented in this encounter Progress Notes Jaswant Faust MD - 10/28/2015 9:30 AM EDT [facility] NEW HEPATOLOGY EVALUATION Patient: Maria Isabel Brian Date of : 1965 MECHANICAL SERVICE TECHNICIAN: Jaswant Faust MD PCP: NILES CARLSON MD Requesting Provider: 10/28/2015 REASON FOR CONSULTATION HBV HISTORY OF PRESENT [...] a while. She has had previous HAV, Repeat labs T.bili: 10 and AST/ALT: 1000's and alk phos: 150's. Hep B e antigen +, Hep B e ab: negative, Hep B surface antigen + with Hep B surface ab: negative. Returns 10-28-2015. Has fatigue and pruritis, treated with cholestyramine, joint pains improving. Overall feeling much better. Liver enzymes improving, DNA down to 22,100 IU ml, bili now 4.53 PROBLEM LIST Patient Active Problem List Diagnosis ??? HBV (hepatitis B virus) infection ??? FH: NICOLE-BSO (total abdominal hysterectomy and bilateral salpingo- oophorectomy) BRAC2 + 2010 ??? Smoker ??? Pain in wrist ??? [...] Father with spine cancer REVIEW OF SYMPTOMS PHYSICAL EXAM Filed Vitals: 10/28/15 0929 Height: 167.6 cm (5' 6) Weight: 69.4 kg (153 lb) Body mass index is 24.71 kg/(m^2). Constitutional: Appears fatigued Skin: no cyanosis, , no spider angiomata, no flynn erythema, jaundiced, + tattoos HEENT : PERRLA, sclera anicteric [...] is a 50 y.o. with acute HBV markedly elevated liver enzymes and initially normal bilirubin. Had marked elevation of bilirubin with pruritis. Now with marked fall in liver enzymes, bilirubin and HBV DNA level. Likely clearing virus and heading in to recovery phase -Will check cbc, Chem group INR, HBV DNA, eAg, eAg sab Sab. If synthetic tests improved would check monthly for another 3 months and then every 3 months until sag to Ab seroconversion. Document 6 monthlater clearance. -If clears no risk of detention consequences -Fiancee is with her, State no close contact for some time, as incubation period is 6 weeks to 6 months. Should be tested for sAb and sab, core antibody, if negative sab needs vaccination Jaswant Faust MD Section of Gastroenterology and Hepatology [facility] [place] [address] V: [phone] F: [phone] Copy: NILES CARLSON MD documented in this encounter Plan of Treatment Not on filedocumented as of this encounter Procedures Procedure Name Priority Date/Time Associated Comments Diagnosis HBV QUANT Routine 10/28/2015 10:34 Hepatitis B Results for this AM EDT infection without procedure are in delta agent without the resu lts hepatic coma, section. unspecified chronicity HEPATITIS B DNA, Routine 10/28/2015 10:34 Hepatitis B QUANTITATIVE, PCR AM EDT infection without delta agent without hepatic coma, unspecified chronicity HEMOGRAM Routine 10/28/2015 10:34 Hepatitis B Results for this AM EDT infection without procedure are in delta agent without the resu lts hepatic coma, section. unspecified chronicity DIFFERENTIAL, Routine 10/28/2015 10:34 Hepatitis B Results fo r this AUTOMATED AM EDT infection without procedure are in delta agent without the resu lts hepatic coma, section. unspecified chronicity HEPATITIS BE ANTIGEN Routine 10/28/2015 10:34 Hepatitis B Res ults for this AND ANTIBODY AM EDT infection without procedure are in delta agent without the resu lts hepatic coma, section. unspecified chronicity HEPATITIS B SURFACE Routine 10/28/2015 10:34 Hepatitis B Resu lts for this ANTIBODY AM EDT infection without procedure are in delta agent without the resu lts hepatic coma, section. unspecified chronicity HEPATITIS B SURFACE Routine 10/28/2015 10:34 Hepatitis B Resu lts for this ANTIGEN AM EDT infection without procedure are in delta agent without the resu lts hepatic coma, section. unspecified chronicity PROTHROMBIN TIME Routine 10/28/2015 10:34 Hepatitis B Results for this AM EDT infection without procedure are in delta agent without the resu lts hepatic coma, section. unspecified chronicity CBC (WITH DIFF) Routine 10/28/2015 10:34 Hepatitis B AM EDT infection without delta agent without hepatic coma, unspecified chronicity COMPREHENSIVE Routine 10/28/2015 10:34 Hepatitis B Results fo r this METABOLIC PANEL AM EDT infection without procedu re are in (NON-FASTING) delta agent without the res ults hepatic coma, section. unspecified chronicity documented in this encounter Results HBV Quant (10/28/2015 10:34 AM EDT) Component Value Ref Test Analysis Performed At [facility] Method Time Signature Hepatitis B Result: 3729 IU/mL FINN SAN quantitative, Indication for Study: Hepatitis B Infection [facility] Analysis: A quantitative real time reverse transcriptase P CR assay was LABORATORY performed on extracted viral RNA for the purpose of quantifi cation. Sample: plasma (0.5 mL minimum volume) Method: Holley Tania TaqMAN 48 HBV Linear Range: 20IU/mL - 170,000,000 IU/mL (95% CI) Interpretation: The result of this analysis is w ithin the limits of detection of the assay. Note: This assay is being pe rformed in the [facility] Molecular Pathology Laboratory. Mk Mata, Ph.D. Director, Molecular Pathology Specimen Anatomical Collection Method Collection Time Receive d Time (Source) Location / / Volume Laterality Blood specimen 10/28/2015 10:34 6 4:23 (specimen) AM EDT PM EDT Resulting Agency Comment Spec In Lab Jaswant Faust MD CHEMISTRY ORDERABLES Performing Organization Address City/State/[place] [address] Differential, Automated (10/28/2015 10:34 AM EDT) P athologist Signature Neutrophils % 56.4 % [facility] LABORATORY Neutr Abs (ANC) 4.28 1.50 - [facility] 6.30 [facility] x10(3)/[facility] LABORATORY Lymphocytes % 31.6 % [facility] LABORATORY Lymphocytes Abs 2.4 1.0 - 3.6 [facility] x10(3)/[facility] LABORATORY Monocytes % 9.4 % [facility] LABORATORY Monocyte Abs 0.7 0.2 - 1.0 [facility] x10(3)/[facility] LABORATORY Eosinophils % 1.8 % [facility] LABORATORY Eosinophils Abs 0.1 0.0 - 0.5 [facility] x10(3)/[facility] LABORATORY Basophils % 0.5 % [facility] LABORATORY Basophils Abs 0.0 0.0 - 0.2 [facility] x10(3)/[facility] LABORATORY Immature Gran % 0.30 % [facility] LABORATORY Comment: Immature granulocytes(IG's)percentage an d absolute count will include metamyelocytes, myelocytes, and promyelo cytes. Blood smears from CBCs yielding IG's will be scanned manually for concor danuna. If this scan disagrees with the automated IG or if promyelocytes are not ed, a manual differential will be performed. Zoë Gran Abs 0.02 0.00 - 0.05 x10(3)/[facility] MAR Y [facility] LABORATORY Specimen Anatomical Collection Method Collection Time Receive d Time (Source) Location / / Volume Laterality Blood specimen 10/28/2015 10:34 6 (specimen) AM EDT 11:05 AM EDT Resulting Agency Comment Spec In Lab Jaswant Faust MD HEMATOLOGY ORDERABLES Performing Organization Address City/State/ZIP Code Phon e Number [place] [id number] (ABNORMAL) Hemogram (10/28/2015 10:34 AM EDT) P athologist Signature WBC 7.6 4.0 - 10.0 [facility] x[facility](3[facility] LABORATORY RBC 4.47 3.93 - [facility] FINN 5.22 [facility] x10(6)/[facility] LABORATORY Hemoglobin 14.4 11.2 - [facility] FINN 15.7 gm/dL [facility] LABORATORY Hematocrit 42.1 34.0 - [facility] FINN 45.0 % [facility] LABORATORY MCV 94.2 (H) 79.0 - [facility] LABORATORY MCH 32.2 26.6 - [facility] FINN 32.2 pg [facility] LABORATORY MCHC 34.2 32.0 - [facility] FINN 36.5 gm/dL [facility] LABORATORY Platelets 367 145 - 370 [facility] x[facility](3[facility] LABORATORY RDWSD 53.8 (H) 35.0 - [facility] FINN 46.0 [facility] LABORATORY RDWCV 15.7 (H) 10.9 - [facility] FINN 14.4 % [facility] LABORATORY MPV 11.0 9.0 - 12.0 [facility] Specimen Anatomical Collection Method Collection Time Receive d Time (Source) Location / / Volume Laterality Blood specimen 10/28/2015 10:34 6 (specimen) AM EDT 11:05 AM EDT Resulting Agency Comment Spec In Lab Jaswant Faust MD HEMATOLOGY ORDERABLES Performing Organization Address City/[facility]/[place] [address] (ABNORMAL) Hepatitis BE Antigen and Antibody (10/28/2015 10:34 AM EDT) P athologist Signature Hep B E Ag Negative Negative [facility] LABORATORY Comment: Test Performed by: [facility] [place] [address] Risk Control Manager: Ray Vargas Hep B E Ab Positive (A) Negative [facility] LABORATORY Comment: Test Performed by: [facility] [place] [address] Risk Control Manager: Ray Vargas Specimen Anatomical Collection Method Collection Time Receive d Time (Source) Location / / Volume Laterality Blood specimen 10/28/2015 10:34 6 1:43 (specimen) AM EDT PM EDT Resulting Agency Comment Spec In Lab Jaswant Faust MD IMMUNOLOGY ORDERABLES Performing Organization Address City/[facility]/[place] [address] Hepatitis B Surface Antibody (10/28/2015 10:34 AM EDT) Analysis Performed At Patho logist Time Signature HepB Surface Negative [facility] LABORATORY Comment: Expected Results: Vaccinated: Positive Unvaccinated: Negative Please note: A positive result for this assay is consistent with a concentration of anti-HBs antibodies >10 mIU/ml, which indicates that anti-HBs antibodies have been detected at levels consistent with protective immunity against HBV infection. Specimen Anatomical Collection Method Collection Time Receive d Time (Source) Location / / Volume Laterality Blood specimen 10/28/2015 10:34 6 (specimen) AM EDT 11:05 AM EDT Resulting Agency Comment Spec In Lab Jaswant Faust MD IMMUNOLOGY ORDERABLES Performing Organization Address City/[facility]/[place] [address] (ABNORMAL) Hepatitis B Surface Antigen (10/28/2015 10:34 AM EDT) Patholo gist Method Time Signature HepB Surface Positive (A) Negative [facility] LABORATORY Comment: CONFIRMED 10/28/15 15:46 Specimen Anatomical Collection Method Collection Time Receive d Time (Source) Location / / Volume Laterality Blood specimen 10/28/2015 10:34 6 (specimen) AM EDT 11:05 AM EDT Resulting Agency Comment Spec In Lab Jaswant Faust MD CHEMISTRY ORDERABLES Performing Organization Address City/State/ZIP Code Phon e Number [address] Prothrombin Time (10/28/2015 10:34 AM EDT) P athologist Signature PT 13.2 12.0 - 15.0 [facility] LABORATORY Comment: An INR <2.0 indicates adequate procoagul ant activity for hemostasis in most patients without underlying bleeding dis orders, though the INR may not adequately reflect hemostatic capacity i n patients with liver disease and synthetic impairment. The recommended ta rget INR range for therapeutic anticoagulation is 2.0 ? 3.0 for most applications, though lower and higher ranges may be appropriate depending on c linical circumstances. INR 1.0 0.9 - 1.1 [facility] LABORATORY Specimen Anatomical Collection Method Collection Time Receive d Time (Source) Location / / Volume Laterality Blood specimen 10/28/2015 10:34 6 (specimen) AM EDT 11:05 AM EDT Resulting Agency Comment Spec In Lab Jaswant Faust MD HEMATOLOGY ORDERABLES Performing Organization Address City/State/[place] [address] (ABNORMAL) Comprehensive metabolic panel (non-fasting) (10/28/2015 10:34 AM EDT) P athologist Signature Glucose Lvl 95 65 - 199 [facility] mg/dL [facility] LABORATORY Comment: Diabetes: >=200 mg/dL plus symp toms BUN 6 (L) 8 - 18 mg/dL [facility] LABORATORY Creatinine 0.68 (L) 0.70 - 1.20 mg/dL [facility] LABORATORY Comment: Please note that the pediatric reference intervals supplied above were not validated at [facility]. Results from pediatri c patients should be interpreted in conjunction to the patient's age, height and muscle mass. Sodium 138 135 - 145 mmol/L [facility] LABORATORY Potassium 4.5 3.5 - 5.0 mmol/L [facility] LABORATORY Comment: Please note: ??Patients with WBC >100,00 0 may have falsely elevated Potassium levels. ??For accurate Potassium quantif ication in these patients send serum separator tube (gold top) for subsequent determinations. ??Contact the Clinical Chemistry Laboratory if there are any qu estions. Chloride 101 98 - 107 mmol/L [facility] LABORATORY CO2 25 22 - 31 mmol/L [facility] Anion Gap 12 5 - 15 mmol/L [facility] Calcium 9.1 8.5 - 10.5 mg/dL [facility] Total Protein 7.9 6.1 - 8.0 gm/dL [facility] Albumin 4.1 3.2 - 5.2 gm/dL [facility] AST 235 (H) 0 - 30 unit/L [facility] ALT 234 (H) 0 - 30 unit/L [facility] Alk Phos 363 (H) 40 - 104 unit/L [facility] Total Bilirubin 4.1 (H) 0.2 - 1.3 mg/dL [facility] LABOR[facility] Bili, Direct 2.0 (H) 0.0 - 0.3 mg/dL [facility] LAB[facility]ORY Estimated GFR >60 >=60 [facility] LAB[facility] Comment: This estimated GFR (eGFR) value [...] the following links into your internet browser. http://Citizengine/DHnkdep http://Citizengine/DHMCnkf Specimen Anatomical Collection Method Collection Time Receive d Time (Source) Location / / Volume Laterality Blood specimen 10/28/2015 10:34 6 (specimen) AM EDT 11:05 AM EDT Resulting Agency Comment Spec In Lab Jaswant Faust MD CHEMISTRY ORDERABLES Performing Organization Address City/State/[place] [address] documented in this encounter Visit Diagnoses Diagnosis Hepatitis B infection without delta agen t without hepatic coma, unspecified chronicity documented in this encounter Care Teams Revenue Director Relationship Specialty Start Date End Date Niles Carlson MD PCP - General Family Medicine 09/08/15 05/06/16 [address] [place] [address] documented as of this encounter
--- OUTSIDE RECORDS SUMMARY | 2022-01-29 00:44 | XMS_ITS | Encounter Summary ---
:1965 Author Organization [facility] [place] [address] Care Team Providers Name Role Phone Yovani Flores MD Primary Care Provider [phone] Reason for Visit Reason Onset Date Comments Medication Refill 06/04/2013 Encounter Details Date Type Department Care Team Description 06/04/2013 Refill [facility] Medicine at [facility] Tiffanie Faulkner, [facility] [place] [address] Social History Tobacco Use Types Packs/Day [...] on filedocumented in this encounter Care Teams Booth Usher Relationship Specialty Start Date End Date Yovani Flores MD PCP - General 11/28/12 11/14/13 [facility] [place] [address] documented as of this encounter
--- OUTSIDE RECORDS SUMMARY | 2022-01-29 00:44 | XMS_ITS | Encounter Summary ---
:1965 [place] [address] Care Team Providers Name Role Phone Americo Hough Primary Care Provider Reason for Visit Auth/Cert Specialty Diagnoses / Procedures Referred By Contact Refer red To Contact Diagnoses DJD of shoulder Shoulder DJD Procedures PRO RECONSTR TOTAL SHOULDER IMPLANT PRO REPAIR BICEPS LONG TENDON @TOTAL SHOULDER ARTHROPLASTY (WRVU 22.13) Referral ID Status Reason Start Date Expiration Date Visits Requ ested Visits Authorized [id number] 1 1 Encounter Details Date Type Department Care Team Description 11/02/2016 - [address], Primary osteoar thritis 11/04/2016 [facility] Blaine [facility] DR Perrin ORTHOPAEDIC [place], [place] SURGERY [id number] [place] [address] [facility] Social History Tobacco Use Types Packs/Day Years [...] Sign Reading Time Taken Comments Blood Pressure 96/55 11/04/2016 7:39 AM EDT Pulse 75 11/02/2016 12:15 PM EDT Temperature 37.3 ??C (99.1 ??F) 11/04/2016 7:39 AM EDT Respiratory Rate 16 11/04/2016 7:39 AM EDT Oxygen Saturation 91% 11/04/2016 7:39 AM EDT Inhaled Oxygen Concentration - - Weight 78.5 kg (173 lb 1 oz) 11/02/2016 6:15 AM EDT Height 167.6 cm (5' 6) 11/02/2016 6:21 AM EDT Body Mass Index 27.93 11/02/2016 6:15 AM EDT documented in this encounter Discharge Summaries Ely Constantino, THERMOSTAT MACHINE TENDER - 11/02/2016 2:18 PM EDT Discharge Summary Patient Name: Maria Isabel Brian Patient Age: 51 y.o. Language: Sudanese Race: White Ethnicity: Not nor Admit date: 11/02/2016 Discharge date and time: 11/04/2016 Attending Physician: Blaine Griffin MD Discharge Physician: Blaine Griffin MD Follow-up Recommendations for Providers: See discharge instructions for additional details. Future Appointments Date Time Provider Department Center 11/18/2016 11:10 AM Blaine Griffin MD [facility] 12/16/2016 12:25 PM [facility] ROOM 1 [facility] 12/16/2016 1:25 PM Blaine Griffin MD [facility] 01/27/2017 1:25 PM Blaine Griffin MD [facility] Inpatient Provider Contact Information: Blaine Griffin MD Orthopedics: [phone] After hours and weekends, call [facility] Director Cardiac, , and have the Orthopedic resident paged. [...] relieved by oral pain medication and a RECEPTION INTERVIEWER was started. Later on POD#1, her oxycodone was changed to oral Dilaudid and her pain was better controlled with decreased side effect of itching. The RECEPTION INTERVIEWER was discontinued the evening of POD#1. Her [...] Note: The patient declined referral to the [place] Quits Smoking Cessation Program. She states she [...] bowel movement. You can also take an gxgp-ggx-ccljlki medication, Miralax if needed to combat constipation. [...] air or lightly covered. Call your doctor (#[phone]) if: 1. You have a fever > [...] 1. You will have follow-up appointments at [facility] as indicated below in Future Appointment and Orders. 2. You will have x-rays prior to your appointment so please come to Radiology, desk 3T, 1 hour BEFORE your 6 week follow-up appointment for those x-rays on 12/16/2016. Future Appointments Date Time Provider Department Center 11/18/2016 11:10 AM Blaine Griffin MD [facility] 12/16/2016 12:25 PM [facility] DX ROOM 1 Xray [facility] 12/16/2016 [...] 11/18/2016 11:10 AM Blaine Griffin MD Orthopaedics [phone] 12/16/2016 1:25 PM Blaine Griffin MD Orthopaedics [phone] 01/27/2017 1:25 PM Blaine Griffin MD Orthopaedics [phone] Future Orders Complete By Expires Referral to Home Health - at DISCHARGE [XGR2328 CPT(R)] As directed Process Instructions: Scheduling Instructions: Comments: DOCUMENTATION FOR VNA SERVICES (INCLUDING THOSE PATIENTS WITH MEDICARE COVERAGE REQUIRING HOME VNA SERVICES AND/OR HOSPICE SERVICES) PATIENT'S LOCATION: Maria Isabel Brian [address] [address] (home) Cell: Telephone Information: Interactive Media Specialist's Name: Self In discussion with the attending physician, it is certified that this patient is under their care and that they, or a Nurse Practitioner,Clinical Nurse specialist or Physician Control Analyst who is working directly with them, had [...] contact sports for at least 6 month, may golf at months For questions regarding protocol and physical therapy treatment, please contact outpatient physical therapy at [facility] at [phone] or email: [email or web address] OT: assess and continue rehab for managing ADL's. HOME HEALTH CARE AGENCY: [facility] [place] [address] F) [phone] Start of care: Within 48 hours of discharge Please note that any additional orders needs or changes will need to be obtained from this patient'sPCP: EDUARDO Rodriguez [address] / [place] [address] All A agencies which cover the area of patient's residence have been reviewed, either verbally or in writing, and patient/family have chosen the home health care agency noted Questions: Agency name and contact information: [facility] Patient location post discharge: Home What services are requested: Physical Therapy Start date: Responsible MD post discharge contact info: PCP/Blaine Griffin MD Primary Care Provider: EDUARDO Rodriguez [phone] Discharge References/Attachments SMOKING: STOPPING (MONGOLIAN) documented in this encounter Discharge Instructions Discharge InstructionsSaphillip Ely P, THERMOSTAT MACHINE TENDER - 11/04/2016 9:56 AM EDT Activity: 1. [...] bowel movement. You can also take an bmrz-bhn-wizhvhd medication, Miralax if needed to combat constipation. [...] air or lightly covered. Call your doctor (#[phone]) if: 1. You have a fever > [...] 1. You will have follow-up appointments at [facility] as indicated below in Future Appointment and Orders. 2. You will have x-rays prior to your appointment so please come to Radiology, desk 3T, 1 hour BEFORE your 6 week follow-up appointment for those x-rays on 12/16/2016. Future Appointments Date Time Provider Department Center 11/18/2016 11:10 AM Blaine Griffin MD [facility] 12/16/2016 12:25 PM [facility] DX ROOM 1 Xray [facility] 12/16/2016 [...] be sent through Care Everywhere. SMOKING: STOPPING (MONGOLIAN)documented in this encounter Medications at Time of [...] 11/04/2016 1:05 PM EDT Opioid PDMP 08/19/2016 [place] PDMP Query Date 11/04/2016 Maria Isabel Brian [...] chart. Ely Constantino APRN Inpatient Orthopedics Pager [phone] Anam Garcia RN - 11/04/2016 11:25 AM [...] ?? Activity: NWB RUE ?? Pain Control: RECEPTION INTERVIEWER, transition to orals ?? Antibiotics: periop ?? Anticoagulation: aspirin ?? Drains: will pull later today ?? Dressing/Splints: mepilex ?? Adler: none ?? Dispo: home vs rehab per PT ?? Follow up: as below KYLE DACOSTA MD Orthopaedic Surgery Pager [phone] Future Appointments Date Time Provider Department Center 11/18/2016 11:10 AM Blaine Griffin MD [facility] 12/16/2016 12:25 PM [facility] DX ROOM 1 Xray [facility] 12/16/2016 1:25 PM Blaine Griffin MD [facility] 01/27/2017 1:25 PM Blaine Griffin MD [facility] Tahmina Croft RN - 11/03/2016 2:56 PM EDT Community Resources: Office of Care Management Initial Assessment Tahmina Croft RN reviewed record and discussed patient with [...] with significant other in a house in [facility]. Social & Family Supports/Community Resources: spouse and children Behavioral Health History: None on file Substance Use/Abuse: None on file Other Pertinent/Service Specific Information: None Health/Prescription Coverage: Primary Insurance: Medicaid [place] Secondary Insurance: None Prescription Coverage: Yes Preferred Pharmacy: [facility] Other: None Primary Care Provider: Americo CLARK [phone] Patient/Caregiver Goals of Treatment: Discharge to home when medically ready. Potential Needs for Transition of Care: Rehab/SNF: None at this time Home Health: If needed for outpatient PT: [facility] DME: No Dialysis: None Community Resources: None at this time. Transportation: Significant other [place]. Other: None Anticipated Barriers to Discharge/Special Considerations: None Plan: Discharge patient to home when medically ready. A member of the Care Management team will continue to monitor progress, follow for continuity of care and assist with transition of care planning. Tahmina Croft RN Pager: [phone] Nolberto Egan MD - 11/03/2016 9:23 AM [...] was instructed to contact Regional Anesthesia Team ([phone]) for any unresolved sensory or motor deficits. ?? Thank you for the opportunity to have participated in the care of this patient. Nolberto Egan MD Regional Team pager [phone] Blaine Griffin MD - 11/03/2016 6:30 AM EDT Orthopaedic Surgery Progress Note SURGERY/ISSUE: Cisco VARELA ATTENDING: Gaby Patient Active Problem List Diagnosis Code ??? Depression F32.9 ??? Anxiety state, unspecified F41.1 ??? Pain in left wrist M25.532 ??? Smoker F17.200 ??? HBV (hepatitis B virus) infection B19.10 ??? FH: NICOLE-BSO (total abdominal hysterectomy and bilateral salpingo- oophorectomy) BRAC2 + 2010 Z84.89 ??? Radiculopathy of cervical region M54.12 ??? Neck pain on right side M54.2 ??? Chronic sciatica M54.30 ??? Posttraumatic stress disorder F43.10 ??? Glenohumeral arthritis M19.019 ??? S/P Right TSA 11/02/16 (Dr. Griffin) M19.019 Interval History: Nerve catheter fell out overnight, having significant pain this morning, getting RECEPTION INTERVIEWER per overnight team shortly. Otherwise no issues, [...] catheter falling out overnight, patient is getting RECEPTION INTERVIEWER. Will pull drain once pain better controlled. Has been OOB, will work with PT today ?? Activity: NWB RUE ?? Pain Control: RECEPTION INTERVIEWER, transition to orals ?? Antibiotics: periop ?? Anticoagulation: aspirin ?? Drains: will pull later today ?? Dressing/Splints: mepilex ?? Adler: none ?? Dispo: home vs rehab per PT ?? Follow up: as below Karma Perkins MD Orthopaedic Surgery Pager [phone] Future Appointments Date Time Provider Department Center 11/18/2016 11:10 AM Blaine Griffin MD [facility] 12/16/2016 12:25 PM [facility] DX ROOM 1 [facility] [facility] 12/16/2016 1:25 PM Blaine Griffin MD [facility] 01/27/2017 1:25 PM Blaine Griffin MD [facility] Attending addendum: The preceeding portion of this note was written by Dr. Perkins. I personally saw and evaluated the patient at the bedside and I agree with the assessment and plan documented above. Blaine Griffin M.D., M.S. Slice Plug Cutter Operator of Orthopaedic Surgery Shoulder, Elbow, and Sports Medicine Department of Orthopaedic Surgery [place] [phone] Kevan Nixon, RN - 11/02/2016 10:43 PM EDT 2240 - Pt was getting OOB to go to the and felt a pulling on her neck. [...] encounter Miscellaneous Notes Plan of Care - Kvean Gates, PT - 11/04/2016 1:16 PM EDT Problem: Patient Care Overview Goal: Plan of Care Review Outcome: Ongoing (Interventions Implemented as Appropriate) 11/04/16 7427 Coping/Psychosocial Plan Of Care Reviewed With patient [...] health (home PT) Kevan Gates, PT Pager [phone] Inpatient Physical Therapy Problem: Acute Rehab Services Goal & Intervention Plan Goal: Bed Mobility Goal Stand Alone Therapy Goal Outcome: Outcome (s) achieved Date Met: 11/04/16 11/03/16141611/04/161456 Bed Mobility Goal Bed Mobility Goal, Time to Achieve 1 day -- Bed Mobility Goal, Activity Type all bed mobility activities -- Bed Mobility Goal, Clare Level independent -- Bed Mobility Goal, Outcome Achieved -- goal met Goal: Gait Training Goal Stand Alone Therapy Goal Outcome: Outcome (s) achieved Date Met: 11/04/16 11/03/16141611/04/16 145 Gait Training Goal Gait Training Goal, Date Established 11/03/16 -- Gait Training Goal, Time to Achieve 1 day -- Gait Training Goal, Clare Level independent -- Gait Training Goal, Outcome [...] Type all transfers -- Transfer Train Goal, Clare Level independent -- Transfer Training Goal, Outcome -- goal met Plan of Care - Jay Jameson RN - 11/04/2016 4:29 AM EDT Problem: Patient Care Overview Goal: Plan of Care Review Outcome: Ongoing (Interventions Implemented as Appropriate) 11/03/16 0545 11/03/161944 Plan of Care Review Progress progress toward [...] Ongoing (Interventions Implemented as Appropriate) 11/02/16 1503 03/29/17 1945 Daily Care Interventions Self-Care Promotion -- [...] Control Outcome: Ongoing (Interventions Implemented as Appropriate) 11/03/161944 Safety Interventions Isolation Precautions standard precautions maintained [...] health (home PT) Kevan Gates, PT Pager [phone] Inpatient Physical Therapy Problem: Acute Rehab Services Goal & Intervention Plan Goal: Bed Mobility Goal Stand Alone Therapy Goal Outcome: Outcome (s) achieved Date Met: 11/03/16 11/03/16 1417 Bed Mobility Goal Bed Mobility Goal, Time to Achieve 1 day Bed Mobility Goal, Activity Type all bed mobility activities Bed Mobility Goal, Clare Level independent Bed Mobility Goal, Outcome Achieved goal met Goal: Gait Training Goal Stand Alone Therapy Goal Outcome: Outcome (s) achieved Date Met: 11/03/16 11/03/161416 Gait Training Goal Gait Training Goal, Date Established 11/03/16 Gait Training Goal, Time to Achieve 1 day Gait Training Goal, Clare Level independent Gait Training Goal, Outcome goal [...] Activity Type all transfers Transfer Train Goal, Clare Level independent Transfer Training Goal, Outcome goal [...] home health ((HOME PT for ROM)) Pager: [phone] KARMA FRY OT 11/03/2016 Occupational Therapy Rehabilitation [...] only monitoring the catheter. They recommended a RECEPTION INTERVIEWER. Ortho updated, who ordered a RECEPTION INTERVIEWER for the pt. BP was soft overnight [...] (Interventions Implemented as Appropriate) 11/02/16 1503 11/02/16 193 Daily Care Interventions Self-Care Promotion -- independence [...] Griffin MD - 11/02/2016 10:02 AM EDT [facility] Operative Note Patient Name: Maria Isabel Brian : [id number] MR#: [id number] Case Date: 11/02/2016 Surgeon: Surgeon(s) and Role: * Blaine Griffin MD - Primary * Kyle aDcosta MD Preoperative diagnosis: Shoulder DJD Postoperative diagnosis: Shoulder DJD Procedure(s) (LRB): @TOTAL SHOULDER ARTHROPLASTY (WRVU 22.13) (Right) MODIFIER BOYD BIGLIANI FLATOW (BF) (N/A) MODIFIER PRIM CHAIR SCHLEIN (N/A) MODIFIER BOYD TM (N/A) [...] Implants Used: Boyd Bigliani-Flatow TSA System Stem: [id number] mm Head: 46 x 18 offset head Glenoid: 46 x 46 pegged cemented polyethylene glenoid Pre-operative Evaluation: The patient was identified in the preoperative holding area. After confirming that the right shoulder was the correct site of surgery with both the patient and the informed consent, a green [place] was placed on the operative shoulder. The [...] procedure are i n the results section. FIRE OBSERVER SCAN 11/05/2016 12:00 Res ults for this [...] documented in this encounter Results SCAN DOC: FIRE OBSERVER (11/05/2016 12:00 AM EDT) Narrative 11/05/2016 12:00 [...] (ABNORMAL) Differential, Automated (11/03/2016 5:24 AM EDT) [facility] gist Method Time Signature Neutrophils % 60.2 % [facility] Neutr Abs (ANC) 8.17 (H) 1.70 - [facility] 6.10 [facility] x10(3)/[facility] LABORATORY Lymphocytes % 31.0 % [facility] Lymphocytes Abs 4.2 (H) 0.9 - 3.2 [facility] x10(3)/[facility] LABORATORY Monocytes % 8.1 % [facility] Monocyte Abs 1.1 (H) 0.3 - 0.9 [facility] x10(3)/[facility] LABORATORY Eosinophils % 0.2 % [facility] Eosinophils Abs 0.0 0.0 - 0.4 [facility] x10(3)/[facility] LABORATORY Basophils % 0.1 % [facility] Basophils Abs 0.0 0.0 - 0.1 [facility] x10(3)/[facility] LABORATORY Immature Gran % 0.40 % [facility] Comment: Immature granulocytes(IG's)percentage an d absolute count will include metamyelocytes, myelocytes, and promyelo cytes. Blood smears from CBCs yielding IG's will be scanned manually for concor dance. If this scan disagrees with the automated IG or if promyelocytes are not ed, a manual differential will be performed. Zoë Gran Abs 0.05 (H) 0.00 - 0.04 x10(3)/[facility] LABORATORY Specimen Anatomical Collection Method Collection Time Receive d Time (Source) Location / / Volume Laterality Blood specimen 11/03/2016 5:24 AM 017 5:28 (specimen) EDT AM EDT Resulting Agency Comment Spec In Lab Blaine Griffin MD HEMATOLOGY ORDERABLES Performing Organization Address City/State/[place] [address] (ABNORMAL) Hemogram (11/03/2016 5:24 AM EDT) Analysis Performed At Patho logist Time Signature WBC 13.6 (H) 4.0 - 9.5 [facility] x10(3)/[facility] LABORATORY RBC 3.30 (L) 4.00 - [facility] 5.21 [facility] x10(6)/[facility] LABORATORY Hemoglobin 10.4 (L) 11.7 - [facility] 15.5 gm/dL [facility] Hematocrit 30.8 (L) 35.7 - [facility] 45.8 % [facility] MCV 93.3 82.6 - [facility] 94.4 [facility] LABORATORY MCH 31.5 27.1 - [facility] 32.0 pg [facility] MCHC 33.8 31.7 - [facility] 35.0 gm/dL [facility] Platelets 205 145 - 357 [facility] x10(3)/[facility] LABORATORY RDWSD 42.3 37.0 - [facility] 46.0 [facility] LABORATORY RDWCV 12.4 11.5 - [facility] 14.1 % [facility] MPV 8.8 7.6 - 12.9 [facility] LABORATORY nRBC % Auto 0.0 % [facility] nRBC Abs Auto 0.000 0.000 - [facility] 0.000 [facility] x10(3)/[facility] LABORATORY Specimen Anatomical Collection Method Collection Time Receive d Time (Source) Location / / Volume Laterality Blood specimen 11/03/2016 5:24 AM 017 5:28 (specimen) EDT AM EDT Resulting Agency Comment Spec In Lab Blaine Griffin MD HEMATOLOGY ORDERABLES Performing Organization Address City/State/[place] [address] Basic Metabolic Panel (non-fasting) (11/03/2016 5:24 AM EDT) athologist Signature Glucose Lvl 109 65 - 199 [facility] mg/dL [facility] Comment: Diabetes: >=200 mg/dL plus symp toms BUN 13 8 - 18 mg/dL [facility] Creatinine 0.78 0.70 - 1.20 mg/dL [facility] Comment: Please note that the pediatric reference intervals supplied above were not validated at [facility]. Results from pediatri c patients should be interpreted in conjunction to the patient's age, height and muscle mass. Sodium 137 135 - 145 mmol/L [facility] Potassium 3.7 3.5 - 5.0 mmol/L [facility] Comment: Please note: ??Patients with WBC >100,00 0 may have falsely elevated Potassium levels. ??For accurate Potassium quantif ication in these patients send serum separator tube (gold top) for subsequent determinations. ??Contact the Clinical Chemistry Laboratory if there are any qu estions. Chloride 102 98 - 107 mmol/L [facility] CO2 24 22 - 31 mmol/L [facility] Anion Gap 11 5 - 15 mmol/L [facility] Calcium 8.5 8.5 - 10.5 mg/dL [facility] Estimated GFR >60 >=60 [facility] Comment: This estimated GFR (eGFR) [...] the following links into your internet browser. [email or web address] Specimen Anatomical Collection Method Collection Time Receive d Time (Source) Location / / Volume Laterality Blood specimen 11/03/2016 5:24 AM 017 5:28 (specimen) EDT AM EDT Resulting Agency Comment Spec In Lab Blaine Griffin MD CHEMISTRY ORDERABLES Performing Organization Address City/State/ZIP Code Phon e Number [place] [id number] [facility] [facility] XR Shoulder Right (Generic) [...] Given 11/03/2016 8:48 AM EDT 81 mg camphor-menthol (SARNA) lotion Given 11/04/2016 8:31 AM EDT Topical (Top), 3 TIMES DAILY, First dose on Tue11/03/16 at 0900, Until Discontinued Given 11/03/2016 9:24 PM EDT Given 11/03/2016 3:00 PM EDT ceFAZolin (ANCEF) 1g in dextrose 5% Given 11/03/2016 3:33 AM EDT 1,000 mg 100 mL/hr 50mL 1,000 mg (1 g), Intravenous, EVERY 8 HOURS, 3 doses, First dose on Tue11/02/16 at 1045, Last dose on Tue11/03/16 at 0400, Administer over 30 Minutes, Adjust to 4 hours from intraoperative dose. * Beta-lactam based antibiotics (eg. Ampicillin, Cefazolin, Aztreonam) should be administered within 4 hours of the preceding intraoperative dose. * Vancomycin, Flouroquinolones, Clindamycin, Gentamicin, and Metronidazole should be administered within 8 hours of the preceding intraoperative dose., Recovery (Recovery-Hospital Unit), Indication for (Active or Suspected): Prophylaxis Given 11/02/2016 8:42 PM EDT 1,000 mg 100 mL/hr Given 11/02/2016 11:45 AM EDT 1,000 mg 100 mL/hr citalopram (CeleXA) tablet 40 mg Given 11/04/2016 [...] Given 11/03/2016 3:13 PM EDT 25 mg fentaNYL (PF) 50 mcg/mL 2mL syringe Given 11/02/2016 6:50 AM EDT 100 mcg 50 mcg, Intravenous, EVERY 5 MIN PRN, Pain, or prior to injection of local anesthetic., Starting on Tue11/02/16 at 0601, Until Tue11/02/16 at 0709, Hold for respiratory rate less than 8 breaths per minute. (maximum dose 200 mcg), Day of Surgery (Day of Procedure) HYDROmorphone (DILAUDID) 1 New Syringe/Cartridge 11/03/2016 6:30 AM E DT 50 mg mg/mL RECEPTION INTERVIEWER 50 mL Intravenous, RECEPTION INTERVIEWER ONLY, Starting on Tue11/03/16 at 0545, Until Tue11/03/16 at 1622 HYDROmorphone (DILAUDID) syringe 0.2-0.4 mg Given 11/02/2016 10:51 AM EDT 0.4 mg 0.2-0.4 mg, Intravenous, EVERY 5 MIN PRN, Pain, Starting on Tue11/02/16 at 0933, Until Tue11/02/16 at 1219, For moderate pain (4-6) give: 0.2 mg every 5 minute prn For severe pain (7-10) give: 0.4 mg every 5 minutes prn Maximum dose: 4 mg per hour Hold for respiratory rate less than 10 per minute., PACU Recovery Given 11/02/2016 10:32 AM EDT 0.4 mg HYDROmorphone (DILAUDID) tablet 2 mg 2 [...] Starting on Tue11/03/16 at 0834, Until Shahrzad 3/30/17 at 1516, Pain, for moderate pain (4-6), [...] Given 11/04/2016 4:19 AM EDT 6 mg lactated ringers infusion 1,000 mL New Bag 11/02/2016 9:28 AM EDT 1,000 mL, at 100 mL/hr, Intravenous, CONTINUOUS, Starting on Tue11/02/16 at 0630, Until Tue11/02/16 at 1020, Day of Surgery (Day of Procedure) New Bag 11/02/2016 6:30 AM EDT 1,000 mLs 100 mL/hr lidocaine (LIDODERM) 5 Patch Applied 11/04/2016 11:37 [...] Discontinued, Remove lidocaine 5 %(700 mg/patch) patch midazolam (PF) (VERSED) 1 mg/mL injectio n 1 mg Given 11/02/2016 6:50 AM EDT 2 mg 1 mg, Intravenous, EVERY 5 MIN PRN, Starting on Tue11/02/16 at 0601, Until Tue11/02/16 at 0709, Sleep, or prior to injection of local anesthetic, Hold for delirium/agitation. (Maximum dose 5 mg)., Day of Surgery (Day of Procedure), Routine nalbuphine (NUBAIN) injection 2 mg Given 11/04/2016 4:20 AM EDT 2 mg 2 mg, Intravenous, EVERY 4 HOURS PRN, Itching, Starting on Tue11/02/16 at 1124, Until Shahrzad 11/04/16 at 1516 Given 11/03/2016 9:34 PM EDT 2 mg Given 11/03/2016 10:45 AM EDT 2 mg oxyCODONE (ROXICODONE) immediate release Given 11/03/2016 7:55 A M EDT 10 mg tablet 10 mg 10 mg, Oral, EVERY 4 HOURS PRN, Starting on Tue11/02/16 at 1019, Until Tue11/03/16 at 0832, Pain, moderate pain (4-6), For moderate pain (4-6). Do not exceed 15 mg in 4 hours. If pain not relieved, call provider., Routine Given 11/02/2016 11:10 AM EDT 10 mg oxyCODONE (ROXICODONE) immediate release Given 11/03/2016 3:33 A M EDT 15 mg tablet 15 mg 15 mg, Oral, EVERY 4 HOURS PRN, Starting on Tue11/02/16 at 1019, Until Tue11/03/16 at 0832, Pain, severe pain (7-10), For severe pain (7-10). Do not exceed 15 mg in 4 hours. If pain not relieved, call provider., Routine Given 11/02/2016 11:35 PM EDT 15 mg Given 11/02/2016 7:35 PM EDT 15 mg Patch Verification Transdermal, 2 TIMES DAILY, [...] CONTINUOUS, Starting on Tue11/02/16 at 0900, Until Tue11/04/16 at 1516 senna-docusate (PERICOLACE) 8.6-50 mg per [...] Given 11/03/2016 8:49 AM EDT 5 mLs sodium chloride 0.9% infusion New Bag 11/03/2016 7:50 AM EDT 1,000 mLs 100 mL/hr 1,000 mL, at 100 mL/hr, Intravenous, CONTINUOUS, Starting on Tue11/02/16 at 1045, Until Tue11/03/16 at 1622, Recovery (Recovery-Hospital Unit) New Bag 11/02/2016 8:42 PM EDT 1,000 mLs 100 mL/hr New Bag 11/02/2016 10:37 AM EDT 1,000 mLs 100 mL/hr documented in this encounter Active and Recently Administered Medications Times are shown in EDT. Scheduled Medication Order 11/02/2016 11/03/2016 11/04/2016 acetaminophen (TYLENOL) tablet 1,000 mg 1351 (Given - Provider: Kathie Quigley)2206 (Given - Provider: Kevan Nixon RN) 0640 (Given - Provider: Kevan Nixon [...] 0848 (Given - Pr ovider: Anam Garcia RN)2121 (Given - Provider: Jay Jameson RN) 0830 (Given - Provider: Anam baez RN) 81 mg, Oral, 2 TIMES DAILY, First dose o n Tue11/03/16 at 0900, Until Discontinued, Routine camphor-menthol (SARNA) lotion 00 (Giv en - Provider: Anam Garcia, RN)1500 (Given - Provider: Anam Garcia, RN)2123 (Given - Provider: Jay Jameson RN) 0831 (Given - Provider: Anam baez RN) Topical (Top), 3 TIMES DAILY, First dose on Tue11/03/16 at 0900 ceFAZolin (ANCEF) 1g in dextrose 5% 50mL (COMPLETED) 1 145 (Given - Provider: Prudencio Zambrano, FÉLIX)2041 (Given - Provider: Kevan Nixon, FÉLIX) 332 [...] 2g in dextrose 5% 100 mL (COMPLETED) 0745 (Given - Provider: Hanny Briones CRNA) 2 g, Intravenous, EVERY 3 HOURS, 1 dose, First dose on Tue11/02/16 at 0630, Administer over 30 Minutes, Redose after 3 hours., Intra-Operative (Intra- Procedure), Indication for (Active or Suspected): Prophylaxis citalopram (CeleXA) tablet 40 mg 1710 (Given - Provider: Aislinn Matthew) 0848 (Given - Provider: Anam Garcia, FÉLIX) 0830 (Given - Provider: Anam Garcia, FÉLIX) 40 mg, Oral, DAILY, First dose on Tue at 1445, Until Discontinued, Routine lidocaine (LIDODERM) 5 % patch 2 patch(Linked Group 1) 1748 (Patch Applied - Provider: Anam Garcia, FÉLIX) 1137 (Patch Applied - Provider: Anam Garcia RN) 2 patch, Transdermal, DAILY, First dose on [...] Remove lidocaine 5 %(700 mg/patch) patch multivitamin Lekj-Ao-FZ-Min (THERAPEUTIC-M) 27-0.4 mg tablet 1 tablet 1445 [...] (dose and location) verified - Provider: Anam Garcia RN - Comment: off) Transdermal, 2 TIMES DAILY, First dose o n Tue11/03/16 at 2100, Until Discontinued, Verify lidocaine 5 %(700 mg/patch) patch. polyethylene glycol (MIRALAX) packet 17 g 1345 (Not Gi jane - Provider: Kathie Quigley - Reason: See comment - Comment: Will start tonight)2041 (Given - Provider: Kevan Nixon RN) 0848 (Given - Provider: Anam baez RN)212 (Given - Provider: Jay Jameson, FÉLIX) 0830 [...] Garcia, FÉLIX)2121 (Given - Provider: Jay Jameson, RN) 0830 (Given - Provider: Anam Garcia, RN) 2 tablet, Oral, 2 TIMES DAILY, First dos e on Tue11/02/16 at 1345, Until Discontinued, Routine sodium chloride 0.9 % flush 5 mL 1345 (Not Given - Pro vider: Kathie Quigley - Reason: See comment - Comment: Infusing)2041 (Given - Provider: Kevan Nixon RN) 0849 (Given - Provider: Anam baez RN)2123 (Given - Provider: Jay Jameson, FÉLIX) 0831 (Given - Provider: Anam baez RN) 5 mL, Intravenous, 2 TIMES DAILY, First dose on Tue11/02/16 at 1345, Until Discontinued, Recovery (Recovery-Hospital Unit), Routine Continuous Medication Order 11/02/2016 11/03/2016 11/04/2016 HYDROmorphone (DILAUDID) 1 mg/mL RECEPTION INTERVIEWER 50 mL (CANCELED) 0630 (New Syringe/Cartridge - Provider: Kevan Nixon RN) Intravenous, RECEPTION INTERVIEWER ONLY, Starting 11/03/16 at 0545, Until W ed 11/03/16 at 1622 lactated ringers infusion 1,000 mL (CANCELED) 0630 (Ne w Bag - Provider: Indy Marx, FÉLIX)0928 (New Bag - Provider: Hanny Briones CRNA)1013 (Stopped - Provider: Hanny Briones CRNA) 1,000 mL, at 100 mL/hr, Intravenous, CON TINUOUS, Starting Tue11/02/16 at 0630, Until Tue11/02/16 at 1020, Day of Surgery (Day of Procedure) ROpivacaine (NAROPIN) 2 mg/mL for AmbIT 1033 (New Bag - Provider: Glory Morales, FÉLIX)2240 (Stopped - Provider: Kevan Nixon, FÉLIX - Comment: cathether accidentally removed) Perineural, CONTINUOUS, Starting e 11/02/16 at 0900, Until Shahrzad 11/04/16 at 1516 sodium chloride 0.9% infusion (CANCELED) 1037 (New Bag - Provider: Glory Morales, RN)2042 (New Bag - Provider: Kevan Nixon, FÉLIX) 0750 (New Bag - Provider: Anam Garcia, FÉLIX) 1,000 mL, at 100 mL/hr, Intravenous, CON TINUOUS, Starting e 11/02/16 at 1045, Until 11/03/16 at 1622, Recovery (Recovery-Hospital Unit) PRN Medication Order 11/02/2016 11/03/2016 11/04/2016 bacitracin injection (CANCELED) 0811 (Given - Provider : Blaine Griffin MD - Comment: Mixed in 1000mL normal saline) ONCE PRN, Starting e 11/02/16 at 0811, Until Shahrzad 11/04/16 at 1516, Intra- Operative (Intra-Procedure), Routine diphenhydrAMINE (BENADRYL) capsule 25 mg 0437 (Given - Provider: Hanny Escobedo RN)1513 (Given - Provider: Anam Garcia, FÉLIX) 0027 (Given - Provider: Jay Jameson, FÉLIX)0726 (Given - Provider: Anam Garcia, FÉLIX) 25 mg, Oral, EVERY 6 HOURS PRN, Starting 11/03/16 at 0429, Until Shahrzad 11/04/16 at 1516, Itching, Routine fentaNYL (PF) 50 mcg/mL 2mL syringe (CANCELED) 0650 (G iven - Provider: Indy Marx, FÉLIX) 50 mcg, Intravenous, EVERY 5 MIN PRN, St arting e 11/02/16 at 0601, Until 11/02/16 at 0709, Pain, or prior to injection [...] Martinez RN)1514 (See Alternative - Provider: Anam Garcia, RN)1814 (See Alternative - Provider: Anam Garcia, RN) 0027 (See Alternative - Provider: Jay Jameson RN)0419 (See Alternative - Provider: Jay Jameson RN)0726 (See Alternative - Provider: Anam Garcia, RN)1039 (See Alternative - Provider: Anam Garcia, RN) [...] Group 2) 0847 (Given - Provider: Anam Garcia, FÉLIX)1159 (See Alternative - Provider: Hanny Martinez, FÉLIX)1514 (See Alternative - Provider: Anam Garcia, FÉLIX)1814 (See Alternative - Provider: Anam Garcia, RN) 0027 (See Alternative - Provider: Jay Jameson RN)0419 (See Alternative - Provider: Jay Jameson, FÉLIX)0726 (See Alternative - Provider: Anam Garcia, RN)1039 (See Alternative - Provider: Anam Garcia [...] Garcia RN)1159 (Given - Provider: Hanny Martinez RN)1514 (Given - Provider: Anam Garcia, FÉLIX)1814 (Given - Provider: Anam Garcia, FÉLIX)212 (Given - Provider: Jay Jameson RN) 0027 (Given - Provider: Jay Jameson RN)0419 (Given - Provider: Jay Jameson, RN)0726 (Given - Provider: Anam Garcia, RN)1039 (Given - Provider: Anam Garcia RN) 6 mg, Oral, EVERY 3 HOURS PRN, Starting 11/03/16 at 0834, Until Shahrzda 11/04/16 at 1516, Pain, for severe pain (7-10), Routine lidocaine (XYLOCAINE) 10 mg/mL (1 %) injection 3 mg 3 mg (0.3 mL), Subcutaneous, ONCE PRN, 1 dose, Starting 11/02/16 at 1328, Until Shahrzad 11/04/16 at 1516, for discomfort with PIV insertion, Recovery (Recovery-Hospital Unit), Routine metoclopramide (REGLAN) injection 10 mg 10 mg, Intravenous, EVERY 8 HOURS PRN, S tarting e 11/02/16 at 1328, Until Shahrzad 11/04/16 at 1516, Nausea, Vomiting, If multiple antiemetics are ordered, use ondansetron first, prochlorperazine second, metaclopromide third., Routine midazolam (PF) (VERSED) 1 mg/mL injection 1 mg (CANCEL ED) 0650 (Given - Provider: Indy Marx RN) 1 mg, Intravenous, EVERY 5 MIN PRN, Star ting Tue11/02/16 at 0601, Until Tue11/02/16 at 0709, Sleep, or prior to injection [...] mg (CANCELED) 1110 (Given - Provider: Glory Morales RN)1934 (See Alternative - Provider: Kevan Nixon RN)233 (See Alternative - Provider: Kevan Nixon RN) 0333 (See Alternative - Provider: Kevan Nixon RN)0755 (Given - Provider: Anam Garcia RN) 10 mg, Oral, EVERY 4 HOURS PRN, Starting Tue11/02/16 at 1019, Until Tue11/03/16 at 0832, Pain, moderate pain (4-6), For moderate pain (4-6). Do not exceed 15 mg in 4 hours. If pain not relieved, call provider., Routine oxyCODONE (ROXICODONE) immediate release tablet 15 mg (CANCELED) 1110 (See Alternative - Provider: Glory Morales RN)1934 (Given - Provider: Kevan Nixon RN)2335 (Given - Provider: Kevan Nixon RN) 0333 (Given - Provider: Kevan Nixon RN)0755 (See Alternative - Provider: Anam Garcia [...] HOURS PRN, Starting Tue11/03/16 at 0834, Until Hsahrzad 11/04/16 at 1516, Pain, for severe pain (7-10), Routine documented in this encounter Care Teams Bar Welder Relationship Specialty Start Date End Date Americo Hough PA PCP - General General Internal Medicine 08/04/16 [address] [place] [address] documented as of this encounter
--- OUTSIDE RECORDS SUMMARY | 2022-01-29 00:44 | XMS_ITS | Encounter Summary ---
:1965 Author Organization [facility] Address [facility] [place] [address] Care Team Providers Name Role Phone Americo Hough Primary Care Provider Reason for Visit Reason Comments Right Shoulder Pain pre-op visit for Right TSA Encounter Details Date Type Department Care Team Description 10/21/2016 Office Visit Orthopaedics at [facility] Shadia, Preop examination; [facility] Catarino Peck MD Primary osteoarthritis of right shoulder ; [address] [employer] [place] [address] [facility] [phone] [place] [address] Social History Tobacco Use Types Packs/Day Years [...] Sign Reading Time Taken Comments Blood Pressure 117/80 10/21/2016 11:58 AM EDT Pulse 83 10/21/2016 11:58 AM EDT Temperature - - Respiratory Rate - - Oxygen Saturation 98% 10/21/2016 11:58 AM EDT Inhaled Oxygen Concentration - - Weight 78.5 kg (173 lb) 10/21/2016 11:58 AM EDT Height 167.6 cm (5' 6) 10/21/2016 11:58 AM EDT Body Mass Index 27.92 10/21/2016 11:58 AM EDT documented in this encounter H&P Notes Catarino Reno MD - 10/21/2016 12:00 PM EDT Images from the original note were not included. CC: Maria Isabel Brian is a 51 y.o. female new patient to the perioperative clinic with the following problems and medications that is being seen in consultation at the request of her surgeon Dr. Oralia Griffin for preoperative risk stratification and management recommendations in anticipation of right total shoulder arthroplasty for symptomatic OA. HPI - Pain - Location - right shoulder Quality - aching, Onset - gradual, Duration - several years Intensity - severe, Aggravating factors - moving the shoulder, lifting Alleviating factors - APAP, rest, topical, IA injection, PT, sling, Associated - denies any dislocation or numbness in RUE. Right hand dominant and does note increased use of LUE of late. She reports recent blood work per her PCP which were unremarkable. Patient Active Problem List Diagnosis Code ??? [...] disorder F43.10 ??? Glenohumeral arthritis M19.019 ??? DJD of shoulder M19.019 Current Outpatient Prescriptions Medication Sig Dispense Refill ??? acetaminophen (TYLENOL) 500 mg Tablet Take 1,000 mg by mouth every 6 hours as needed for Pain. ??? citalopram (CELEXA) 40 mg Tablet Take 40 mg by mouth daily. ??? traZODone (DESYREL) 50 mg Tablet Take 50 mg by mouth nightly. No current facility-administered medications for this visit. Social History Occupational History ??? [employer] Social History Main Topics ??? Smoking status: Current Every Day Smoker Packs/day: 0.25 Types: Cigarettes, e-Cigarettes ??? Smokeless tobacco: Never Used Comment: 1 pack every 3 days, is titrating down to abstinence perioperatively. ??? Alcohol use She is abstinent of Etoh now. ??? Drug use: No ??? Sexual activity: Not on file Family History Problem Relation Age of Onset ??? Medical History Unknown Father Brother ARLEN. Review of Systems: Review of Systems Constitutional: Negative for chills, diaphoresis, fever and unexpected weight change. HENT: Negative for hearing loss, mouth sores and nosebleeds. Eyes: Negative for photophobia and visual disturbance. Respiratory: Negative for cough, shortness of breath and wheezing. Cardiovascular: Negative for chest pain, palpitations and leg swelling. Gastrointestinal: Negative for abdominal pain, anal bleeding, blood in stool and constipation. Endocrine: Negative for polydipsia and polyphagia. Genitourinary: Negative for dysuria, hematuria and urgency. Musculoskeletal: Negative for back pain, gait problem and joint swelling. Notes right shoulder is lower than left one. Left wrist discomfort from arthritis (fusion has been offered and she has deferred) Skin: Negative for pallor and rash. Allergic/Immunologic: Negative for environmental allergies and immunocompromised state. Neurological: Negative for speech difficulty and headaches. Has sciatica on left side. Hematological: Negative for adenopathy. Does not bruise/bleed easily. Psychiatric/Behavioral: Negative for confusion, decreased concentration and dysphoric mood. Allergies: Allergies Allergen Reactions ??? Morphine Other reaction(s): Itching ??? Multivitamin Physical Exam: Last Set of Vitals and Range over past 24 hours: Last value Range last 24 hrs Temperature Temp: -- Heart Rate Heart Rate: 83 Heart Rate: [83-97] Blood Pressure BP: 117/80 BP: (117)/(80) Respiratory Rate Resp: -- SpO2 SpO2: 98 % SpO2: [98 %] Body mass index is 27.92 kg/(m^2). Height: 167.6 cm (5' 6) Physical Exam Constitutional: She is oriented to person, place, and time. She appears well- developed. No distress. HENT: Head: Normocephalic and atraumatic. Mouth/Throat: Oropharynx is clear and moist. No oropharyngeal exudate. Eyes: Conjunctivae are normal. Right eye exhibits no discharge. Left eye exhibits no discharge. No scleral icterus. Neck: Neck supple. No tracheal deviation present. Cardiovascular: Normal rate, regular rhythm and normal heart sounds. Exam reveals no gallop and no friction rub. No murmur heard. Pulmonary/Chest: Effort normal and breath sounds normal. No stridor. No respiratory distress. She has no wheezes. She has no rales. Abdominal: Soft. Bowel sounds are normal. She exhibits no distension and no mass. There is no tenderness. There is no rebound and no guarding. Musculoskeletal: She exhibits no edema or deformity. Right shoulder is lower than left at resting position seated upright. Is able to elevate and shrug this shoulder but notes pain with ROM like abduction or forward flexion. Neurological: She is alert and oriented to person, place, and time. She exhibits normal muscle tone.Coordination normal. No tremor noted. Skin: Skin is warm and dry. She is not diaphoretic. No pallor. Psychiatric: She has a normal mood and affect. Her behavior is normal. Judgment and thought content normal. Lab Results Component Value Date WBC 7.6 10/28/2015 RBC 4.47 10/28/2015 HGB 14.4 10/28/2015 HCT 42.1 10/28/2015 MCV 94.2 (H) 10/28/2015 MCH 32.2 10/28/2015 MCHC 34.2 10/28/2015 PLATELET 367 10/28/2015 RDWCV 15.7 (H) 10/28/2015 Lab Results Component Value Date NA 141 11/10/2015 K 4.5 11/10/2015 CL 105 11/10/2015 CO2 28 11/10/2015 BUN 7 11/10/2015 CREATININE 0.88 11/10/2015 GLUCOSE 95 10/28/2015 CALCIUM 9.5 11/10/2015 Lab Results Component Value Date AST 104 (A) 11/10/2015 ALT 167 (A) 11/10/2015 ALKPHOS 254 11/10/2015 BILITOT 1.83 11/10/2015 BILIDIR 2.0 (H) 10/28/2015 Lab Results Component Value Date PT 13.2 10/28/2015 INR 1.0 10/28/2015 PTT 26 08/07/2012 Lab Results Component Value Date TSH 0.87 06/19/2012 EKG (image reviewed): August 2012 - normal EKG, normal sinus rhythm. MRI right shoulder - July 2016 IMPRESSION 1. Severe glenohumeral arthropathy characterized by extensive loss of articular cartilage, osteophyte formation and a large intra-articular body in the subcoracoid space. 2. Low-grade partial-thickness articular surface rotator cuff tearing without associated muscular atrophy. 3. Subacromial subdeltoid bursitis. 4. Acromioclavicular joint arthropathy. 5. Intra-articular biceps tendinopathy and longitudinal partial thickness tearing.. Xray Right shoulder - images reviewed - July 2016 IMPRESSION Severe glenohumeral osteoarthritis, worse than before. Large calcified intra-articular body is seen again. Also severe AC joint degenerative changes are present. ?? A/P 1. Preop examination 2. Primary osteoarthritis of right shoulder 3. Cigarette smoker She is instructed to continue her celexa and trazodone as usual and stop smoking as planned. Major Risk Factor per the Revised Cardiac Risk Index (Bold if present) -There is no history of CAD, CHF, CVA or TIA, DM2 on insulin, or a Creatinine >2 Risk diagnosis for MACE (major adverse cardiovascular event = Myocardial infarction, pulmonary edema, ventricular fibrillation, primary cardiac arrest, or complete heart block.) : Low <1% . The patient describes a functional status of equal to 4METs and more (works and walks her dog, does elliptical exercises and biking regularly) and based on the ACC/AHA 2014 guideline no further cardiovascular testing is indicated. ARISCAT/CANET Score - estimates the risk of postoperative pulmonary complications as being low ~3.5%. STOP BANG Score - low risk for ODETTE. Per the ACS NSQIP calculator I estimated the following. Emphasized smoking cessation and she is receptive to this. Reviewed with her that the risk of infection is increased due to her smoking and used below to demonstrate this. RECCO: Continue Celexa and Trazodone. Reiterate smoking abstinence and offer nicotine replacement if she wants it. documented in this encounter Plan of Treatment Not on filedocumented as of this encounter Visit Diagnoses Diagnosis Preop examination Preoperative examination, unspecified Primary osteoarthritis of right shoulder Primary localized osteoarthrosis, should er region Cigarette smoker Tobacco use disorder documented in this encounter Care Teams Motorcoach Operator Relationship Specialty Start Date End Date Americo Hough PA PCP - General General Internal Medicine 08/04/16 [address] [place] [address] documented as of this encounter
--- OUTSIDE RECORDS SUMMARY | 2022-01-29 00:44 | XMS_ITS | Encounter Summary ---
:1965 Author Organization [facility] [place] [address] Care Team Providers Name Role Phone Shalini Hughes MD Primary Care Provider Encounter Details Date Type Department Care Team Description 09/03/2015 Hospital Encounter Radiology Library at [facility] [place], [place] [address] Social History Tobacco Use Types Packs/Day [...] Sig Dispensed Refills Start Date End Date hydroCODone-acetaminoph Take 1 tablet by 30 tablet 0 201209/04/2015 en (VICODIN ES) 7.5-750 mouth every 6 hours mg per tablet as needed for Pain. hydroCODone-acetaminoph Take 1 tablet by 21 tablet 0 201209/04/2015 en (NORCO) 10-325 mg mouth daily. Fax to [facility] citalopram (CELEXA) 20 Take 2 tablets by 180 tablet 3 201209/04/2015 mg tablet mouth daily. LORazepam (ATIVAN) 0.5 Take 1 tablet by 90 tablet 3 013 09/04/2015 mg tablet mouth 3 times daily. documented as of this encounter Plan of Treatment Not on filedocumented as of this encounter Procedures Procedure Name Priority Date/Time Associated Comments Diagnosis FILM LIBRARY STORAGE Routine 09/03/2015 12:00 AM Pain Results for this ONLY ULTRASOUND EST procedure ar spencer in STUDY the results section. documented in this encounter Results Film Library- Storage only Ultrasound Study (09/03/2015 12:00 AM EST) Specimen (Source) Anatomical Location Collection Method / Collectio n Time Received Time / Laterality Volume Narrative [facility] - 09/03/2015 10:58 AM EST See PACS for result report. Dr Haskins [facility] FILM LIBRARY ORDERABLES Performing Organization Address City/State/ZIP Code Phon e Number [place], [place] documented in this encounter Visit Diagnoses Diagnosis Pain Generalized pain documented in this encounter Care Teams Senior Planner Relationship Specialty Start Date End Date Shalini Hughes MD PCP - General General Internal Medicine 08/27/[address] [place] [address] documented as of this encounter
--- OUTSIDE RECORDS SUMMARY | 2022-01-29 00:44 | XMS_ITS | Encounter Summary ---
:1965 Author Organization [facility] [place] [address] Care Team Providers Name Role Phone Ruiz Luther MD Primary Care Provider Reason for Referral Consultation (Routine) - Closed Specialty Diagnoses / Procedures Referred By Contact Refer red To Contact Pain Management Diagnoses Neck pain on right side Reynaldo Vieyra PA [facility] [address] [place] [address] [place] [phone] Phone: Fax: Referral ID Status Reason Start Date Expiration Date Visits V isits Requested Authorized [id number] Closed Consult, 06/18/2016 06/18/2017 1 1 Test & Treat Encounter Details Date Type Department Care Team Description 06/18/2016 Telephone Spine Center at [facility] non Kathrin Rivera, RN [place] [id number] Social History Tobacco Use Types Packs/Day Years Used Date Current Every Day Smoker Cigarettes 1 Smokeless Tobacco: Never Used Alcohol Use Standard Drinks/Week Comments Yes 8.3 (1 standard drink = 0.6 oz pure alco hol) once in a while Sex Assigned at Date Recorded Not on file documented as of this encounter Miscellaneous Notes Telephone Encounter - Kathrin Rivera RN - 06/18/2016 3:47 PM EST Received call from patient stating she is experiencing an increase in her pain today following her failed MBB yesterday. She reports the pain is in her neck and shoudler blades. Pts speech was noted luis slow and slurred. When asked if she was home alone she stated yes. When patient was asked if she has had any fever/chills she asked a male named James if she felt warm to the touch. James stated she felt warm to the touch but they did not have a thermometer on hand. James stated the injection site wasnot red and denied any drainage. Ms. Brian stated she needs something for her pain. When asked what she has been doing to manage her pain today she stated she has been laying in bed all day and just got up and moved to the couch. She reports she has an appointment with Reynaldo on Tuesday and is questioning what she can get for the pain. Attempted to reach PCP office and they closed at 3:30 today. Case was discussed with EDUARDO Thacker. Call was placed back to the patient to make her aware Mr. Vieyra is recommending she cancel her appointment with him on Tuesday and is recommending she see the Pain clinic for a comprehensive pain eval. Ms. Brian was under the impression she was sent here for painmanagement. She put James on the phone. The above plan was discussed with him. He is questioning whatshe should do for her increased pain following the failed procedure. His call was transferred to the Pain Clinic nursing staff. documented in this encounter Plan of Treatment Scheduled Referrals Name Type Priority Associated Diagnoses Order S chedule Referral to Pain Outpatient Referral Routine Neck pain on righ t Ordered: Clinic side 06/18/2016 documented as of this encounter Visit Diagnoses Diagnosis Neck pain on right side Cervicalgia documented in this encounter Care Teams Return To Factory Clerk Relationship Specialty Start Date End Date Ruiz Luther MD PCP - General General Internal Medicine 05/07/16 documented as of this encounter
--- OUTSIDE RECORDS SUMMARY | 2022-01-29 00:44 | XMS_ITS | Encounter Summary ---
:1965 Author Organization [facility] [place] [address] Care Team Providers Name Role Phone Unavailable Primary Care Provider Unavailable Reason for Referral Diagnostic Test (Routine) - Closed Specialty Diagnoses / Procedures Referred By Contact Refer red To Contact Radiology Diagnoses Chronic right shoulder pain Radha Wan PA Procedures MRI Shoulder wo Contrast Right (Generic) [facility] [place] [address] Referral ID Status Reason Start Date Expiration Date Visits V isits Requested Authorized [id number] Closed Specialty 07/29/2016 10/27/2016 1 1 Service Requested Reason for Visit Reason Comments Follow-up R shoulder pain DOI 10/2015 Encounter Details Date Type Department Care Team Description 07/29/2016 Office Visit Orthopaedics at [facility] [place] Chronic right shoulder pain; [facility] Melvina tinoco Glenohumeral arthritis, [place] [address] Social History Tobacco Use Types Packs/Day Years Used Date Current Every Day Smoker Cigarettes 1 Smokeless Tobacco: Never Used Tobacco Cessation: Ready to Quit: Yes; C ounseling Given: No Alcohol Use Standard Drinks/Week Comments Yes 8.3 (1 standard drink = 0.6 oz pure alco hol) once in a while Sex Assigned at Date Recorded Not on file documented as of this encounter Last Filed Vital Signs Vital Sign Reading Time Taken Comments Blood Pressure 129/90 07/29/2016 3:56 PM EST Pulse 75 07/29/2016 3:56 PM EST Temperature - - Respiratory Rate - - Oxygen Saturation - - Inhaled Oxygen Concentration - - Weight 77.1 kg (170 lb) 07/29/2016 3:56 PM EST verbal Height 167.6 cm (5' 6) 07/29/2016 3:56 PM EST verbal Body Mass Index 27.44 07/29/2016 3:56 PM EST documented in this encounter Progress Notes Radha Wan PA - 07/29/2016 4:00 PM EST PATIENT NAME: Maria Isabel Brian AGE: 51 y.o. MR#: [id number] DATE OF VISIT: 07/29/2016 DATE OF INJURY/ONSET: October 2015 ?? STAFF: Dr. Griffin ?? CHIEF COMPLAINT: follow up for right shoulder pain HISTORY OF PRESENT ILLNESS: Ms. Brian is a 51 y.o. year old female who comes into clinic today for follow up regarding the right shoulder. She presents today with increased right shoulder pain after her fluoroscopy guided glenohumeral cortisone injection 10 days ago. At her last visit she was found tohave advanced glenohumeral arthritis. She states that she had relief of her pain for the first few hours after the injection from the lidocaine, but since this has worn off she has had worse pain. She denies having any fevers or chills. She has not noticed any redness or drainage. PHYSICAL EXAM: Ms. Brian is alert and oriented. She appears in no acute discomfort and is resting comfortably in the exam room. Inspection: Skin remains intact. No evidence of shoulder effusion. No erythema or ecchymosis. Palpation: She has point tenderness over the anterior aspect of her shoulder over the glenohumeral joint. ROM: She was able to perform about 140?? forward flexion and 30?? external rotation. Strength: Her rotator cuff strength remains grossly intact in all planes, but she has pain with resisted range of motion. She still has some slight weakness with forward flexion. Neurovascular: Sensate distally with good perfusion. RADIOLOGICAL STUDIES: No new studies, previous x-rays were reviewed. ASSESSMENT: Worsening right shoulder pain after her injection with underlying glenohumeral arthritis PLAN: She does not have any visual signs of infection on exam today. We discussed that some of her pain may be related to a steroid flare following her injection. At this point she would like to schedule an MRI of her shoulder to better evaluate her rotator cuff. Based on her response to this injection she is not inclined to consider any repeat injections and would consider surgery if this would provide more definitive pain management. She will return for follow up in [facility] team clinic after the MRI to review the results. The patient understands to contact us if they have any other questions or concerns. The above documentation was completed using Dr. Scribbles voice recognition software. documented in this encounter Plan of Treatment Not on filedocumented as of this encounter Results MRI Shoulder wo Contrast [...] longitudinal partial thickness tearing.. Oralia Griffin MD [facility] ORDERABLES documented in this encounter Visit Diagnoses Diagnosis Chronic right shoulder pain Pain in joint, shoulder region Glenohumeral arthritis, right Chronic right shoulder pain Pain in joint, shoulder region documented in this encounter
--- OUTSIDE RECORDS SUMMARY | 2022-01-29 00:44 | XMS_ITS | Encounter Summary ---
:1965 Author Organization [facility] [place] [address] Care Team Providers Name Role Phone Niles Roy MD Primary Care Provider [phone] Reason for Referral Diagnostic Test (Routine) - Closed Specialty Diagnoses / Procedures Referred By Contact Refer red To Contact Radiology Diagnoses Neck pain on right side [facility] Rad Mri Procedures MRI Cervical Spine WO Contrast (GENERIC) [place] [address] [place] [address] Phone: Referral ID Status Reason Start Date Expiration Date Visits V isits Requested Authorized [id number] Closed Specialty 05/05/2016 08/03/2016 1 1 Service Requested Encounter Details Date Type Department Care Team Description 05/03/2016 Orders Only [facility] Neck pa in on right [place] [address] Social History Tobacco Use Types Packs/Day Years Used Date Current Every Day Smoker Cigarettes 1 Smokeless Tobacco: Never Used Alcohol Use Standard Drinks/Week Comments Yes 8.3 (1 standard drink = 0.6 oz pure alco hol) once in a while Sex Assigned at Date Recorded Not on file documented as of this encounter Progress Notes Tylor Davis RN - 05/03/2016 3:13 PM EDT MRI order completed per authorization from EDUARDO Thacker. He will see patient in f/u to review. documented in this encounter Plan of Treatment Not on filedocumented as of this encounter Results MRI Cervical Spine WO [...] Diagnosis Neck pain on right side Cervicalgia Neck pain on right side Cervicalgia documented in this encounter Care Teams Fire Sprinkler Fitter Relationship Specialty Start Date End Date Niles Roy MD PCP - General Family Medicine 09/08/15 05/06/16 [address] [place] [address] documented as of this encounter
--- OUTSIDE RECORDS SUMMARY | 2022-01-29 00:44 | XMS_ITS | Encounter Summary ---
:1965 Author Organization [facility] [place] [address] Care Team Providers Name Role Phone Niles Roy MD Primary Care Provider [phone] Encounter Details Date Type Department Care Team Description 11/19/2015 External Results G[facility]enterology at [facility] Dayanara Bell, [place] [facility] [place] [address] Social History Tobacco Use Types Packs/Day [...] Name Priority Date/Time Associated Diagnosis Comme nts EXTERNAL LAB CBC CMP Routine 11/10/2015 Results for this THYROID RESULTS PANEL proced ure are in the results section . EXTERNAL LAB GI Routine 11/10/2015 Results for this RESULTS PANEL procedure are in the results section . documented in this encounter Results GI External Results (11/10/2015) P athologist Signature HepB Surface negative Ab HepB Surface Positive Ag Hep B E Ag negative Hep B E Ab positive Hep B DNA 1,180 Quant Historical Provider POINT OF CARE TEST ORDERABLE S (ABNORMAL) CBC / CMP / Thyroid External Results (11/10/2015) athologist Signature Sodium 141 137 - 147 Potassium 4.5 3.4 - 5.3 Chloride 105 99 - 108 CO2 28 22 - 29 BUN 7 Creatinine 0.88 Estimated GFR >60 Glucose Lvl 101 Calcium 9.5 8.7 - 10.7 Total Protein 7.9 6.4 - 8.2 Albumin 3.8 3.5 - 5.0 Total Bilirubin 1.83 Alk Phos 254 AST 104 (A) 13 - 35 ALT 167 (A) 7 - 35 Historical Provider POINT OF CARE TEST ORDERABLE S documented in this encounter Visit Diagnoses Not on filedocumented in this encounter Care Teams Automobile Accessories Installer Relationship Specialty Start Date End Date Niles Roy MD PCP - General Family Medicine 09/08/15 05/06/16 [address] [place] [address] documented as of this encounter
--- OUTSIDE RECORDS SUMMARY | 2022-01-29 00:44 | XMS_ITS | Encounter Summary ---
:1965 Author Organization [facility] [place] [address] Care Team Providers Name Role Phone Yovani Flores MD Primary Care Provider [phone] Encounter Details Date Type Department Care Team Description 06/06/2013 Telephone Internal Medicine at [facility] [place] [place] [address] Social History Tobacco Use Types Packs/Day Years Used Date Current Every Day Smoker Cigarettes 1 Smokeless Tobacco: Never Used Alcohol Use Standard Drinks/Week Comments Yes 8.3 (1 standard drink = 0.6 oz pure alco hol) once in a while Sex Assigned at Date Recorded Not on file documented as of this encounter Miscellaneous Notes Telephone Encounter - Tiffanie Faulnker RN - 06/06/2013 9:11 AM EDT Call from Luis F Reed, pharmacist at [facility]- had rec'd more than one Rx for hydrocodone/acetaminophen yesterday, asking for clarification on how to process. In reviewing with him, appears a script was called in for Vicodin ES 7.5/750 take one by mouth every 6 hrs PRN pain and another for [place] 10/350 take one daily PRN. Asked him to fill the [place] as that was the most recent discussion I'd had with Dr Flores regarding this medication. He said he woulddestroy the Vicodin ES script and prepare the [place] script for pt today. documented in this encounter Plan of Treatment Not on filedocumented as of this encounter Visit Diagnoses Not on filedocumented in this encounter Care Teams Auto Accessories Installer Relationship Specialty Start Date End Date Yovani Flores MD PCP - General 11/28/12 11/14/13 [facility] [place] [address] documented as of this encounter
--- OUTSIDE RECORDS SUMMARY | 2022-01-29 00:44 | XMS_ITS | Encounter Summary ---
:1965 [place] [address] Care Team Providers Name Role Phone Niles Roy MD Primary Care Provider [phone] Encounter Details Date Type Department Care Team Description 12/01/2015 Hospital Encounter Radiology Library at [place], Franca See, Pain [facility] [place] [address] [place] [address] [facility] [phone] [place], [place] [address] (Wo rk) Social History Tobacco [...] Sig Dispensed Refills Start Date End Date oxyCODONE (ROXICODONE) 5 Take 7.5 mg by mouth 0 04/13/2016 mg Tablet every 6 hours as needed for Pain. ALPRAZolam (XANAX) 2 mg Take 2 mg by mouth 3 0 04/13/2016 Tablet times daily as needed for Anxiety. documented as of this encounter Plan of Treatment Not on filedocumented as of this encounter Procedures Procedure Name Priority Date/Time Associated Diagnosis Comme nts FILM LIBRARY Routine 12/01/2015 12:00 AM Pain Results for this STORAGE ONLY CT EDT procedure ar e in SPINE the results section. documented in this encounter Results Film Library- Storage Only CT Spine (12/01/2015 12:00 AM EDT) Specimen (Source) Anatomical Location Collection Method / Collectio n Time Received Time / Laterality Volume Narrative TYLOR TRUJILLO - 04/01/2016 12:51 PM EDT This exam is for storage only and is aut o-finalizing. Stepan Rodriguez MD IMG FILM LIBRARY ORDERABLES Performing Organization Address City/State/ZIP Code Phon e Number [place], [place] documented in this encounter Visit Diagnoses Diagnosis Pain Generalized pain documented in this encounter Care Teams Padded Box Sewer Relationship Specialty Start Date End Date Niles Roy MD PCP - General Family Medicine 09/08/15 05/06/16 [address] [place] [address] documented as of this encounter
--- OUTSIDE RECORDS SUMMARY | 2022-01-29 00:44 | XMS_ITS | Encounter Summary ---
:1965 Author Organization [facility] [place] [address] Care Team Providers Name Role Phone Yovani Flores MD Primary Care Provider [phone] Encounter Details Date Type Department Care Team Description 04/25/2013 Office Visit Orthopaedics at [facility] [place] [address] Social History Tobacco Use Types Packs/Day [...] on filedocumented in this encounter Care Teams Stone Polisher Relationship Specialty Start Date End Date Yovani Flores MD PCP - General 11/28/12 11/14/[address] [facility] [place] [address] documented as of this encounter
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
--- OUTSIDE RECORDS SUMMARY | 2022-01-29 00:45 | XMS_ITS | Encounter Summary ---
:1965 Author Organization [facility] Address [address] [place] [address] Care Team Providers Name Role Phone Niles Roy MD Primary Care Provider [phone] Encounter Details Date Type Department Care Team Description 08/11/2012 Unscheduled [facility] PARTIAL William Kiran, Anxiety state, Encounter [facility] MD [address] [facility] (Primary Dx) [place] [address] [phone] [place] [address] Social History Tobacco Use Types Packs/Day Years Used Date Current Every Day Smoker 0.75 Alcohol Use Standard Drinks/Week Comments Yes 8.3 (1 standard drink = 0.6 oz pure alco hol) Sex Assigned at Date Recorded Not on file documented as of this encounter Last Filed Vital Signs Vital Sign Reading Time Taken Comments Blood Pressure 115/79 08/11/2012 8:55 AM EST Pulse 94 08/11/2012 8:55 AM EST Temperature - - Respiratory Rate - - Oxygen Saturation - - Inhaled Oxygen Concentration - - Weight 63.5 kg (140 lb) 08/11/2012 8:55 AM EST Height 167.6 cm (5' 6) 08/11/2012 8:55 AM EST Body Mass Index 22.6 08/11/2012 8:55 AM EST documented in this encounter Patient Instructions Patient InstructionsKristin Pierce RN - 08/11/2012 1:39 PM EST Refer to your sleep hygiene sheet for pointers to help you sleep Please call Kristin Pierce RN, [phone] if you have any question regarding [facility]. Special Instructions: Please seek help if you experience any of the following: Feelings of wanting to harm or kill yourself Feelings of wanting to harm or kill other people Hearing voices or things that are not there Seeing things that are not there Worsening of mood Worsening of anxiety Worsening of any psychiatric symptoms For Emergency Services: [phone] Emergency contacts for worsened symptoms or safety concerns Go to your nearest emergency room, or call 911 Call the [facility] crises line at [phone] . Helpful websites for additional information: National [place] of Mental Health (NIMH) http://www.nimh.nih.gov/index.shtml [employer] [employer] http://psych.org/MainMenu/Newsroom/LetsTalkFactsBrochuresFactSheets.aspx National [place] on Mental Illness http://www.ronit.org/ documented in this encounter Progress Notes Kristin Pierce RN - 08/11/2012 1:03 PM EST [facility] Daily Progress Nurse Note: Maria Isabel Brian 1965 [id number] Safety: Patient denises risk Mood/Affect: Hopeful and Depressed - 3 Anxiety: Anxious - 3 and Worry Behavior: Calm and fleeting eye contact Speech: WNL Cognition: Alert and Oriented Appearance: sl unkempt (diry shirt) Thought Content: WNL Sleep: 5-6 Hours Slept and DFA Activity: WNL Energy: low energy Perceptual Disturbance: WNL Eating: WNL Medications: Taking as prescribed Laura Isaac MHT - 08/11/2012 11:11 AM EST [facility] Daily Progress Note - Group Notes: Maria Isabel Brian 1965 [id number] Group: Group Therapy - Greater than 45 minutes Topic: Goals Group Attendance: Present Behavior: Expressive and Attentive Therapeutic Work Observed: Moderate Mood: Depressed and Anxious Assessment: Pt states that she had an okay night. Reports that she drank two beers instead of twenty which for her is progress. States her ultimate goal is to stop drinking altogether. States she wants to focus on being able to feel and tolerate emotions as she is aware that she has been using alcohol to numb her feelings. Participated in the mindful breathing exercise. Progress Towards Goal: See above. OB Metz [facility] Daily Progress Note - Group Notes: Maria Isabel Brian 1965 [id number] Group: Group Therapy - Greater than 45 minutes Topic: Stress/Distress Tolerance Skills Attendance: Present Behavior: Quiet and Attentive Therapeutic Work Observed: Moderate Mood: Depressed and tearful Assessment: PT was mostly quiet during group. Did state when asked about her tearfulness that the content of the discussion regarding emotions and how to recognize stress was reminding her that she does have a right to live and to be happy. Progress Towards Goal: Pt reporting increased awareness based on report noted above. BO Metz [facility] Daily Progress Note - Group Notes: Maria Isabel Brian 1965 [id number] Group: Group Therapy - Greater than 45 minutes Topic: Stress/Distress Tolerance Skills Discussed CBT concept of thinking/feeling/behaving being interconnected and setting the lens that all experiences are filtered through creating our interpretations. Connected this concept to stress management techniques and how the lens impacts our capacity and willingness to apply these strategies. Attendance: Present Behavior: Quiet and Attentive Therapeutic Work Observed: Moderate Mood: Depressed Assessment: Pt was quiet though attentive, was observed to be taking notes throughout group. Progress Towards Goal: See above. BO Metz Group: Group Therapy - Greater than 45 minutes Topic: Relapse Prevention Group Attendance: Present Behavior: Expressive and Attentive Therapeutic Work Observed: Moderate Mood: Depressed Assessment: PT states she feels much better than she did this morning. States this is in part related to her ongoing realization that she has a right to experience her feelings and that it is okay to be happy. Shared her plans for the weekend that include spending time with her mother and keeping herself busy to avoid drinking. Progress Towards Goal: See above. BO Metz documented in this encounter Plan of Treatment Not on filedocumented as of this encounter Visit Diagnoses Diagnosis Anxiety state, unspecified - Primary documented in this encounter Care Teams Test Consultant Relationship Specialty Start Date End Date Niles Roy MD PCP - General 06/19/12 11/27/12 [address] [place] [address] documented as of this encounter
--- OUTSIDE RECORDS SUMMARY | 2022-01-29 00:45 | XMS_ITS | Encounter Summary ---
:1965 Author Organization [facility] Address [place] [address] Care Team Providers Name Role Phone Yovani Flores MD Primary Care Provider [phone] Encounter Details Date Type Department Care Team Description 12/06/2012 Hospital Encounter [place] [facility] [place] in wrist [address] [place] [address] [place] [phone] Social History Tobacco Use Types Packs/Day Years Used Date Current Every Day Smoker Cigarettes 0.75 Smokeless Tobacco: Never Used Alcohol Use Standard [...] 6 hours. tablet PRN break thru pain citalopram (CELEXA) 20 Take 40 mg by mouth 0 04/12/2013 mg tablet daily. ALPRAZolam (XANAX) 2 mg Take 2 mg by mouth 2 0 03/14/2013 tablet times daily. hydroCODone-acetaminophe Take 1-2 tablets by 20 tablet 0 04/25/2013 n (VICODIN) 5-500 mg per mouth every 6 hours tablet for 3 days. PRN break thru pain documented as of this encounter Plan of Treatment Not on filedocumented as of this encounter Procedures Procedure Name Priority Date/Time Associated Diagnosis Comme nts XR WRIST COMPLETE Routine 12/06/2012 9:41 AM Pain in wrist Res ults for this MINIMUM 3 VIEWS EDT procedure ar e in the results section. documented in this encounter Results XR wrist complete minimum 3 views (12/06/2012 9:41 AM EDT) Anatomical Region Laterality Modality N/A Radiographic Imaging Specimen (Source) Anatomical Collection Method Collection Time Re ceived Time Location / / Volume Laterality 12/06/2012 9:41 AM EDT Narrative 12/06/2012 11:26 AM EDT Examination WRIST COMP MIN 3VIEW/LEFT Clinical History left radial sided wrist pain tn Comparison Left forearm x-rays 11/27/2012. Technique 4 views left wrist. Findings There is deformity and mild irregular sc lerosis throughout the scaphoid, which suggestive of remote scaphoid fracture/i njury. ??There is equivocal subtle radiolucency through the distal pole of the scaphoid on the oblique projection, not confirmed on other views there is a additional well corticated ossicle along the dorsal aspect of the carpus on the lateral view, unchanged and suggestive of remote injury. ??Radiocarp al osteoarthritic changes with joint space narrowing small marginal osteophyt es noted as is basal joint and triscaphe joint osteoarthropathy. Impression ? 1. Deformity of the scaphoid sugg estive of remote injury. ??An equivocal lucency through the distal pole scaphoid on a single view, may be artifactual related to deformity, though a nondispla maria scaphoid fracture is not entirely excluded periods suggest clinical correl ation with snuff box tenderness and consider radiographic follow up and appr opriate immobilization as felt necessary. ? 2. Radiocarpal, basal joint as we ll as triscaphe osteoarthropathy. Procedure Note Gerson Ramirez MD - 12/06/2012Formatti ng of this note might be different from the original. Examination WRIST COMP MIN 3VIEW/LEFT Clinical History left radial sided wrist pain tn Comparison Left forearm x-rays 11/27/2012. Technique 4 views left wrist. Findings There is deformity and mild irregular sc lerosis throughout the scaphoid, which suggestive of remote scaphoid fracture/i njury. There is equivocal subtle radiolucency through the distal pole of the scaphoid on the oblique projection, not confirmed on other views there is a additional well corticated ossicle along the dorsal aspect of the carpus on the lateral view, unchanged and suggestive of remote injury. Radiocarpal osteoarthritic changes with joint space narrowing small marginal osteophyt es noted as is basal joint and triscaphe joint osteoarthropathy. Impression 1. Deformity of the scaphoid suggestive of remote injury. An equivocal lucency through the distal pole scaphoid on a single view, may be artifactual related to deformity, though a nondispla maria scaphoid fracture is not entirely excluded periods suggest clinical correl ation with snuff box tenderness and consider radiographic follow up and appr opriate immobilization as felt necessary. 2. 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 Glen Paul MD IMG DX ORDERABLES documented in this encounter Visit Diagnoses Diagnosis Pain in wrist Pain in joint, forearm documented in this encounter Care Teams Research Scientist Relationship Specialty Start Date End Date Yovani Flores MD PCP - General 11/28/12 11/14/[address] [facility] [address] [facility] [place] [address] documented as of this encounter
--- OUTSIDE RECORDS SUMMARY | 2022-01-29 00:45 | XMS_ITS | Encounter Summary ---
:1965 Author Organization [facility] [place] [address] Care Team Providers Name Role Phone Yovani Flores MD Primary Care Provider [phone] Reason for Visit Reason Comments Follow-up Encounter Details Date Type Department Care Team Description 04/25/2013 Follow-Up Internal Medicine at Yovani Flores Pain in wrist; [facility] MD [place] Anxiety state, unspecified; [place] [address] GENERAL INTERNAL [phone] MEDIC[place] [id number] (Wo rk) Social History Tobacco Use Types [...] Sign Reading Time Taken Comments Blood Pressure 131/81 04/25/2013 2:06 PM EDT Pulse 88 04/25/2013 2:06 PM EDT Temperature - - Respiratory Rate - - Oxygen Saturation - - Inhaled Oxygen Concentration - - Weight 69.3 kg (152 lb 12.8 oz) 04/25/2013 2:06 PM EDT Height - - Body Mass Index 25.43 03/27/2013 8:23 AM EDT documented in this encounter Patient Instructions Patient InstructionsBrooksYovani MD - 04/25/2013 2:40 PM EDT Wrist fx - Refer to ortho for recasting Pain control Change vicodin to 10 750 twice a day starting 05/04. Will reduce in one month. Anxiety Will continue with lorezepam. Smoking Next visit !!! documented in this encounter Progress Notes Yovani Flores MD - 04/25/2013 2:24 PM EDT Subjective: Patient ID: Maria Isabel Brian is a 47 y.o. female. HPI fx wrist casted but now feels that the cast is too loose. Anxiety - lorezepam .5 in am and 1.0 at night. Depression - celexa - decreased to 20 mg qd on 04/12 Patient Active Problem List Diagnosis Code ??? Depression 311 ??? Anxiety state, unspecified 300.00 ??? Pain in wrist 719.43 ??? Smoker 305.1 Current Outpatient Prescriptions on File Prior to Visit Medication Status Sig Dispense Refill ??? citalopram (CELEXA) 20 mg tablet Active Take 2 tablets by mouth daily. 180 tablet 3 ??? hydroCODone-acetaminophen (VICODIN) 5-500 mg per tablet Active Take 1 tablet by mouth every 8 hours as needed for Pain. 90 tablet 0 ??? LORazepam (ATIVAN) 0.5 mg tablet Active Take 1 tablet by mouth 3 times daily. 90 tablet 3 ??? hydroCODone-acetaminophen (VICODIN) 5-500 mg per tablet Discontinued Take 1- 2 tablets by mouth every 6 hours for 3 days. PRN break thru pain 20 tablet 0 vicodin 2 in the morning Review of Systems Objective: Physical Exam BP 131/81 Pulse 88 Wt 69.31 kg (152 lb 12.8 oz) l arm - pulses intact. Assessment and Plan: Wrist fx - Refer to ortho for recasting Pain control Change vicodin to 10 750 twice a day starting 05/04. Will reduce in one month. Anxiety Will continue with lorezepam. Smoking Next visit !!! Nissa Perry - 04/25/2013 2:11 PM EDT Wrists Is in a lot of pain, cast changed and things thumbed is not positioned right because of lots movement Fracture in Dec,Tripped over dog and fell,Casted 3-4weeks Vicodins are helping 2 in the AM and 2 more after dinner ? PT Burning sensations and sore Caregiver Anxiety Stopped Xanax 2mg 3x a day abruptly On Lorazepam 1.5mg daily helping a lot with anxiety. Says sx are 40% less, normally has hot flushes and heart racing Celexa down to 20mg working well balancing out SocHx 2 dogs documented in this encounter Plan of Treatment Not on filedocumented as of this encounter Visit Diagnoses Diagnosis Pain in wrist Pain in joint, forearm Anxiety state, unspecified Smoker Tobacco use disorder documented in this encounter Care Teams Nursing Care Attendant Relationship Specialty Start Date End Date Yovani Flores MD PCP - General 11/28/12 11/14/13 [facility] [place] [address] documented as of this encounter
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
--- OUTSIDE RECORDS SUMMARY | 2022-01-29 00:45 | XMS_ITS | Encounter Summary ---
:1965 Author Organization [facility] [place] [place] [address] Care Team Providers Name Role Phone Yovani Flores MD Primary Care Provider [phone] Encounter Details Date Type Department Care Team Description 04/12/2013 Office Visit Orthopaedics at [facility], DR [facility] [place] [address] Social History Tobacco Use Types Packs/Day [...] on filedocumented in this encounter Care Teams Can Reconditioner Relationship Specialty Start Date End Date Yovani Flores MD PCP - General 11/28/12 11/14/[address] [facility] [address] [facility] [place] [address] documented as of this encounter
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
--- OUTSIDE RECORDS SUMMARY | 2022-01-29 00:45 | XMS_ITS | Encounter Summary ---
:1965 Author Organization [facility] Address [place] [id number] Care Team Providers Name Role Phone Niles Roy MD Primary Care Provider [phone] Encounter Details Date Type Department Care Team Description 08/09/2012 - Hospital Encounter [facility] PSYCH PARTIAL William Kiran, 09/07/2012 [place] [address] DRIVE [phone] PS[place]CHIATRY [place] [id number] Social History Tobacco Use Types Packs/Day Years Used Date Current Every Day Smoker 0.75 Alcohol Use Standard Drinks/Week Comments Yes 8.3 (1 standard drink = 0.6 oz pure alco hol) Sex Assigned at Date Recorded Not on file documented as of this encounter Miscellaneous Notes Miscellaneous - Provider, Alexa - 08/24/2012 10:12 AM EST Care Management - Kayli Chavez MSW - 08/10/2012 11:57 AM EST OFFICE OF CARE MANAGEMENT PSYCHOSOCIAL ASSESSMENT Present at Interview: Patient Date: August 10, 2012 1. Referral request and/or presenting problem(s): Patient is a 47 year old DWF who presents at [facility] to address her recent impulsive overdose, unresolved grief issues and overall inability to cope/function safely and effectively in her community. Please refer to admit note for details. 2. Family Constellation, Pertinent History: Patient is one of 5 children born in family of origin. Father left when patient was 3 years old and at age 72. Mother age 72 lives in [place]. Siblings are Tobin age 52 in [place]., Sweetie age 48 in [place] and Obed age 42 in [place]. Brother Epi at age 47. Patient isvery close to her Mother and has frequent contact. Patient was closest to her brother who . Patient has had no contact with Sweetie for a couple of years, recently connected with Tobin after 12 year absence and has no contact with Obed. Patient was born and raised in [place] and described childhood as lot of fun. Mother was a single mom who did a good job. Extended family lived in [place] and patient and family visited during summer months. Patient has been x1, after 3 years, no children. Patient was with her son German's (age 20 in [place]) father for 7 years. Son lives with his father but has frequent contact with patient and visits her regularly. Patient was with her daughter China's ( d eceased at age 24 in 2007)father for 6 years. Patient has struggled for years (including using courtsystem) to see her grandson Jemal age 9 in [place] but reports that his father and grandparents do not want any contact. Patient has been with boyfriend James age 56 for 3 years. Patient reports that he is very supportive. Patient is currently living alone and reports that can be a struggle. 3. Patient's understanding/adjustment to illness, coping skills & weaknesses: Patient identifiedcoping skills as drink, clean my house, putter around, take my dog out for a walk, go swimming in the summer. Strengths identified as usually personable, get along well with others, usually upbeat and outgoing. Weaknesses identified as just want to sleep forever, so angry at my daughter, everything has just become too much. 4. Assessment Pt's medical needs: () Understands Pt's medical needs () Understands Pt's emotional needs (x) Can provide support of pt. (x) Family coping: Comments: Mother attempts to support from a distance. 5. Current social supports including spiritual support: Mother, boyfriend James, good friend Pop, not active in hoahaoism or community. 6. Current living situation concerns: (x) Yes () No Comments: Patient is worried about her ability to pay her rent and keep her apartment, boyfriend helped to pay August' rent. 7.Chemical abuse or other abuse in patient & family: (x) Yes () No Comments: Patient struggles with ongoing ETOH dependence, some drug use, siblings also struggle withsubstance use issues. 8. Pt/Family mental health concerns: (x) Yes () No Comments: Patient continues to struggle with unresolved grief issues. 9. Financial concerns: (x) Yes () No Comments: Unemployed,no current source of income, boyfriend is helping at this time, patient has applied for unemployment benefits. 10. Legal concerns: () Yes (x) No Comments: 11. Specialized agency involvement: (x) Mental Health Services () Protective Services () Home Health Other: Needs referral in her community. 12. Advance Directives: () Yes (x) No 13. 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 Stressors: (x) Limited Support () Obtaining Medication (x) Financial Concerns () Marital Conflict () Family Conflict () Illness of Family Member () Insurance (x) Substance Abuse () School Issues () Extensive Home Care Need (x) Employment Issues () Transportation (x) Inadequate Coping Skills (x) Loss/ () Frequent Hospitalizations () Sexuality () Change in Home Environment () Socialization Issues (x) Concerns about Diagnosis (x) Mental health Issues 16. Assessment: Pleasant, engageable female,easily brought to tears as she relates events leading upto recent suicide attempt. Patient is hopeful that time spent in [facility] will help her address her unresolved anger and grief issues surrounding the suicide of her daughter. Patient acknowledges fleeting suicidal thoughts/feelings but denies any current intent or plan. Patient is interested in finding increased support in her community and appeared open to attending Survivors of Suicide support group. Patient would also benefit from increased professional support in her community. 17. Plan/Goals: Specify: Psychosocial Assessment (x) Crisis Intervention/Counseling: Assist as needed/requested. () Conflict Resolution: (x) Education/Support of Treatment Plan: () Legal Ethical Issues: (x) Community/Financial Resource Referral: () Advance Directive: () Other: Plan discussed with patient/family (x) Yes () No Plan agreed upon by patient/family (x) Yes () No documented in this encounter Plan of Treatment Not on filedocumented as of this encounter Visit Diagnoses Not on filedocumented in this encounter Care Teams Nuisance Wildlife Trapper Relationship Specialty Start Date End Date Niles Roy MD PCP - General 06/19/12 11/27/12 [facility] [address] [place] [address] documented as of this encounter
--- OUTSIDE RECORDS SUMMARY | 2022-01-29 00:45 | XMS_ITS | Encounter Summary ---
:1965 Author Organization [facility] [place] [address] Care Team Providers Name Role Phone Yovani Flores MD Primary Care Provider [phone] Encounter Details Date Type Department Care Team Description 12/06/2012 Office Visit Occupational Therapy Rosanne Perez OT [facility] PHYSICAL MEDICINE & [place] [address] Pain in wrist at [facility] Yovani Flores MD [facility] [place] [address] (Primary Dx) [place] [address] Social History Tobacco Use Types Packs/Day Years Used Date Current Every Day Smoker Cigarettes 0.75 Smokeless Tobacco: Never Used Alcohol Use Standard Drinks/Week Comments Yes 8.3 (1 standard drink = 0.6 oz pure alco hol) once in a while Sex Assigned at Date Recorded Not on file documented as of this encounter Progress Notes Rosanne Perez OT - 12/06/2012 12:55 PM EDT OCCUPATIONAL THERAPY SPLINTING EVALUATION CERTIFICATION PERIOD: One visit REFERRAL SOURCE: Dr. Paul DIAGNOSIS: 1. Pain in wrist DATE OF INJURY: DATE OF SURGERY: na NEXT FOLLOW UP: 3-6 weeks TOTAL TREATMENT TIME: 25 Minutes TIMED CODE TREATMENT TIME: Ortho 25 minutes CURRENT HISTORY: Maria Isabel Brian is a 47 y.o. year old female who is seen today for fabrication of a protective but removeable thumb splint; both rigid and soft versions. Maria Isabel Brian was seen by EDUARDO Boswell for recheck today. Maria Isabel Brian is referred to Occupational Therapy for evaluation and treatment to include splinting. Patient presents today alone. Mechanism of Injury: Patient's symptoms come from impact to her left thumb. Current Symptoms/functional impairments: Patient presents with stiffness and limited mobility/range of motion of her wrist and thumb at her MCP and IP joints/ however she can oppose to each fingertip and fully extend OCCUPATION AND ACTIVITIES Work status: off work Job title/type of work: at home HAND DOMINANCE: Right PAIN: At Rest: 11/15 With Activity: -01/15 FUNCTIONAL LIMITATIONS: Maria Isabel Brian identifies difficulty with the following functional activities using the Patient Specific Functional Scale (PSFS): 0/10 (unable to perform) to 10/10 (Able to perform without difficulty) Activity At Evaluation 1.) dressing 12/15 2.) self-care 12/15 3.) driving 12/15 4.) care of her 2 dogs 12/15 TREATMENT TODAY: Fabricated a thumb spica splint; to be worn at night and for protection Issued a soft neoprene thumb splint for daily/ center receptionist use as needed Instructed in splint wear and care Educated patient in AROM of her wrist and thumb in all planes of motion; 3x/day for next 10 days; Expect full return of her wrist and thumb motion within normal planes of movement and light use within 10 -14 days as well Provided contact info if she is having trouble obtaining functional status on her own; outpatient therapy may be beneficial to her recovery ASSESSMENT: Maria Isabel Brian presents today with functional limitations due to thumb pain and stiffness due to immoblization. Patient has a well fitting splint post therapy. Maria Isabel rBian is able todemonstrate her home exercises with written instructions provided today. Maria Isabel Brian has good potential for gains with therapy. Patient knows to call with any questions or concerns. Criminal Investigator Customs Goals (to be met by discharge): Date Goal Met: 1.) Maria Isabel Brian will complete activities of daily living independently at a 8/10 level. Goal Status: 2.) Maria Isabel Brian will be able to resume all occupational roles independently without restriction. Goal Status: Short Term Goals (to be met by end of the visit today): Date Goal Met: 12/06/12 1Mary Lou Brian will be independent with home exercises as evident with demonstration in therapy. Goal Status: Patient is independent 12/06/12 2Mary Lou Brian will demonstrate independence with donning and doffing of splint and verbalization of splinting purpose. Goal Status: Demonstrates independenced PLAN: Splinting to provide support and protection to the joint (X) Maria Isabel Brian participated in the evaluation, collaborated on treatment goals, and agrees tothe treatment plan . documented in this encounter Plan of Treatment Not on filedocumented as of this encounter Visit Diagnoses Diagnosis Pain in wrist - Primary Pain in joint, forearm documented in this encounter Care Teams Chummer Relationship Specialty Start Date End Date Yovani Flores MD PCP - General 11/28/12 11/14/13 [facility] [address] [address] documented as of this encounter
--- OUTSIDE RECORDS SUMMARY | 2022-01-29 00:45 | XMS_ITS | Encounter Summary ---
:1965 Author Organization [facility] Address [address] [place] [address] Care Team Providers Name Role Phone Yovani Flores MD Primary Care Provider [phone] Reason for Referral Surgical (Routine) - Closed Specialty Diagnoses / Referred By Contact Referred To Contact Procedures Orthopaedic Surgery / Diagnoses Wrist pain Yovani Flores [facility] Orthopaedics 3a Orthopaedics MD [place] [address] [address] GENERAL INTERNAL Phone: [place] [address] Referral ID Status Reason Start Date Expiration Date Visits V isits Requested Authorized [id number] Closed Consult, 03/14/2013 09/10/2013 1 1 Test & Treat Reason for Visit Reason Comments Establish Care Encounter Details Date Type Department Care Team Description 03/14/2013 Office Visit Internal Medicine at Yovani Flores t pain (Primary Dx); [facility] MD Anderson Anxiety state, unspecified; [facility] res[facility]ion; Drive Pain in wrist; [place], [place] GENERAL INTERNAL Smoker [phone] MEDICINE [phone] [place], [place] [address] (Wo rk) Social History Tobacco Use Types [...] Sign Reading Time Taken Comments Blood Pressure 144/84 03/14/2013 10:59 AM EDT Pulse 68 03/14/2013 10:59 AM EDT Temperature - - Respiratory Rate - - Oxygen Saturation 100% 03/14/2013 10:59 AM EDT Inhaled Oxygen Concentration - - Weight 69.4 kg (153 lb) 03/14/2013 10:59 AM EDT Height 165.1 cm (5' 5) 03/14/2013 10:59 AM EDT Body Mass Index 25.46 03/14/2013 10:59 AM EDT documented in this encounter Patient Instructions Patient InstructionsBurtonNatalie SHAKIRA Peck - 03/14/2013 11:00 AM EDT I would like you to sign up for [facility], which will give you secure online access to your electronic medical record at [facility]. You will be able to: - look at parts of your chart including test results and office notes - send and receive messages from me and your other providers. - renew prescriptions - request appointments. To sign up go to [email or web address] and click I have an activation code and follow the instructions. Here is your activation code: [email or web address] Expires: 04/28/2013 11:00 AM Do not use my D-H for urgent needs! Always dial 911 for medical emergencies. Wrist - tendonitis ? Fx/infction?other Did have trauma in 07 19 but now ? Just tendonitis vs S/p bone graft post wrist fx infection Refer to ortho will hold on xray til ortho sees her ? Mri referral within 2 weeks. Switch from percocet to vicodin for nausea Try ibuprofen with meals 400 - 600 mg three times per day. Narcotic contract. Anxiety withdrawing from xanax Will start lorazepam back at lower dose (.5 tid). For now. Will consider clonezepam in future. Continue with celexa. dont abruptly stop lorazepam! Borderline htn prob witdrawal Panda at next visit. Smoking cessation Not ready now but will consider for next time. Get records from prior PCP. Poor dentition Posterior molar with extensive cares Prevention Screening Cholesterol Will wait based on need Mammo Needs but will wait Pap UTD Immunizations Tetanus UTD RTC 4-6 wks after the ortho folsk documented in this encounter Progress Notes Yovani Flores MD - 03/14/2013 11:43 AM EDT Subjective: Patient ID: Maria Isabel Brian is a 47 y.o. female. HPIPatient here for new patient w/u and evaluation of prevention and acute and chronic medical needs Recently moved up here 2 yrs and became [place] in [facility]. Tendonitis in l wrist - cast / not helping. Percocet makes her sick Anxiety - takes xanax but does not like it. Puts her to sleep. Does not know what she is doing aftershe has been taking it. Stopped cold 6 days ago. Wants to change meds. Caregiver difficult with wrist. Ibuprofen+ percocet next morning vomiting. Took ibup for a month. Now just percocet. 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 Neck pain - on perc x 2 years. Patient Active Problem List Diagnoses Code ??? Depression 311 ??? Anxiety state, unspecified 300.00 ??? 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 citalopram (CELEXA) 20 mg tablet Take 40 mg by mouth daily. ??? DISCONTD: ALPRAZolam (XANAX) 2 mg tablet Take 2 mg by mouth 2 times daily. There is no immunization history on file for this patient. Dtap 2 yrs ago PREVENTION: Cigarettes: yes Chantix, patch, wellbutrin (high dose. Alcohol: CAGE neg. minimal drinker never Caffeine: 1/d Drugs/Injection/Inhalant - Denied Seat Belts: consistent [facility] Advanced Directives: ? Sexual History: low risk [place] - none Adv Dir. 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 Son visits a lot Dogs Roommate. FAMILY HISTORY Father - spine cancer. Mother - breast cancer aunts x2 breast ca Sister(s) - neg braca Brother(s) - 47 froze. 2 other bro one with braca Familial diseases/disorders - lots of cancer on mothers side pgm alzheimers. Review of Systems Objective: Physical Exam Constitutional: She is oriented to person, place, and time. She appears well- developed and well-nourished. No distress. HENT: Head: Normocephalic and atraumatic. Right Ear: External ear normal. Left Ear: External ear normal. Nose: Nose normal. Mouth/Throat: Oropharynx is clear and moist. Eyes: EOM are normal. Pupils are equal, round, and reactive to light. No scleral icterus. Neck: Neck supple. No JVD present. No tracheal deviation present. No thyromegaly present. Cardiovascular: Normal rate, regular rhythm and normal heart sounds. Exam reveals no gallop and no friction rub. No murmur heard. Pulmonary/Chest: Breath sounds normal. No respiratory distress. She has no wheezes. She exhibits no tenderness. Abdominal: Soft. Bowel sounds are normal. She exhibits no distension and no mass. There is no tenderness. There is no rebound and no guarding. Neg hsm Genitourinary: Breast implants. Musculoskeletal: Normal range of motion. She exhibits no edema and no tenderness. l wrist severe pain thumb extension. Tender over wrist. Lymphadenopathy: She has no cervical adenopathy. Neurological: She is alert and oriented to person, place, and time. She has normal reflexes. No cranial nerve deficit. Sensory motor nl Skin: Skin is warm. No rash noted. Psychiatric: She has a normal mood and affect. Her behavior is normal. Wrist film 5 1 13 1. Deformity of the scaphoid suggestive of remote injury. An equivocal lucency through the distal pole scaphoid on a single view, may be artifactual related to deformity, though a nondisplaced scaphoid fracture is not entirely excluded periods suggest clinical correlation with snuff box tenderness and consider radiographic follow up and appropriate immobilization as felt necessary. 2. 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 Assessment and Plan: Wrist - tendonitis ? Fx/infction?other Did have trauma in 07 19 but now ? Just tendonitis vs S/p bone graft post wrist fx infection Refer to ortho will hold on xray til ortho sees her ? Mri referral within 2 weeks. Switch from percocet to vicodin for nausea Try ibuprofen with meals 400 - 600 mg three times per day. Narcotic contract. Anxiety withdrawing from xanax Will start lorazepam back at lower dose (.5 tid). For now. Will consider clonezepam in future. Continue with celexa. dont abruptly stop lorazepam! Borderline htn prob witdrawal Panda at next visit. Smoking cessation Not ready now but will consider for next time. Get records from prior PCP. Poor dentition Posterior molar with extensive cares Prevention Screening Cholesterol Will wait based on need Mammo Needs but will wait Pap UTD Immunizations Tetanus UTD RTC 4-6 wks after the ortho [place] documented in this encounter Plan of Treatment Scheduled Referrals Name Type Priority Associated Order Schedule Diagnoses Referral to Outpatient Referral Routine Wrist pain Ordered: Orthopaedics 03/14/2013 documented as of this encounter Visit Diagnoses Diagnosis Wrist pain - Primary Pain in joint, forearm Anxiety state, unspecified Depression Depressive disorder, not elsewhere class ified Pain in wrist Pain in joint, forearm Smoker Tobacco use disorder documented in this encounter Care Teams Milk Route Deliverer Relationship Specialty Start Date End Date Yovani Flores MD PCP - General 11/28/12 11/14/[address] [facility] [address] [place] [address] documented as of this encounter
--- OUTSIDE RECORDS SUMMARY | 2022-01-29 00:45 | XMS_ITS | Encounter Summary ---
:1965 Author Organization [facility] Address [address] [place] [address] Care Team Providers Name Role Phone Yovani Flores MD Primary Care Provider [phone] Encounter Details Date Type Department Care Team Description 03/14/2013 Orders Only Orthopaedics at [facility] Juan R Rushing PA Wrist pain (Primary [facility] Dx) [place] [address] ORTHOPAEDIC [phone] SURGERY [place] [id number] Social History Tobacco Use Types Packs/Day Years [...] filedocumented as of this encounter Results XR wrist complete minimum 3 views (03/27/2013 8:13 AM EDT) Anatomical Region Laterality Modality N/A Radiographic Imaging Specimen (Source) Anatomical Collection Method Collection Time Re ceived Time Location / / Volume Laterality 03/27/2013 8:13 AM EDT Narrative 03/27/2013 11:48 AM EDT Examination WRIST COMPLETE MINIMUM 3 VIEWS/LEFT Clinical History WRIST PAIN Comparison December 2012. Technique 4 views Findings Unchanged advanced osteoarthropathy of t he radiocarpal joint. ??The scaphoid has an irregular configuration likely relate d to remote injury. ??It also contains multiple small radiolucencies or cystic change. The previously described equivocal radiolucency is no longer seen likely represents confluence of shadows. ?? There are additional lunate osteophytes. Unchanged well corticated bone fragment overlying the dorsal soft tissu es of the carpal bones suggests remote triquetrum fracture. ??The ulnar varianc e is positive. ??There is mild basal joint and scaphoid trapezial trapezoid j oint osteoarthropathy. Impression ? 1. No change from last examinatio n. ? 2. No acute scaphoid fractures se en. Procedure Note Velma Greenberg MD - 03/27/2013Formatt ing of this note might be different from the original. Examination WRIST COMPLETE MINIMUM 3 VIEWS/LEFT Clinical History WRIST PAIN Comparison December 2012. Technique 4 views Findings Unchanged advanced osteoarthropathy of t he radiocarpal joint. The scaphoid has an irregular configuration likely relate d to remote injury. It also contains multiple small radiolucencies or cystic change. The previously described equivocal radiolucency is no longer seen likely represents confluence of shadows. There are additional lunate osteophytes. Unchanged well corticated bone fragment overlying the dorsal soft tissu es of the carpal bones suggests remote triquetrum fracture. The ulnar variance is positive. There is mild basal joint and scaphoid trapezial trapezoid j oint osteoarthropathy. Impression 1. No change from last examination. 2. No acute scaphoid fractures seen. Glen Paul MD IMG DX ORDERABLES documented in this encounter Visit Diagnoses Diagnosis Wrist pain - Primary Pain in joint, forearm Wrist pain Pain in joint, forearm documented in this encounter Care Teams Rotary Cutter Operator Relationship Specialty Start Date End Date Yovani Flores MD PCP - General 11/28/12 11/14/13 [facility] [place] [address] documented as of this encounter
--- OUTSIDE RECORDS SUMMARY | 2022-01-29 00:45 | XMS_ITS | Encounter Summary ---
:1965 Author Organization [facility] [address] Care Team Providers Name Role Phone Niles Roy MD Primary Care Provider [phone] Reason for Referral Surgical (Urgent) - Closed Specialty Diagnoses / Referred By Contact Referred To Contact Procedures Orthopaedic Surgery / Clement Lamar [facility] Orthopaedics PA [address] [place] [address] [place] [address] Referral ID Status Reason Start Date Expiration Date Visits V isits Requested Authorized [id number] Closed Assume 11/27/2012 05/26/2013 1 1 Subset of Care Consultation (Routine) - Closed Specialty Diagnoses / Procedures Referred By Contact Refer red To Contact Internal Medicine Clement Lamar PA [address] [place] [address] [place] [address] Fax: Referral ID Status Reason Start Date Expiration Date Visits V isits Requested Authorized [id number] Closed Assume 11/27/2012 05/26/2013 1 1 Subset of Care Reason for Visit Reason Comments Arm Pain Encounter Details Date Type Department Care Team Description 11/27/2012 Emergency Emergency Department Clement Lamar PA [facility] [place] [address] De Quervain thyroiditis [facility] EMERGENCY DEPT, [facility] [place] [address] (Primary Dx) [place] [address] Social History Tobacco Use Types Packs/Day Years Used Date Current Every Day Smoker 0.75 Alcohol Use Standard Drinks/Week Comments Yes 8.3 (1 standard drink = 0.6 oz pure alco hol) Sex Assigned at Date Recorded Not on file documented as of this encounter Last Filed Vital Signs Vital Sign Reading Time Taken Comments Blood Pressure 132/76 11/27/2012 2:05 PM EDT Pulse 72 11/27/2012 2:05 PM EDT Temperature 36.3 ??C (97.3 ??F) 11/27/2012 2:05 PM EDT Respiratory Rate 16 11/27/2012 2:05 PM EDT Oxygen Saturation 100% 11/27/2012 2:05 PM EDT Inhaled Oxygen Concentration - - Weight - - Height - - Body Mass Index - - documented in this encounter Discharge Instructions Discharge InstructionsClement Lamar PA - 11/27/2012 7:05 PM EDT #1. Follow printed instructions from handout. #2. Wear your splint at all times except for you may removed carefully for bathing. #3. Sling when up and about as needed. #4. Ibuprofen 200 mg 3 tablets (600 mg) every 6 hours with food for the next 5-7 days. #5. Vicodin 5-500 one to 2 tablets every 6 hours as needed for breakthrough pain. #6. Follow up with orthopedics in 5-7 days . #&. Follow up with general internal medicine for primary care and a referral has been sent. # 8. Follow up in the ED as needed. AttachmentsThe following attachments cannot be sent through Care Everywhere. TENDON INJURY (TENDINOPATHY): AFTER YOUR VISIT (BULGARIAN)documented in this encounter Medications at Time of [...] thru pain documented as of this encounter ED Notes Clement Lamar PA - 11/27/2012 5:13 PM EDTAssociated Order(s): SPLINT APPLICATION - ED ONLY Chief Complaint Patient presents with ??? Arm Pain The history is provided by the patient. patient comes to the emergency department with pain in her left arm. She stated that last week she fell twice and then she was doing a lot of lifting of boxes with a move and the pain is increased. States the pain sometimes feels like it radiates all the way up her arm. She denies any numbness or tingling. Past history : bone graft of left arm 26 years ago secondary to a fracture. No Known Allergies Review of Systems as above. Physical Exam nurse's notes and vital signs are reviewed. Well-developed well-nourished right-handed 47-year-old female no acute distress. Exam is focused on her left upper extremity. Left forearm there is pain on palpation on both the radius and ulna distally. Patient will not flex or extend her wrist secondary to pain. Negative Tinel's positive Roc. Fingers move and she has sensation and cap refill is normal. Elbow exam passively is normal. Splint Application Date/Time: 11/27/2012 7:06 PM Performed by: CLEMENT LAMAR Authorized by: CLEMENT LAMAR Consent: Verbal consent obtained. Consent given by: patient Patient understanding: patient states understanding of the procedure being performed Patient consent: the patient's understanding of the procedure matches consent given Procedure consent: procedure consent matches procedure scheduled Patient identity confirmed: verbally with patient and arm band Location details: left arm Splint type: thumb spica Supplies used: Ortho-Glass Post-procedure: The splinted body part was neurovascularly unchanged following the procedure. Patient tolerance: Patient tolerated the procedure well with no immediate complications. MDM Number of Diagnoses or Management Options Amount and/or Complexity of Data Reviewed Tests in the radiology section of CPT??: ordered and reviewed Independent visualization of images, tracings, or specimens: yes Soft tissues are normal in appearance. No acute fracture or dislocation. Irregular contour of the distal ulnar styloid may represent a prior injury at this site. Bone mineralization is normal. 47-year-old female with a left arm tendinitis ( De Quiverians) in lieu of the fact that her x-rays are negative for a fracture. Will treat with a splint sling NSAIDs and some Vicodin for a few pain and refer her to orthopedic clinic for followup. ED Course: The patient was informed of our impression and current diagnosis. They were given an opportunity to have their questions answered. They were provided with the relevant discharge instruction set. I discussed signs and symptoms to expect, what to watch for, and what should cause them to return immediately. We also discussed recommendations with respect to need and timing of outpatient follow-up. This note was created using [employer] voice recognition software. Clement Lamar PA 11/27/12 1907 documented in this encounter Miscellaneous Notes Discharge Summary - Provider, Scanning - 11/28/2012 9:44 AM EDT Miscellaneous - Provider, Scanning - 11/27/2012 9:39 PM EDT ED Triage - Page Riggs RN - 11/27/2012 2:06 PM EDT Pt comes to ED w/ report of left forearm pain radiating up to her shoulder and into her back, was moving recently w/ lifting heavy boxes, she fell twice last week onto the left arm, she has been using sarah wrap and tyelnol without relief. Cap refill less than 2 sec. Pain rated 10/10. Moving all fingerswell, warm, sensation intact. Localized pain to lateral aspect of forearm and down her thumb. No other injuries reported, no LOC. A&Xo3.skin w/p/d. NAD. documented in this encounter Plan of Treatment Scheduled Referrals Name Type Priority Associated Order Schedule Diagnoses Referral to General Outpatient Referral Routine O rdered: Internal Medicine 11/27/2012 Referral to Outpatient Referral Routine Ordered: Orthopaedics 11/27/2012 documented as of this encounter Procedures Procedure Name Priority Date/Time Associated Diagnosis Comme nts APPLY FOREARM Routine 11/27/2012 7:07 PM Results for this SPLINT,STATIC PRFM EDT procedure are in - ED ONLY the results section. XR FOREARM AP AND STAT 11/27/2012 6:07 PM Resu lts for this LATERAL EDT procedure are i n the results section. documented in this encounter Results XR forearm AP & lateral (11/27/2012 6:07 PM EDT) Anatomical Region Laterality Modality Forearm N/A Radiographic Imaging Specimen (Source) Anatomical Collection Method Collection Time Re ceived Time Location / / Volume Laterality 11/27/2012 6:07 PM EDT Narrative 11/27/2012 7:44 PM EDT Examination FOREARM 2 VIEWS/LEFT/EDVM Clinical History fall pain distal radius/ulna Comparison None Technique Frontal and lateral views of the right f orearm. Findings Soft tissues are normal in appearance. N o acute fracture or dislocation. ?? Irregular contour of the distal ulnar st yloid may represent a prior injury at this site. 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 Film and interpretation reviewed by the attending Procedure Note Bashir Jenkins MD - 11/27/2012Formatt ing of this note might be different from the original. Examination FOREARM 2 VIEWS/LEFT/EDVM Clinical History fall pain distal radius/ulna Comparison None Technique Frontal and lateral views of the right f orearm. Findings Soft tissues are normal in appearance. N o acute fracture or dislocation. Irregular contour of the distal ulnar st yloid may represent a prior injury at this site. 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 Film and interpretation reviewed by the attending Gaetano De León MD IMG DX ORDERABLES documented in this encounter Visit Diagnoses Diagnosis De Quervain thyroiditis - Primary Subacute thyroiditis documented in this encounter Care Teams Per Diem Relationship Specialty Start Date End Date Niles Roy MD PCP - General 06/19/12 11/27/12 [address] [place] [address] documented as of this encounter
--- OUTSIDE RECORDS SUMMARY | 2022-01-29 00:45 | XMS_ITS | Encounter Summary ---
:1965 [place] [address] Care Team Providers Name Role Phone Niles Roy MD Primary Care Provider [phone] Reason for Visit Reason Comments Drug Overdose celexa, xanax, beer Encounter Details Date Type Department Care Team Description 08/07/2012 - Emergency Emergency Department Delia Lira, Drug overdose 08/08/2012 [facility] [place] [address] [place] [address] [phone] (Wo rk) Social History Tobacco Use Types Packs/Day Years Used Date Current Every Day Smoker 0.5 Alcohol Use Standard Drinks/Week Comments Yes 8.3 (1 standard drink = 0.6 oz pure alco hol) Sex Assigned at Date Recorded Not on file documented as of this encounter Last Filed Vital Signs Vital Sign Reading Time Taken Comments Blood Pressure 113/61 08/08/2012 7:30 AM EST Pulse 78 08/08/2012 7:30 AM EST Temperature 36.9 ??C (98.4 ??F) 08/07/2012 10:06 PM EST Respiratory Rate 18 08/08/2012 7:30 AM EST Oxygen Saturation 96% 08/08/2012 7:30 AM EST Inhaled Oxygen Concentration - - Weight 66.7 kg (147 lb) 08/07/2012 6:00 PM EST Height - - Body Mass Index - - documented in this encounter Discharge Instructions Discharge InstructionsAlyx Gunderson MD - 08/08/2012 7:51 AM EST Psychiatry Continuing Care Instructions You were assessed by: Dr Gunderson Recommended follow-up plans are: - you have an intake appointment for the Psychiatric Partial Hospital Program on Aug 09, 2012. Pleasego to the admissions office at 8:15am. See below for further instructions: [facility] Psychiatric Partial Hospitalization Program (PPHP) [facility] is open Tuesday through Tuesday 8:30-4:30pm except for Holidays. The program is a short-term group therapy program that focuses on skill building as it relates to managing psychiatric symptoms and stress. The program is based on a Cognitive-Behavioral and Mindfulness orientation. Patient stay varies from 2-6 days depending on individual needs and insurance eligibility. Important Phone Numbers: Emergency assistance: [facility] to leave a message: Tuesday-Tuesday Schedule Goals Group 9:00-10:00 Rounds: 10:00-11: Coping Skills 11:00-12:00 Lunch 12:00-1:00 Coping Skills 1:00-2:00 Relapse Prevention Group 2:30-3:30 Patient instructions: On the day of admission please arrive at the hospital admission office shortly by 8:15am (window immediately left after passing the rotunda on level 3). After registering please come directly to the [facility] area located on Level 2 of the [facility]. Please call [phone] if you will not attend as scheduled. The program provides you with lunch. The program does not provide medications so please take and/orbring the medications you need for the day with you. Medication Instructions: - please take benadryl as needed for anxiety today Additional Instructions and Resources: Emergency contacts for worsened symptoms or safety concerns Go to your nearest emergency room, or call [phone] Call your local community crisis line at [facility] [phone], or call the [facility] crisis line at [phone] Helpful websites for additional information: National Institutes of Mental Health (NIMH) http://www.nimh.nih.gov [employer] [employer] http://www.healthyminds.org/letstalkfacts.cfm National [place] on Mental Illness www.ronit.org or www.namivt.org or www.namin.org for local sites documented in this encounter Medications at Time of Discharge Medication Sig Dispensed Refills Start Date End Date ALPRAZOLAM ORAL Take 2 mg by mouth 0 0 08/09/2012 2 times daily. CITALOPRAM HYDROBROMIDE Take 40 mg by mouth 0 08/09/2012 (CELEXA ORAL) daily. documented as of this encounter ED Notes Juan Helton MD - 08/08/2012 7:55 AM EST Discuss the case with psychiatry who interviewed the patient at 7:30. At that time the patient regretted her ingestion last night and contracted for safety. Additionally,she has a supportive fianc?? who will be with her at all times. The patient states that she will return to the emergency department if she has thoughts of hurting herself or committing suicide. Arrangements have been made by psychiatry for the patient to followup in the partial hospitalizationprogram. The patient is comfortable with this plan. Juan Helton MD 08/08/12 0756 Claudia Flores RN - 08/08/2012 7:15 AM EST Report received from FÉLIX Kendrick. Assumed pt care. Dr. Gunderson (psych) in room evaluating pt at this time. Mireille Rao RN - 08/08/2012 5:56 AM EST Pt sleeping, waiting for psych to come to see her for re-eval Mireille Rao RN - 08/08/2012 4:09 AM EST Pt sleeping, rouseable. Will be reassessed by psych in the am. Yony Bray RN - 08/07/2012 11:30 PM EST Pt resting psychiatry to re-evaluate pt around midnight / pt appears well no anxiety noted pt left to rest Yony Bray RN - 08/07/2012 10:20 PM EST Pt pulled IV out/ pressure dressing to area pts SO now at pts bedside/ Yony Bray RN - 08/07/2012 10:00 PM EST Pt resting still restless is easily re-assured pt does settle with re-assurance a&ox3 has seen psychiatry waiting for plan of care no needs at this time Yony Bray RN - 08/07/2012 9:29 PM EST Psychiatry here to see pt at this time Yony Bray RN - 08/07/2012 8:36 PM EST PT GIVEN SANDWICH AND WATER PT REMAINS RESTLESS NEEDS TO BE RE-ASSURED MULTIPLE TIMES PT HAS RESTLESS LEGS vss NAD no needs at this time Delia Lira MD - 08/07/2012 6:27 PM EST Chief Complaint Patient presents with ??? Drug Overdose celexa, xanax, beer HPI Comments: Maria Isabel Gomez is a 47 y.o. female presenting to the ED with drug overdose. Pt has been under A lot of stress recently with jobs and finances. She had been drinking a couple of beers earlier. She states her fiance came over and she had had a bad day and took: -handful of 40 mg celexa pills, unsure of exact number -18-20 2 mg xanax tabs She denies any nausea, vomiting, CP, SOB, or abd pain. She says she is sleepy. Her fiance is with her. He says he was able to take other pills away from her that she was trying to take. She says she does not want to harm others. She avoids question of harming herself intentionally- saying I'm under alot of stress. No Known Allergies Review of Systems Constitutional: Negative for chills and fatigue. HENT: Negative for congestion, drooling and neck pain. Eyes: Negative for visual disturbance. Respiratory: Negative for shortness of breath. Cardiovascular: Negative for chest pain. Gastrointestinal: Negative for nausea, vomiting and abdominal pain. Skin: Negative for rash. Neurological: Negative for syncope and headaches. Psychiatric/Behavioral: Positive for confusion and decreased concentration. Negative for suicidal ideas. Physical Exam [nursing notereviewed. Constitutional: She is oriented to person, place, and time. She appears well- developed and well-nourished. No distress. HENT: Head: Normocephalic and atraumatic. Mouth/Throat: Oropharynx is clear and moist. Eyes: Conjunctivae and EOM are normal. Pupils are equal, round, and reactive to light. Neck: Normal range of motion. Neck supple. Cardiovascular: Normal rate, regular rhythm, normal heart sounds and intact distal pulses. Pulmonary/Chest: Effort normal and breath sounds normal. No respiratory distress. She has no wheezes. She has no rales. Abdominal: Soft. There is no tenderness. There is no guarding. Musculoskeletal: She exhibits no edema and no tenderness. Neurological: She is alert and oriented to person, place, and time. Skin: Skin is warm and dry. No rash noted. She is not diaphoretic. Psychiatric: Her mood appears anxious. Her speech is rapid and/or pressured and tangential. She is not agitated, not aggressive and not actively hallucinating. She expresses impulsivity. She expresses no homicidal and no suicidal ideation. Procedures MDM Pt presented after taking an unknown amount of celexa (she thinks 10 pills) and 18 2 mg xanax. She was slightly confused, but had no other complaints. Her physical exam showed no findings consistent with 1 toxidrome. She was slightly somnolent, but easily rousable with no vital sign abnormalities. Shestates she always has low BP. Her fiance said she was impulsive and had taken them after they had a fight and he discussed breaking up. She waited to take them until he was there and did it in front ofhim. She has never done this before. She had no lab abnormalities and no signs of other ingestions. She remained slightly confused on reexamination. Psych was called and they felt she would be safe to g o home as long as she was able to clear a little bit more and seemed appropriate. Vital signs showedno abnormalities and remained stable while in the ED. ED Course: -Medical records reviewed -EKG-NSR, no acute ischemia, no QT prolongation, no QRS widening -Labs CBC-unremarkable BMP-unremarkable LFTs-unremarkable Etoh-758 Utox-+ marijuana, benzos Acetaminophen-neg ASA-neg U dip- neg UTI UPT-neg Assessment: Pt with drug overdose on celexa and xanax who remains confused. Plan: Discussed with psych, we will monitor in the ED and make sure she is clearing appropriately atwhich time she can be discharge under the supervision of her fiance. Her care was transferred to Dr Banerjee. Edgar Linares, DO Resident 08/07/12 7011 Patient seen and examined with Dr. Linares. Please see his note for further details. I have seen and examined the patient myself, reviewed labs and imaging, and agree with Dr. Linares's assessment, exam findings, and plan of care. Medical decision making is my own. Summary: Intentional overdose as above. Hemodynamic is stable. Plan as above. Delia Lira MD 08/11/12 191 documented in this encounter Miscellaneous Notes Discharge Summary - Provider, Scanning - 08/09/2012 8:42 AM EST Consult Note - Carmen Simon MD - 08/07/2012 11:09 PM EST EMERGENCY DEPARTMENT PSYCHIATRIC EVALUATION CPT CODE 68609; ED CODE 5000 Time Spent: 90min Referral Source: Dr Lira Information source: pt and pt's fiance, interviewed separately Chief Complaint: 47 y.o. Female OD on xanax, celexa, some etoh History of Presenting Illness: Maria Isabel Gomez is a 47yo female w/hx of depression, anxiety (5yrs, since of daughter) who presented to the ED after ingesting handfuls of xanax and celexa, with some etoh intake possibly several hours earlier, in the context of acute employment and relationship stressors. Per the fiance who brought the pt to the ED, Maria Isabel had been waiting for the past few weeks in hopes of obtaining a job at [employer]. 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 He stated that she texted him thanking him, expressing her love for him, and requested to be cremated. With concern, he returned to the home and stated that she ingested a handful of pills in front of him and repeated the act while he tried to obtain the pill bottles. He then flushed the rest of the medications down the toilet. He stated that she had some issues with drinking (no hx of heavy drinking or w/d) but had not been drinking much due to limited funds. More prominent stressors recently have also been financial difficulty and the upcoming anniversary of her daughter (suicide Sep 04, 2007). He stated that their relationship had been kate since he brought her to the [facility] ED in Jun when shehad MS changes after smoking synthetic marijuana, but that he was still very supportive and would help her through this. He described her at her baseline in the most kind of words. He stated that he did not feel that today's event was an actual suicide attempt, but behavior clouded by some etoh use and in the context of some desperation over her lost job. He stated that he had no knowledge of prior suicide attempts and that he found it notable that after her ingestions she felt queasy and quite willingly came to the ED to be checked out. He felt she needed counseling; he relayed that he was in couns eling himself, felt it was beneficial, and that they had discussed joint counseling but she was deterred by finances currently. He also stated that she was going to be the recipient of a wrongful deathlawsuit of her brother (stroke --> coma --> after med error) and would likely obtain [phone] in the future. Upon initial interview with the pt ~9pm she was at times incoherent and stated that she was possiblydreaming at times, but was able to state that [place] was [place] and that she [place]. She stated that she was taking xanax 2mg bid and celexa 40mg, and that she had taken 4.5 tablets of xanax and 10 tablets of celexa earlier today. She stated that she had naida lost her mind earlier and had possibly talked about suicide but denied current suicidality. She wasambulating slowly but steadily. Upon re- interview around midnight the pt was still not fully clear, stated that she was at the end of when asked where she was, and that today was . Fell asleep easily when asked to attend to questions. Pt was left to clear in the ED overnight. Her fiance had stayed with the pt until ~1pm, left at my request, then returned ~5:45am to her bedside. Pt was re- interviewed alone. She stated she was groggy but was oriented x4. She corroborated the story relayed by her fiance. Though also reported that she had taken perhaps 20 xanax and 20 celexa, and drank 6 beers earlier. She stated that due to worseningdepression and financial stress she had suicidal thoughts for approx 1 week beforehand, to hang herself with a scarf and to OD, but stated that hanging herself was not feasible and that she had protective factors such as her mother, son, fiance, and puppy. She stated in regards to the overdose that she was definitely drunk and was hoping it would work but really didn't think it would work, and that it was impulsive and that she was glad to be alive. She had wanted to show James (her fiance) at that time what it was like to lose someone that was loved. Though she stated that she didn't think she had swallowed enough pills of xanax to kill herself. She denied any current thoughts to hurt herself or others. She relayed that she often got more depressed around holidays and the anniversary of her daughter's , and that she had been increasingly depressed since losing her last job in early July. Alsoendorsed intermittent sleep, loss of appetite with wt loss, difficulty concentrating, irritability, l ability, hopelessness over her financial situation, intermittent showering, but no guilt and with the ability to take care of her dog and cook meals. SI as per above. +constant worry over bills, anxiety attacks (no sense of doom but with palpitations, lightheadedness, zoning out) every few days, no agoraphobia, no AVH, no self harm behaviors, no HI, no nightmares (instead has had good dreams lately), no overt manic episodes. +flashbacks of her daughter in her casket, increasing lately. Past Psychiatric History: Dx: per PCP Dr Thao in [facility]: Depression on and off since daughter Anxiety attacks Meds: prescribed by her PCP Xanax 2mg bid x3yrs (often took it tid and would run out early, then would w/d: listless, low, more anxious) Celexa 40mg qd x3yrs Risperdal 2mg qd - dc/d, had been on for ~5mo, 2.5 yrs ago for mood swings Barclay she didn't need the med and that it was too expensive Hospitalizations: none Suicide attempts: OD on 72 sleeping pills after daughter in 2007, slept for 2 days at her home Providers: PCP Dr Thao Had seen a therapist in [place] after her daughter needed one, had counseling [...] Celexa 40mg qd Allergies: No Known Allergies Family Psychiatric/Medical History: (mental illness, substance use, suicide) Daughter suicide by hanging in 2007 (due to losing custody of her child, abusive BF) drug use by pt's other siblings Social History: [place] of [place], lived in [place] for some time, moved to [place] ~3 yrs ago Has GED, some associates degree Has 4 siblings 2 children from different fathers (daughter , son is 20yrs old and lives with his father) once for ~2 yrs Recently had worked at [employer] with her fiance Then worked at [employer]), fired after turning in a co-worker for theft, etc PSYCHIATRIC / MENTAL STATUS EXAMINATION Musculoskeletal System: No atrophy. Initially with some PMA that resolved. Gait and station are within normal limits. No ataxia noted. (See also: MSE: Behavior) Appearance: disheveled female in hospital garb lying on stretcher Behavior: cooperative but fidgety in legs at first, then calm in am Speech: slurred initially, then cleared Language: no unusual language Mood: my brain is a blank but I'm very calm Affect: congruent, moderate reactivity at times, smiles at appropriate cues Thought Process: disorganized at first, then linear Associations: loose, then intact Thought Content: consistently denied SI, HI Perception: denies AVH Orientation: oriented to person, place, situation, date Attention/Concentration: in am stated months of year backwards correctly Cognition: intact Memory: wnl Fund of Knowledge: adequate Insight: fair Judgment: impaired yesterday, improving today Pertinent Diagnostic Testing: Cbc, bmp, lfts wnl Acetaminophen neg ASA neg etoh 758 at 6:50pm 08/07 UTox +bzd, +MJ UPreg neg UA +leuk Assessment: Maria Isabel Gomez is a 47yo female w/hx of depression and anxiety presenting to the ED after an impulsive OD in the context of etoh use, fighting with her fiance, financial stress, employment loss, and the anniversary loss of her daughter to suicide. Worsening depression in the past few weeks after losing her last job, with concerning SI in the past week. However, in the past week pt had reported protective factors of family, stated that her actions were impulsive. Denied current SI and stated she could call friends and her fiance if with further thoughts of self harm. Asked for help in obtaining counseling. Was feeling more hopeful in the am interview after some sleep. After re-interview in the morning, inpatient hospitalization was strongly suggested for stabilization but pt refused on multiple occasions. Pt's fiance was very supportive, encouraged inpatient stay aswell but she again refused. Pt stated adamantly that she wanted to attend the partial program and would look for work in the evenings. Pt's fiance stated that he would be able to stay with the pt todayand see that she attends partial tomorrow morning (pt has transportation/vehicle as well but will need financial service support). Due to the verbalized as well as observed level of support by the fiance throughout her ED course, the pt's stated desire to obtain counseling again, pt's ability to stateprotective factors and supports (friends, was told of community crisis line) that she could call if she had further thoughts of self harm, likely financial reparation in the future due to her brother'swrongful lawsuit, pt was discharged to home to attend partial the following day, with strong re commendations that the pt should return to the ED for reassessment of inpatient admission if she felt she was decompensating further. Diagnosis: [place] I: MDD, r, s w/o PF, anxiety disorder NOS, r/o complicated bereavement, r/o PTSD [place] II: deferred [place] III: denied [place] IV: financial, relationship stress, unemployed, anniversary loss of child [place] V: current GAF 40 Plan/Recommendations: - attend [facility] on Aug 09, 2012 - pt's fiance to monitor pt and bring her to [facility] - pt will need to be set up with financial services - pt will need to be set up with community mental health services upon discharge from [facility] - pt will need medication review and [facility] ALYX GUNDERSON MD 08/08/2012 Psychiatry Teaching Physician Involvement Resident: Jensen [x ] I discussed this patient's situation with the resident but did not see the patient. I contributed to the formulation and treatment planning as documented in the resident's note. Patient was offered inpatient hospitalization and declined, strongly preferring to attend the partial hospital program.Dr. Gunderson also spoke extensively with her fiance, who was comfortable with this plan, agreed to stay with her over New Year's, and would provide transportation to the partial hospital program on Tuesday. Miscellaneous - Provider, Scanning - 08/07/2012 9:19 PM EST ED Triage - Ginny Bales RN - 08/07/2012 6:01 PM EST Pt comes with teeance, reports taking handfuls of Celexa and Xanax at approximately 1700. Pt also admits having a couple of beers, around 1400 today. Pt seems ataxic, sleepy, and slurring words at triage. Pt states I'm tired of being dicked around. Pt denies previous SI or suicide attempts. Fiance states pt has struggled with depression, been under great stress (seeking employment,) and that the 2 year anniversary of her daughters is also approaching. documented in this encounter Plan of Treatment Not on filedocumented as of this encounter Procedures Procedure Name Priority Date/Time Associated Comments Diagnosis DIFFERENTIAL, STAT 08/07/2012 6:50 PM Results for this AUTOMATED EST procedure are i n the results section. CREATININE STAT 08/07/2012 6:50 PM Results f or this EST procedure are i n the results section. APTT STAT 08/07/2012 6:50 PM Results f or this EST procedure are i n the results section. PROTHROMBIN TIME STAT 08/07/2012 6:50 PM Resul ts for this EST procedure are i n the results section. CBC (WITH DIFF) STAT 08/07/2012 6:50 PM Result s for this EST procedure are i n the results section. BUN STAT 08/07/2012 6:50 PM Results f or this EST procedure are i n the results section. GLUCOSE, RANDOM STAT 08/07/2012 6:50 PM Result s for this EST procedure are i n the results section. ETHANOL LEVEL STAT 08/07/2012 6:50 PM Results for this EST procedure are i n the results section. ACETAMINOPHEN LEVEL STAT 08/07/2012 6:50 PM Re sults for this EST procedure are i n the results section. SALICYLATE STAT 08/07/2012 6:50 PM Results f or this EST procedure are i n the results section. HEPATIC FUNCTION PANEL STAT 08/07/2012 6:50 PM Results for this EST procedure are i n the results section. ELECTROLYTES PANEL STAT 08/07/2012 6:50 PM Res ults for this EST procedure are i n the results section. EKG 12-LEAD STAT 08/07/2012 6:30 PM Results f or this EST procedure are i n the results section. POCT URINE STAT 08/07/2012 6:22 PM R esults for this EST procedure are i n the results section. POCT URINE DIPSTICK STAT 08/07/2012 6:21 PM Re sults for this EST procedure are i n the results section. RAPID DRUG SCREEN W/O STAT 08/07/2012 6:15 PM Results for this CONFIRMATION, URINE EST procedur e are in the results section. URINALYSIS WITH REFLEX STAT 08/07/2012 6:15 PM Results for this CULTURE EST procedure are i n the results section. documented in this encounter Results Differential, Automated (08/07/2012 6:50 PM EST) P athologist Signature Neutrophils % 42.0 34.0 - CERNER 71.0 % MILLENNIUM Neutr Abs (ANC) 3.01 1.50 - CERNER 6.30 MILLENNIUM x10(3)/mcL Lymphocytes % 49.9 19.0 - CERNER 53.0 % MILLENNIUM Lymphocytes Abs 3.6 1.0 - 3.6 CERNER x10(3)/mcL MILLENNIUM Monocytes % 5.4 4.0 - 13.0 CERNER % MILLENNIUM Monocyte Abs 0.4 0.2 - 1.0 CERNER x10(3)/mcL MILLENNIUM Eosinophils % 2.2 0.0 - 7.0 CERNER % MILLENNIUM Eosinophils Abs 0.2 0.0 - 0.5 CERNER x10(3)/mcL MILLENNIUM Basophils % 0.4 0.0 - 2.0 CERNER % MILLENNIUM Basophils Abs 0.0 0.0 - 0.2 CERNER x10(3)/mcL MILLENNIUM Immature Gran % 0.10 0.00 - CERNER 0.66 % MILLENNIUM Comment: Immature granulocytes(IG's)percentage an d absolute count will include metamyelocytes, myelocytes, and promyelo cytes. Blood smears from CBCs yielding IG's will be scanned manually for concor dance. If this scan disagrees with the automated IG or if promyelocytes are not ed, a manual differential will be performed. Zoë Gran Abs 0.01 0.00 - 0.05 x10(3)/mcL CER NER MILLENNIUM Specimen Anatomical Collection Method Collection Time Receive d Time (Source) Location / / Volume Laterality Blood specimen 08/07/2012 6:50 PM 012 6:57 (specimen) EST PM EST Delia Lira MD HEMATOLOGY ORDERABLES Performing Organization Address [facility]/[place] [address] CERNER MILLENNIUM Salicylate (08/07/2012 6:50 PM EST) athologist Signature Salicylate Lvl <20 mg/L CERNER MILLENNIUM Comment: Therapeutic Range: ??< 200 mg/L Arthritic Therapy: ??150-300 mg/L Toxic: ?> 350 mg/L ??Concentrations > 500 mg/L may be an i ndication for alkalinization of urine. Concentrations > 800 mg/L are often an i ndication for hemodialysis. Specimen Anatomical Collection Method Collection Time Receive d Time (Source) Location / / Volume Laterality Blood specimen 08/07/2012 6:50 PM 012 6:57 (specimen) EST PM EST Resulting Agency Comment Spec In Lab Delia Lira MD CHEMISTRY ORDERABLES Performing Organization Address [facility] Phon e Number [address] CERNER MILLENNIUM Acetaminophen level (08/07/2012 6:50 PM EST) athologist Signature Acetamin Lvl <15 10 - 30 CERNER mg/L MILLENNIUM Comment: Levels >150 mg/L at 4 hours post ingesti on or >75 mg/L at 8 hours post ingestion are often an indication for N- Acetylcysteine. Specimen Anatomical Collection Method Collection Time Receive d Time (Source) Location / / Volume Laterality Blood specimen 08/07/2012 6:50 PM 012 6:57 (specimen) EST PM EST Resulting Agency Comment Spec In Lab Delia Lira MD CHEMISTRY ORDERABLES Performing Organization Address City/[facility] [place] [address] CERNER MILLENNIUM Ethanol Level (08/07/2012 6:50 PM EST) P athologist Signature Ethanol Lvl 758 mg/L CERNER MILLENNIUM Comment: Greater than 800 mg/L (0.08%) should be considered intoxicated. 3400 to 4500 mg/L (0.34 - 0.45%) is cons idered severe intoxication. Greater than 5500 mg/L (0.55%) is usuall y fatal. Specimen Anatomical Collection Method Collection Time Receive d Time (Source) Location / / Volume Laterality Blood specimen 08/07/2012 6:50 PM 012 6:57 (specimen) EST PM EST Resulting Agency Comment Spec In Lab Delia Lira MD CHEMISTRY ORDERABLES Performing Organization Address [facility] [place] [address] CERNER MILLENNIUM APTT (08/07/2012 6:50 PM EST) P athologist Signature PTT 26 25 - 35 sec CERNER MILLENNIUM Comment: Recommended therapeutic PTT range for fu ll dose unfractionated heparin is 80-114 seconds. Specimen Anatomical Collection Method Collection Time Receive d Time (Source) Location / / Volume Laterality Blood specimen 08/07/2012 6:50 PM 012 6:57 (specimen) EST PM EST Resulting Agency Comment Spec In Lab Delia Lira MD HEMATOLOGY ORDERABLES Performing Organization Address City/[facility] Phon e Number [address] CERNER MILLENNIUM Prothrombin Time (08/07/2012 6:50 PM EST) athologist Signature PT 13.3 11.9 - 14.7 CERNER sec MILLENNIUM Comment: [facility] Transfusion Committee Guidelines: I NR less than 2.0, PTT less than OR equal to 43.5 seconds, or Fibrinogen gre ater than or equal to 100 mg/dl indicate adequate procoagulant activity for hemostasis in patients without underlying bleeding disorders. INR 1.0 0.9 - 1.1 [facility] Specimen Anatomical Collection Method Collection Time Receive d Time (Source) Location / / Volume Laterality Blood specimen 08/07/2012 6:50 PM 012 6:57 (specimen) EST PM EST Resulting Agency Comment Spec In Lab Delia Lira MD HEMATOLOGY ORDERABLES Performing Organization Address City/[facility] [place] [address] CERNER MILLENNIUM Hepatic Function Panel (08/07/2012 6:50 PM EST) athologist Signature Total Protein 7.4 6.4 - 8.3 CERNER gm/dL MILLENNIUM Albumin 4.7 3.2 - 5.2 CERNER gm/dL MILLENNIUM AST 19 0 - 30 CERNER unit/L MILLENNIUM ALT 17 0 - 30 CERNER unit/L MILLENNIUM Alk Phos 93 40 - 104 CERNER unit/L MILLENNIUM Total 0.2 0.2 - 1.3 CERNER Bilirubin mg/dL [facility] Bili, Direct 0.1 0.0 - 0.3 CERNER mg/dL MILLENNIUM Specimen Anatomical Collection Method Collection Time Receive d Time (Source) Location / / Volume Laterality Blood specimen 08/07/2012 6:50 PM 012 6:57 (specimen) EST PM EST Resulting Agency Comment Spec In Lab Delia Lira MD CHEMISTRY ORDERABLES Performing Organization Address [facility] [place] [address] [facility] Glucose, random (08/07/2012 6:50 PM EST) athologist Signature Glucose Lvl 82 60 - 199 CERNER mg/dL [facility] Comment: Diabetes: >=200 mg/dL plus symp toms Specimen Anatomical Collection Method Collection Time Receive d Time (Source) Location / / Volume Laterality Blood specimen 08/07/2012 6:50 PM 012 6:57 (specimen) EST PM EST Resulting Agency Comment Spec In Lab Delia Lira MD CHEMISTRY ORDERABLES Performing Organization Address City/State/[place] [address] CERNER MILLENNIUM Creatinine, serum (08/07/2012 6:50 PM EST) athologist Signature Creatinine 0.83 0.70 - 1.20 CERNER mg/dL [facility] Comment: Please note that the pediatric reference intervals supplied above were not validated at [facility]. Results from pediatri c patients should be interpreted in conjunction to the patient's age, height and muscle mass. Estimated GFR >60 >=60 YANETH Posada Comment: The National Kidney Disease Education Pr ogram (NKDEP) has recommended all laboratories report estimated GFR (eGFR) along with plasma creatinine measurements to assist you with recognit ion of early kidney disease. Caveats: ??Plasma creatinine should be a t steady-state (unchanged within the past week). For patient s multiply eGFR by 1.2. The MDRD equation was developed using patients be tween the ages of 18 and 70 years. ?? The MDRD equation has not been validated for patients < 18 years of age and should not be used to assess renal function in the pediatric population. ??The MDRD eGFR equation will also overestimate the true GFR of patients above the age of 70. ??This overestimation is variable bu t increases with age. At present, NKDEP does NOT recommend usi ng the MDRD equation for drug dosing purposes and pharmacists should continue to use their current dosing methods. In addition, numerical eGFR values great er than 60 ml/min/1.73 square meters should be treated as > 60, and not an ex act number due to greater inaccuracies at these higher values. Per NKDEP, they classify normal renal function as any GFR >60ml/min/1.73 square meters; chronic kidney disease wh en GFR <60, and renal failure when GFR <15. ??This calculation may not be valid for patients with atypical muscle mass (very lean or obese), acute renal failur e, and in patients with diabetic kidney disease. References: http://nkdep.nih.gov/resources/NKDEP_Sug gestn4Labs_0606_508.pdf http://www.kidney.org/professionals/kls/ pdf/faq_gfr.pdf Margie K, Saad NA, Keesha AK, Cosmo TS, Chne AD, Lion CARMELA. Relative performance of the MDRD and CKD-EPI equa tions for estimating glomerular filtration rate among patients with vari ed clinical presentations. Clin J Am Soc Nephrol;6:1963-72. Specimen Anatomical Collection Method Collection Time Receive d Time (Source) Location / / Volume Laterality Blood specimen 08/07/2012 6:50 PM 012 6:57 (specimen) EST PM EST Resulting Agency Comment Spec In Lab Delia Lira MD CHEMISTRY ORDERABLES Performing Organization Address City/[facility] Code Phon e Number [address] CERNER MILLENNIUM BUN (08/07/2012 6:50 PM EST) athologist Signature BUN 11 8 - 18 CERNER mg/dL MILLENNIUM Specimen Anatomical Collection Method Collection Time Receive d Time (Source) Location / / Volume Laterality Blood specimen 08/07/2012 6:50 PM 012 6:57 (specimen) EST PM EST Resulting Agency Comment Spec In Lab Delia Lira MD CHEMISTRY ORDERABLES Performing Organization Address [facility] [place] [address] CERNER MILLENNIUM Electrolytes panel (08/07/2012 6:50 PM EST) athologist Signature Sodium 137 135 - 145 CERNER mmol/L MILLENNIUM Potassium 3.6 3.5 - 5.0 CERNER mmol/L MILLENNIUM Comment: Please note: ??Patients with WBC >100,00 0 may have falsely elevated Potassium levels. ??For accurate Potassium quantif ication in these patients send serum separator tube (gold top) for subsequent determinations. ??Contact the Clinical Chemistry Laboratory if there are any qu estions. Chloride 101 98 - 107 mmol/L CERNER MILLENN IUM CO2 25 22 - 31 mmol/L CERNER MILLENNI UM Anion Gap 11 5 - 15 mmol/L CERNER MILLENNIU M Specimen Anatomical Collection Method Collection Time Receive d Time (Source) Location / / Volume Laterality Blood specimen 08/07/2012 6:50 PM 012 6:57 (specimen) EST PM EST Resulting Agency Comment Spec In Lab Delia Lira MD CHEMISTRY ORDERABLES Performing Organization Address City/State/[place] [address] CERNER MILLENNIUM (ABNORMAL) CBC (with Diff) (08/07/2012 6:50 PM EST) P athologist Signature WBC 7.2 4.0 - 10.0 CERNER x10(3)/mcL MILLENNIUM RBC 4.29 3.93 - CERNER 5.22 MILLENNIUM x10(6)/mcL Hemoglobin 13.9 11.2 - CERNER 15.7 gm/dL MILLENNIUM Hematocrit 40.1 34.0 - CERNER 45.0 % MILLENNIUM MCV 93.5 79.0 - CERNER 94.0 fL MILLENNIUM MCH 32.4 (H) 26.6 - CERNER 32.2 pg MILLENNIUM MCHC 34.7 32.0 - CERNER 36.5 gm/dL MILLENNIUM Platelets 214 145 - 370 CERNER x10(3)/mcL MILLENNIUM RDWSD 42.7 35.0 - CERNER 46.0 fL MILLENNIUM RDWCV 12.6 10.9 - CERNER 14.4 % MILLENNIUM MPV 9.5 9.0 - 12.0 CERNER fL MILLENNIUM Specimen Anatomical Collection Method Collection Time Receive d Time (Source) Location / / Volume Laterality Blood specimen 08/07/2012 6:50 PM 012 6:57 (specimen) EST PM EST Resulting Agency Comment Spec In Lab Delia Lira MD HEMATOLOGY ORDERABLES Performing Organization Address City/[facility]/[place] [address] YANETH BOWDENENNIUM EKG 12 Lead (08/07/2012 6:30 PM EST) [facility] Method Time Signature Ventricular rate 71 BPM MUSE SYSTEM Atrial Rate 71 BPM MUSE SYSTEM P-R Interval 140 ms MUSE SYSTEM QRS Duration 82 ms MUSE SYSTEM Q-T Interval 404 ms MUSE SYSTEM QTC Calculated 439 ms MUSE SYSTEM (Bezet) Calculated P [place] 65 degrees MUSE SYSTEM Calculated R [place] 72 degrees MUSE SYSTEM Calculated T [place] 56 degrees MUSE SYSTEM INTERPRETATION Normal sinus rhythm MUSE SYSTEM Normal ECG No previous ECGs available Confirmed by Doc Wallace MD ([id number]) on 08/09/2012 2:59:32 PM Specimen Anatomical Collection Method Collection Time Receive d Time (Source) Location / / Volume Laterality 08/07/2012 6:30 PM 3 2:59 EST PM EST Delia Lira MD ECG ORDERABLES Performing Organization Address City/State/ZIP Code Phon e Number MUSE SYSTEM POCT urine (08/07/2012 6:22 PM EST) [facility] Method Time Signature POC Urine HCG Negative (none) POC Control Internal (none) Controls Acceptable Delia Lira MD POINT OF CARE TEST ORDERABLE S POCT urine dipstick (08/07/2012 6:21 PM EST) athologist Signature POC Sp Iaeger 1.015 1.002 - 1.030 POC pH, UA 5 5.0 - 8.5 POC Leuk, UA pos Negative - Negative POC Nitrite, neg Negative - UA Negative POC Protein, neg Negative - UA Negative mg/dL POC Glucose, neg Normal - UA Normal mg/dL POC Ketone, UA neg Negative - Negative POC Urobil, UA neg 0.2 - 1.0 mg/dL POC Bili, UA neg Negative - Negative POC Blood, UA neg Negative - Negative ebony/uL Delia Lira MD POINT OF CARE TEST ORDERABLE S (ABNORMAL) Rapid Qual Drug Screen, Urine ([facility]) (08/07/2012 6:15 PM EST) [facility] Method Time Signature JOSSE Marijuana Presumptive None CERNER Metabolites Pos (A) Detected MILLENNIUM Scr Comment: Please note that as of 08/04/2012 the te sting device changed to the PROFILE-V MED[employer] Drugs of Abuse Test System. The marijuana metabolites screen detects the THC Metabolite (28-qrg-4-carboxy- 9-THC) ??at concentrations >50 ng/mL. Be aware that this is only a [...] s from similar or dissimilar cross-reacting drugs. JOSSE Phencyclidine Scr None Detected None Detected CERNER MILLENNIUM Comment: Please note that as of 08/04/2012 the te sting device changed to the PROFILE-V MEDTOXScan Drugs of Abuse Test System. The phencyclidine screen detects phencyc lidine at concentrations >25 ng/mL. Be aware that this is only a [...] s from similar or dissimilar cross-reacting drugs. JOSSE Cocaine Metabolites Scr None Detected None Detected CERNER MILLENNIUM Comment: Please note that as of 08/04/2012 the te sting device changed to the PROFILE-V MEDTOXScan Drugs of Abuse Test System. The cocaine metabolites screen detects b enzoylecgonine (Cocaine Metabolite) at concentrations >150 ng/mL. Be aware that this is only a [...] s from similar or dissimilar cross-reacting drugs. JOSSE Methamphetamines Scr None Detected None Detected CERNER MILLENNIUM Comment: Please note that as of 08/04/2012 the te sting device changed to the PROFILE-V MEDTOXScan Drugs of Abuse Test System. The methamphetamine screen detects d-met hamphetamine at concentrations >500 ng/mL. Be aware that this is only a [...] s from similar or dissimilar cross-reacting drugs. JOSSE Opiates Scr None Detected None Detected CERNER MILLENNIUM Comment: Please note that as of 08/04/2012 the te sting device changed to the PROFILE-V [employer]TOXScan Drugs of Abuse Test System. The opiates screen detects opiates at a concentration >100 ng/mL. Be aware that this is only a QUALITATIVE SCREEN and must be used in conjunction with your clinical assessment of the pat ient. ??Results are NOT routinely confirmed by highly-defined methods, and are therefore reported as presumptive positive screens as such qualitative SC REEN RESULTS CANNOT BE USED FOR MEDICO-LEGAL purposes. ??As with any amndy litative drug screening device, there can be occasional false positive reading s from similar or dissimilar cross-reacting drugs. JOSSE Amphetamines Scr None Detected None Detected C CESAR MILLENNIUM Comment: Please note that as of 08/04/2012 the te sting device changed to the PROFILE-V MEDTOXScan Drugs of Abuse Test System. The amphetamine screen detects d-ampheta mine at concentrations >500 ng/mL. Be aware that this is only a [...] s from similar or dissimilar cross-reacting drugs. JOSSE Benzodiazepines Scr Presumptive Pos (A) None Detected CERNER MILLENNIUM Comment: Please note that as of 08/04/2012 the te sting device changed to the PROFILE-V MEDTOXScan Drugs of Abuse Test System. The benzodiazepines screen detects benzo diazepines at concentrations >150 ng/mL. Not all benzodiazepines cross-reinier ct equally with antibody used in this screen. Due to the low dosage of clonaze yvrose, false negatives may be obtained due to low concentration of clonazepam m etabolites. Be aware that this is only a [...] s from similar or dissimilar cross-reacting drugs. JOSSE Tricyclics Scr None Detected None Detected CER NER MILLENNIUM Comment: Please note that as of 08/04/2012 the te sting device changed to the PROFILE-V MEDTOXScan Drugs of Abuse Test System. The tricyclics screen detects tricyclic antidepressants at concentrations >300 ng/mL. Not all tricyclics cross-react eq ually with the antibody used in this screen. Be aware that this is only a [...] s from similar or dissimilar cross-reacting drugs. JOSSE Methadone Scr None Detected None Detected CERN ER MILLENNIUM Comment: Please note that as of 08/04/2012 the te sting device changed to the PROFILE-V MEDTOXScan Drugs of Abuse Test System. The methadone screen detects methadone a t concentrations >200 ng/mL. Be aware that this is only a [...] s from similar or dissimilar cross-reacting drugs. JOSSE Barbiturates Scr None Detected None Detected C ERNER MILLENNIUM Comment: Please note that as of 08/04/2012 the te sting device changed to the PROFILE-V MEDTOXScan Drugs of Abuse Test System. The barbiturates screen detects barbitur ate at concentrations >200 ng/mL. Note: Not all barbiturates cross-react equally with antibody used in this screen. Be aware that this is only a [...] s from similar or dissimilar cross-reacting drugs. JOSSE Oxycodone Scr None Detected None Detected CERN ER MILLENNIUM Comment: Please note that as of 08/04/2012 the te sting device changed to the PROFILE-V MEDTOXScan Drugs of Abuse Test System. The oxycodone screen detects oxycodone a t concentrations >100 ng/mL and oxymorphone >250 ng/ml. Be aware that this is only a [...] s from similar or dissimilar cross-reacting drugs. JOSSE Propoxyphene Scr None Detected None Detected C ERNER MILLENNIUM Comment: Please note that as of 08/04/2012 the te sting device changed to the PROFILE-V [employer]TOXScan Drugs of Abuse Test System. The propoxyphene screen detects propoxyp hene at concentrations >300 ng/mL. Be aware that this is only a [...] s from similar or dissimilar cross-reacting drugs. JOSSE Buprenorphine Scr None Detected None Detected CERNER MILLENNIUM Comment: Please note that as of 08/04/2012 the te sting device changed to the PROFILE-V [employer] Drugs of Abuse Test System. The buprenorphine screen detects bupreno rphine at concentrations >10 ng/mL. Be aware that this is only a [...] Location / / Volume Laterality Urine specimen 08/07/2012 6:15 PM 012 6:44 (specimen) EST PM EST Resulting Agency Comment Spec In Lab Delia Lira MD URINE ORDERABLES Performing Organization Address City/State/ZIP Code Phon e Number [place] [id number] CERNER MILLENNIUM (ABNORMAL) Urinalysis with microscopic (08/07/2012 6:15 PM EST) [facility] gist Method Time Signature Glucose UA Negative Negative CERNER mg/dL MILLENNIUM Protein UA Negative mg/dL CERNER MILLENNIUM Bilirubin UA Negative Negative CERNER mg/dL MILLENNIUM Urobilinogen UA Normal mg/dL CERNER MILLENNIUM pH UA 5.5 5.0 - 8.0 CERNER MILLENNIUM Blood UA Negative mg/dL CERNER MILLENNIUM Ketones UA Negative mg/dL CERNER MILLENNIUM Nitrite UA Negative CERNER MILLENNIUM Leukocytes UA Moderate mcL CERNER MILLENNIUM Appearance UA Clear Clear CERNER MILLENNIUM Spec [place] UA 1.005 1.002 - CERNER 1.030 MILLENNIUM Color UA Light Yellow CERNER Yellow MILLENNIUM RBC UA <1 0 - 4 /HPF CERNER MILLENNIUM WBC UA 7 (H) 0 - 5 /HPF CERNER MILLENNIUM Bacteria UA Rare (A) None /HPF CERNER MILLENNIUM Squam Epith UA 4 <=4 /HPF CERNER MILLENNIUM Specimen Anatomical Collection Method Collection Time Receive d Time (Source) Location / / Volume Laterality Urine specimen 08/07/2012 6:15 PM 012 6:44 (specimen) EST PM EST Resulting Agency Comment Spec In Lab Delia Lira MD URINE ORDERABLES Performing Organization Address City/State/[place] [address] [facility] documented in this encounter Visit Diagnoses Diagnosis Drug overdose Poisoning by unspecified drug or medicin al substance documented in this encounter Administered Medications Inactive Administered Medications - up to 3 most recent administrations Medication Order MAR Action Action Date Dose Rate Site sodium chloride 0.9% 1,000 mL IV Given 08/07/2012 8:15 PM EST bolus Intravenous, ONCE, 1 dose, On Tue08/07/12 at 1830 Given 08/07/2012 7:00 PM EST documented in this encounter Active and Recently Administered Medications Times are shown in EST. Scheduled Medication Order 08/06/2012 08/07/2012 08/08/2012 sodium chloride 0.9% 1,000 mL IV bolus (COMPLETED) 1900 (Given - Provider: Yony Bray, FÉLIX)2014 (Given - Provider: Yony Bray, FÉLIX) Intravenous, ONCE, 1 dose, Tue08/07/12 at 1830 documented in this encounter Care Teams Property Claim Rep Relationship Specialty Start Date End Date Niles Roy MD PCP - General 06/19/12 11/27/12 [address] [place] [address] documented as of this encounter
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
--- OUTSIDE RECORDS SUMMARY | 2022-01-29 00:45 | XMS_ITS | Encounter Summary ---
:1965 Author Organization [facility] Address [address] [facility] [place] [address] Care Team Providers Name Role Phone Niles Carlson MD Primary Care Provider [phone] Encounter Details Date Type Department Care Team Description 08/14/2012 Unscheduled [facility] PSYCH PARTIAL William Kiran, Anxiety state, Encounter [facility] Center MD [address] [facility] (Primary Dx) [place] [address] [phone] [place] [address] Social History Tobacco Use Types Packs/Day Years Used Date Current Every Day Smoker 0.75 Alcohol Use Standard Drinks/Week Comments Yes 8.3 (1 standard drink = 0.6 oz pure alco hol) Sex Assigned at Date Recorded Not on file documented as of this encounter Last Filed Vital Signs Vital Sign Reading Time Taken Comments Blood Pressure 109/74 08/14/2012 9:05 AM EST Pulse 87 08/14/2012 9:05 AM EST Temperature - - Respiratory Rate - - Oxygen Saturation - - Inhaled Oxygen Concentration - - Weight 63.5 kg (140 lb) 08/14/2012 9:05 AM EST Height 167.6 cm (5' 6) 08/14/2012 9:05 AM EST Body Mass Index 22.6 08/14/2012 9:05 AM EST documented in this encounter Progress Notes Florence Viveros, MS - 08/14/2012 3:27 PM EST [facility] Daily Progress Note - Group Notes: Maria Isabel Brian 1965 [id number] Group: Group Therapy - Greater than 45 minutes Topic: Goals Group Attendance: Present Behavior: Expressive Therapeutic Work Observed: Moderate Mood: Calm Assessment: Patient said that her goal is to keep my head straight and meet with doc. Patient stated staying with her mother over the weekend and was able to maintain abstinence from alcohol. Patientdescribed experiencing withdrawal from medication and wants to address that with doctor (ativan to reduce withdrawal from alcohol). Progress Towards Goal: See above. [facility] Daily Progress Note - Group Notes: Maria Isabel Brian 1965 [id number] Group: Group Therapy - Greater than 45 minutes Topic: Emotion Regulation Skills Attendance: Present Behavior: Quiet Therapeutic Work Observed: Minimal Mood: Anxious Assessment: Patient reviewed emotion regulation skills and recognized that she felt angry about having withdrawal and that she needs to work on accepting her feelings instead of avoiding/ignoring them. Progress Towards Goal: See above. [facility] Daily Progress Note - Group Notes: Maria Isabel Brian 1965 [id number] Group: Group Therapy - Greater than 45 minutes Topic: Emotion Regulation Skills Attendance: Present Behavior: Quiet Therapeutic Work Observed: Minimal Mood: Anxious Assessment: Patient reviewed emotion regulation skills and recognized that she drinks when she has feelings and that she is working on reducing and/or stopping drinking. Patient also stated hiding her feelings and not wanting to show that she is weak. Progress Towards Goal: See above. [facility] Daily Progress Note - Group Notes: Maria Isabel Brian 1965 [id number] Group: Group Therapy - Greater than 45 minutes Topic: Relapse Prevention Group Attendance: Present Behavior: Expressive Therapeutic Work Observed: Moderate Mood: Calm Assessment: Patient stated feeling anxious and weepy at the end of the day and described having a strong urge to drink. Patient contracted to stay safe and has invited sober friends over to help her eat food and not drink. Patient's mother is coming to stay on and they are planning on attending the Survivors of Suicide group on . Progress Towards Goal: See above. Florence Viveros [facility] Chief Mental Health Therapist Psychiatric Partial Hospitalization Program Francesca Chopra RN - 08/14/2012 2:45 PM EST [facility] Daily Progress Nurse Note: Maria Isabel Brian 1965 [id number] Safety: Patient denises risk Mood/Affect: Depressed - 5 Anxiety: Anxious - 10 Behavior: Tearful Speech: WNL Cognition: Oriented Appearance: WNL Thought Content: WNL Sleep: 2 Hours Slept Activity: Restlessness Energy: Low Endurance Perceptual Disturbance: WNL Eating: Reduced Appetite Medications: Not taking as prescribed - (Explain: Did not have medication) William Kiran MD - 08/14/2012 1:10 PM EST [facility]iatric [facility] Program - Progress Note Chief Complaint: depression History of Present Illness: pt reports she had been on celexa for 4 yrs, hasnt been on celexa since coming to the hospital. She tried the ativan but reports the ativan dose was too weak. Originally in first pt reported being tapered off celexa and was due to stop, but pt reports today that dose had been lowered to 20 mg for awhile, but then raised again to 40 mg qday. Rx Is Manuela - PCP Rx meds, he is located in [facility]. Pt reports over last several days feeling anxious, sweaty, restless, nausea. Feels this is related to not being on celexa or enough ativan. Took extra ativan doses, but reports this didn't help. Pt reports these set of sxs feels like she is going into withdrawal. Pt felt that on celexa it was helpful, she felt better re- level of depression, lability. Med hx: klonopin - pt was on in past, thinks 0.5 mg tabs. () Quality:anxiety > dep, but feels depression is worse. Severity: Depression 5/10 (10 high). Anxiety 10/10 (10 high) Duration: Chronic Timing: Context: Modifying factors: Associated symptoms: sleep - poor. Pt states she is trying not to drink (had a drink Sat). NV - poor, no maricruz, energy - low. Hopeless - no; Review of Systems: () Constitutional: Pain 10/10 (10 high). my body feels like it will go puff. Feels whole bodyaches, discomfort from what she reports as withdrawal. Eyes: ENT: Cardiovascular: Respiratory: GI: : Musculoskeletal: Skin: Neurological: Psychiatric: as above Endocrine: Hematologic: Allergic:NKDA Mental Status Exam: () ?? Appearance and Behavior: casually dressed, cooperative, appears mildly restless, anxious ?? Speech:soft, norm prosody ?? Language: fluent ?? Mood and Affect: sad/dep mild to mod, severe anxiety - she attributes currently to w/d from antidep and not being on enough benzodizepine. Occ smiles/jokes around, content appropriate ?? Thought Process: associated, goal directed. ?? Associations: associated, organized. ?? Thought Content (comment on SI/HI): denies SI/HI. Perception (comment on AVH, delusions, etc.): denies AH/VH. No delusional material. ?? Orientation: A+Ox3. ?? Attention/Concentration: Cognition: ?? Memory: ?? Fund of Knowledge: ?? Insight and Judgment: appears intact re - conditions, tx, tx options Physical Exam: Vital Signs: Filed Vitals: 08/14/12 0905 BP: 109/74 Pulse: 87 ? Musculoskeletal: norm gait/station, mild restless. General: HEENT: Cardiovascular: Lungs: Abdomen: Extremities: Neurologic: Assessment: Maria Isabel Brian is a 47 y.o. Female with hx of chronic depression, anxiety, polysubstance abuse, now reporting sig. W/d sxs , multiple physical sxs, states s/p OD she was out of meds, felt her dose ofativan too weak, rep was on xanax for years. See plan below. Plan / Orders: Continued group therapies with CBT and mindfulness-based focus, daily therapeutic check-in, arrangement of follow-up, monitoring medications as indicated. - rev w/ pt going back on SSRI, as pt reported not sig. Benefit from celexa part around anxiety sxs,rev zoloft trial - dsc indic, LOT, SE, dosing - rev ativan at higher dose for now, but rev w/ pt that this med will need to eventually be tapered off. Pt states klonpin doesn't work. As pt was on xanax for prolonged period, her picture now may be combination of w/d from benzodiazpines (although VS are OK), SSRI, plus underlying anxiety state. Rev indic, LOT, dosing, SE. Written Rx for Ativan and Zoloft provided. - told pt not to drink Etoh/use drugs, rev risks, she appeared to fully understand/appreciate risks of this beahvior - pt to f/u w/ drug/Etoh program following [facility] course. cc: Patient requests copy of notes go to NILES CARLSON MD documented in this encounter Plan of Treatment Not on filedocumented as of this encounter Visit Diagnoses Diagnosis Anxiety state, unspecified - Primary documented in this encounter Care Teams Metal Machine Operator Relationship Specialty Start Date End Date Niles Carlson MD PCP - General 06/19/12 11/27/12 [address] [place] [address] documented as of this encounter
--- OUTSIDE RECORDS SUMMARY | 2022-01-29 00:45 | XMS_ITS | Encounter Summary ---
:1965 Author Organization [facility] [place] [address] Care Team Providers Name Role Phone Niles Roy MD Primary Care Provider [phone] Encounter Details Date Type Department Care Team Description 08/10/2012 Unscheduled [facility] PSYCH PARTIAL QianaWilliam rutherford, Depression (Primary Encounter [facility] MD Dx) [place] [address] [phone] [place] [address] Social History Tobacco Use Types Packs/Day Years Used Date Current Every Day Smoker 0.75 Alcohol Use Standard Drinks/Week Comments Yes 8.3 (1 standard drink = 0.6 oz pure alco hol) Sex Assigned at Date Recorded Not on file documented as of this encounter Last Filed Vital Signs Vital Sign Reading Time Taken Comments Blood Pressure 123/77 08/10/2012 8:30 AM EST Pulse 68 08/10/2012 8:30 AM EST Temperature - - Respiratory Rate - - Oxygen Saturation - - Inhaled Oxygen Concentration - - Weight 63.5 kg (140 lb) 08/10/2012 8:30 AM EST Height 167.6 cm (5' 6) 08/10/2012 8:30 AM EST Body Mass Index 22.6 08/10/2012 8:30 AM EST documented in this encounter Patient Instructions Patient InstructionsKristin Pierce RN - 08/10/2012 12:56 PM EST Please call Kristin Pierce RN, [phone] if you have any question regarding [facility]. [...] of any psychiatric symptoms For Emergency Services: [phone] Emergency contacts for worsened symptoms or safety concerns Go to your nearest emergency room, or call [address] [facility] crises line at [phone] . Helpful websites for additional information: National [place] of Mental Health ([facility]) [email or web address]://[email or web address].n/ documented in this encounter Progress Notes Florence Viveros, MS - 08/10/2012 2:02 PM EST [facility] Daily Progress Note - Group Notes: Maria Isabel Posada Snehal 1965 [id number] Group: Group Therapy - Greater than 45 minutes Topic: Goals Group Attendance: Present Behavior: Relevant Therapeutic Work Observed: Minimal Mood: Calm Assessment: Patient said that her goal is to not even having one beer today. Patient described having a good night with her good friend and that instead of drinking a 12-pack she drank two beers and went to bed at 9pm and slept until 8am. Progress Towards Goal: See above. [facility] Daily Progress Note - Group Notes: Maria Isabel Posada Snehal 1965 [id number] Group: Group Therapy - Greater than 45 minutes Topic: Cognitive-Behavioral Therapy Skills Attendance: Present Behavior: Quiet Therapeutic Work Observed: Minimal Mood: Calm Assessment: Patient reviewed tool and recognized one way of thinking that increased her feelings of anger and increases the risk for her to yell, glare and storm out of the room. Patient said that she instead wants to work on stay sitting, stay in the room, and continue to communicate. Progress Towards Goal: See above. [facility] Daily Progress Note - Group Notes: Maria Isabel Posada Snehal 1965 [id number] Group: Group Therapy - Greater than 45 minutes Topic: Communication Skills Attendance: Present Behavior: Quiet Therapeutic Work Observed: Minimal Mood: Calm Assessment: Patient reviewed communication skills and recognized that most feelings trigger her to want to drink which then impacts her communication in different ways (shut down, withdraw or become chatty). She stated that drinking help her sleep and calm down. She stated hiding thoughts, feelings and behaviors from family to not hurt them. Patient is slowly sharing some more information with familyand wants to continue with that. Progress Towards Goal: See above. Florence Viveros [facility] Chief Mental Health Therapist Psychiatric Partial Hospitalization Program [facility] Daily Progress Note - Group Notes: Maria Isabel Posada Brian 1965 [id number] Group: Group Therapy - Greater than 45 minutes Topic: Relapse Prevention Group Attendance: Present Behavior: Quiet Therapeutic Work Observed: Minimal Mood: Calm Assessment: Patient stated meeting her goal today and has plan to not drink any alcohol tonight. Patient contracted to stay safe and has plan to spend evening with friend who does not drink and watch amovie. Patient was encouraged to explore support system such as AA. Patient said that these groups have not been helpful to her in the past but did acknowledge not having checked out groups in the [facility] yet. Progress Towards Goal: See above. Florence Viveros [facility] Mental Health Therapist Psychiatric Partial Hospitalization Program Kristin Pierce RN - 08/10/2012 12:58 PM EST [facility] Daily Progress Nurse Note: Maria Isabel Posada Snehal 1965 [id number] Safety: Patient denises risk Mood/Affect: Depressed - 6, Frustrated, Irritable and but more hopefull Anxiety: Anxious - 7 and Worry Behavior: Calm and pleasant and coopeative Speech: WNL Cognition: Alert Appearance: WNL Thought Content: WNL Sleep: 8 Hours Slept and restful Activity: WNL Energy: WNL Perceptual Disturbance: WNL Eating: Reduced Appetite and Reduced Intake Food/Fluids Medications: Taking as prescribed Pt reports she drank 2 beers last night and is not sure she wants to quit or just cut down. We discussed her going to see a LAD[facility] after discharge and she willl think about it documented in this encounter Plan of Treatment Not on filedocumented as of this encounter Visit Diagnoses Diagnosis Depression - Primary Depressive disorder, not elsewhere class ified documented in this encounter Care Teams Communications Agent Relationship Specialty Start Date End Date Niles Roy MD PCP - General 06/19/12 11/27/12 [address] [place] [address] documented as of this encounter
--- OUTSIDE RECORDS SUMMARY | 2022-01-29 00:45 | XMS_ITS | Encounter Summary ---
:1965 Author Organization [facility] Address [facility] [place] [address] Care Team Providers Name Role Phone Yovani Flores MD Primary Care Provider [phone] Encounter Details Date Type Department Care Team Description 03/27/2013 Hospital Encounter XRay at [facility] Wrist pain [address] [place] [address] [place] [id number] Social History Tobacco Use Types Packs/Day [...] Comme nts XR WRIST COMPLETE Routine 03/27/2013 8:13 AM Wrist pain Resu lts for this MINIMUM 3 VIEWS EDT procedure [...] this encounter Visit Diagnoses Diagnosis Wrist pain Pain in joint, forearm documented in this encounter Care Teams Medart Operator Relationship Specialty Start Date End Date Yovani Flores MD PCP - General 11/28/12 11/14/13 [facility] [place] [address] documented as of this encounter
--- OUTSIDE RECORDS SUMMARY | 2022-01-29 00:45 | XMS_ITS | Encounter Summary ---
:1965 Author Organization [facility] [place] [address] Care Team Providers Name Role Phone Yovani Flores MD Primary Care Provider [phone] Reason for Referral Occupational Therapy (Routine) - Complete - Patient Seen (External Appt Consult Notes Rcv'd) Specialty Diagnoses / Procedures Referred By Contact Refer red To Contact Occupational Therapy Diagnoses Pain in wrist Radha Wan [facility] [place] [phone] Fax: Referral ID Status Reason Start Expiration Visits Visits Date Date Requested Authorized [id number] Complete - Evaluate and 12/06/2012 06/04/2013 1 1 Patient Seen Treat (External Appt Consult Notes Rcv'd) Reason for Visit Reason Comments Left Wrist Pain Encounter Details Date Type Department Care Team Description 12/06/2012 Office Visit Orthopaedics at [facility] Glen Paul MD [facility] [place] [address] Pain in wrist [facility] Radha Wan PA [facility] [place] [address] (Primary Dx) [place] [phone] Social History Tobacco Use Types Packs/Day Years Used Date Current Every Day Smoker Cigarettes 0.75 Smokeless Tobacco: Never Used Tobacco Cessation: Ready to Quit: No Alcohol Use Standard Drinks/Week Comments Yes 8.3 (1 standard drink = 0.6 oz pure alco hol) once in a while Sex Assigned at Date Recorded Not on file documented as of this encounter Last Filed Vital Signs Vital Sign Reading Time Taken Comments Blood Pressure 130/94 12/06/2012 9:00 AM EDT Pulse 78 12/06/2012 9:00 AM EDT Temperature - - Respiratory Rate - - Oxygen Saturation - - Inhaled Oxygen Concentration - - Weight 68 kg (150 lb) 12/06/2012 9:00 AM EDT Height 167.6 cm (5' 6) 12/06/2012 9:00 AM EDT Body Mass Index 24.21 12/06/2012 9:00 AM EDT documented in this encounter Progress Notes Radha Wan PA - 12/06/2012 11:47 AM EDT PATIENT NAME: Maria Isabel Brian AGE: 47 y.o. MR#: [id number] DATE OF VISIT: 12/06/2012 DATE OF INJURY/ONSET: 11/12/2012 STAFF: Dr. Paul CHIEF COMPLAINT: Left wrist pain HISTORY OF PRESENT ILLNESS: Ms. Brian is a right hand dominant 47 y.o. female who comes into clinic today for evaluation of the left wrist. She was referred to [facility] Ortho by YOVANI FLORES MD. She was evaluated in the emergency department last week after developing severe radial sided left wrist pain. She does have a history of a wrist fracture which required iliac crest bone grafting. She states that this occurred 25 years ago and she has had no long- term functional deficits. She states she has been doing a lot of heavy lifting recently. She also states that she has fallen on her left arm, but not specifically on her outstretched hand. X-rays of the forearm were negative for fracture. It was felt that she may have de Quervain's tenosynovitis and she was placed in a forearm-based thumb spica splint. She has been in a splint since being seen in the emergency department and she states that her wrist is feeling somewhat better. She also was given Vicodin, but she has not been taking this because she feels that it is too strong. She has been taking Tylenol, but has not noticed that this is helped. Medications and Allergies were reviewed in eD-H PAST MEDICAL HX: Past Medical History Diagnosis Date ??? Depression 06/19/2012 ??? Anxiety PAST SURGICAL HX: Past Surgical History Procedure Date ??? Orthopedic surgery left wrist fracture iliac crest bone graft 25 years ago SOCIAL HX: Social History Occupational History ??? [employer] Social History Main Topics ??? Smoking status: Current Everyday Smoker -- 0.7 packs/day Types: Cigarettes ??? Smokeless tobacco: Never Used ??? Alcohol Use: 5.0 oz/week 2 Cans of beer, 10 Drinks containing 0.5 oz of alcohol per week once in a while ??? Drug Use: No ??? Sexually Active: Not on file ROS: Constitutional: neg HEENT: neg Cardiac: neg Pulmonary: neg GI/: neg Endocrine: neg Skin: neg Musculoskeletal: see HPI PHYSICAL EXAM: Ms. Brian is a 47 y.o. female who is alert and oriented. She appears in no acute discomfort and is resting comfortably in the exam room. Inspection: No erythema or ecchymosis over the radial aspect of the left wrist. She does have some mild swelling over the radial styloid. She is holding her wrist in an ulnarly deviated position, but she states that her wrist is stiff because this was the position that her splint was in. Palpation: Tender over the snuff box and radial styloid. Less tender over the first extensor compartment. There is no palpable crepitus in the forearm.. ROM/Strength: FDS, FDP, EPL, FPL tendons are intact. She is able to make a fist with some discomfort. Pinch supervisor mixing is intact. Wrist range of motion is limited to to discomfort and stiffness from immobilization. Orthopedic testing: Pain with [facility] grind. No increase in discomfort with Roc's. Negative Tinel's at the carpal tunnel. No evidence of DRUJ instability. Neurovascular: Normal motor function of the radial, median, and ulnar nerves. Normal sensation alongradial, median, and ulnar nerve distributions. Good hand perfusion. RADIOLOGICAL STUDIES: X-rays of the forearm showed no evidence of fracture. Repeat films of the wrist were performed today. There is significant irregularity of the scaphoid most likely from her prior injury. 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 Brian and I discussed her radiologic findings and physical exam findings. I reviewed the x-rays with the patient today. I do not see any evidence of a obvious fracture. She does not have any increased symptoms with Roc's. We discussed that if she does have some arthritic change in this area most likely related to her previous fracture. She feels more comfortable in her splint and she will be seen by our hand therapist today to be fit for rigid and soft thumb spica splints to wear as needed for comfort. If she feels that she needs additional hand therapy we can schedule this at a later date. She will call us if her symptoms do not appear to be improving and we will see her back for repeat films. The patient understands to contact us if they have any other questions or concerns. documented in this encounter Plan of Treatment Scheduled Referrals Name Type Priority Associated Order Schedule Diagnoses Referral to Outpatient Referral Routine Pain in wrist Ordered : Occupational Therapy 013 documented as of this encounter Results XR wrist [...] wrist - Primary Pain in joint, forearm Pain in wrist Pain in joint, forearm documented in this encounter Care Teams Oncology Social Worker Relationship Specialty Start Date End Date Yovani Flores MD PCP - General 11/28/12 11/14/[address] [facility] [place] [address] documented as of this encounter
--- OUTSIDE RECORDS SUMMARY | 2022-01-29 00:48 | XMS_ITS | Encounter Summary ---
:1965 Author Organization [facility] Address [address] [place] [address] Care Team Providers Name Role Phone Unknown, Provider Primary Care Provider Encounter Details Date Type Department Care Team Description 09/27/2016 Results Only [facility] Cartwright, [address] [place] [address] [address] [place], [place] [id number] (Wo rk) Social History Tobacco Use Types Packs/Day Years Used Date Never Assessed Sex Assigned at Date Recorded Not on file documented as of this encounter Plan of Treatment Not on filedocumented as of this encounter Procedures Procedure Name Priority Date/Time Associated Diagnosis Comme [facility] SURGICAL PATHOLOGY Routine 09/27/2016 8:42 EST Re sults for this procedure are i n the results section. documented in this encounter Results SURGICAL PATHOLOGY (09/27/2016 8:42 EST) Pathology SURGICAL PATHOLOGY REPORT [facility] MEDICAL Report: Reports generated via electronic interface conta in original data; CENTER LABORATORY however they are lacking the format of the original re port. SERVICES Caution should be taken when reading/interpreting unfo rmatted reports. Name: ? TANJA CASTILLO ? Accession #: ? [id number] ? : ? 1965 (Age: [age]) ??F ? Collect Date: ? 09/27/2016 ? Location: ? [facility] ? Receive Date: ? 09/28/19 17 ? Provider: JUAN ROMERO MD Copy to: NILDA GLEASON PAC ? Final Pathologic Diagnosis: COLON, ASCENDING, POLYP, BIOPSY: - Two (2) portions of sessile serrated adenoma. Comment: This case is presented and reviewed at [facility] mental [facility] conference. Dr. Humphrey 10/01/2016 9:17 AM Document reviewed and electronically signed by: Anayeli Humphrey MD Report ??Date: 10/01/2016 15:50 By the signature above, the attending physician certif ies that he/she has personally conducted a gross and/or microscopic examin ation of the described specimens and rendered or confirmed the above diagnosi s. Specimen(s) Received: Ascending colon polyp Clinical History: Colorectal screening Gross Description: ? Received in formalin labelled with proper patient identification (initials B, K) and #1 ascending colo n polyp are two light valladares tissues (0.4 x 0.3 x 0.2 cm and 0.3 x 0.2 x 0.2 cm). Entirely submitted in 1. EDUARDO Mead (ASC) 09/28/2016 12:09 PM End of Report Specimen Performing Organization Address City/State/ZIP Code Phon e Number [facility] [address] [place] [address] SERVICES documented in this encounter Visit Diagnoses Not on filedocumented in this encounter Care Teams Solutions Architect Consultant Relationship Specialty Start Date End Date Unknown, Provider, PCP - General 09/28/16 09/28/16 documented as of this encounter
--- OUTSIDE RECORDS SUMMARY | 2022-01-29 00:48 | XMS_ITS | Clinical Summary ---
:1965 Author Organization [facility] Address [address] [place] [address] Care Team Providers Name Role Phone Americo Hough PA-C Primary Care Provider Unavailable Allergies No known active allergies Medications Medication Sig Dispensed Refills Start Date End Date Status diazePAM (VALIUM) 10 mg Take 1 Tab by 15 Tab 0 10/06/2020 Active tablet mouth every 6 hours. Daily Max: 40 mg Encounters Date Type Specialty Care Team Description 11/10/2021 Lab Requisition Clinical Laboratory Sweetie Squires for other general examina tion from Last 3 Months Social History Tobacco Use Types Packs/Day Years Used Date Never Assessed Sex Assigned at Date Recorded Not on file Last Filed Vital Signs Vital Sign Reading Time Taken Comments Blood Pressure 133/81 11/01/2018 1500 EDT Pulse 96 11/01/2018 1215 EDT Temperature 36.1 ??C (97 ??F) 11/01/2018 1500 EDT Respiratory Rate 16 11/01/2018 1500 EDT Oxygen Saturation 97% 11/01/2018 1500 EDT Inhaled Oxygen Concentration - - Weight 61.2 kg (135 lb) 11/01/2018 1215 EDT Height 167.6 cm (5' 6) 11/01/2018 1215 EDT Body Mass Index 21.79 11/01/2018 1215 EDT Plan of Treatment Health Maintenance Due Date Last Done Comments Hepatitis C Screen 1965 COVID-19 Vaccine (1) 1970 Procedures Procedure Name Priority Date/Time Associated Diagnosis Comme nts SURGICAL PATHOLOGY Today 11/09/2021 14:40 Encounter for othe r Results for this EDT general examination procedur e are in the results section. from Last 3 Months Results SURGICAL PATHOLOGY (11/09/2021 14:40 EDT) Note to Patient The following [facility] pathology results CENTER have been interpreted LABORATORY by your pathologist SERVICES and may be available to you before your health provider has had the opportunity to review them. Please allow time for your provider to receive these results and explore management options, if applicable. Final Diagnosis A. ENDOCERVIX, CURETTAGE: [facility] - Scant specimen with rare degenerative squamous epith elium. CENTER - No definitive endocervical glands present for evalu ation. LABORATORY SERVICES B. CERVIX, 6 O'CLOCK, BIOPSY: - Benign ectocervical squamous tissue. Attestation There was significant [facility] Electr onically resident/fellow CENTER signed by Jos angelo, involvement in the LABORATORY MD Andressa on diagnostic evaluation SERVICES 11/13/19 22 at 1013 of this case. By the signature below, the attending physician certifies that they have personally conducted a gross and/or microscopic examination of the described specimens and rendered or confirmed the above diagnosis. Clinical History Hx HR HPV, prior [facility] unsat Pap CENTER LABORATORY SERVICES Gross Description A. [facility] MEDICAL Received in formalin edel d with proper patient identification (initials B, K) and ECC is an aggregate of a scant amount of white soft tissue (less than 0.1 by less than 0.1 by less than 0.1 cm). Entirely submitted in A1. CENTER LABORATORY Note to the pathologist: The specimen may not survive processing. SERVICES B. Received in formalin edel d with proper patient identification (initials B, K) and cervical Bx at 6 o'clock is a white irregular soft tissue (0.3 x 0.2 x 0.1 cm). Submitted intact in B1. [address] Camejo 11/10/2021 8:56 Resident/Fellow: Rosanne Blair, [facility] MEDICAL PhD CENTER LABORATORY SERVICES Performing Lab [facility] SERVICES Scanned Images [facility] SERVICES Specimen Tissue - Entire wall of cervix (body str ucture) Tissue specimen (specimen) - Entire wall of cervix (body structure) Performing Organization Address City/State/ZIP Code Phon e Number [facility] [address] [place] [address] SERVICES from Last 3 Months Insurance Payer Benefit Plan Subscriber ID Effective Phone Address Typ e / Group Dates MEDICARE MEDICARE A [id number] 2018-Prese [phone] [address] Medicare [address] [place] [phone] [place]ID [place] [id number] 2020-Prese [address] [place] [phone] Maria Isabel Brian Personal/Family Self 1965 [address] (Home) [place] [address] Maria Isabel Brian Personal/Family Self 1965 [address]Home) [place] [address] Care Teams Code Official Relationship Specialty Start Date End Date Americo Hough PA-C PCP - General 09/29/16
--- OUTSIDE RECORDS SUMMARY | 2022-01-29 00:48 | XMS_ITS | Encounter Summary ---
:1965 Author Organization [facility] Address [address] [place] [address] Care Team Providers Name Role Phone Americo Hough PA-C Primary Care Provider Unavailable Encounter Details Date Type Department Care Team Description 03/21/2020 Lab Requisition [facility] Outr Resulting Lab, Pathology & Laboratory Provider [facility] [address], [place] [id number] Social History Tobacco Use Types Packs/Day Years Used Date Never Assessed Sex Assigned at Date Recorded Not on file documented as of this encounter Plan of Treatment Not on filedocumented as of this encounter Procedures Procedure Name Priority Date/Time Associated Comments Diagnosis DO NOT ORDER Today 03/21/2020 9:58 EDT Results for this STANDALONE - BROAD procedure are in COVID TEST the results section. COVID-19 TESTING Routine 03/21/2020 9:58 EDT Resu lts for this procedure are i n the results section. documented in this encounter Results DO NOT ORDER STANDALONE - [facility]OAD COVID TEST (03/21/2020 9:58 EDT) COVID-19 rt-PCR NEGATIVE Negative [facility] Result Comment: LABORATORY 2019-novel Coronavirus (2019 -nCoV) not detected by the qRT-PCR assay. Consider testing for other respiratory viruses or re-collecting for 2019-nCoV testing. Note: Optimum timing for peak viral levels du ring infections caused by 20 -nCoV have not been determined. Collection of multiple specimens from the same patient may be necessary to detect the virus. Limitations Positive results are indicat khai of active infection with SARS-CoV-2 but do not rule out bacterial infection or co-infection with other viruses. The agent detected may not be the definite cause of diseas e. In addition, detection of viral RNA may not indicate the presence of infectious virus or that SARS-CoV-2 is the causative agent for clinical symptoms. Negative results do not prec lude SARS-CoV-2 infection and should not be used as the sole basis for patient management decisions. Negative results must be combined with clinical observations, patient his tory, and epidemiological in formation. False negative results may also occur if amplification inhibitors are present in the specimen or if inadequate numbers of organisms are present in the specimen. Op timum specimen types and debby ing for peak viral levels during infections caused by SARS-CoV-2 have not been fully determined. Collection of multiple specimens (types and time points) from the same patient may be necessary to detect the virus. The test was validated for u se with upper respiratory specimens obtained via nasopharyngeal or oropharyngeal swabs in VTM, UTM, M4, M5, M6, saline, and MTM media. The performance of this test has not be en established for other spe cimens. Specimens collected using other FDA recommended Specimen Collection Materials listed in the FDA COVID-19 [employer] communication (November 01, 2019) are pr ocessed with the caveat that they were not all validated for use with this test and the result must be interpreted in this context. Furthermore, a false negative results may occur if a specimen is improperly collected, transported or handled. If the virus mutates in the RT-PCR target region, SARS-CoV-2 may not be detected or may be detected less predictably. Inhibitors or other types of interference may produce a false negative result. An interference study evaluating the effect of common cold medications was not performed. This test is not FDA-cleared but its performance characteristics were established by our CLIA-certified, CAP-accredited, high complexity laboratory in accordance with CLIA regulations, [employer] an Pathologists (CAP) guidel evelin (Oct 25, 2019), and FDA guidance (Oct 06, 2019). This test is only for use un barry the Food and Drug Administration's Emergency Use Authorization. Specimen Swab - Entire nasopharynx (body structur e) Performing Organization Address City/State/ZIP Code Phon e Number [facility] [place] [place] COVID-19 TESTING (03/21/2020 9:58 EDT) Pathologist [facility] COVID-19 rt-PCR NEGATIVE Negative [facility] Result Comment: LABORATORY 2019-novel Coronavirus (2019 -nCoV) not detected by the qRT-PCR assay. Consider testing for other respiratory viruses or re-collecting for 2019-nCoV testing. Note: Optimum timing for peak viral levels du ring infections caused by 20 -nCoV have not been determined. Collection of multiple specimens from the same patient may be necessary to detect the virus. Limitations Positive results are indicat khai of active infection with SARS-CoV-2 but do not rule out bacterial infection or co-infection with other viruses. The agent detected may not be the definite cause of diseas e. In addition, detection of viral RNA may not indicate the presence of infectious virus or that SARS-CoV-2 is the causative agent for clinical symptoms. Negative results do not prec lude SARS-CoV-2 infection and should not be used as the sole basis for patient management decisions. Negative results must be combined with clinical observations, patient his tory, and epidemiological in formation. False negative results may also occur if amplification inhibitors are present in the specimen or if inadequate numbers of organisms are present in the specimen. Op timum specimen types and debby ing for peak viral levels during infections caused by SARS-CoV-2 have not been fully determined. Collection of multiple specimens (types and time points) from the same patient may be necessary to detect the virus. The test was validated for u with upper respiratory specimens obtained via nasopharyngeal or oropharyngeal swabs in VTM, UTM, M4, M5, M6, saline, and MTM media. The performance of this test has not be en established for other spe cimens. Specimens collected using other FDA recommended Specimen Collection Materials listed in the FDA COVID-19 [employer] communication (November 01, 2019) are pr ocessed with the caveat that they were not all validated for use with this test and the result must be interpreted in this context. Furthermore, a false negative results may occur if a specimen is improperly collected, transported or handled. If the virus mutates in the RT-PCR target region, SARS-CoV-2 may not be detected or may be detected less predictably. Inhibitors or other types of interference may produce a false negative result. An interference study evaluating the effect of common cold medications was not performed. This test is not FDA-cleared but its performance characteristics were established by our CLIA-certified, CAP-accredited, high complexity laboratory in accordance with CLIA regulations, [employer] of [facility] an Pathologists (CAP) guidel evelin (Oct 25, 2019), and FDA guidance (Oct 06, 2019). This test is only for use un barry the Food and Drug Administration's Emergency Use Authorization. Performing Lab [facility] LABORATORY SERVICES Specimen Swab Performing Organization Address City/State/ZIP Code Phon e Number [facility] [address] [place] [address] SERVICES [facility] [place], [place] documented in this encounter Visit Diagnoses Not on filedocumented in this encounter Care Teams Enterprise Analyst Relationship Specialty Start Date End Date Americo Hough PA-C PCP - General 09/29/16 documented as of this encounter
--- OUTSIDE RECORDS SUMMARY | 2022-01-29 00:48 | XMS_ITS | Encounter Summary ---
:[address] [facility] [place] Address [address] [place] [address] Care Team Providers Name Role Phone Americo Hough PA-C Primary Care Provider Unavailable Encounter Details Date Type Department Care Team Description 11/10/2021 Lab Requisition [facility] Sweetie Squires Encounter for other Pathology & [address] [place] [address] Dr general examination Laboratory Medicine [facility] [id number] [address] [facility] [phone] [place] [address] (Work) [phone] Social History Tobacco Use Types Packs/Day Years [...] documented in this encounter Results SURGICAL PATHOLOGY (11/09/2021 14:40 EDT) Note to Patient The following [facility] MEDICAL pathology results CENTER have been interpreted LABORATORY by your pathologist SERVICES and may be available to you before your health provider has had the opportunity to review them. Please allow time for your provider to receive these results and explore management options, if applicable. Final Diagnosis A. ENDOCERVIX, CURETTAGE: [facility] MEDICAL - Scant specimen with rare degenerative squamous epith elium. CENTER - No definitive endocervical glands present for evalu ation. LABORATORY SERVICES B. CERVIX, 6 O'CLOCK, BIOPSY: - Benign ectocervical squamous tissue. Attestation There was significant [facility] MEDICAL Electr onically resident/fellow CENTER signed by Jos angelo, involvement in the LABORATORY MD Andressa on diagnostic evaluation SERVICES 11/13/19 22 at 1013 of this case. By the signature below, the attending physician certifies that they have personally conducted a gross and/or microscopic examination of the described specimens and rendered or confirmed the above diagnosis. Clinical History Hx HR HPV, prior [facility] MEDICAL unsat Pap CENTER LABORATORY SERVICES Gross Description A. [facility] MEDICAL Received in formalin edel [...] Lane Camejo 11/10/2021 8:56 Resident/Fellow: Rosanne Blair, [facility] MEDICAL PhD CENTER LABORATORY SERVICES Performing Lab [facility] SERVICES Scanned Images [facility] LABOR[facility] SERVICES Specimen Tissue - Entire wall of cervix (body str ucture) Tissue specimen (specimen) - Entire wall of cervix (body structure) Performing Organization Address City/State/ZIP Code Phon e Number [facility] [address] [place] [address] SERVICES documented in this encounter Visit Diagnoses Diagnosis Encounter for other general examination documented in this encounter Care Teams Pathology Laboratory Aides Teacher Relationship Specialty Start Date End Date Americo Hough PA-C PCP - General 09/29/16 documented as of this encounter
--- OUTSIDE RECORDS SUMMARY | 2022-01-29 00:48 | XMS_ITS | Encounter Summary ---
:1965 Author Organization [facility] Address [address] [place] [address] Care Team Providers Name Role Phone Americo Hough PA-C Primary Care Provider Unavailable Reason for Visit Reason Comments Seizures Pt. was at [facility] for alcohol withdrawal, on CIWA, last ativan at 2200 last night, seizure-like act ivity this AM. Per EMS, patient's shoulders would shake but patient woul d quickly wake and be alert with minimal painful stimulus. No meds given by E MS en route. Encounter Details Date Type Department Care Team Description 11/01/2018 Emergency [facility] Memo Donis PA-C [address] [facility], [facility] [address] [place] [address] Evaluation by medical Emergency Department Rinku Palacios PA-C [address] [facility], Level [address] [place] [address] service required - [facility] Emergency, MD Cornell (Primary Dx) [address] [place] [address] Social History Tobacco Use Types Packs/Day Years [...] Body Mass Index 21.79 11/01/2018 1215 EDT documented in this encounter Discharge Diagnoses Diagnosis R56.9 Unspecified convulsions-R56.9[ICD- 10-CM] R42 Dizziness and giddiness-R42[ICD-10-C M] F10.10 Alcohol abuse, uncomplicated-F10. 10[ICD-10-CM] E78.00 Pure hypercholesterolemia, unspec ified-E78.00[ICD-10-CM] F32.9 Major depressive disorder, single episode, unspecified-F32.9[ICD-10-CM] Z79.899 Other medical terminologist (current) drug t herapy-Z79.899[ICD-10-CM] F12.90 Cannabis use, unspecified, uncomp licated-F12.90[ICD-10-CM] documented in this encounter Discharge Instructions InstructionsMoore Rinku Brown PA-C - 11/01/2018 You were seen and evaluated here in the emergency department, and are appropriate for discharge backto [facility]. Take Tylenol (1000mg every 6 hours) or Ibuprofen (600mg every 6 hours) as needed for pain. Continue daily medications. If pain not controlled or if any other concerning symptoms occur, please return to the ED for reevaluation. documented in this encounter Discharge Disposition Disposition Code Departure Means Destination Comments Discharged to Other Facility Taxi Other Patient back to [facility] via [employer]. documented in this encounter ED Notes Suly Busby, FÉLIX - 11/01/2018 1630 EDT All discharge information reviewed with patient, all questions answered at this time. Patient provided with a turkey sandwich and jay domo. Arranging ride to return to [facility]. Farideh calzada RN - 11/01/2018 1606 EDT [facility] Rinku Brown PA-C - 11/01/2018 1535 EDT DOS: 11/01/2018 Chief Complaint Patient presents with ??? Seizures Pt. was at [facility] for alcohol withdrawal, on CIWA, last ativan at 2200 last night, seizure-like activity this AM. Per EMS, patient's shoulders would shake but patient would quickly wake and be alert with minimal painful stimulus. No meds given by EMS en route. HPI The patient is a 53 y.o. female who presents today with Seizures (Pt. was at [facility] for alcohol withdrawal, on CIWA, last ativan at 2200 last night, seizure-like activity this AM. Per EMS, patient's shoulders would shake but patient would quickly wake and be alert with minimal painful stimulus. No meds given by EMS en route. ) IShubham, am scribing for Rinku Palacios PA-C while he is personally performing the service. Shubham Smith 11/01/2018 15:37 Maria Isabel Brian is a 53 y.o. female with past medical history significant for alcoholism, hypercholesterolemia, and depression on citalopram who presents from EMS from [facility] with a reportedly witnessed seizure-like activity at 0900 this morning. The patient was in a mindful breathing class at [facility], when she had sudden onset of shakes. She states her class at [facility] witnessed this seizure. She felt that when she leaned her head back in class she felt slightly dizzy and shook. Per EMS, the patient's shoulders would shake but the patient would quickly wake and be alert with minimal painful stimulus. Of note, the patient self admitted herself into [facility] on 10/28/18 for alcohol withdrawals. The patient explains she is feeling improved and would like to go back to [facility]. The patient notes that she was started on 10 mg Valium 2 days ago, with her most recent dose [id number] this morning. She has had been given valium previously without any complications. The patient endorses feeling anxious but no SI/HI. Her last reported drink was on 10/28/18, when she had 10 drinks that day. Before 10/28, she was drinking daily. The patient endorses current alcohol and marijuana cravings. Of note, the patient had a suicide attempt in 2016 when she took xanax and drank alcohol with a plan to jump off a bridge.She denies any SI since this attempt in 2016. The patient denies SI, HI, CP, abdominal pain, or tremors. Social: Patient was a former alcoholic, with her last drink on 10/28/18. She normally drinks 18-24 beers a day. She endorses marijuana use, with her last use on 10/28/18 as well. Patient denies any otherdrug use. The history is provided by the patient and medical records. Review of Systems Review of Systems Constitutional: Negative for chills and fever. HENT: Negative for ear pain and facial swelling. Eyes: Negative for photophobia, pain and visual disturbance. Respiratory: Negative for cough and shortness of breath. Cardiovascular: Negative for chest pain. Gastrointestinal: Negative for abdominal pain, nausea and vomiting. Genitourinary: Negative for dysuria. Musculoskeletal: Negative for back pain and neck pain. Neurological: Positive for dizziness and seizures. Negative for tremors, syncope, light-headedness, numbness and headaches. No difficulty ambulating Psychiatric/Behavioral: Negative for hallucinations and suicidal ideas. The patient is not nervous/anxious. No Known Allergies Vital Signs Temp: 36.1 ??C (96.9 ??F) Temp src: Oral Pulse: 96 Heart Rate: 74 BPM Resp: 11 SpO2: 97 % BP: 122/83 BP MAP: 91 mm Hg BP Device: BP Machine Patient Position: Semi fowlers BP Cuff Location: Right arm Villalobos Agitation Sedation Scale: 0 O2 Device: None (Room air) Physical Exam Constitutional: She is oriented to person, place, and time. She appears well- developed and well-nourished. No distress. HENT: Head: Normocephalic and atraumatic. Eyes: Conjunctivae and EOM are normal. Pupils are equal, round, and reactive to light. Neck: Normal range of motion. Neck supple. Cardiovascular: Normal rate, regular rhythm and normal heart sounds. Pulmonary/Chest: Effort normal and breath sounds normal. No respiratory distress. Abdominal: Soft. There is no tenderness. Musculoskeletal: Normal range of motion. Neurological: She is alert and oriented to person, place, and time. She has normal strength. No cranial nerve deficit or sensory deficit. She displays a negative Romberg sign. Coordination and gait normal. Skin: Skin is warm and dry. She is not diaphoretic. Psychiatric: She expresses no homicidal and no suicidal ideation. Nursing note and vitals reviewed. Procedures ED COURSE A medical screening exam was performed. Maria Isabel Brian is a 53 y.o. female with past medical history significant for alcoholism, hypercholesterolemia, and depression on citalopram who presents from EMS from [facility] with a reportedly witnessed seizure-like activity at 0900 this morning. Physical exam as above. Called to Discuss case with [facility] without answer. She is in no acute distress with no signs of seizure, neuro deficits, or EtOH withdrawal. Appropriate for discharge. Final diagnoses: Evaluation by medical service required DISPOSITION: Discharged The patient's pain was managed to an adequate level weighing risk vs. benefit of further medications. Upon departure from the Emergency Department, the patient's pain was 0 on a zero to ten scale. Any further pain treatment will be at the discretion of the provider following up with the patient based on their clinical assessment. Condition at departure from the Emergency Department: Stable PCP: Americo Hough [facility] Number of Diagnoses or Management Options Evaluation by medical service required: Amount and/or Complexity of Data Reviewed Review and summarize past medical records: yes This documentation is recorded by Shubham Smith acting as Scribe under the direction and presence ofRinku Palacios PA-C. Rinku Palacios PA-C: I personally performed the services recorded by the scribe in my presence.I confirm the scribe's documentation has been reviewed by me to accurately and completely record my work, treatment, procedures, and medical decision making. 11/01/2018 15:35 No flowsheet data found. Suly Busby RN - 11/01/2018 1240 EDT Patient hooked up to monitor, continuous ekg,oxygen sat and respiratory rate monitoring initiated. Suly hernandez, FÉLIX - 11/01/2018 1218 EDT Patient arrives in the ED awake and alert but reporting I'm just so tired. Per EMS, [facility], last valium given was 10mg at 0730 this AM per the [facility] protocol. This AM, patient had seizure-like activity and EMS was called. En route, EMS witnessed patient shaking her shoulders and becoming unresponsive, but quickly became awake alert and verbal to minimal painful stimulus. Per EMS patient was talking to us through her seizure. Patient reports she was listening to music and trying to meditate when my entire body just started shaking. Patient endorses remembering her seizure and remembering hearing voices upon waking but they sounded so far away. Patient AOx3, VSS. Call trimble within reach. documented in this encounter Plan of Treatment Not on filedocumented as of this encounter Visit Diagnoses Diagnosis Evaluation by medical service required - Primary documented in this encounter Care Teams Cloth Shearing Supervisor Relationship Specialty Start Date End Date Americo Hough PA-C PCP - General 09/29/16 documented as of this encounter
--- OUTSIDE RECORDS SUMMARY | 2022-01-29 00:48 | XMS_ITS | Encounter Summary ---
:1965 Author Organization [facility] Address [address] [place] [address] Care Team Providers Name Role Phone Americo Hough PA-C Primary Care Provider Unavailable Encounter Details Date Type Department Care Team Description 11/02/2018 Historical Results [facility], Only [facility] Radiology Results [address] [place] [address] [phone] Social History Tobacco Use Types Packs/Day Years Used Date Never Assessed Sex Assigned at Date Recorded Not on file documented as of this encounter Plan of Treatment Not on filedocumented as of this encounter Procedures Procedure Name Priority Date/Time Associated Comments Diagnosis ETHYL ALCOHOL LEVEL - Routine 11/02/2018 12:52 Re sults for this PMC EDT procedure are i n the results section. BASIC METABOLIC Routine 11/02/2018 12:52 Results for this PANEL,RANDOM - PMC EDT procedure are in the results section. PROTIME Routine 11/02/2018 12:52 Results for this EDT procedure are i n the results section. COMPLETE BLOOD COUNT Routine 11/02/2018 12:52 Res ults for this AND DIFFERENTIAL EDT procedure a re in the results section. MAGNESIUM Routine 11/02/2018 12:52 Results for this EDT procedure are i n the results section. HEPATIC FUNCTION Routine 11/02/2018 12:52 Results for this PANEL (ALB,ALK EDT procedure are in PHOS,ALT,AST,DBIL,TOT the re sults DANIELLE,TOT PROT) section. CT HEAD WO CONTRAST 11/02/2018 11:22 Resu lts for this EDT procedure are i n the results section. documented in this encounter Results PROTIME (11/02/2018 12:52 EDT) Pro Time 9.6 9.0 - 12.3 [facility] PROTHROMBIN TIME 1.0 0.8 - 1.2 [facility] WITH INR - [facility] Comment: CENTER LAB Interpretive Information: Moderate Intensity Coumadin INR = 2.0-3.0. Adjustments in anticoagulant therapy dose should be ba sed upon the INR and not the PT in seconds. The INR is use d only on patients on stable oral anticoagulant therapy. It m akes no significant contribution to the diagnosis or treatm ent of patients whose PT is prolonged for other reasons. Specimen Narrative [facility] - 11/02/2018 1 3:24 EDT Sample collected at time of saline lock or IV placement. Performing Organization Address City/State/ZIP Code Phon e Number [facility] [address] [place] [address] [facility] (ABNORMAL) COMPLETE BLOOD COUNT AND DIFFERENTIAL (11/02/2018 12:52 EDT) Pathologist Sig nature WBC 8.3 4.0 - 10.5 [facility] RBC 3.80 (L) 4.20 - 5.40 [facility] Hemoglobin 12.3 (L) 12.5 - 16.0 [facility] HCT 36.0 (L) 37.0 - 47.0 [facility] MCV 94.7 78 - 100 [facility] MCH 32.4 (H) 27 - 31 [facility] MCHC 34.2 32 - 36 [facility] RDW-CV - PMC 12.5 11.5 - 14.0 [facility] PLATELET COUNT - [facility] 237 150 - 450 [facility] NEUTROPHILS % (AUTO) - 63.5 42.0 - 75.0 [facility] LYMPHOCYTES % (AUTO) - 27.0 16.0 - 52.0 [facility] MONOCYTES % (AUTO) - 7.6 1.0 - 11.0 [facility] EOSINOPHILS % (AUTO) - 1.1 0.0 - 7.0 [facility] BASOPHILS % (AUTO) - 0.4 0.0 - 4.0 [facility] NUCLEATED RBC % (AUTO) 0.0 <1 [facility] NEUTROPHILS # (AUTO) - 5.3 1.5 - 6.6 [facility] LYMPHOCYTES # (AUTO) - 2.2 1.0 - 3.5 [facility] MONOCYTES # (AUTO) - 0.6 <1.0 [facility] EOSINOPHILS # (AUTO) - 0.1 <0.7 [facility] BASOPHILS # (AUTO) - 0.0 <0.1 [facility] NUCLEATED RBC # (AUTO) 0.00 <1 [facility] Specimen [facility] - 11/02/2018 1 3:24 EDT Sample collected at time of saline lock or IV placement. Performing Organization Address City/State/ZIP Code Phon e Number [facility] [address] LAB ETHYL ALCOHOL LEVEL - [facility] (11/02/2018 12:52 EDT) ETHYL ALCOHOL LEVEL No ALCOHOL <10 [facility] LAB Specimen [facility] - 11/02/2018 1 3:31 EDT Sample collected at time of saline lock or IV placement. Performing Organization Address City/State/ZIP Code Phon e Number [facility] [address] LAB MAGNESIUM (11/02/2018 12:52 EDT) Pathologist Sig nature Magnesium 1.9 1.8 - 2.5 [facility] Specimen [facility] - 11/02/2018 1 3:31 EDT Sample collected at time of saline lock or IV placement. Performing Organization Address City/State/ZIP Code Phon e Number [facility] [address] [place] [id number] [facility] BASIC METABOLIC PANEL,RANDOM - [facility] (11/02/2018 12:52 EDT) Pathologist Sig nature Sodium 142 136 - 145 [facility] Potassium 3.7 3.5 - 5.1 [facility] Chloride 107 96 - 107 [facility] CO2 Total 29.0 21 - 32 [facility] Anion Gap 6.0 [facility] BUN 17 7 - 25 [facility] Creatinine 0.92 0.55 - 1.02 [facility] Estimated GFR >60 >60 [facility] Comment: CENTER LAB EGFR UNITS: mL/min/1.73 m 2 CKD-EPI Equation used to calculate. Glucose 100 70 - 180 [facility] Calcium 8.6 8.5 - 10.5 [facility] Specimen Narrative [facility] - 11/02/2018 1 3:31 EDT Sample collected at time of saline lock or IV placement. Performing Organization Address [facility] Phon e Number [facility] [address] [place] [address] [facility] (ABNORMAL) HEPATIC FUNCTION PANEL (ALB,ALK PHOS,ALT,AST,DBIL,TOT DANIELLE,TOT PROT) (11/02/2018 12:52 EDT) Pathologist Sig nature BILIRUBIN - [facility] 0.20 0.00 - 1.00 [facility] DIRECT BILIRUBIN - [facility] 0.10 0.00 - 0.30 [facility] INDIRECT BILIRUBIN - 0.10 0.00 - 0.80 [facility] AST 16 15 - 37 [facility] ALT 21 12 - 78 [facility] Alkaline Phosphatase 96 46 - 116 [facility] Total Protein 6.5 6.4 - 8.2 [facility] Albumin 3.2 (L) 3.4 - 5.0 [facility] GLOBULIN - [facility] 3.3 [facility] ALBUMIN/GLOBULIN RATIO 0.9 [facility] LAB Specimen Narrative [facility] - 11/02/2018 1 3:31 EDT Sample collected at time of saline lock or IV placement. Performing Organization Address [facility] Phon e Number [facility] [address] [place] [address] [facility] LAB CT HEAD WO CONTRAST (11/02/2018 11:22 EDT) Specimen Narrative [facility] RADIOLOGY - 2018 12:18 EDT [facility]: [address] [address] Diagnostic Imaging Report Signed Patient Name:CASTILLO,TANJA ? Date of :1965 ? MR Number:[id number] Age:53 ?Sex:F Category: CT ? Date of Exam:11/02/18 Procedure: CT: Head; without contrast ? Ordering Physician: Gilbert Light MD CC: Gilbert Light MD Provider, Optional CT: Head; without contrast CLINICAL HISTORY: Seizure. TECHNIQUE: A noncontrast enhanced study is performed. No prior brain CT is currently available for comparison . FINDINGS: No focal suspicious areas of a bnormal attenuation are identified within the brain parenchyma. No mass effect or hydrocephalus is seen. No hemorrhage, ex tra-axial collection or suspicious osseous abnormality is identi fied. There is trace increased attenuation within the mastoid air cell region on the left and mild inflammation here is not excluded. The e xam otherwise appears unremarkable. IMPRESSION: No significant intracranial abnormality is identified. Dictated by: Devorah Posada MD ? D/ 1218 Transcribed by: [email or web address] ? D/ 1218 E-Signed by: Devorah Posada MD ? D/ 1218 Procedure Note David Posada [facility] - [facility]08[facility] [address] [address] Diagnostic Imaging Report Signed Patient Name:TANJA CASTILLO er:[id number] Date of :1965 MR Number:[id number] Age:53 Sex:F Category: CT Date of Exam:11/02/18 Procedure: CT: Head; without contrast A ccession: [id number] Ordering Physician: Gilbert Light MD CC: Gilbert Light MD Provider, Optional CT: Head; without contrast CLINICAL HISTORY: Seizure. TECHNIQUE: A noncontrast enhanced study is performed. No prior brain CT is currently available for comparison . FINDINGS: No focal suspicious areas of a bnormal attenuation are identified within the brain parenchyma. No mass effect or hydrocephalus is seen. No hemorrhage, ex tra-axial collection or suspicious osseous abnormality is identi fied. There is trace increased attenuation within the mastoid air cell region on the left and mild inflammation here is not excluded. The e xam otherwise appears unremarkable. IMPRESSION: No significant intracranial abnormality is identified. Dictated by: Devorah Posada MD D/T: 11/02 1218 Transcribed by: FLORA D/ 121 8 E-Signed by: Devorah Posada MD D/T: 11/02 1218 Performing Organization Address City/State/ZIP Code Phon e Number [facility] RADIOLOGY documented in this encounter Visit Diagnoses Not on filedocumented in this encounter Care Teams Parts Puller Relationship Specialty Start Date End Date Guilfoyle, Peter A, PA-C PCP - General 09/29/16 documented as of this encounter
--- OUTSIDE RECORDS SUMMARY | 2022-01-29 00:48 | XMS_ITS | Encounter Summary ---
:1965 Author Organization [facility] Address [address] [place] [address] Care Team Providers Name Role Phone Americo Hough PA-C Primary Care Provider Unavailable Encounter Details Date Type Department Care Team Description 07/22/2021 Lab Requisition [facility] [place] Herring Encou nter for Pathology & CREATIVE SERVICES DESIGNER gynecological Laboratory Medicine - [address] [facility] (general) [facility] (routine) without [address] [place], [place] [phone] Social History Tobacco Use Types Packs/Day Years Used Date Never Assessed Sex Assigned at Date Recorded Not on file documented as of this encounter Plan of Treatment Not on filedocumented as of this encounter Procedures Procedure Name Priority Date/Time Associated Diagnosis Comme nts PAP TEST Today 07/21/2021 3:15 Encounter for Results for this EST gynecological procedure are in examination (general) the re sults (routine) without section. abnormal findings HUMAN PAPILLOMAVIRUS Today 07/21/2021 3:15 Encounter for Res ults for this (HPV) DETECTION-HIGH EST gynecological proced ure are in RISK TYPES examination (general) the re sults (routine) without section. abnormal findings documented in this encounter Results (ABNORMAL) HUMAN PAPILLOMAVIRUS (HPV) DETECTION-HIGH RISK TYPES (07/21/2021 3:15 EST) Human Papillomavirus Positive (A)Comment: Negative [facility] (HPV) Detection-High E6 OR E7 mRNA from CENTER Types one or more types of LABORATORY HPV types SERVICES 16,18,31,33,35,39,45, 51,52,56,58,59,66, and 68 is detected by linesperson mediated amplification. High and intermediate risk HPV types are associated with most squamous intraepithelial lesions and cervical cancers. Specimen Pap Test - Cervix and/or Endocervix Performing Organization Address City/[facility]/ZIP Code Phon e Number [facility] [address] [place] [address] SERVICES PAP TEST (07/21/2021 3:15 EST) Specimens A. Cervix and/or [facility] Endocervix , ThinPrep CENTER Imaging System with LABORATORY Manual Evaluation SERVICES Specimen Adequacy Satisfactory for [facility] Evaluation - CENTER transformation zone LABORATORY component absent SERVICES General Negative for [facility] Categorization intraepithelial [place] lesion or malignancy LABORATORY SERVICES Descriptive Shift in omar [facility] Diagnosis present suggestive of CENTER bacterial vaginosis. LABORATORY SERVICES Attestation . [facility] signed by LOUIS Sharma CT(ASCP) o n SERVICES 07/30/2021 at 1 547 Clinical History SEE BELOW [facility] SERVICES HPV The result for the Human Pap illomavirus (HPV) Detection-High Risk Types is Positive . E6 OR E7 mRNA from one or more types of HPV types 16,18,31,33,35,39,45,51,52,56,58,59,66, and 68 is detected by lemus [facility] scription mediated amplifica tion. High and intermediate risk HPV types are associated with most squamous intraepithelial lesions and cervical cancers. Testing was performed on specimen [id number] and CENTER was resulted on 07/30/2021 1518 EST by MIRNA, LAB INSTRUMENT RESULTS IN LABORATORY SERVICES Performing Lab [facility] SERVICES Scanned Images [facility] SERVICES Specimen Pap Test - Cervix and/or Endocervix Performing Organization Address City/State/ZIP Code Phon e Number [facility] [address] [place] [address] SERVICES documented in this encounter Visit Diagnoses Diagnosis Encounter for gynecological examination (general) (routine) without abnormal findings documented in this encounter Care Teams Barrelhead Inspector Relationship Specialty Start Date End Date Americo Hough PA-C PCP - General 09/29/16 documented as of this encounter
--- OUTSIDE RECORDS SUMMARY | 2022-01-29 00:48 | XMS_ITS | Encounter Summary ---
:1965 Author Organization [facility] Address [address] [place] [address] Care Team Providers Name Role Phone Americo Hough PA-C Primary Care Provider Unavailable Encounter Details Date Type Department Care Team Description 11/01/2018 Travel Social History Tobacco Use Types Packs/Day Years Used Date Never Assessed Sex Assigned at Date Recorded Not on file documented as of this encounter Plan of Treatment Not on filedocumented as of this encounter Visit Diagnoses Not on filedocumented in this encounter Care Teams Circuit Walker Relationship Specialty Start Date End Date Americo Hough PA-C PCP - General 09/29/16 documented as of this encounter
--- OUTSIDE RECORDS SUMMARY | 2022-01-29 00:48 | XMS_ITS | Encounter Summary ---
:1965 Author Organization [facility] Address [address] [place] [address] Care Team Providers Name Role Phone Nilda Gleason PA-C Primary Care Provider Unavailable Encounter Details Date Type Department Care Team Description 10/07/2016 Results Only [facility] PRISM Jackelyn Gonzalez MD [phone] [address] [facility] [place] [address] Social History Tobacco Use Types Packs/Day Years Used Date Never Assessed Sex Assigned at Date Recorded Not on file documented as of this encounter Plan of Treatment Not on filedocumented as of this encounter Procedures Procedure Name Priority Date/Time Associated Diagnosis Comme nts PAP TEST- RESULT Routine 10/07/2016 0:00 EST Resu lts for this ONLY procedure are i n the results section. documented in this encounter Results PAP TEST- RESULT ONLY (10/07/2016 0:00 EST) Pathology Report: CYTOPATHOLOGY REPORT [facility] Reports generated via electronic interface contain bonnie ginal data; SERVICES however they are lacking the format of the original re port. Caution should be taken when reading/interpreting unfo rmatted reports. Name: ? TANJA CASTILLO ? Accession #: ? [id number] ? : ? 1965 (Age: [age]) ??F ?Collect Date: ? 2016 ? Location: ? [facility] ? Receive Date: ? 7 ? Provider: JACKELYN GONZALEZ MD Copy to: NILDA GLEASON PAC ? Final Report SPECIMEN ADEQUACY ? Satisfactory for Evaluation - transformation zone component present GENERAL CATEGORIZATION ? Negative for Intraepithelial Lesion or Malignan cy INTERPRETATION ? Shift in omar present suggestive of bacterial vaginosis. Previous Gynecologic Pathology: Yes: Old history of dy splasia Specimen/Source: ??Pap Test, Cervix, ThinPrep Imaging System with manual evaluation Document reviewed and electronically signed by: ? Rosanne Campbell, [facility](ASCP) ? Report ??Date: 10/13/2016 13:04 HPV with Pap Test ? Date Ordered: ? 10/13/2016 ? Status: ?? S igned Out ?Date Complete: ? 10/14/2016 ? By: ??Sys tem Interface ? Date Reported: ? 10/14/2016 ? Interpretation RESULT: Negative for HPV. No E6 or E7 mRNA is detected from HPV types 16,18,31,3 3,35, 39,45,51,52,56,58,59,66, and 68 by distribution manager media kirstie amplification. Comments Document reviewed and electronically signed by: ? System Interface ? Report date: 10/14/2016 By the signature above, the attending physician certif ies that he/she has personally conducted a gross and/or microscopic examin ation of the described specimens and rendered or confirmed the above diagnosi s. End of Report Specimen Performing Organization Address City/State/ZIP Code Phon e Number [facility] [address] [place] [address] SERVICES documented in this encounter Visit Diagnoses Not on filedocumented in this encounter Care Teams Oil And Gas Field Technician Relationship Specialty Start Date End Date Nilda Gleason PA-C PCP - General 09/29/16 documented as of this encounter
--- OUTSIDE RECORDS SUMMARY | 2022-01-29 00:48 | XMS_ITS | Encounter Summary ---
:1965 Author Organization [facility] Address [address] [place] [id number] Care Team Providers Name Role Phone Americo Hough PA-C Primary Care Provider Unavailable Encounter Details Date Type Department Care Team Description 10/06/2020 Emergency [facility] Gerosn Brown PA-C Alcohol abuse (Primary Emergency Department [address] [facility]) - [address] [place], [place] [address] [place] [phone] (Wo rk) Social History Tobacco Use Types Packs/Day Years Used Date Never Assessed Sex Assigned at Date Recorded Not on file documented as of this encounter Medications at Time of Discharge Medication Sig Dispensed Refills Start Date End Date diazePAM (VALIUM) 10 mg Take 1 Tab by mouth 15 Tab 0 08/2020 tablet every 6 hours. Daily Max: 40 mg nicotine (NICODERM CQ) 21 Place 1 Patch onto 7 Patch 0 10/13/2020 mg/24 hr patch the skin every 24 hours for 7 days. documented as of this encounter Ordered Prescriptions Prescription Sig Dispensed Refills Start Date End Date diazePAM (VALIUM) 10 mg Take 1 Tab by mouth 15 Tab 0 08/2020 tablet every 6 hours. Daily Max: 40 mg nicotine (NICODERM CQ) 21 Place 1 Patch onto 7 Patch 0 10/13/2020 mg/24 hr patch the skin every 24 hours for 7 days. documented in this encounter Discharge Disposition Disposition Code Departure Means Destination Home or Self [facility] documented in this encounter ED Notes Gerson Brown PA-C - 10/06/2020 1103 EST This patient received an evaluation and medical screening exam for emergent medical conditions via Telemedicine by the [facility] on 10/06/2020 Today's visit was provided through telemedicine video conferencing: The location of the patient : [facility] [address] The location of the provider:emergency department The following staff and their role did participate in today's encounter visit: Gerson Brown PA-C The concept of ???Telemedicine?? has been described to the patient. Patient has been informed of the anticipated benefits and possible risks. Patient understands the information provided regarding telemedicine, has had the opportunity to ask questions about this information, and all questions have been answered to patient???s satisfaction. Patient consents for the use of telemedicine in his/her medical care and authorizes the transmission of any relevant medical information to providers and their staff involved in patient???s medical or mental health care. Patients name and date of confirmed at beginning of visit. Chief Complaint Alcohol Abuse HPI Maria Isabel Brian is a 55 y.o. female with PMH including alcohol abuse, hyperlipidemia, hypertension who presents to the ED for medical clearance for the [facility]. Allergies confirmed: Current substance use (which substances, amount) : Approximately 15 -16 ounce natty lights beers Last use: This morning just prior to arrival Last period of sobriety: Greater than 6 months Any current withdrawal symptoms: None History of alcohol withdrawal seizures or other complications: To alcohol withdrawal seizures approximately 1 year ago Tolerating PO: yes Any other physical complaints: ROS A 10 point review of systems has been performed and is otherwise negative except as noted in the HPI. Physical Exam vital signs were reviewed. HR: 73 BP:157/86Temp:97.5 Constitutional: Well appearing in no acute distress Mouth: Moist oral mucosa Neck: Full ROM Lungs: Normal work of breathing, No Respiratory distress, able to speak in full sentences Skin: No overt rashes on exposed skin Extremities: Moving spontaneously Neuro: Grossly neurologically intact with normal speech, alert Psych: No agitation or overt thought disorder ED Course/Medical Decision Making A medical screening was performed. Chief complaint for this visit was: Alcohol Abuse This patient was evaluated using telemedicine and the Patient verbally consented to evaluation via telemedicine. Live, Interactive audiovisual equipment was used with Zoom. The patient was located at the [facility] and the ED provider was located at the Emergency Department. The [facility] staff member was present for portions of the visit. The visitlasted approximately 15 minutes. I reviewed the patients allergies, vital signs, and past medical history. testing for females of child bearing age was reviewed. Clinical Impression Final diagnoses: None Disposition The patient's pain was managed to an adequate level weighing risk vs. benefit of further medications. Any further pain treatment will be at the discretion of the provider following up with the patient based on their clinical assessment. documented in this encounter Plan of Treatment Not on filedocumented as of this encounter Visit Diagnoses Diagnosis Alcohol abuse - Primary Alcohol abuse, unspecified documented in this encounter Care Teams Signalling And Communications Engineer Relationship Specialty Start Date End Date Americo Hough PA-C PCP - General 09/29/16 documented as of this encounter
--- OUTSIDE RECORDS SUMMARY | 2022-01-29 00:48 | XMS_ITS | Encounter Summary ---
:1965 Author Organization [facility] Address [address] [place] [address] Care Team Providers Name Role Phone Americo Hough PA-C Primary Care Provider Unavailable Encounter Details Date Type Department Care Team Description 11/01/2018 Hospital [facility] PROFESSOR OF ART [address] [address] [place], [place] [phone] Social History Tobacco Use Types Packs/Day Years Used Date Never Assessed Sex Assigned at Date Recorded Not on file documented as of this encounter Discharge Diagnoses Diagnosis Z11.3 Encounter for screening for infect ions with a predominantly sexual mode of transmission-Z11.3[ICD-10-CM] Z11.8 Encounter for screening for other infectious and parasitic diseases-Z11.8[ICD-10-CM] documented in this encounter Discharge Disposition Disposition Code Departure Means Destination Auto Discharge Home documented in this encounter Plan of Treatment Not on filedocumented as of this encounter Visit Diagnoses Not on filedocumented in this encounter Care Teams Treasury Analyst Relationship Specialty Start Date End Date Americo Hough PA-C PCP - General 09/29/16 documented as of this encounter
--- OUTSIDE RECORDS SUMMARY | 2022-01-29 00:48 | XMS_ITS | Encounter Summary ---
:1965 Author Organization [facility] Address [address] [place] [address] Care Team Providers Name Role Phone Americo Hough PA-C Primary Care Provider Unavailable Encounter Details Date Type Department Care Team Description 09/17/2021 Lab Requisition [facility] [place] Herring Encou nter for Pathology & SURVEYOR HELPER ROD gynecological Laboratory Medicine - [address] [facility] (general) [facility] (routine) without [address] [place], [place] [phone] Social History Tobacco Use Types Packs/Day Years Used Date Never Assessed Sex Assigned at Date Recorded Not on file documented as of this encounter Plan of Treatment Not on filedocumented as of this encounter Procedures Procedure Name Priority Date/Time Associated Diagnosis Comme nts PAP TEST Today 09/16/2021 9:45 EST Encounter for Results for this gynecological procedure are in examination (general) the re sults (routine) without section. abnormal findings documented in this encounter Results PAP TEST (09/16/2021 9:45 EST) Specimens A. Cervix and/or [facility] MEDICAL Endocervix , CENTER ThinPrep Imaging LABORATORY System with Manual SERVICES Evaluation Specimen Adequacy Unsatisfactory for [facility] MEDICAL evaluation - CENTER insufficient numbers LABORATORY of squamous SERVICES epithelial cells (less than 10% of expected cellularity). General Unsatisfactory [facility] CENTER LABORATORY SERVICES Educational Comments Unsatisfactory - Specimen pr ocessed and examined, but unsatisfactory for evaluation of epithelial abnormality. Recommend Pap test in 2-4 months as stated in ASCCP's 2012 Updated Guidelines. HPV testing [facility] will not be performed due to the potential for false n egative results. CENTER LABORATORY SERVICES Attestation . [facility] Electronically CENTER signed by LOUIS Sharma CT(ASCP) o n SERVICES 09/25/2021 at 15 03 Clinical History See below [facility] SERVICES Performing Lab [facility] SERVICES Scanned Images [facility] SERVICES Specimen Pap Test - Cervix and/or Endocervix Performing Organization Address City/State/ZIP Code Phon e Number [facility] [address] [place] [address] SERVICES documented in this encounter Visit Diagnoses Diagnosis Encounter for gynecological examination (general) (routine) without abnormal findings documented in this encounter Care Teams Snow Removal/Plowing Relationship Specialty Start Date End Date Americo Hough PA-C PCP - General 09/29/16 documented as of this encounter
--- OUTSIDE RECORDS SUMMARY | 2022-01-29 00:48 | XMS_ITS | Encounter Summary ---
:[address] [facility] Address [address] [place] [address] Care Team Providers Name Role Phone Americo Hough PA-C Primary Care Provider Unavailable Encounter Details Date Type Department Care Team Description 10/30/2018 Results Only [facility] PRISM Ninoska Clay, UNIVERSITY CONTROLLER [phone] [address], [place] [address] (Wo rk) Social History Tobacco Use Types Packs/Day Years Used Date Never Assessed Sex Assigned at Date Recorded Not on file documented as of this encounter Plan of Treatment Not on filedocumented as of this encounter Procedures Procedure Name Priority Date/Time Associated Comments Diagnosis CHLAMYDIA/N. Routine 10/30/2018 9:00 Results for this GONORRHOEAE AMPLIFIED EDT proced ure are in RNA, URINE the results section. documented in this encounter Results CHLAMYDIA/N. GONORRHOEAE AMPLIFIED RNA, URINE (10/30/2018 9:00 EDT) Chlamydia Result Negative [facility] SERVICES GC Result Negative [facility] Comment: LABORATORY A first catch urine specimen is acceptable for d etection of Gonorrhea and SERVICES Chlamydia, but might detect up to 10% fewer infections when compared with vaginal and endocervical swab samples. Specimen Urine Performing Organization Address City/State/ZIP Code Phon e Number [facility] [address] [place] [address] SERVICES documented in this encounter Visit Diagnoses Not on filedocumented in this encounter Care Teams Sourcing Consultant Relationship Specialty Start Date End Date Americo Hough PA-C PCP - General 09/29/16 documented as of this encounter
--- NOTE | 2022-01-29 09:15 | DI.CTLCSR_ITS ---
Exam(s) CT CHEST LUNG CANCER SCREEN EXAM: CT CHEST LUNG CANCER SCREEN CLINICAL HISTORY: SCREENING FOR CA, Z12.9; CURRENT SMOKER TECHNIQUE: Imaging Protocol: Axial computed tomography images with coronal and sagittal reformatted images were created and reviewed COMPARISON: CT CT CHEST LUNG CANCER SCREEN from 05/07/2020 FINDINGS: Tracheobronchial tree: Patent where visualized. Pulmonary parenchyma: No consolidation or dominant measurable mass. Centrilobular and paraseptal emph ysematous changes are present. Lung Nodules: The 2 nodules seated along the left major fissure are stable. No new pulmonary nodules are present. Mediastinum and Vicki: No dominant adenopathy or fluid collection. The esophagus is unremarkable. Thyroid gland: Stable right thyroid calcification. Thyroid gland is otherwise unremarkable. Lymph nodes: Unremarkable. Pleura: No effusion or pneumothorax. Heart: The heart is not dilated. Mild coronary artery calcification is present. No pericardial effus ion. Aorta: Thoracic aorta non-dilated.Atherosclerosis is present. Upper abdomen: Unremarkable. Soft Tissues: There are bilateral breast implants. Bones: Within normal limits. The patient has a right shoulder replacement. IMPRESSION: Stable perifissural pulmonary nodules. No new pulmonary nodules. Lung RADS Cat 2 - Benign Appearance / Behavior: Nodules with a very low likelihood of becoming a clin ically active cancer due to size or lack of growth Lung-RADS 1.0 CATEGORIES: Category 0 - Prior chest CT exam(s) being located for comparison. Category 1 - Annual screening in 12 months. No nodules or definitely benign nodules. Category 2 - Annual screening in 12 months. Benign appearance. Nodules with low likelihood of becomin g active cancer. Category 3 - 6-month follow-up. Probably benign. Short-term follow-up suggested. Nodules with low lik elihood of becoming active cancer. Category 4A - 3-month follow-up and CT/PET if >8 mm in size. Suspicious finding. Findings which requi re additional testing. Category 4B - Findings which require additional testing and tissue sampling. Suspicious finding. Category 4X - Category 3 or 4 nodules with additional features or imaging findings that increases the suspicion of malignancy. Modifier S- Potentially clinically significant finding. (Non lung cancer) RADIATION DOSE DELIVERED: 76.76mGy.cm Total DLP 1.84mGyCTDIvol 76.76mGy.cm Total DLP 1.84mGy CTDIvol DATA REPOSITORY: All CT scans at this facility are submitted to the National Radiology Data Registry (NRDR) Dose Index Registry (DIR) with the [employer] (ACR). RADIATION OPTIMIZATION: All CT scans at this facility use at least one of these dose optimization te chniques: automated exposure control; mA and/or kV adjustment per patient size (includes targeted exa ms where dose is matched to clinical indication); or iterative reconstruction.
== END ==
PROVIDERS: PCP Nurse Practitioner Family; Visit Provider Nurse Practitioner Family
DX: Z12.2 Encounter for screening for malignant neoplasm of respiratory organs (principal); F17.210 Nicotine dependence, cigarettes, uncomplicated; J43.2 Centrilobular emphysema; R91.8 Other nonspecific abnormal finding of lung field
CPT/HCPCS: 71271

== ENCOUNTER 2022-02-09 20:16 | Emergency (ER) | payer MEDICAID, SELFPAY ==
[2022-02-09 20:31] VITALS: BP 134/77; PULSE 100; RESP 16; TEMP 36.3; O2SAT 100
[2022-02-09 20:37] VITALS: RESP 14
--- NOTE | 2022-02-09 20:50 | ED.GENADUL_ITS ---
Discharge Plan Disposition Patient Disposition: HOME Condition: Improving Discharge Details Clinical Impression: Acute hyponatremia Primary Care Provider: China Herring ED Provider: Isac Orta Home Meds and New Rx's Prescriptions: New sodium chloride 1 gram tablet 1,000 mg PO DAILY 7 Days Qty: 7 0RF Continued ibuprofen [Advil] 200 mg tablet 400 mg PO PRN citalopram 40 MG tablet 40 mg PO DAILY Qty: 90 trazodone 50 MG tablet 100 mg PO HS Qty: 20 Label Comments: Pt now taking 2 tabs @ HS Rx Instructions: 03/03/16 MR X1 after 1 hour. For sleep. [place] Breo Ellipta 100-25 mcg/dose blister with device 1 inh inhalation DAILY albuterol sulfate 90 mcg/actuation HFA aerosol inhaler 1 inh inhalation ONCE clonidine HCl 0.1 mg tablet 0.1 mg PO QHS acetaminophen [Pain Reliever Extra Strength] 500 MG tablet 500 mg PO Q8H PRN PRN Discharge Instructions Instructions: Hyponatremia (ED) Additional Instructions: You do have mild persistent low sodium. I have prescribed you salt tablets for 1 week. Decrease your alcohol use as this can contribute to low sodium. Follow-up with regular doctor as planned. Return to the ER for any acute concern. Medical Decision Making 56-year-old female presents slightly intoxicated complaining of some chronic hyponatremia and muscle aches since beginning her statin. States she has follow-up with her doctor tomorrow but could not stand it. She does have odor of alcohol. She has a history of hyponatremia. Screening labs were obtained including CK. Patient CBC shows a white count 8, hematocrit 35 and platelets 277. Sodium is 132, potassium 3.4, unremarkable renal function and LFTs. Alcohol is 101. I will prescribe the patient salt tablet. She is encouraged to decrease her alcohol use. She will follow-up with PMD tomorrow. HPI General Mode of arrival: ambulatory . Date/Time Provider Initiated Documentation: 02/09/22 20:31 . Limitations to Documentation: no limitations . Information obtained by: patient . History of Present Illness 56 year old F presents to the emergency department with the chief complaint of Low sodium, muscle aches since starting a statin, described as moderate, Quality is described as dull, Patient reports no radiation. Patient started experiencing this day(s) and it has been intermittent. No relieving factors improve symptom(s), No exacerbating factors reported . Patient notes no other symptoms.. Patient did receive the following treatments prior to arrival, none Related Data Home Medications Medication Instructions Recorded Confirmed citalopram 40 mg tablet 40 mg PO DAILY #90 tab-caps 11/04/15 01/28/19 trazodone 50 mg tablet 100 mg PO HS #20 tab-caps 03/30/16 01/28/19 acetaminophen 500 mg tablet (Pain 500 mg PO Q8H PRN PRN 12/10/16 01/28/19 Reliever Extra Strength) ibuprofen 200 mg tablet (Advil) 400 mg PO PRN 12/12/18 01/28/19 albuterol sulfate 90 mcg/actuation 1 inh inhalation ONCE 08/11/21 aerosol inhaler clonidine HCl 0.1 mg tablet 0.1 mg PO QHS 08/11/21 fluticasone furoate 100 1 inh inhalation DAILY 08/11/21 mcg-vilanterol 25 mcg/dose inhalation powder (Breo Ellipta) sodium chloride 1 gram tablet 1,000 mg PO DAILY 7 days #7 tabs 02/09/22 Previous Rx's Medication Instructions Recorded sodium chloride 1 gram tablet 1,000 mg PO DAILY 7 days #7 tabs 02/09/22 Allergies Allergy/AdvReac Type Severity Reaction Status Date / Time morphine Allergy Itching Verified 11/09/21 14:20 Ckaflty-LBM-RcY Reductase AdvReac Unverified 02/09/22 20:42 Inhibitor multivitamins AdvReac Uncoded 11/09/21 14:20 General Stated Complaint: [facility] KALYN: 3 Review of Systems Narrative: 6 systems reviewed and otherwise negative PFSH All Active Problems (Updated 02/09/22 @ 21:41 by Isac Orta MD) Acute hyponatremia (Acute) Screening for colon cancer (Acute) Medical History Adenomatous polyp of colon Alcohol abuse, in remission Anxiety Back pain, chronic BRCA2 positive Cannabis abuse Degenerative joint disease, shoulder, right Depression ETOH abuse Grief at loss of child Hepatitis B Hyperlipidemia Hypertension Nightmare disorder Panic disorder Seizure Sessile colonic polyp Tobacco abuse Surgical History (L) wrist surgery gomez Cervical disc surgery Colonoscopy - MAC (09/27/16) elbow surgery facial plastics dog bite History of arthroplasty of right shoulder hysterectomy uterus present Oophrectomy, Both Family History Brother Substance abuse Brother Hepatitis C Social History Smoking/Tobacco Use Status: Current every day Tobacco Type: cigarettes Smoking risk assessment performed?: Yes Alcohol Intake: current Alcohol Intake frequency: a few times a week Alcohol type: beer Drug use: Never Substance use type: marijuana Do you feel safe at home: Yes Do you feel safe in your relationship?: Yes History History 2 Para 2 Hx # Term Pregnancies 2 Multiple births Hx # Pregnancies Ectopic pregnancies AB induced Hx Number of Living Children 2 AB spontaneous Exam Narrative Exam Narrative: GEN: awake, alert, oriented 3. Pleasant, well groomed, interactive. HEAD: Normocephalic, atraumatic ENT: Mucous membranes moist, oropharynx unremarkable, External ear exam unremarkable EYES: PERRL, EOMI NECK: Full ROM, no SAMANTHA, no menigismus CHEST/RESP: Nontender, clear to auscultation bilateral, no wheeze/rhonchi/rales CARDIOVASCULAR: RRR, no murmur, rub nitin. 2+ Rad pulse bilateral ABDOMEN: Soft, nontender, no mass. +Bowel sounds EXT: Full ROM, no edema, no rash Neuro: Grossly normal neurologic exam, conversant, interactive. Psych: Speech fluent, thoughts congruent, affect anxious Course Vital Signs Vital signs: Vital Signs Temperature 36.3 C L 02/09/22 20:31 Pulse 100 H 02/09/22 20:31 Respiratory Rate 16 02/09/22 20:31 Blood Pressure 134/77 02/09/22 20:31 Pulse Oximetry 100 02/09/22 20:31 Temperature 36.3 C L 02/09/22 20:31 Temperature Source Temporal Artery Scan 02/09/22 20:31 Pulse 100 H 02/09/22 20:31 Respiratory Rate 14 02/09/22 20:37 Respiratory Effort Non-Labored 02/09/22 20:37 Respiratory Depth Normal 02/09/22 20:37 Respiratory Pattern Normal 02/09/22 20:37 Blood Pressure 134/77 02/09/22 20:31 Blood Pressure Position Sitting 02/09/22 20:31 Pulse Oximetry 100 02/09/22 20:31 Oxygen Delivery Method Room Air 02/09/22 20:31 Oxygen Flow Rate 0 02/09/22 20:31 Pain Level 9 02/09/22 20:31 Comment 02/09/22 20:31
[2022-02-09 21:10] LABS: HCT 35.3 % (36.0-46.0); HGB 12.5 g/dL (11.2-15.7); MCH 31.8 pg (27.0-33.0); MCHC 35.4 % (32.0-36.0); MCV 90 fL (80-95); MPV 8.6 fL (8.0-11.0); Platelet Count 277 10^3/uL (130-400); RBC 3.93 10^6/uL (3.93-5.22); RDW 11.9 % (11.7-14.6); RDW-SD 39.7 fL; WBC 8.11 10^3/uL (4.4-10.8)
[2022-02-09 21:26] LABS: ALT 27 U/L (14-59); AST 20 U/L (15-37); Albumin 3.6 g/dL (3.4-5.0); Alkaline Phosphatase 110 U/L (46-116); Anion Gap 8.4 mmol/L (3-11); BUN 11 mg/dL (7-18); Bilirubin, Total 0.1 mg/dL (0.2-1.0); CO2 24.6 mmol/L (21.0-32.0); CREATININE 0.7 mg/dL (0.55-1.02); Calcium 8.4 mg/dL (8.5-10.1); Chloride 99 mmol/L (98-107); Creatine Kinase 194 U/L (26-192); ETHANOL BLOOD 101.7 mg/dL (<10); Glucose 100 mg/dL (74-106); Potassium 3.4 mmol/L (3.5-5.1); Sodium 132 mmol/L (136-145); Total Protein 6.9 g/dL (6.4-8.2)
== END 2022-02-09 21:58 | disposition home or self-care (01) ==
PROVIDERS: Emergency Provider Emergency Medicine; PCP Nurse Practitioner Family
DX: E87.1 Hypo-osmolality and hyponatremia (principal); I10 Essential (primary) hypertension; F17.210 Nicotine dependence, cigarettes, uncomplicated
CPT/HCPCS: 36415; 80053; 82550; 85027; 99282; 80320

== ENCOUNTER 2022-02-10 18:33 | Outpatient (REF) | payer MEDICAID, SELFPAY ==
[2022-02-10 15:45] LABS: Creatine Kinase 172 U/L (26-192); FREE T4 0.88 ng/dL (0.76-1.46); TSH 0.87 uIU/mL (0.36-3.74)
[2022-02-10 16:03] LABS: Sodium, Urine 106 mmol/L
[2022-02-10 22:05] LABS: Osmolality, Urine 570 mOsm/kg (150-1,150)
[2022-02-10 22:40] LABS: Osmolality Serum 286 mOsm/kg (275-295)
[2022-02-11 10:58] LABS: Sodium 133 mmol/L (136-145)
== END 2022-02-10 18:34 | disposition home or self-care (01) ==
LOC: NCHCN 18:33
PROVIDERS: PCP Nurse Practitioner Family; Visit Provider Nurse Practitioner Family
DX: E87.1 Hypo-osmolality and hyponatremia (principal); M79.18 Myalgia, other site; R89.9 Unspecified abnormal finding in specimens from other organs, systems and tissues
CPT/HCPCS: 82550; 83935; 83930; 84295; 84300; 84439; 84443

== ENCOUNTER → 2022-03-02 02:32 | Outpatient (CLI) | payer MEDICAID, SELFPAY ==
--- NOTE | 2022-03-02 11:15 | DI.US_ITS ---
Exam(s) US ABDOMEN EXAM: US ABDOMEN CLINICAL HISTORY: EPISODIC ALCOHOL ABUSE, F10.10, HEP B TECHNIQUE: Ultrasound abdomen performed using standard protocol. COMPARISON: No exams were available for comparison FINDINGS: ABDOMINAL AORTA AND IVC: Visualized portions normal caliber. PANCREAS: Normal where visualized. LIVER: Normal. Hepatopedal flow in the Portal Vein. GALLBLADDER:No evidence of cholelithiasis. No evidence of wall thickening. No pericholecystic fluid i dentified. BILIARY SYSTEM: Common bile duct measures < 7 mm. No intrahepatic biliary ductal dilation. MARIE'S SIGN: Negative. KIDNEYS: Kidneys are symmetric in size. No evidence of renal calculi. No evidence of hydronephrosis. No renal mass or cyst identified. SPLEEN: Not enlarged. ASCITES: None seen. IMPRESSION: Normal sonographic appearance of the upper abdomen. DATA REPOSITORY:
== END ==
PROVIDERS: PCP Nurse Practitioner Family; Visit Provider Nurse Practitioner Family
DX: F10.10 Alcohol abuse, uncomplicated (principal); B19.10 Unspecified viral hepatitis B without hepatic coma
CPT/HCPCS: 76700

== ENCOUNTER 2022-04-06 19:01 | Outpatient (REF) | payer MEDICAID, SELFPAY ==
[2022-04-06 15:52] LABS: Calculated LDL 164 mg/dL (<100); Cholesterol 238 mg/dL (<200); HDL Cholesterol 61 mg/dL (40-60); Sodium 134 mmol/L (136-145); Triglyceride 66 mg/dL (<150)
== END 2022-04-06 19:02 | disposition home or self-care (01) ==
LOC: NCHCN 19:01
PROVIDERS: PCP Nurse Practitioner Family; Visit Provider Nurse Practitioner Family
DX: E87.1 Hypo-osmolality and hyponatremia (principal); E78.5 Hyperlipidemia, unspecified
CPT/HCPCS: 80061; 84295

== ENCOUNTER 2022-05-10 09:45 | Day surgery (SDC) | payer MEDICAID, SELFPAY ==
--- NOTE | 2022-05-10 06:51 | W.COLOREPORT ---
Colonoscopy Report Date of procedure: 05/10/22 Pre-op diagnosis general: Colon Cancer Screening and Hx of polyps Post-op diagnosis procedure note: other (polyps and mild diverticulosis) Procedure: Colonoscopy with polypectomy Surgeon: Maryann Hennessy Anesthesia Type: General:No Airway Estimated blood loss (mL): 3 Pathology: other (descending polyp, sigmoid polyps and rectal polyp) Complications: None Disposition: same day Indications: The patient? is a pleasant? 57 -year-old female who is here to discuss another screening colonoscopy. ? She had 2 sessile serrated adenomas in 2017.? She denies any changes in bowel habits, melena, hematochezia, unintentional weight loss or family history of colon cancer.? The procedure and risks were discussed.? The prep was reviewed in detail.? Risks, benefits and complications have been reviewed. Complications include but are not limited to bleeding, pain, perforation, missed small lesion/polyp, sore throat, aspiration and adverse reaction to the medications. Questions were entertained and answered to their satisfaction and they wished to proceed. No guarantees were given or implied. Prep: Miralax/Dulcolax Procedure Start Time: 12:39 Procedure End Time: 13:08 Retraction Time: 21 minutes Findings: 6 small polyps and mild diverticulosis Procedure Description: After informed consent was obtained the patient was taken to the procedure room and placed in a left decubitous position. Monitors were applied and a time out was done. The patients name, date of , procedure, allergies to medications and metal in their body was reviewed. The patient was then sedated. Once sedated and comfortable a rectal exam was done. External exam was normal. Internal exam revealed a normal sphincter tone and no palpable masses. The scope was then introduced and retro-flexed. No internal hemorrhoids, polyps or masses were identified on retro-flexion. The scope was then advanced to the cecum without difficulty. The ileocecal vlave and appendiceal orifice were identified. The prep was good. The scope was then slowly retracted over 21 minutes back into the rectum. Polyps were removed with cold snare in the descending colon and with cold forceps in the sigmoid colon x4 and rectum x1. There was mild diverticulosis noted. The scope was removed and the patient was woken up and taken back to Same day surgery in stable condition. The patient tolerated the procedure well and there were no immediate complications.
--- NOTE | 2022-05-10 06:52 | W.PM.DSUDISC ---
Discharge Plan Disposition Patient Disposition: HOME Condition: Good Discharge Details Reason For Visit: Colonoscopy Attending Provider: Maryann Hennessy Primary Care Provider: China Herring Home Meds and New Rx's Prescriptions: Continued ibuprofen [Advil] 200 mg tablet 400 mg PO PRN dextroamphetamine-amphetamine [Adderall] 20 mg tablet 20 mg PO TID Rx Instructions: administer doses at least 4-6 hours apart citalopram 40 MG tablet 40 mg PO DAILY Qty: 90 trazodone 50 MG tablet 100 mg PO HS Qty: 20 Label Comments: Pt now taking 2 tabs @ HS Rx Instructions: 03/03/16 MR X1 after 1 hour. For sleep. [place] fluticasone furoate-vilanterol [Breo Ellipta] 100-25 mcg/dose blister with device 1 inh inhalation DAILY albuterol sulfate 90 mcg/actuation HFA aerosol inhaler 1 inh inhalation ONCE clonidine HCl 0.1 mg tablet 0.1 mg PO QHS acetaminophen [Pain Reliever Extra Strength] 500 MG tablet 500 mg PO Q8H PRN PRN Discontinued polyethylene glycol 3350 17 gram/dose powder 238 g PO ONCE Qty: 238 0RF Rx Instructions: take per colonoscopy instructions bisacodyl [Dulcolax (bisacodyl)] 5 mg tablet,delayed release (DR/EC) 5 mg PO ONCE Qty: 4 0RF Rx Instructions: take per colonoscopy instructions Discharge Instructions Instructions: Colorectal Polyps (DC), Diverticulosis (DC) Additional Instructions: Findings: mild diverticulosis polyps Follow up: 3-5 years depending on the pathology results Please call if you develop: fevers >101.5 Nausea or Vomiting Abdominal pain that is not transient Rectal bleeding that is more then a tbsp A hard abdomen and inability to pass gas DAY SURGERY UNIT POST ENDOSCOPY INSTRUCTIONS Instructions for everyone who is given Anesthesia: For your safety, please do the following for the next 24 Hours: a. Do not drive or operate dangerous equipment b. Do not drink alcohol beverages or use any recreational drugs for the first 24 hours or while taking pain medications. The medications in your body may have a reaction that can be dangerous. c. Do not make any important decisions or sign any important papers 1. Generally there are no restrictions on your activity after a day or so has gone by, but you may feel a bit fatigued for a few days. 2. After you arrive home you may have a light meal and return to a normal diet as you can tolerate it without feeling sick to your stomach. 3. After surgery, you may feel pain or discomfort. This should be only transient, but if it persists please contact your doctor. 4. If there are any questions regarding the findings of your procedure, please feel free to contact your doctor. 6. If you are unable to contact your doctor with a problem, contact the hospital at [phone]. 7. Continue all your regular medications unless directed otherwise. I understand the above instructions and have no questions. Signature of Patient or Responsible Adult Escort Date/Time Name of Responsible Adult Escort Signature of Nurse Date/Time Activity:: Activity as Tolerated Diet:: As Tolerated Discharge Orders Discharge Orders: Discharge Order (Routine); Ordered 05/10/22 Ordered By: Maryann Hennessy
[2022-05-10 10:29] VITALS: BP 120/73; PULSE 49; RESP 18; TEMP 36.4; O2SAT 100
[2022-05-10] MEDS: Lactated Ringers 1,000 ML 80 ML IV (10:51)
--- NOTE | 2022-05-10 11:50 | W.ANESPRE ---
General Info Date of Service Date Performed: 05/10/22 Height: 5 ft 6 in Weight: 60.951 kg Body Mass Index (BMI): 21.7 Surgical Procedure: Operation Date: 05/10/22 11:20 Proposed Procedure Side Surgeon p Colonoscopy Maryann Hennessy MD Meds Allergies and Home Medications Allergies Allergy/AdvReac Type Severity Reaction Status Date / Time morphine Allergy Itching Verified 05/07/22 15:35 Aenabil-FFS-XqU Reductase AdvReac Other (See Unverified 05/07/22 15:35 Inhibitor Comment) multivitamins AdvReac Other (See Uncoded 05/07/22 15:35 Comment) Home Medication Medication Instructions Recorded citalopram 40 mg tablet 40 mg PO DAILY #90 tab-caps 11/04/15 trazodone 50 mg tablet 100 mg PO HS #20 tab-caps 03/30/16 acetaminophen 500 mg tablet (Pain 500 mg PO Q8H PRN PRN 12/10/16 Reliever Extra Strength) ibuprofen 200 mg tablet (Advil) 400 mg PO PRN 12/12/18 albuterol sulfate 90 mcg/actuation 1 inh inhalation ONCE 08/11/21 aerosol inhaler clonidine HCl 0.1 mg tablet 0.1 mg PO QHS 08/11/21 fluticasone furoate 100 1 inh inhalation DAILY 08/11/21 mcg-vilanterol 25 mcg/dose inhalation powder (Breo Ellipta) bisacodyl 5 mg tablet,delayed 5 mg PO ONCE colonscopy bowel prep 04/30/22 release (Dulcolax (bisacodyl)) #4 tabs dextroamphetamine-amphetamine 20 20 mg PO TID 04/30/22 mg tablet (Adderall) polyethylene glycol 3350 17 238 g PO ONCE colonoscopy prep 04/30/22 gram/dose oral powder #238 grams Current Visit Medications: Current Medications Generic Name Dose Route Start Last Admin Trade Name Freq PRN Reason Stop Dose Admin Hyoscyamine Sulfate 0.125 mg 05/10/22 06:52 Hyoscyamine 0.125 Mg Sl/Oral/Chew SL DIRECTED PRN Ringer's Solution 1,000 mls @ 80 mls/hr 05/10/22 10:47 05/10/22 10:51 IV 80 mls/hr INFUSION FANTASMA Administration Ondansetron HCl 4 mg 05/10/22 06:52 Ondansetron 4 Mg/2 Ml Vial IVP Q4H PRN PRN Nausea / Vomiting PFSH Active Problems Active Problems: Problem Status Onset Code Screening for colon cancer Z12.11 Medical History Medical History Abscess of female genitalia (12/22/16) Adenomatous polyp of colon Alcohol abuse, in remission Anxiety Back pain, chronic BRCA2 positive Cannabis abuse Cervical spinal stenosis (12/23/15) Chronic pain of left wrist (08/20/15) Chronic sciatica of left side (08/20/15) Degenerative joint disease, shoulder, right Depression Depression with suicidal ideation (08/20/15) ETOH abuse Grief at loss of child Hepatitis B Hyperlipidemia Hypertension Nightmare disorder Panic disorder Post traumatic stress disorder (08/20/15) due to of daughter Seizure Pt. states she had seizures when she stopped drinking. Last seizure was 2.5 years ago per pt. Sessile colonic polyp Tobacco abuse Surgical History Surgical History (L) wrist surgery gomez Cervical disc surgery Colonoscopy - MAC (09/27/16) elbow surgery facial plastics dog bite History of arthroplasty of right shoulder hysterectomy uterus present Oophrectomy, Both Tobacco Smoking/Tobacco Use Status: Current every day Tobacco Type: cigarettes Alcohol Alcohol Intake: current Alcohol intake frequency: a few times a week Alcohol type: beer Substance Use Substance use: Never Substance use type: marijuana Details: Pt states 1/2ppd tobacco Prental History History 2 Para 2 Hx # Term Pregnancies 2 Multiple births Hx # Pregnancies Ectopic pregnancies AB induced Hx Number of Living Children 2 AB spontaneous Vital Signs and Lab Results Vital Signs Most Recent Vital Signs in EMR: Most Recent Vital Signs Temp Pulse Resp BP Pulse Ox 36.4 C L 49 L 18 120/73 100 05/10/22 10:29 05/10/22 10:29 05/10/22 10:29 05/10/22 10:29 05/10/22 10:29 Lab Results Blood Type / Crossmatch: No Data to Display Complete Blood Count: No Data to Display Complete Metabolic Panel: No Data to Display Liver Function Panel: No Data to Display Coagulation Panel: No Data to Display Cardiac Panel: No Data to Display Arterial Blood Gas: No Data to Display Venous Blood Gas: No Data to Display Pancreas Panel: No Data to Display Thyroid Panel: No Data to Display Infectious Disease: No Data to Display Blood Cultures: No Data to Display Toxicology Panel: No Data to Display Anesthesia Assessment and Plan Anesthesia History Personal History: No History of Anesthesia Complications Family History: No Family History of Anesthesia Complications Exercise Tolerance Exercise Tolerance: Metabolic Equivalents>4 Pertinent Negatives Pertinent Negatives: No Symptoms of GERD Cardiac & Pulmonary Exam Cardiac Exam: Normal S1/S2 Heart Sounds Pulmonary Exam: Clear Bilateral Breath Sounds Implantable Cardiac Device Does patient have a Pacemaker or an ICD?: No Airway Exam Known Difficult Airway: No Mallampati Class: 3 Mouth Opening: Normal (> 3cm) Thyromental Distance: Greater than 3 cm Neck Range of Motion: Full ROM Neck Circumference: Normal Teeth Condition: Normal Dentition ASA Classification ASA Score: ASA 2 Emergency Case?: No NPO Status NPO Status: NPO Clears >2 hours, Solids >8 hours Anesthesia Plan Resuscitation Status: Full Code Anesthesia Technique: General Anesthesia Airway Planned: Natural Airway Pain Management: Surgeon and patient request nerve block Monitors Used: Standard Monitors
[2022-05-10 11:58] VITALS: BMI 21.7
--- NOTE | 2022-05-10 12:56 | BOWEL_PTH ---
PATIENT: Maria Isabel Brian LOC: [facility] U#:[id number] AGE/SX: 57/F ROOM: RE05/10/[address]: Maryann Hennessy MD : 1965 BED: DIS: 05/10/2022 SPEC #: [id number] RECD: 05/10/22 16:31 STATUS: MARLEY RE #: [id number] MAHAMED: 05/10/22 12:[address]: Maryann Hennessy DEPT: Surgical Specimen RECD BY: Anita Bradford ENTERED: 05/10/22 16:32 SP TYPE: Bowel OTHR DR: China Herring Tissues: 1 - BIOPSY BOWEL 2 - BIOPSY BOWEL 3 - BIOPSY BOWEL Procedures: GROSS AND MICRO LEVEL 4 Comments: [id number]
[2022-05-10 13:22] VITALS: BP 137/86; PULSE 58; RESP 18; TEMP 36.4; O2SAT 99
--- NOTE | 2022-05-10 13:30 | W.ANESPOSTOP ---
Postoperative Evaluation Date, Time and Location Date Performed: 05/10/22 Time Performed: 13:58 Patient Location: Day Surgery Unit Vital Signs Most Recent Imported Vital Signs: Most Recent Vital Signs Temp Pulse Resp BP Pulse Ox 36.4 C L 49 L 18 120/73 100 05/10/22 10:29 05/10/22 10:29 05/10/22 10:29 05/10/22 10:29 05/10/22 10:29 Most Recent Manually Entered Vital Signs: Adult Blood Pressure: 137/86 Heart Rate: 58 Respirations: 18 Oxygen Saturation (%): 99 Temperature (C): 36.4 C Pain Score (0-10 Scale): 0 Pain Score Most Recent Pain Score: Most Recent Pain Score Pain Level 0 05/10/22 10:29 Assessment Mental Status: Awake (Alert & Oriented to Patient Baseline) Airway and Respiratory Function: Patent airway with normal (patient baseline) respiratory exam Cardiovascular Function: Hemodynamically Stable Hydration Status: Adequately Hydrated Nausea & Vomiting: No Nausea or Vomiting Pain: Pt. Denies Any Pain Peripheral Nerve Block: Patient did not receive a nerve block
[2022-05-10 13:45] VITALS: BP 131/78; PULSE 52; RESP 18; TEMP 36.5; O2SAT 99
[2022-05-10 14:01] VITALS: BP 137/86; PULSE 58; RESP 18; TEMPC 36.4; O2SAT 99
--- NOTE | 2022-05-10 14:04 | W.ANESPOSTOP ---
Postoperative Evaluation Date, Time and Location Date Performed: 05/10/22 Time Performed: 14:04 Patient Location: Day Surgery Unit Vital Signs Most Recent Imported Vital Signs: Most Recent Vital Signs Temp Pulse Resp BP Pulse Ox 36.5 C 52 L 18 131/78 99 05/10/22 13:45 05/10/22 13:45 05/10/22 13:45 05/10/22 13:45 05/10/22 13:45 Most Recent Vital Signs Temp Pulse Resp BP Pulse Ox 36.4 C L 49 L 18 120/73 100 05/10/22 10:29 05/10/22 10:29 05/10/22 10:29 05/10/22 10:29 05/10/22 10:29 Pain Score Most Recent Pain Score: Most Recent Pain Score Pain Level 0 05/10/22 13:45 Assessment Mental Status: Awake (Alert & Oriented to Patient Baseline) Airway and Respiratory Function: Patent airway with normal (patient baseline) respiratory exam Cardiovascular Function: Hemodynamically Stable Hydration Status: Adequately Hydrated Nausea & Vomiting: No Nausea or Vomiting Pain: Pt. Denies Any Pain Peripheral Nerve Block: Patient did not receive a nerve block
== END 2022-05-10 14:09 | disposition home or self-care (01) ==
PROVIDERS: PCP Nurse Practitioner Family; Visit Provider Surgery
PROC: 0DJD8ZZ Inspection of Lower Intestinal Tract, Via Natural or Artificial Opening Endoscopic (ICD-10-PCS; CPT 45378; principal; 2022-05-10 11:15)
DX: Z12.11 Encounter for screening for malignant neoplasm of colon (principal); K63.5 Polyp of colon; K57.30 Diverticulosis of large intestine without perforation or abscess without bleeding; Z86.010 Personal history of colon polyps
CPT/HCPCS: 45385; 45380; 88305; J2704

== ENCOUNTER → 2022-07-29 01:02 | Outpatient (CLI) | payer MEDICAID, SELFPAY ==
--- NOTE | 2022-07-29 | DI.MAMMO_ITS ---
Exam(s) MG MAMMO SCREENING 60 MIN DUR EXAM: MG MAMMO SCREENING 60 MIN DUR CLINICAL HISTORY: SCREENING, IMPLANTS, Z12.31 HIGH RISK TECHNIQUE: Mammograms were interpreted according to the usual protocol including computer analysis w ith CAD system, tomosynthesis and C-view imaging. Implant displaced views were also performed. COMPARISON: 2015 through 2019 FINDINGS: The breasts are composed of scattered fibroglandular densities, Breast Density category B. There are bilateral subglandular saline breast implants which appear intact. There is mild calcifica tion along the margin of the implants bilaterally. No suspicious masses or suspicious microcalcifications are seen. No skin thickening or abnormal axillary lymph nodes are seen. There has been no significant change from prior exams. IMPRESSION: BI-RADS Category 1, Negative mammogram Yearly screening mammography is recommended. Breast Density - Category B, scattered fibroglandular densities. A negative radiographic report should not delay biopsy if a dominant or clinically suspicious mass is present. Up to ten percent of cancers are not identified on mammography. A negative report may reinforce clinical impression. Adenosis and dense breasts may obscure an underlying neoplasm. False positive reports average 6 to 10%. Patient will receive a letter notifying them of these results.
== END ==
PROVIDERS: PCP Nurse Practitioner Family; Visit Provider Nurse Practitioner Family
DX: Z12.31 Encounter for screening mammogram for malignant neoplasm of breast (principal)
CPT/HCPCS: 77063; 77067

== ENCOUNTER 2022-08-11 14:53 | Outpatient (REF) | payer MEDICARE, MEDICAID, SELFPAY | END 2022-08-11 14:54 | disposition home or self-care (01) | LOC: LBN 14:53 | PROVIDERS: PCP Nurse Practitioner Family; Visit Provider Physician Assistant Medical | DX: Z11.8 Encounter for screening for other infectious and parasitic diseases (principal); R19.5 Other fecal abnormalities | CPT/HCPCS: 87177 ==

== ENCOUNTER 2023-03-28 12:57 | Outpatient (REF) | payer MEDICARE, SELFPAY ==
[2023-03-28 17:23] LABS: ALT 29 U/L (14-59); AST 29 U/L (15-37); Albumin 3.8 g/dL (3.4-5.0); Alkaline Phosphatase 129 U/L (46-116); Anion Gap 8.1 mmol/L (3-11); BUN 8 mg/dL (7-18); Bilirubin, Total 0.6 mg/dL (0.2-1.0); CO2 26.9 mmol/L (21.0-32.0); CREATININE 0.8 mg/dL (0.55-1.02); Chloride 93 mmol/L (98-107); Estimated GFR 85.89 (mL/min/1.73m2); Glucose 134 mg/dL (74-106); HDL Cholesterol 79 mg/dL (40-60); LDL CHOLESTEROL 153 mg/dL (<100); Potassium 3.8 mmol/L (3.5-5.1); Sodium 128 mmol/L (136-145); Total Protein 7.6 g/dL (6.4-8.2)
[2023-03-28 17:41] LABS: Creatine Kinase 241 U/L (26-192)
== END 2023-03-28 12:58 | disposition home or self-care (01) ==
LOC: NCHCN 12:57
PROVIDERS: PCP Nurse Practitioner Family; Visit Provider Nurse Practitioner Family
DX: E78.5 Hyperlipidemia, unspecified (principal)
CPT/HCPCS: 80053; 82550; 83721; 83718

== ENCOUNTER 2023-06-29 13:48 | Outpatient (REF) | payer MEDICARE, SELFPAY ==
[2023-06-29 19:14] LABS: ALT 28 U/L (14-59); AST 21 U/L (15-37); Albumin 3.9 g/dL (3.4-5.0); Alkaline Phosphatase 105 U/L (46-116); Anion Gap 6.1 mmol/L (3-11); BUN 7 mg/dL (7-18); Bilirubin, Total 0.3 mg/dL (0.2-1.0); CO2 26.9 mmol/L (21.0-32.0); CREATININE 0.7 mg/dL (0.55-1.02); Calcium 9.2 mg/dL (8.5-10.1); Chloride 94 mmol/L (98-107); Estimated GFR 100.19 (mL/min/1.73m2); Glucose 96 mg/dL (74-106); HDL Cholesterol 66 mg/dL (40-60); LDL CHOLESTEROL 136 mg/dL (<100); Potassium 4.2 mmol/L (3.5-5.1); Sodium 127 mmol/L (136-145); Total Protein 7.4 g/dL (6.4-8.2)
[2023-06-29 19:32] LABS: Bilirubin, Direct 0.1 mg/dL (0.0-0.2); Creatine Kinase 121 U/L (26-192)
== END 2023-06-29 13:49 | disposition home or self-care (01) ==
LOC: NCHCN 13:48
PROVIDERS: PCP Nurse Practitioner Family; Visit Provider Nurse Practitioner Family
DX: E87.1 Hypo-osmolality and hyponatremia (principal); E78.5 Hyperlipidemia, unspecified
CPT/HCPCS: 80048; 80076; 82550; 83721; 83718

== ENCOUNTER 2023-09-26 10:37 | Outpatient (REF) | payer MEDICARE, SELFPAY ==
[2023-09-26 15:33] LABS: HCT 35.1 % (36.0-46.0); HGB 11.9 g/dL (11.2-15.7); MCH 31.9 pg (27.0-33.0); MCHC 33.9 % (32.0-36.0); MCV 94 fL (80-95); MPV 8.6 fL (8.0-11.0); Platelet Count 376 10^3/uL (130-400); RBC 3.73 10^6/uL (3.93-5.22); RDW 12.4 % (11.7-14.6); RDW-SD 43.1 fL; WBC 6.07 10^3/uL (4.4-10.8)
[2023-09-26 16:21] LABS: Anion Gap 7.9 mmol/L (3-11); BUN 10 mg/dL (7-18); CO2 27.1 mmol/L (21.0-32.0); CREATININE 0.7 mg/dL (0.55-1.02); Calcium 8.7 mg/dL (8.5-10.1); Chloride 96 mmol/L (98-107); Estimated GFR 100.19 (mL/min/1.73m2); Glucose 103 mg/dL (74-106); Potassium 4.4 mmol/L (3.5-5.1); Sodium 131 mmol/L (136-145)
== END 2023-09-26 10:38 | disposition home or self-care (01) ==
LOC: NCHCN 10:37
PROVIDERS: PCP Nurse Practitioner Family; Referring Provider Nurse Practitioner Family; Visit Provider Nurse Practitioner Family
DX: E87.1 Hypo-osmolality and hyponatremia (principal)
CPT/HCPCS: 80048; 85027

== ENCOUNTER 2024-01-20 12:56 | Outpatient (REF) | payer MEDICARE, SELFPAY ==
[2024-01-20 16:06] LABS: HCT 37.1 % (36.0-46.0); MCH 32.7 pg (27.0-33.0); MCV 93 fL (80-95); MPV 8.9 fL (8.0-11.0); Platelet Count 324 10^3/uL (130-400); RBC 3.98 10^6/uL (3.93-5.22); RDW-SD 41.8 fL; WBC 7.64 10^3/uL (4.4-10.8)
[2024-01-20 16:30] LABS: ALT 20 U/L (14-59); AST 16 U/L (15-37); Albumin 3.6 g/dL (3.4-5.0); Alkaline Phosphatase 129 U/L (46-116); Anion Gap 10.7 mmol/L (3-11); BUN 10 mg/dL (7-18); Bilirubin, Total 0.3 mg/dL (0.2-1.0); CO2 26.3 mmol/L (21.0-32.0); CREATININE 0.7 mg/dL (0.55-1.02); Calcium 9.1 mg/dL (8.5-10.1); Calculated LDL 149 mg/dL (<100); Chloride 100 mmol/L (98-107); Cholesterol 228 mg/dL (<200); Estimated GFR 100.19 (mL/min/1.73m2); Glucose 94 mg/dL (74-106); HDL Cholesterol 53 mg/dL (40-60); Potassium 4.1 mmol/L (3.5-5.1); Sodium 137 mmol/L (136-145); Triglyceride 131 mg/dL (<150)
== END 2024-01-20 12:57 | disposition home or self-care (01) ==
LOC: NCHCN 12:56
PROVIDERS: PCP Nurse Practitioner Family; Visit Provider Family Medicine
DX: E78.5 Hyperlipidemia, unspecified (principal); I10 Essential (primary) hypertension
CPT/HCPCS: 80053; 80061; 85027

== ENCOUNTER 2025-04-02 15:34 | Outpatient (REF) | payer MEDICARE, SELFPAY | END 2025-04-02 15:35 | disposition home or self-care (01) | LOC: NCHCN 15:34 | PROVIDERS: PCP Family Medicine; Visit Provider Family Medicine | DX: H60.532 Acute contact otitis externa, left ear (principal) | CPT/HCPCS: 87077; 87070; 87186; 87205 ==

== ENCOUNTER 2025-05-03 03:53 | Outpatient (CLI) | payer MEDICARE, SELFPAY ==
--- NOTE | 2025-05-03 | DI.CTLCSR_ITS ---
Exam(s) CT CHEST LUNG CANCER SCREEN EXAM: CT CHEST LUNG CANCER SCREEN CLINICAL HISTORY: NICOTINE DEPENDENCE CIGARETTES F17.210 SCREENING LUNG CANCER TECHNIQUE: Imaging Protocol: Axial computed tomography images with coronal and sagittal reformatted images were created and reviewed. Lung Computer Aided Detection (CAD) was utilized. COMPARISON: CT CT CHEST LUNG CANCER SCREEN from 05/07/[address] CHEST LUNG CANCER SCREEN from 01/29/2022 FINDINGS: Tracheobronchial tree: Patent where visualized. No bronchiectasis. Pulmonary parenchyma: No consolidation or dominant measurable mass. Moderate emphysematous changes are present in the lungs. Lung Nodules: There are stable nodules associated with the left major fissure. There are no new pulmonary nodules. Mediastinum and Vicki: No dominant adenopathy or fluid collection. The esophagus is unremarkable. Thyroid gland: Unremarkable. Lymph nodes: Unremarkable. Pleura: No effusion or pneumothorax. Heart: The heart is not dilated. Mild coronary artery calcification is present. No pericardial effusion. Aorta: Thoracic aorta non-dilated.Calcification is present. Upper abdomen: Unremarkable. Soft Tissues: There are bilateral breast implants. Bones: Within normal limits. There is a right shoulder arthroplasty. IMPRESSION: Stable perifissural pulmonary nodules. There are no new pulmonary nodules present. Lung RADS Cat 2 - Benign Appearance / Behavior: Nodules with a very low likelihood of becoming a clinically active cancer due to size or lack of growth Lung-RADS 1.0 CATEGORIES: Category 0 - Prior chest CT exam(s) being located for comparison. Category 1 - Annual screening in 12 months. No nodules or definitely benign nodules. Category 2 - Annual screening in 12 months. Benign appearance. Nodules with low likelihood of becoming active cancer. Category 3 - 6-month follow-up. Probably benign. Short-term follow-up suggested. Nodules with low likelihood of becoming active cancer. Category 4A - 3-month follow-up and CT/PET if >8 mm in size. Suspicious finding. Findings which require additional testing. Category 4B - Findings which require additional testing and tissue sampling. Suspicious finding. Category 4X - Category 3 or 4 nodules with additional features or imaging findings that increases the suspicion of malignancy. Modifier S- Potentially clinically significant finding. (Non lung cancer) RADIATION DOSE DELIVERED: 22.85mGy.cm Total DLP 22.85mGy.cmTotal DLP DATA REPOSITORY: All CT scans at this facility are submitted to the National Radiology Data Registry (NRDR) Dose Index Registry (DIR) with the [employer] ([employer]). RADIATION OPTIMIZATION: All CT scans at this facility use at least one of these dose optimization techniques: automated exposure control; mA and/or kV adjustment per patient size (includes targeted exams where dose is matched to clinical indication); or iterative reconstruction.
--- NOTE | 2025-05-03 | DI.MAMMO_ITS ---
Exam(s) MAMMO SCREENING EXAM: MAMMO SCREENING CLINICAL HISTORY: SCREENING MAMMO Z12.31 TECHNIQUE: Mammograms were interpreted according to the usual protocol including computer analysis with CAD system, tomosynthesis and C-view imaging. Implant displaced views were performed in addition to the routine views. COMPARISON: 2015 through 2021 FINDINGS: The breasts are composed of scattered fibroglandular densities, Breast Density category B. Bilateral saline implants are again noted which are intact. Benign calcifications are again noted bilaterally. No suspicious masses or suspicious microcalcifications are seen. No skin thickening or abnormal axillary lymph nodes are seen. There has been no significant change from prior exams. IMPRESSION: BI-RADS Category 2 - Benign Findings Yearly screening mammography is recommended. Breast Density - Category B - There are scattered areas of fibroglandular density. Breast density Category C or D implies that the patient has dense breast tissue. Dense breast tissue can make it harder to find cancer on a mammogram. Dense breast tissue is also associated with an increased risk of breast cancer. This information about the result of the mammogram report was provided to the patient to raise their awareness. Use this report when you speak with the patient about their risks for breast cancer, which includes their family history. At that time, you may recommend additional screening tests (Ultrasound or MRI) as these tests may add significant information. A negative radiographic report should not delay biopsy if a dominant or clinically suspicious mass is present. Up to ten percent of cancers are not identified on mammography. A negative report may reinforce clinical impression. Adenosis and dense breasts may obscure an underlying neoplasm. False positive reports average 6 to 10%. Patient will receive a letter notifying them of these results.
== END 2025-05-03 04:13 ==
LOC: DI 03:53
PROVIDERS: PCP Family Medicine; Visit Provider Family Medicine
DX: Z12.31 Encounter for screening mammogram for malignant neoplasm of breast (principal); Z12.2 Encounter for screening for malignant neoplasm of respiratory organs; F17.210 Nicotine dependence, cigarettes, uncomplicated; Z96.89 Presence of other specified functional implants; R92.323 Mammographic fibroglandular density, bilateral breasts; R91.1 Solitary pulmonary nodule
CPT/HCPCS: 71271; 77063; 77067